=== PATIENT | male | born 1945 | race Caucasian/White ===

== ENCOUNTER 2018-06-19 12:05 | Emergency (ER) | payer MEDICARE ==
[2018-06-19 12:29] LABS: Absolute Lymphocytes (CBC) 0.6 K/uL (0.7-4.9); Absolute Monocytes 0.3 K/uL (0.1-1.3); Absolute Neutrophil 6.6 K/uL (1.8-8.0); Basophils % 0.3 % (0-1.3); Eosinophils % 2.3 % (0-4.4); Hematocrit 44.6 % (39.6-49.0); Lymphocytes % 8.1 % (15.3-44.8); MCH 31.5 pg (27.0-35.0); MPV 8.6 fL (7.6-11.3); Monocytes % 4.5 % (3.3-12.3); RBC Red Blood Cell Count 4.89 M/uL (4.33-5.43)
--- NOTE | 2018-06-19 12:32 | RAD REPORT ---
EXAM DESCRIPTION: CT - Ct Stroke Brain Wo Cont - 06/19/2018 12:24 pm CLINICAL HISTORY: HEMIPLEGIA CVA COMPARISON: C Spine Wo Con dated 06/19/2018 TECHNIQUE: All CT scans are performed using dose optimization technique as appropriate and may inclu de automated exposure control or mA/KV adjustment according to patient size. FINDINGS: No intracranial hemorrhage, hydrocephalus or extra-axial fluid collection.Generalized brai n atrophy is present.No areas of brain edema or evidence of midline shift. The paranasal sinuses and mastoids are clear. The calvarium is intact. IMPRESSION: No acute intracranial abnormality. The findings were discussed with CHERIE Hernandez on 06/19/2018 at 12:27 p.m. by telephone.
[2018-06-19 12:33] LABS: Protime INR 1.03
--- NOTE | 2018-06-19 12:39 | RAD REPORT ---
EXAM DESCRIPTION: CT - C Spine Wo Con - 06/19/2018 12:25 pm CLINICAL HISTORY: FALL Trauma, neck injury. COMPARISON: No comparisons FINDINGS: The cervical vertebral body heights are maintained. Moderate spondylosis is the lower cerv ical spine is present. No evidence of acute cervical spine fracture or subluxation. Prevertebral soft tissues are normal in thickness. IMPRESSION: Negative for acute cervical spine abnormality. All CT scans are performed using dose optimization technique as appropriate and may include automated exposure control or mA/KV adjustment according to patient size.
[2018-06-19 12:42] LABS: Potassium 4.1 mmol/L (3.5-5.1)
--- NOTE | 2018-06-19 12:43 | RAD REPORT ---
EXAM DESCRIPTION: RAD - Chest Single View - 06/19/2018 12:37 pm CLINICAL HISTORY: TRAUMA Chest pain. COMPARISON: CHEST PA AND LAT 2 VIEW dated 05/11/2013 FINDINGS: Portable technique limits examination quality. The lungs are grossly clear. The heart is normal in size. No displaced fractures. IMPRESSION: No acute intrathoracic process suspected.
--- NOTE | 2018-06-19 12:50 | EKG ---
Test Date: 2018-06-19 Test Time: 12:28:21 Retail Equipment Associate: UDAY MEASUREMENT RESULTS: Intervals: Rate: 64 VT: 162 QRSD: 96 QT: 398 QTc: 410 [place]: P: 60 VT: 162 QRS: -35 T: 69 INTERPRETIVE STATEMENTS: Normal sinus rhythm Left axis deviation Abnormal ECG No previous ECG available for comparison Electronically Signed On 06-19-18 12:50:35 CDT by Freeman Shaffer
[2018-06-19] MEDS ORDERED: ALTEPLASE 100 ML IV ONE (12:53)
[2018-06-19] MEDS ORDERED: NA CHLORIDE 0.9% 1,000 ML ONE (13:00)
[2018-06-19] MEDS ORDERED: FOLIC ACID 5 MG/ML VIAL ONE (13:00)
--- NOTE | 2018-06-19 13:16 | RAD REPORT ---
EXAM DESCRIPTION: CT - Chest Abdomen Pelvis W Cont - 06/19/2018 1:01 pm CLINICAL HISTORY: Fall, chest, abdomen and pelvic injury and pain, patient pending tPA for acute CVA COMPARISON: None. TECHNIQUE: Following dynamic enhancement using 100 milliliters nonionic IV contrast, axial imaging o f the chest, abdomen and pelvis was performed. Biphasic technique was utilized through the abdomen. No oral contrast. Venous phase was delayed due to equipment malfunction. All CT scans are performed using dose optimization technique as appropriate and may include automated exposure control or mA/KV adjustment according to patient size. FINDINGS: In the anterior upper right lung field (image 23/105) a 14 millimeter noncalcified pulmona ry nodule is present. This demonstrates a -28 HU attenuation value. No pulmonary contusion, infiltrat e or acute lung parenchymal process. No pneumothorax or pleural fluid collection. No significant aort ic or pulmonary arterial tree finding. Mediastinal and hilar regions show no mass or abnormal lymphad enopathy. No chest wall mass or axillary lymphadenopathy. No posttraumatic injury to the liver, spleen or kidneys. Renal function is prompt and symmetric. No p ancreatic or peripancreatic abnormality. Gallbladder and biliary tree show no acute findings. Gallsto jax can be occult on CT imaging. No adrenal abnormalities. No traumatic injury to the bowel. No urinary bladder abnormality. No free fluid, stranding or acute p eritoneal or retroperitoneal process. Prominent disc and bony degenerative change present. No acute compression fracture suspected. No path ologic bone process. Vascular calcifications are present. IMPRESSION: No CT chest, abdomen or pelvis finding seen that would preclude tPA administration. Small incidental hamartoma right upper lobe on CT chest exam.Additional nonacute findings detailed in the body of the report.
--- NOTE | 2018-06-19 13:27 | ER ---
Nurse's Notes [facility] Name: Darwin Hand Age: 72 yrs Sex: Male : 1945 Arrival Date: 06/19/2018 Time: 12:08 Bed 3 Private MD: Diagnosis: Cerebral infarction Presentation: 06/19 12:05 Presenting complaint: EMS states: at 11 am pt tripped on concrete ledge while walking iw into house, hit left side of head against concrete wall, no LOC, pt then fell to his knees, laid there for a bit until EMS and son got there, pt then started to c/o right neck pain and weakness to right arm, no hx of weakness to right arm, abrasions noted to left side of head, left elbow, left knee, also has laceration to right thumb. Care prior to arrival: Cervical collar in place. IV initiated. 18 GA, in the right antecubital area, Glucose check: 144. Mechanism of Injury: Fall from standing position. Trauma event details: Injury occurred in the [facility], Injury occurred: at home. Injury occurred: June 19, 2018 Injury occurred at: 11:00. 12:05 Acuity: MARIA GUADALUPE 2 iw 12:05 Method Of Arrival: EMS: [facility] iw 12:09 Transition of care: patient was not received from another setting of care. The patients iw blood glucose was checked before arriving to the hospital and was found to be normal. Onset of symptoms was June 19, 2018 at 11:00. Risk Assessment: Do you want to hurt yourself or someone else? Patient reports no desire to harm self or others. Initial Sepsis Screen: Does the patient meet any 2 criteria? No. Patient's initial sepsis screen is negative. Does the patient have a suspected source of infection? No. Patient's initial sepsis screen is negative. Triage Assessment: 19:54 The onset of the patients symptoms was June 19, 2018 at 11:45. ph Trauma Activation: Alert Physician: ED Physician; Name: ; Notified At: ; Arrived At: Physician: General Surgeon; Name: ; Notified At: ; Arrived At: Physician: Radiology; Name: ; Notified At: ; Arrived At: Physician: Respiratory; Name: ; Notified At: ; Arrived At: Physician: Lab; Name: ; Notified At: ; Arrived At: Stroke Activation: Symptom onset < 3 hours Physician: Stroke Attending; Name: ; Notified At: ; Arrived At: Physician: Chief Stroke Resident; Name: ; Notified At: ; Arrived At: Physician: Stroke Resident; Name: ; Notified At: ; Arrived At: Physician: ED Attending; Name: ; Notified At: ; Arrived At: Physician: ED Resident; Name: ; Notified At: ; Arrived At: Historical: - Allergies: 12:25 Sulfa (Sulfonamide Antibiotics); iw - Home Meds: 12:25 Lantus 100 unit/mL Sub-Q soln [Active]; benazepril oral oral [Active]; Metformin Oral iw [Active]; rivastigmine tartrate oral oral [Active]; - PMHx: 12:25 Hypertension; Dementia; Diabetes - IDDM; iw - Immunization history:: Adult Immunizations unknown. - Social history:: Smoking status: Patient/guardian denies using tobacco. - Immunization history: Last tetanus immunization: unknown. - Ebola Screening: : Patient negative for fever greater than or equal to 101.5 degrees Fahrenheit, and additional compatible Ebola Virus Disease symptoms Patient denies exposure to infectious person Patient denies travel to an Ebola-affected area in the 21 days before illness onset No symptoms or risks identified at this time. Screenin:22 Abuse screen: Denies threats or abuse. Denies injuries from another. Nutritional ph screening: No deficits noted. Tuberculosis screening: No symptoms or risk factors identified. Fall Risk Fall in past 12 months (25 points). Secondary diagnosis (15 points) dementia, IV access (20 points). Ambulatory Aid- None/Bed Rest/Nurse Assist (0 pts). Gait- Normal/Bed Rest/Wheelchair (0 pts) Mental Status- Oriented to own ability (0 pts). Total Lanier Fall Scale indicates High Risk Score (45 or more points). Fall prevention measures have been instituted. Side Rails Up X 2 Placed Close to Nursing Station Frequent Obs/Assessments Occuring As available patient and family educated on Fall Prevention Program and Strategies. Primary Survey: 12:05 A: Airway: patent. Breathing/Chest: Respiratory pattern: regular, Respiratory effort: iw spontaneous, unlabored, Breath sounds: clear, bilaterally. Chest inspection: symmetrical rise and fall of the chest. Circulation: Cardiac rhythm: sinus rhythm Heart tones present. Pulses: palpable right radial artery, right femoral artery, left radial artery and left femoral artery. Skin color: pink, Skin temperature: warm, dry. Disability Alert. 12:11 Reassessment Airway Airway Patent Breathing/Chest Respiratory pattern Regular iw Respiratory effort Spontaneous Unlabored Breath sounds Clear Circulation Heart tones Present Pulses Palpable Color [place] Disability Alert. Assessment: 12:05 General: Appears in no apparent distress. Behavior is calm, cooperative. Pain: Denies iw pain. Neuro: Level of Consciousness is awake, alert, obeys commands, Oriented to person, place, time, Weakness in right arm(s) Speech is normal. Respiratory: Respiratory effort is even, unlabored, Respiratory pattern is regular, symmetrical. Injury Description: Abrasion sustained to left elbow. Injury Description: Abrasion sustained to left knee. Injury Description: Abrasion sustained to left catholic. 12:11 Reassessment: Paul at bedside to assess pt. iw 12:15 Reassessment: pt transported to Ct via stretcher, with DIXON DUONG, with network technical analyst. iw 12:26 Reassessment: Patient appears in no apparent distress at this time. Pt returned from CT, radiology at bedside for CXR. 12:38 Reassessment: family at bedside, CHERIE Miller, at bedside to re-evaluate pt. iw 12:50 T-PA (Activase) Screening: Indications: Definite evidence of stroke, ischemic, embolic, iw or hypertensive: Yes. Treatment will start within 4.5 hours onset of symptoms: Yes. No evidence of intracranial hemorrhage or CT of head and no evidence of peripheral hemorrhage or recent CVA: Yes. 12:52 Reassessment: Patient is alert, oriented x 3, equal unlabored respirations, skin ph warm/dry/pink. Dr Carlson at bedside to assess pt, pt to receive TPA after negative trauma-gram. 13:20 Patient has been NPO before screening. The patient is alert, and able to follow commands. The patient does not exhibit slurred or garbled speech. The patient is not exhibiting difficulty speaking. The patient does not exhibit difficulty understanding words. The patient is able to swallow own secretions with no drooling or need for suction. Patient tolerated one teaspoon of water. No drooling, immediate coughing, gurgling, or clearing of the throat was noted. The patient tolerated 90mL of water. No drooling, immediate coughing, gurgling, or clearing of the throat was noted. The patient passed the bedside swallow screening. Oral medications may be given as ordered. Contact Physician for further diet orders. 13:20 Provider notified of bedside swallow screening results: Paul CRESPO. ph 14:00 Reassessment: Patient appears in no apparent distress at this time. No changes from ph previously documented assessment. Patient is alert, oriented x 3, equal unlabored respirations, skin warm/dry/pink. [employer] at bedside, preparing pt for transport. Vital Signs: 12:11 BP 183 / 59; Pulse 64; Resp 16; Temp 97.6; Pulse Ox 96% on R/A; Pain 0/10; iw 12:48 Weight 88.45 kg; iw 13:15 BP 163 / 94; Pulse 72; Resp 18; Pulse Ox 98% on R/A; ph 13:55 BP 167 / 78; Pulse 74; Resp 16; Temp 97.9; Pulse Ox 99% on R/A; ph Patterson Coma Score: 12:11 Eye Response: spontaneous(4). Verbal Response: oriented(5). Motor Response: obeys iw commands(6). Total: 15. 13:15 Eye Response: spontaneous(4). Verbal Response: oriented(5). Motor Response: obeys ph commands(6). Total: 15. 13:55 Eye Response: spontaneous(4). Verbal Response: oriented(5). Motor Response: obeys ph commands(6). Total: 15. Trauma Score (Adult): 12:11 Eye Response: spontaneous(1); Verbal Response: oriented(1); Motor Response: obeys iw commands(2); Systolic BP: > 89 mm Hg(4); Respiratory Rate: 10 to 29 per min(4); Patterson Score: 15; Trauma Score: 12 13:15 Eye Response: spontaneous(1); Verbal Response: oriented(1); Motor Response: obeys ph commands(2); Systolic BP: > 89 mm Hg(4); Respiratory Rate: 10 to 29 per min(4); Patterson Score: 15; Trauma Score: 12 13:55 Eye Response: spontaneous(1); Verbal Response: oriented(1); Motor Response: obeys ph commands(2); Systolic BP: > 89 mm Hg(4); Respiratory Rate: 10 to 29 per min(4); Abhijit Score: 15; Trauma Score: 12 NIH Stroke Scale Scores: 13:02 NIHSS Score: 8 mary 19:54 NIHSS Score: 3 ph ED Course: 12:08 Patient arrived in ED. em 12:10 Paul Vargas PA is PHCP. jmm 12:10 Noah Carlson MD is Attending Physician. jmm 12:22 Delisa Montgomery RN is Primary Nurse. ph 12:22 Maintain EMS IV. Dressing intact. Good blood return noted. Site clean \T\ dry. Gauge \T\ ph site: 18 RAC. 12:23 Triage completed. iw 12:23 Patient has correct armband on for positive identification. Placed in gown. Bed in low ph position. Call light in reach. Side rails up X2. sandwich board carrier on. Pulse ox on. NIBP on. Warm blanket given. 12:25 CT Stroke Brain w/o Contrast In Process Unspecified. EDMS 12:25 C Spine Wo Con In Process Unspecified. EDMS 12:25 TPA consent signed by son. ph 12:26 Arm band placed on. iw 12:31 EKG done, by airframe technical officer. reviewed by Paul CRESPO. at1 12:35 X-ray completed. Portable x-ray completed in exam room. Patient tolerated procedure jb2 well. 12:37 Stroke CXR 1 View In Process Unspecified. EDMS 12:37 Patient maintains SpO2 saturation greater than 95% on room air. Thermoregulation: warm ph blanket given to patient. 12:[address] via stretcher. sw 13:01 CT Chest, Abdomen, Pelvis - W/Contrast In Process Unspecified. EDMS 13:03 CT completed. Patient tolerated procedure well. Patient moved back from CT. wi 13:09 CT completed. Patient tolerated procedure well. Patient moved back from CT. sw 13:28 X-ray completed. Portable x-ray completed in exam room. Patient tolerated procedure jb2 well. 13:30 Inserted saline lock: 20 gauge in left antecubital area, using aseptic technique. ph 13:32 Humerus Right XRAY In Process Unspecified. EDMS 13:32 Forearm Right XRAY In Process Unspecified. EDMS 13:45 Assist provider with laceration repair on palmar aspect of distal phalanx of right ph thumb that was 2.5 cm. or less using Dermabond. Set up tray. Performed by Paul CRESPO Patient tolerated well. Patient transferred, IV remains in place. 13:50 Fuentes cath inserted, using sterile technique, 16 Fr., by wa, balloon inflated, to ph gravity drainage, returned clear yellow urine. Patient tolerated well. Administered Medications: 13:20 Drug: foLIC Acid 1 mg Route: IVPB; Site: right antecubital; ph 14:00 Follow up: Response: No adverse reaction; IV Status: Completed infusion ph 13:20 Drug: NS 0.9% 1000 ml Route: IV; Rate: 1 bolus; Site: right antecubital; ph 14:00 Follow up: Response: No adverse reaction; IV Status: Completed infusion ph 13:20 Drug: Alteplase (Bolus for Stroke) - Alteplase 0.09 mg/kg {Co-Signature: aj1 (Rossana Rolon RN).} Route: IVP; Infused Over: 1 mins; Site: right antecubital; 14:00 Follow up: Response: No adverse reaction ph Point of Care Testing: Blood Glucose: 12:11 Blood Glucose: 138 mg/dL; iw Ranges: Intake: 12:37 PO: 0ml; Total: 0ml. ph Output: 12:37 Urine: 0ml; Total: 0ml. ph Outcome: 13:26 ER care complete, transfer ordered by MD. miner 14:05 Patient left the ED. ph 14:05 Transferred by helicopter to [facility], Transfer form completed. ph X-rays sent w/ patient. 14:05 Condition: stable 14:05 Instructed on the need for transfer. 14:05 Patient's length of stay was not longer than 2 hours. ph NIH Stroke Scale - NIH Stroke Score Date: 06/19/2018 Time: 13:02 Total Score = 8 1a. Level of Consciousness (LOC) - 0(Alert) 1b. Level of Consciousness (LOC) (Year \T\ Age) - 0(Both) 1c. LOC Commands (Open \T\ Closes Eyes/Agile Java Developer) - 0(Both) 2. Best Gaze (Lateral Gaze Paresis) - 0(Normal) 3. Visual Field Loss - 0(No visual loss) 4. Facial Palsy - 0(Normal) 5a. Left Arm: Motor (10-second hold) - 0(No drift) 5b. Right Arm: Motor (10-second hold) - 3(No effort against gravity) 6a. Left Leg: Motor (5-second hold - always test supine) - 0(No drift) 6b. Right Leg: Motor (5-second hold - always test supine) - 2(Drift, some effort against gravity) 7. Limb Ataxia (finger/nose \T\ heel/christian - test with eyes open) - 2(Present in two limbs) 8. Sensory Loss (pinprick arms/legs/face) - 1(Mild to moderate loss) 9. Best Language: Aphasia (description/naming/reading) - 0(No aphasia) 10. Dysarthria (speech clarity - read or repeat words) - 0(Normal) 11. Extinction and Inattention (visual/tactile/auditory/spatial/personal) - 0(No abnormality) Initials: [facility] NIH Stroke Scale - NIH Stroke Score Date: 06/19/2018 Time: 19:54 Total Score = 3 1a. Level of Consciousness (LOC) - 0(Alert) 1b. Level of Consciousness (LOC) (Year \T\ Age) - 0(Both) 1c. LOC Commands (Open \T\ Closes Eyes/Agile Java Developer) - 0(Both) 2. Best Gaze (Lateral Gaze Paresis) - 0(Normal) 3. Visual Field Loss - 0(No visual loss) 4. Facial Palsy - 0(Normal) 5a. Left Arm: Motor (10-second hold) - 0(No drift) 5b. Right Arm: Motor (10-second hold) - 2(Drift, some effort against gravity) 6a. Left Leg: Motor (5-second hold - always test supine) - 0(No drift) 6b. Right Leg: Motor (5-second hold - always test supine) - 1(Drift) 7. Limb Ataxia (finger/nose \T\ heel/christian - test with eyes open) - 0(Absent) 8. Sensory Loss (pinprick arms/legs/face) - 0(Normal) 9. Best Language: Aphasia (description/naming/reading) - 0(No aphasia) 10. Dysarthria (speech clarity - read or repeat words) - 0(Normal) 11. Extinction and Inattention (visual/tactile/auditory/spatial/personal) - 0(No abnormality) Initials: ph Signatures: Dispatcher [employer] EDMS MicPaul macario PA PA jmm Buechter, Jesse jb2 Michael Montoya, LEAD NITRATE PROCESSOR LEAD NITRATE PROCESSOR em Alma Shearer, DIXON RN iw Renetta shelton, driver examiner EKG Tat1 Delisa Montgomery RN RN Patrick, Anna Parra, Timur Rolon RN aj1 Corrections: (The following items were deleted from the chart) 19:49 12:52 Reassessment: Patient is alert/active/playful, equal unlabored ph respirations, skin warm/dry/pink. Dr Carlson at bedside to assess pt, pt to receive TPA after negative trauma-gram ph 19:55 12:37 NIHSS Score: 2 ph ph
--- NOTE | 2018-06-19 13:27 | EDPHYS ---
Physician Documentation [facility] Name: Darwin Hand Age: 72 yrs Sex: Male : 1945 Arrival Date: 06/19/2018 Time: 12:08 Bed 3 Private MD: ED Physician Noah Carlson HPI: 06/19 12:10 This 72 yrs old Male presents to ER via EMS with complaints of Fall Injury. jmm 12:10 Details of fall: The patient fell from an upright position, while walking. Onset: The jmm symptoms/episode began/occurred acutely, at 11:00. Associated injuries: The patient sustained injury to the head, neck injury, right hand, left and right knee. The patient has not experienced similar symptoms in the past. This is a 72 year old male with a history of DM, Dementia, HTN, that presents to the ED after a fall. Which occurred at approx 11 am today. The patient states he tripped on a cement ledge falling into a cement wall. Patient denies LOC but states that he is unable to move his right arm. The patient denies pain. . Historical: - Allergies: 12:25 Sulfa (Sulfonamide Antibiotics); iw - Home Meds: 12:25 Lantus 100 unit/mL Sub-Q soln [Active]; benazepril oral oral [Active]; Metformin Oral iw [Active]; rivastigmine tartrate oral oral [Active]; - PMHx: 12:25 Hypertension; Dementia; Diabetes - IDDM; iw - Immunization history:: Adult Immunizations unknown. - Social history:: Smoking status: Patient/guardian denies using tobacco. - Immunization history: Last tetanus immunization: unknown. - Ebola Screening: : Patient negative for fever greater than or equal to 101.5 degrees Fahrenheit, and additional compatible Ebola Virus Disease symptoms Patient denies exposure to infectious person Patient denies travel to an Ebola-affected area in the 21 days before illness onset No symptoms or risks identified at this time. ROS: 12:30 Constitutional: Negative for fever, chills, and weight loss, Cardiovascular: Negative jmm for chest pain, palpitations, and edema, Respiratory: Negative for shortness of breath, cough, wheezing, and pleuritic chest pain. 12:30 MS/extremity: Positive for decreased range of motion. 12:30 Neuro: Positive for weakness. 12:30 All other systems are negative. Exam: 12:30 Respiratory: Normal respirations, no respiratory distress appreciated [facility] 12:30 Constitutional: The patient appears in no acute distress, alert, awake. 12:30 Head/face: abrasion noted to the left frontal scalp. 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 12:30 Cardiovascular: Rate: normal, Rhythm: regular, Pulses: no pulse deficits are appreciated. 12:30 Abdomen/GI: Inspection: abdomen appears normal, Bowel sounds: normal, Palpation: abdomen is soft and non-tender, in all quadrants. 12:30 Musculoskeletal/extremity: unable to extend elbow, no bony tenderness appreciated, 1 cm laceration noted to the right thumb. 12:30 Skin: abrasion noted to the scalp, right and left knee. 12:30 Neuro: Orientation: is normal, Mentation: is normal, Memory: is normal, Cerebellar function: heel to christian testing is normal, Motor: Strength is 2/5 in the right leg, Strength is 1/5 in the right arm. 12:30 Psych: Behavior/mood is pleasant, cooperative. Vital Signs: 12:11 BP 183 / 59; Pulse 64; Resp 16; Temp 97.6; Pulse Ox 96% on R/A; Pain 0/10; iw 12:48 Weight 88.45 kg; iw 13:15 BP 163 / 94; Pulse 72; Resp 18; Pulse Ox 98% on R/A; ph 13:55 BP 167 / 78; Pulse 74; Resp 16; Temp 97.9; Pulse Ox 99% on R/A; ph NIH Stroke Scale Scores: 13:02 NIHSS Score: 8 mary 19:54 NIHSS Score: 3 ph [place] Coma Score: 12:11 Eye Response: spontaneous(4). Verbal Response: oriented(5). Motor Response: obeys iw commands(6). Total: 15. 13:15 Eye Response: spontaneous(4). Verbal Response: oriented(5). Motor Response: obeys ph commands(6). Total: 15. 13:55 Eye Response: spontaneous(4). Verbal Response: oriented(5). Motor Response: obeys ph commands(6). Total: 15. Trauma Score (Adult): 12:11 Eye Response: spontaneous(1); Verbal Response: oriented(1); Motor Response: obeys iw commands(2); Systolic BP: > 89 mm Hg(4); Respiratory Rate: 10 to 29 per min(4); [place] Score: 15; Trauma Score: 12 13:15 Eye Response: spontaneous(1); Verbal Response: oriented(1); Motor Response: obeys ph commands(2); Systolic BP: > 89 mm Hg(4); Respiratory Rate: 10 to 29 per min(4); [place] Score: 15; Trauma Score: 12 13:55 Eye Response: spontaneous(1); Verbal Response: oriented(1); Motor Response: obeys ph commands(2); Systolic BP: > 89 mm Hg(4); Respiratory Rate: 10 to 29 per min(4); Abhijit Score: 15; Trauma Score: 12 MDM: 12:10 Patient medically screened. [facility] 13:11 Data reviewed: vital signs, nurses notes. ED course: Dr. Carlson discussed the patient [facility] with Dr. Quezada whom advised to administer TPA. 14:18 ED course: CT brain negative, patient is administered TPA in the ED due to continued [facility] motor deficit mainly to the right arm but also to the right leg. Patient had no contraindications for administration. Patient is alert and non toxic in appearance on Transfer. . 06/19 12:11 Order name: Basic Metabolic Panel; Complete Time: 12:43 [facility] 06/19 12:11 Order name: CBC with Diff; Complete Time: 12:43 [facility] 06/19 12:11 Order name: Protime (+inr); Complete Time: 12:43 [facility] 06/19 12:11 Order name: Ptt, Activated; Complete Time: 12:43 [facility] 06/19 13:36 Order name: Urine Dipstick--Ancillary (enter results) 06/19 12:11 Order name: CT Stroke Brain w/o Contrast; Complete Time: 12:43 [facility] 06/19 12:11 Order name: Stroke CXR 1 View; Complete Time: 13:03 [facility] 06/19 12:19 Order name: C Spine Wo Con; Complete Time: 12:43 [facility] 06/19 12:40 Order name: CT Chest, Abdomen, Pelvis - W/Contrast; Complete Time: 13:47 [facility] 06/19 12:43 Order name: Humerus Right XRAY; Complete Time: 13:47 [facility] 06/19 12:43 Order name: Forearm Right XRAY; Complete Time: 13:47 06/19 12:11 Order name: EKG; Complete Time: 12:12 06/19 12:11 Order name: Accucheck; Complete Time: 12:27 06/19 12:11 Order name: Cardiac monitoring; Complete Time: 12:27 06/19 12:11 Order name: EKG - Nurse/Tech; Complete Time: 12:06/19 12:12 Order name: IV Saline Lock; Complete Time: 12:06/19 12:12 Order name: Labs collected and sent; Complete Time: 12:28 06/19 12:12 Order name: NPO; Complete Time: 12:06/19 12:12 Order name: O2 Per Protocol; Complete Time: 12:06/19 12:12 Order name: O2 Sat Monitoring; Complete Time: 12:27 06/19 12:12 Order name: Stroke Swallow Screen; Complete Time: 14:05 06/19 12:12 Order name: Urine Dipstick-Ancillary (obtain specimen); Complete Time: 14:05 06/19 12:54 Order name: Wound Care; Complete Time: 13:54 mary Administered Medications: 13:20 Drug: foLIC Acid 1 mg Route: IVPB; Site: right antecubital; ph 14:00 Follow up: Response: No adverse reaction; IV Status: Completed infusion ph 13:20 Drug: NS 0.9% 1000 ml Route: IV; Rate: 1 bolus; Site: right antecubital; ph 14:00 Follow up: Response: No adverse reaction; IV Status: Completed infusion ph 13:20 Drug: Alteplase (Bolus for Stroke) - Alteplase 0.09 mg/kg {Co-Signature: aj1 (Rossana Rolon RN).} Route: IVP; Infused Over: 1 mins; Site: right antecubital; 14:00 Follow up: Response: No adverse reaction ph Point of Care Testing: Blood Glucose: 12:11 Blood Glucose: 138 mg/dL; iw Ranges: Critical Glucose Levels:Adult <50 mg/dl or >400 mg/dl <40 mg/dl or >180 mg/dl Disposition: 06/19/18 13:26 Transfer ordered to [facility]. Diagnosis is Cerebral infarction. - Reason for transfer: Higher level of care. - Accepting physician is Damien. - Condition is Stable. - Problem is new. - Symptoms are unchanged. NIH Stroke Scale - NIH Stroke Score Date: 06/19/2018 Time: 13:02 Total Score = 8 1a. Level of Consciousness (LOC) - 0(Alert) 1b. Level of Consciousness (LOC) (Year \T\ Age) - 0(Both) 1c. LOC Commands (Open \T\ Closes Eyes/Back Tender Insulation Board) - 0(Both) 2. Best Gaze (Lateral Gaze Paresis) - 0(Normal) 3. Visual Field Loss - 0(No visual loss) 4. Facial Palsy - 0(Normal) 5a. Left Arm: Motor (10-second hold) - 0(No drift) 5b. Right Arm: Motor (10-second hold) - 3(No effort against gravity) 6a. Left Leg: Motor (5-second hold - always test supine) - 0(No drift) 6b. Right Leg: Motor (5-second hold - always test supine) - 2(Drift, some effort against gravity) 7. Limb Ataxia (finger/nose \T\ heel/christian - test with eyes open) - 2(Present in two limbs) 8. Sensory Loss (pinprick arms/legs/face) - 1(Mild to moderate loss) 9. Best Language: Aphasia (description/naming/reading) - 0(No aphasia) 10. Dysarthria (speech clarity - read or repeat words) - 0(Normal) 11. Extinction and Inattention (visual/tactile/auditory/spatial/personal) - 0(No abnormality) Initials: [facility] NIH Stroke Scale - NIH Stroke Score Date: 06/19/2018 Time: 19:54 Total Score = 3 1a. Level of Consciousness (LOC) - 0(Alert) 1b. Level of Consciousness (LOC) (Year \T\ Age) - 0(Both) 1c. LOC Commands (Open \T\ Closes Eyes/Back Tender Insulation Board) - 0(Both) 2. Best Gaze (Lateral Gaze Paresis) - 0(Normal) 3. Visual Field Loss - 0(No visual loss) 4. Facial Palsy - 0(Normal) 5a. Left Arm: Motor (10-second hold) - 0(No drift) 5b. Right Arm: Motor (10-second hold) - 2(Drift, some effort against gravity) 6a. Left Leg: Motor (5-second hold - always test supine) - 0(No drift) 6b. Right Leg: Motor (5-second hold - always test supine) - 1(Drift) 7. Limb Ataxia (finger/nose \T\ heel/christian - test with eyes open) - 0(Absent) 8. Sensory Loss (pinprick arms/legs/face) - 0(Normal) 9. Best Language: Aphasia (description/naming/reading) - 0(No aphasia) 10. Dysarthria (speech clarity - read or repeat words) - 0(Normal) 11. Extinction and Inattention (visual/tactile/auditory/spatial/personal) - 0(No abnormality) Initials: ph Addendum: 06/22/2018 10:07 Co-signature as Attending Physician, Noah Carlson MD I agree with the [facility] assessment and plan of care. Signatures: Dispatcher [employer] Noah Rowland MD MD cha Mickail, Joel, PA PA jmm Williams, Irene, DIXON METCALF Delisa Montgomery RN RN Rossana Rolon RN aj1 Corrections: (The following items were deleted from the chart) 06/19 14:05 13:26 06/19/2018 13:26 Transfer ordered to [facility]. Diagnosis is Cerebral infarction. Reason for transfer: Higher level of care. Accepting physician is Damien. Condition is Stable. Problem is new. Symptoms are unchanged. [facility]
[2018-06-19] MEDS ORDERED: LIDOCAINE 1% MPF 5 ML VIAL ONE (13:41)
[2018-06-19] MEDS ORDERED: DERMABOND SKIN ADHESIVE TOP ONE (13:42)
--- NOTE | 2018-06-19 13:43 | RAD REPORT ---
EXAM DESCRIPTION: RAD - Forearm Right - 06/19/2018 1:32 pm CLINICAL HISTORY: PAIN Trauma COMPARISON: Humerus Right dated 06/19/2018 FINDINGS: Arthritic changes are present at the wrist and elbow. No acute fracture or dislocation see n.
--- NOTE | 2018-06-19 13:44 | RAD REPORT ---
EXAM DESCRIPTION: RAD - Humerus Right - 06/19/2018 1:32 pm CLINICAL HISTORY: PAIN Trauma COMPARISON: No comparisons FINDINGS: Degenerative changes are present in the right shoulder. No acute fracture or dislocation s een.
[2018-06-19 14:12] VITALS: BP 183/59; TEMP 97.6; O2SAT 96
[2018-06-19 15:49] LABS: Urine Blood TRACE (NEG); Urine Glucose NEGATIVE (NEG); Urine Protein TRACE (NEG); Urine Specific Gravity 1.015 (1.005-1.030)
== END 2018-06-19 14:05 | disposition short-term general hospital (02) ==
LOC: ER 12:05
DX: I63.9 Cerebral infarction, unspecified (principal); Z88.2 Allergy status to sulfonamides; I10 Essential (primary) hypertension; E11.9 Type 2 diabetes mellitus without complications; Z79.4 Long term (current) use of insulin; F03.90 Unspecified dementia, unspecified severity, without behavioral disturbance, psychotic disturbance, mood disturbance, and anxiety; S61.011A Laceration without foreign body of right thumb without damage to nail, initial encounter; W01.198A Fall on same level from slipping, tripping and stumbling with subsequent striking against other object, initial encounter; Y93.01 Activity, walking, marching and hiking; Y92.018 Other place in single-family (private) house as the place of occurrence of the external cause; S00.01XA Abrasion of scalp, initial encounter; S80.212A Abrasion, left knee, initial encounter; S80.211A Abrasion, right knee, initial encounter; S50.312A Abrasion of left elbow, initial encounter
CPT/HCPCS: 36415; 51702; 70450; 71045; 71260; 72125; 73060; 73090; 74177; 80048; 81003; 82962; 85025; 85610; 85730; 92977; 93005; 96365; 96374; 96375; 99285; J2997; J7030; Q9967; 96361

== ENCOUNTER 2018-06-25 10:22 | Inpatient (IN) | payer MEDICARE ==
--- NOTE | 2018-06-26 12:11 | R.PREADM ---
SCREENING DATE AND TIME 06/26/2018 09:11 (CDT) ANTICIPATED REHAB ADMISSION DATE 06/28/2018 REFERRING FACILITY [facility] REFERRAL DATE AND TIME 06/26/2018 09:11 (CDT) ACUTE ADMIT DATE 06/19/2018 Previous Rehabilitation(s): No. REFERRING PHYSICIAN Trevor Quezada REHAB FACILITY [facility] CLINICAL LIAISON Aaliyah Domingo PHYSICIAN REVIEWER Dr. Rodrigo Alaniz M.D. [id number] [id number] NAME FRANCINE HAND ADDRESS POST OFFICE [address] [place] [address] [address] [place] [address] DATE OF 1945 AGE 72 SSN# [id number] GENDER male MARITAL STATUS RACE white ADMIT FROM 02 - [facility] PRE-HOSPITAL LIVING SETTING 01 - Home (private home/apt. board/care, assisted living, fpc, transitional living) HOME TYPE AND DETAILS Type of home: single family house # of steps to enter the residence: 0 # of steps within the residence: 0 # of levels in the residence: 1 PRE-HOSPITAL LIVING WITH Family/Relatives FAMILY SUPPORT Yes PRIMARY FAMILY CONTACT NAME Nirmal Hand PRIMARY FAMILY CONTACT PHONE PHONE PRIMARY FAMILY CONTACT ON ADM.? no IS PRIMARY FAMILY CONTACT AUTH. REP.? no 1ST EMERGENCY CONTACT Nirmal Hand 1ST CONTACT PHONE PHONE 1ST CONTACT ON ADM. no IS 1ST CONTACT AUTH. REP.? no PHONE 2ND CONTACT ON ADM.? no PATIENT EMPLOYMENT STATUS Retired (for age) PATIENT EMPLOYER No Employer PAYOR INFORMATION: 1ST PAYOR NAME [employer] 1ST PAYOR PHONE 1ST PAYOR INJURY/ILLNESS DUE TO ACCIDENT? No ANOTHER CONSTITUTION PARTY RESPONSIBLE? No PRIMARY REHAB/ACUTE DIAGNOSIS: acute CVA ONSET DATE 06/19/2018 REHAB IMPAIRMENT CATEGORY (ANJELICA): 01 Stroke (STR) MEETS 60% rule AFFECTED EXTREMITIES: RLE, and RUE PRIMARY DIAGNOSIS-RELATED SURGERIES: No surgeries related to the primary diagnosis were performed. 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 is a 72 yo Right-handed white male. On 06/19/2018 Pt. presented to [facility] with sudden onset of right-side weakness. On 06/19/2018 he was admitted to [facility] with diagnosis acute CVA . His impairment category is Stroke 01 - Right Body (Left Brain) (01.2). Pre-morbidly, Pt. was independent/mod-I in Transfers Control, Communication, Social Cognition, Self-C are, Sphincter Control, and Locomotion; and he had good Sphincter Control. Currently, he has deficits of Transfers Control, Balance, Self-Care, Endurance, Safety Awareness, and Locomotion. Pt. is now referred to [facility] for acute in-patient rehabilitation in order to maximize patient's functional independence in activities of daily living, strength, ROM, and mobi lity. Patient has realistic goal of being discharged at assistance level 6-Melody to reside at Home with Fam chante/Relatives. PAST MEDICAL HISTORY Type 2 diabetes mellitus with diabetic neuropathy, unspecified (E11.40) htn MEDICATION ALLERGIES: No Known Drug Allergies (NKDA) ENVIRONMENTAL ALLERGIES: - Substance Allergies None Known - Other Allergies None Known CODE STATUS: Full code WEIGHT/HEIGHT/BMI: WEIGHT 195 lbs HEIGHT 5' 8" BMI 29.6 DIET: - Diet Type Regular - Diet - Solid Texture Regular - Diet - Liquid Texture Regular - Tube Feed N/A REVIEW OF SYSTEMS: - Gen Alert and awake Lying in bed No apparent distress Oriented to: person, time, and place - CVS RRR VITAL SIGNS Temperature: 98.5 F SBP/DBP: 165/68 Pulse: 69 Resp: 27 CURRENT SPHINCTER CONTROL: Pre-hospital bladder status: continent # of bladder accidents in the last 7 days prior to screenin Pre-hospital bowel status: continent # of bowel accidents in the last 7 days prior to screenin Last Bowel Movement Date: 06/26/2018 DETAILED CURRENT FUNCTIONAL STATUS: - Bladder accident frequency: Ind - No accidents in the past 7 days - Bowel accident frequency: Ind - No accidents in the past 7 days - Walking score based on distance walked: 0(N/A) - Wheelchair score based on distance traveled: 0(N/A) FUNCTIONAL STATUS: - Self-Care A. Eating Ind sup B. Grooming Ind Marie C. Bathing Ind Ind D. Dressing - Upper Ind Marie E. Dressing - Lower Ind Dep F. Toileting Ind sup - Sphincter Control G: Bladder control Ind Ind H: Bowel control Ind Ind - Transfers Control I. Bed/Chair/Wheelchair Ind Marie J. Toilet Ind Marie K. Tub/Shower Ind Marie - Locomotion L. Walk/Wheelchair (B) Ind Marie M. Stairs Ind ADNO - Communication N. Comprehension (B) Ind Melody O. Expression (B) Ind Melody - Social Cognition P. Social Interaction Ind Melody Q. Problem Solving Ind Melody R. Memory Ind Melody - Endurance Poor - Balance Poor - Safety Awareness Fair CURRENT FUNC. DEFICITS: Transfers Control, Balance, Self-Care, Endurance, Safety Awareness, and Locomotion THERAPY NOTES FROM ACUTE CARE: Attached. SPECIAL NEEDS: - Safety Concerns Skin breakdown precautions needed due to skin breakdown risk PRECAUTIONS: - Weight Bearing Precaution WBAT right LE PATIENT NEEDS ACTIVE AND ONGOING THERAPEUTIC INTERVENTION OF MULTIPLE THERAPY DISCIPLINES, INCLUDING: - Occupational Therapy Evaluate and Treat. Cognitive Retraining. Visual Perceptual Training. - Speech Therapy Memory Strategies. Expressive Language Skills. Speech Intelligibility Training. Cognitive Training. R eceptive Language Skills. - Physical Therapy Evaluate and Treat. PATIENT NEEDS CLOSE MEDICAL SUPERVISION BY A REHABILITATION PHYSICIAN FOR: Bowel and Bladder Management Coordination of Treatment Team Diabetes Management Medical and Co-Morbidity Management PATIENT REQUIRES 24X7 REHAB NURSING FOR MEDICAL AND FUNCTIONAL MGT. OF THE FOLLOWING DEFICITS: ADL's Ambulation Bowel and Bladder Management Cognition Communication Disease Management Medication Management Patient/Family Education Providing Safe Environment Transfers PATIENT REQUIRES INTENSIVE, COORDINATED INTERDISCIPLINARY APPROACH TO REHAB: Arranging Home Equipment/Services Discharge Planning Family Intervention/Training Body Recall Instructor/Case Management PATIENT REHAB POTENTIAL: Expected level of measurable improvement will be of a practical value to patient's functional capacit y or adaptations to impairments Has a viable Discharge Plan Medically appropriate; condition is sufficiently stable to participate in intensive rehab program Patient is able and expected to receive 3 hours of individualized therapy daily on at least 5 of ever y 7 days Patient's prognosis for significant practical improvement within a reasonable period of time appears Good DISCHARGE PLAN: - Estimated Length of Stay (days) 17. - Consensus on plan Discharge plan has been discussed with primary caregiver. Patient/Family is in agreement with the rebecca n. Primary caregiver is in agreement with the plan. - Patient/Family Goals Return home with assistance. - Planned Living Setting Upon Discharge Home, to live with Family/Relatives. RECOMMENDED CARE LEVEL: IRF RECOMMENDATION DETAILS: Recommended Admission to Comprehensive Rehabilitation Program to Increase Functional [place] SCREENER'S COMPLETENESS CONFIRMATION: - Screening Confirmation The patient data collection on this preadmission screening form is finished PHYSICIANS REVIEW AND ADMISSION DETERMINATION Admit - Based on my review of the Pre-Admission Screening results, in my medical judgment and experie nce, I concur with the findings and recommend admission to [facility], as this patient requires an IRF level of care. SIGNATURE PANEL: Clinical Liaison - [electronically] signed by Julieth Lobo on 06/26/2018 at 09:49 (CDT) Clinical Liaison - [electronically] signed by Aaliyah Domingo on 06/26/2018 at 12:07 (CDT) Physician Reviewer - [electronically] signed by Dr. Rodrigo Alaniz M.D. on 06/26/2018 at 12:10 (CDT )
--- OUTSIDE RECORDS SUMMARY | 2018-06-26 14:06 | XMS REPORT ---
:1945 [facility] Address [address] [place] [address] Care Team Providers Name Role Phone KRISTOFER STORM Unavailable Unavailable Problems This patient has no known problems. Allergies, Adverse Reactions, Alerts This patient has no known allergies or adverse reactions. Medications This patient has no known medications. Results Test Description Test Time Test Comments Text Results Atomic Results Result Comments POCT-GLUCOSE METER 2018-06-26 12:16:00 Test Item Value Reference Range Comments POC-GLUCOSE METER (BEAKER) (test 202 mg/dL 70-110 TESTED AT [address] dqrj=5550) [place] [address] POCT-GLUCOSE [id number] 07:54:00 Test Item Value Reference Range Comments POC-GLUCOSE METER (BEAKER) 124 mg/dL 70-110 TESTED AT [address] (test icdl=4676) [place] [address] CBC W/PLT COUNT & AUTO [id number] 05:52:00 Test Item Value Reference Range Comments WHITE BLOOD CELL COUNT (BEAKER) (test zlyf=840) 7.0 K/ L 3.5-10.5 RED BLOOD CELL COUNT (BEAKER) (test yepw=508) 4.22 M/ L 4.63-6.08 HEMOGLOBIN (BEAKER) (test ccig=346) 13.2 GM/DL 13.7-17.5 HEMATOCRIT (BEAKER) (test otwn=141) 40.4 % 40.1-51.0 MEAN CORPUSCULAR VOLUME (BEAKER) (test cgqe=641) 95.7 fL 79.0-92.2 MEAN CORPUSCULAR HEMOGLOBIN (BEAKER) (test 31.3 pg 25.7-32.2 qiqn=405) MEAN CORPUSCULAR HEMOGLOBIN CONC (BEAKER) (test 32.7 GM/DL 32.3-36.5 akdv=622) RED CELL DISTRIBUTION WIDTH (BEAKER) (test 13.3 % 11.6-14.4 fhlw=671) PLATELET COUNT (BEAKER) (test xkyj=398) 201 K/CU MM 150-450 MEAN PLATELET VOLUME (BEAKER) (test nuhz=009) 9.9 fL 9.4-12.4 NUCLEATED RED BLOOD CELLS (BEAKER) (test 0 /100 WBC 0-0 lhqe=301) NEUTROPHILS RELATIVE PERCENT (BEAKER) (test 71 % mnab=618) LYMPHOCYTES RELATIVE PERCENT (BEAKER) (test 14 % qniq=617) MONOCYTES RELATIVE PERCENT (BEAKER) (test 9 % fgjz=066) EOSINOPHILS RELATIVE PERCENT (BEAKER) (test 5 % zbct=579) BASOPHILS RELATIVE PERCENT (BEAKER) (test 0 % cpxe=075) NEUTROPHILS ABSOLUTE COUNT (BEAKER) (test 5.00 K/ L 1.78-5.38 veqg=229) LYMPHOCYTES ABSOLUTE COUNT (BEAKER) (test 0.98 K/ L 1.32-3.57 zahh=437) MONOCYTES ABSOLUTE COUNT (BEAKER) (test 0.66 K/ L 0.30-0.82 pnft=281) EOSINOPHILS ABSOLUTE COUNT (BEAKER) (test 0.34 K/ L 0.04-0.54 pyvw=489) BASOPHILS ABSOLUTE COUNT (BEAKER) (test 0.02 K/ L 0.01-0.08 drpz=062) IMMATURE GRANULOCYTES-RELATIVE PERCENT (BEAKER) 0 % 0-1 (test bccs=1917) POCT-GLUCOSE [id number] 20:56:00 Test Item Value Reference Range Comments POC-GLUCOSE METER (BEAKER) 228 mg/dL 70-110 TESTED AT [address] (test lxdk=9342) [place] [id number] POCT-GLUCOSE [id number] 17:55:00 Test Item Value Reference Range Comments POC-GLUCOSE METER (BEAKER) 150 mg/dL 70-110 TESTED AT [address] (test nrea=1926) [place] [address] POCT-GLUCOSE [id number] 12:37:00 Test Item Value Reference Range Comments POC-GLUCOSE METER (BEAKER) 271 mg/dL 70-110 TESTED AT [address] (test yiux=9403) [place] [address] POCT-GLUCOSE [id number] 08:18:00 Test Item Value Reference Range Comments POC-GLUCOSE METER (BEAKER) 153 mg/dL 70-110 TESTED AT [address] (test jvju=1742) [place] [id number] POCT-GLUCOSE [id number] 21:21:00 Test Item Value Reference Range Comments POC-GLUCOSE METER (BEAKER) 215 mg/dL 70-110 TESTED AT [address] (test lzjp=3804) [place] [id number] URINALYSIS W/ REFLEX URINE [id number] 18:20:00 Test Item Value Reference Range Comments COLOR (BEAKER) (test khkv=255) Yellow CLARITY (BEAKER) (test lzsn=542) Clear SPECIFIC GRAVITY UA (BEAKER) (test fscy=331) 1.025 1.001-1.035 PH UA (BEAKER) (test pqvg=768) 5.5 5.0-8.0 PROTEIN UA (BEAKER) (test gthr=056) 30 mg/dL Negative GLUCOSE UA (BEAKER) (test nvvo=634) 200 mg/dL Negative KETONES UA (BEAKER) (test cfgp=153) Trace Negative BILIRUBIN UA (BEAKER) (test tnss=094) Negative Negative BLOOD UA (BEAKER) (test imkh=088) Negative Negative NITRITE UA (BEAKER) (test nskq=442) Negative Negative LEUKOCYTE ESTERASE UA (BEAKER) (test qvms=766) Negative Negative UROBILINOGEN UA (BEAKER) (test hyox=826) 2.0 mg/dL 0.2-1.0 RBC UA (BEAKER) (test yhmi=625) 0 /HPF WBC UA (BEAKER) (test ggaz=374) 1 /HPF MUCUS (BEAKER) (test gnvo=7543) Rare SOURCE(BEAKER) (test qqdf=5169) POCT-GLUCOSE [id number] 16:41:00 Test Item Value Reference Range Comments POC-GLUCOSE METER (BEAKER) 179 mg/dL 70-110 TESTED AT [address] (test ekpk=7139) [place] [id number] POCT-GLUCOSE [id number] 12:51:00 Test Item Value Reference Range Comments POC-GLUCOSE METER (BEAKER) 189 mg/dL 70-110 TESTED AT [facility] [address] [facility] (test mrcd=1225) [place] [address] POCT-GLUCOSE [id number] 07:27:00 Test Item Value Reference Range Comments POC-GLUCOSE METER (BEAKER) 183 mg/dL 70-110 TESTED AT [place] [id number] [facility] (test xrob=0679) [place] [address] CBC W/PLT COUNT & AUTO [id number] 05:18:00 Test Item Value Reference Range Comments WHITE BLOOD CELL COUNT (BEAKER) (test dtat=873) 12.7 K/ L 3.5-10.5 RED BLOOD CELL COUNT (BEAKER) (test gqkx=905) 4.53 M/ L 4.63-6.08 HEMOGLOBIN (BEAKER) (test bbgl=313) 14.2 GM/DL 13.7-17.5 HEMATOCRIT (BEAKER) (test khnb=205) 42.2 % 40.1-51.0 MEAN CORPUSCULAR VOLUME (BEAKER) (test vonb=078) 93.2 fL 79.0-92.2 MEAN CORPUSCULAR HEMOGLOBIN (BEAKER) (test 31.3 pg 25.7-32.2 egfk=533) MEAN CORPUSCULAR HEMOGLOBIN CONC (BEAKER) (test 33.6 GM/DL 32.3-36.5 ebgo=974) RED CELL DISTRIBUTION WIDTH (BEAKER) (test 13.1 % 11.6-14.4 egfv=219) PLATELET COUNT (BEAKER) (test ping=837) 200 K/CU MM 150-450 MEAN PLATELET VOLUME (BEAKER) (test gxfj=694) 10.2 fL 9.4-12.4 NUCLEATED RED BLOOD CELLS (BEAKER) (test 0 /100 WBC 0-0 ylap=141) NEUTROPHILS RELATIVE PERCENT (BEAKER) (test 86 % yymm=463) LYMPHOCYTES RELATIVE PERCENT (BEAKER) (test 5 % jgue=745) MONOCYTES RELATIVE PERCENT (BEAKER) (test 8 % onxq=971) EOSINOPHILS RELATIVE PERCENT (BEAKER) (test 0 % tcsi=670) BASOPHILS RELATIVE PERCENT (BEAKER) (test 0 % hrqg=178) NEUTROPHILS ABSOLUTE COUNT (BEAKER) (test 10.94 K/ L 1.78-5.38 ybvk=757) LYMPHOCYTES ABSOLUTE COUNT (BEAKER) (test 0.65 K/ L 1.32-3.57 hvzv=957) MONOCYTES ABSOLUTE COUNT (BEAKER) (test 1.07 K/ L 0.30-0.82 rdud=024) EOSINOPHILS ABSOLUTE COUNT (BEAKER) (test 0.01 K/ L 0.04-0.54 rfjb=035) BASOPHILS ABSOLUTE COUNT (BEAKER) (test 0.03 K/ L 0.01-0.08 ohgo=735) IMMATURE GRANULOCYTES-RELATIVE PERCENT (BEAKER) 0 % 0-1 (test fvlk=0923) BASIC METABOLIC [id number] 04:26:00 Test Item Value Reference Range Comments SODIUM (BEAKER) (test 135 meq/L 136-145 amia=466) POTASSIUM (BEAKER) (test 4.3 meq/L 3.5-5.1 tmax=313) CHLORIDE (BEAKER) (test 102 meq/L 98-107 deor=368) CO2 (BEAKER) (test 25 meq/L 22-29 sdzp=463) BLOOD UREA NITROGEN 25 mg/dL 7-21 (BEAKER) (test fkqn=122) CREATININE (BEAKER) (test 0.82 mg/dL 0.57-1.25 acol=319) GLUCOSE RANDOM (BEAKER) 186 mg/dL 70-105 (test htjx=324) CALCIUM (BEAKER) (test 9.2 mg/dL 8.4-10.2 ipaa=343) EGFR (BEAKER) (test 92 mL/min/1.73 sq m ESTIMATED GFR IS NOT czpf=6862) ACCURATE CREATININE CLEARANCE IN PREDICTING GLOMERULAR FILTRATION RATE. ESTIMATED GFR IS NOT APPLICABLE FOR DIALYSIS PATIENTS. Specimen slightly ictericPOCT-GLUCOSE [id number] 21:15:00 Test Item Value Reference Range Comments POC-GLUCOSE METER (BEAKER) 240 mg/dL 70-110 TESTED AT [facility] [address] [facility] (test bkhy=4909) [place] [address] POCT-GLUCOSE [id number] 17:45:00 Test Item Value Reference Range Comments POC-GLUCOSE METER (BEAKER) 222 mg/dL 70-110 TESTED AT [place] [id number] [facility] (test clbm=9525) [place] [address] POCT-GLUCOSE [id number] 12:48:00 Test Item Value Reference Range Comments POC-GLUCOSE METER (BEAKER) 209 mg/dL 70-110 TESTED AT [facility] [address] (test pomr=4754) [place] [address] BASIC METABOLIC [id number] 10:24:00 Test Item Value Reference Range Comments SODIUM (BEAKER) (test 136 meq/L 136-145 skbh=545) POTASSIUM (BEAKER) (test 3.9 meq/L 3.5-5.1 sccl=605) CHLORIDE (BEAKER) (test 102 meq/L 98-107 vwkn=840) CO2 (BEAKER) (test 24 meq/L 22-29 mobx=959) BLOOD UREA NITROGEN 17 mg/dL 7-21 (BEAKER) (test ydnc=954) CREATININE (BEAKER) (test 0.84 mg/dL 0.57-1.25 coug=792) GLUCOSE RANDOM (BEAKER) 177 mg/dL 70-105 (test axic=839) CALCIUM (BEAKER) (test 9.3 mg/dL 8.4-10.2 jfdp=749) EGFR (BEAKER) (test 89 mL/min/1.73 sq m ESTIMATED GFR IS NOT jafc=8352) ACCURATE CREATININE CLEARANCE IN PREDICTING GLOMERULAR FILTRATION RATE. ESTIMATED GFR IS NOT APPLICABLE FOR DIALYSIS PATIENTS. CBC W/PLT COUNT & AUTO [id number] 09:52:00 Test Item Value Reference Range Comments WHITE BLOOD CELL COUNT (BEAKER) (test spzp=834) 8.6 K/ L 3.5-10.5 RED BLOOD CELL COUNT (BEAKER) (test wuqb=698) 4.69 M/ L 4.63-6.08 HEMOGLOBIN (BEAKER) (test zmrd=349) 14.4 GM/DL 13.7-17.5 HEMATOCRIT (BEAKER) (test btnu=248) 42.6 % 40.1-51.0 MEAN CORPUSCULAR VOLUME (BEAKER) (test vmiy=374) 90.8 fL 79.0-92.2 MEAN CORPUSCULAR HEMOGLOBIN (BEAKER) (test 30.7 pg 25.7-32.2 akpm=224) MEAN CORPUSCULAR HEMOGLOBIN CONC (BEAKER) (test 33.8 GM/DL 32.3-36.5 vgqn=521) RED CELL DISTRIBUTION WIDTH (BEAKER) (test 13.2 % 11.6-14.4 dqvs=773) PLATELET COUNT (BEAKER) (test phcs=366) 177 K/CU MM 150-450 MEAN PLATELET VOLUME (BEAKER) (test podv=636) 10.0 fL 9.4-12.4 NUCLEATED RED BLOOD CELLS (BEAKER) (test 0 /100 WBC 0-0 skoz=412) NEUTROPHILS RELATIVE PERCENT (BEAKER) (test 80 % ztsp=956) LYMPHOCYTES RELATIVE PERCENT (BEAKER) (test 8 % wczq=539) MONOCYTES RELATIVE PERCENT (BEAKER) (test 9 % ibux=154) EOSINOPHILS RELATIVE PERCENT (BEAKER) (test 3 % khfo=795) BASOPHILS RELATIVE PERCENT (BEAKER) (test 0 % vpyw=424) NEUTROPHILS ABSOLUTE COUNT (BEAKER) (test 6.82 K/ L 1.78-5.38 uwll=289) LYMPHOCYTES ABSOLUTE COUNT (BEAKER) (test 0.65 K/ L 1.32-3.57 wazv=192) MONOCYTES ABSOLUTE COUNT (BEAKER) (test 0.76 K/ L 0.30-0.82 webx=255) EOSINOPHILS ABSOLUTE COUNT (BEAKER) (test 0.28 K/ L 0.04-0.54 kvgj=571) BASOPHILS ABSOLUTE COUNT (BEAKER) (test 0.03 K/ L 0.01-0.08 qayt=674) IMMATURE GRANULOCYTES-RELATIVE PERCENT (BEAKER) 0 % 0-1 (test gnuy=4595) POCT-GLUCOSE [id number] 07:47:00 Test Item Value Reference Range Comments POC-GLUCOSE METER (BEAKER) 167 mg/dL 70-110 TESTED AT [address] (test sapn=8289) [place] [address] POCT-GLUCOSE [id number] 22:23:00 Test Item Value Reference Range Comments POC-GLUCOSE METER (BEAKER) 230 mg/dL 70-110 TESTED AT [address] (test ylhx=0612) [place] [address] POCT-GLUCOSE [id number] 17:22:00 Test Item Value Reference Range Comments POC-GLUCOSE METER (BEAKER) 157 mg/dL 70-110 TESTED AT [address] (test mdeg=2509) [place] [address] POCT-GLUCOSE [id number] 11:44:00 Test Item Value Reference Range Comments POC-GLUCOSE METER (BEAKER) 294 mg/dL 70-110 TESTED AT [address] (test mgaw=5381) [place] [address] POCT-GLUCOSE [id number] 07:50:00 Test Item Value Reference Range Comments POC-GLUCOSE METER (BEAKER) 186 mg/dL 70-110 TESTED AT [address] (test vpva=0392) [place] [address] POCT-GLUCOSE [id number] 22:16:00 Test Item Value Reference Range Comments POC-GLUCOSE METER (BEAKER) 189 mg/dL 70-110 TESTED AT [address] (test uend=7350) [place] [id number] POCT-GLUCOSE [id number] 18:10:00 Test Item Value Reference Range Comments POC-GLUCOSE METER (BEAKER) 177 mg/dL 70-110 TESTED AT [address] (test kuwx=9538) [place] [id number] POCT-GLUCOSE [id number] 18:02:00 Test Item Value Reference Range Comments POC-GLUCOSE METER (BEAKER) 235 mg/dL 70-110 TESTED AT [address] (test zfhm=2772) [place] [address] POCT-GLUCOSE [id number] 09:04:00 Test Item Value Reference Range Comments POC-GLUCOSE METER (BEAKER) 188 mg/dL 70-110 TESTED AT [address] (test cgef=2310) [place] [address] [id number] 07:43:00 Test Item Value Reference Range Comments RPR SCREEN (BEAKER) (test uavi=224) Nonreactive Nonreactive OSMOLALITY, [id number] 05:32:00 Test Item Value Reference Range Comments OSMOLALITY URINE (BEAKER) (test whut=565) 587 mOsm/kg 40-1400 BASIC METABOLIC [id number] 02:16:00 Test Item Value Reference Range Comments SODIUM (BEAKER) (test 138 meq/L 136-145 zcdx=297) POTASSIUM (BEAKER) (test 3.9 meq/L 3.5-5.1 Specimen slightly kcjo=140) hemolyzed CHLORIDE (BEAKER) (test 105 meq/L 98-107 pjle=744) CO2 (BEAKER) (test 21 meq/L 22-29 lpzl=107) BLOOD UREA NITROGEN 14 mg/dL 7-21 (BEAKER) (test mizt=393) CREATININE (BEAKER) (test 0.91 mg/dL 0.57-1.25 Specimen slightly xvgi=035) hemolyzed GLUCOSE RANDOM (BEAKER) 177 mg/dL 70-105 (test tpsx=674) CALCIUM (BEAKER) (test 9.2 mg/dL 8.4-10.2 qqzn=307) EGFR (BEAKER) (test 81 mL/min/1.73 sq m ESTIMATED GFR IS NOT cnjl=5507) ACCURATE CREATININE CLEARANCE IN PREDICTING GLOMERULAR FILTRATION RATE. ESTIMATED GFR IS NOT APPLICABLE FOR DIALYSIS PATIENTS. CBC W/PLT COUNT & AUTO [id number] 02:06:00 Test Item Value Reference Range Comments WHITE BLOOD CELL COUNT (BEAKER) (test mtru=939) 8.7 K/ L 3.5-10.5 RED BLOOD CELL COUNT (BEAKER) (test ovkx=033) 4.54 M/ L 4.63-6.08 HEMOGLOBIN (BEAKER) (test jllp=998) 13.8 GM/DL 13.7-17.5 HEMATOCRIT (BEAKER) (test uejc=571) 41.3 % 40.1-51.0 MEAN CORPUSCULAR VOLUME (BEAKER) (test vlyt=291) 91.0 fL 79.0-92.2 MEAN CORPUSCULAR HEMOGLOBIN (BEAKER) (test 30.4 pg 25.7-32.2 hcgc=124) MEAN CORPUSCULAR HEMOGLOBIN CONC (BEAKER) (test 33.4 GM/DL 32.3-36.5 qbbl=919) RED CELL DISTRIBUTION WIDTH (BEAKER) (test 13.2 % 11.6-14.4 egoz=229) PLATELET COUNT (BEAKER) (test akwx=943) 179 K/CU MM 150-450 MEAN PLATELET VOLUME (BEAKER) (test kelj=808) 10.4 fL 9.4-12.4 NUCLEATED RED BLOOD CELLS (BEAKER) (test 0 /100 WBC 0-0 sfvj=359) NEUTROPHILS RELATIVE PERCENT (BEAKER) (test 76 % mbyk=650) LYMPHOCYTES RELATIVE PERCENT (BEAKER) (test 11 % vvzv=978) MONOCYTES RELATIVE PERCENT (BEAKER) (test 9 % wpmr=548) EOSINOPHILS RELATIVE PERCENT (BEAKER) (test 3 % vppp=612) BASOPHILS RELATIVE PERCENT (BEAKER) (test 0 % mvbt=817) NEUTROPHILS ABSOLUTE COUNT (BEAKER) (test 6.56 K/ L 1.78-5.38 jyun=354) LYMPHOCYTES ABSOLUTE COUNT (BEAKER) (test 0.99 K/ L 1.32-3.57 gqqk=075) MONOCYTES ABSOLUTE COUNT (BEAKER) (test 0.80 K/ L 0.30-0.82 hbhw=835) EOSINOPHILS ABSOLUTE COUNT (BEAKER) (test 0.24 K/ L 0.04-0.54 xqvs=953) BASOPHILS ABSOLUTE COUNT (BEAKER) (test 0.03 K/ L 0.01-0.08 aons=957) IMMATURE GRANULOCYTES-RELATIVE PERCENT (BEAKER) 1 % 0-1 (test lfsz=8567) POCT-GLUCOSE [id number] 23:20:00 Test Item Value Reference Range Comments POC-GLUCOSE METER (BEAKER) 161 mg/dL 70-110 TESTED AT [facility] [address] [facility] (test tmin=8842) [place] [address] CT, BRAIN, WITHOUT [id number] 19:01:00FINAL REPORT CT Head without contrast CLINICAL HISTORY: Stroke TECHNIQUE: Contiguous axial images through the head without contrast. This exam was performed according to the departmental dose optimization program which includes automated exposure control, adjustment of the mA and/or kV according to the patient size, and/or use of an iterative reconstruction technique. COMPARISON: None FINDINGS: There is no CT evidence of acute infarct or intracranial hemorrhage. Ventricles arenormal in size and configuration. Mild age-related global volume loss. There is no hydrocephalus, midline shift, or apparent mass effect. Basilar cisterns are patent. There are no extra-axial fluid collections. The skull is intact. The visualized paranasal sinuses are well-aerated. Intraorbital contents are unremarkable. IMPRESSION: No CT evidence of acute infarct, hemorrhage, or hydrocephalus. If persistent clinical concern for acute intracranial pathology recommend MRI brain for further evaluation. Signed: Kalpana Brock Verified Date/Time: 2017 19:01:56 Reading Location: [facility] B1 C013T [facility] Reading Room POCT -GLUCOSE [id number] 18:19:00 Test Item Value Reference Range Comments POC-GLUCOSE METER (BEAKER) 161 mg/dL 70-110 TESTED AT [address] (test uwey=6081) [facility] [address] POCT-GLUCOSE [id number] 12:05:00 Test Item Value Reference Range Comments POC-GLUCOSE METER (BEAKER) 242 mg/dL 70-110 TESTED AT [address] (test qlop=9465) [facility] [address] HEMOGLOBIN [id number] 09:42:00 Test Item Value Reference Range Comments HEMOGLOBIN A1C (BEAKER) (test dhut=658) 6.9 % 4.3-6.1 POCT-GLUCOSE [id number] 08:25:00 Test Item Value Reference Range Comments POC-GLUCOSE METER (BEAKER) 141 mg/dL 70-110 TESTED AT [address] (test pifi=4766) [place] [id number] TSH/FREE T4 IF [id number] 05:34:00 Test Item Value Reference Range Comments THYROID STIMULATING HORMONE (BEAKER) (test 1.81 uIU/mL 0.35-4.94 wfow=182) VITAMIN B12 AND [id number] 05:34:00 Test Item Value Reference Range Comments VITAMIN B12 (BEAKER) (test ltvo=579) 311 pg/mL 213-816 FOLATE (BEAKER) (test kcgy=313) 6.9 ng/mL >=7.0 TROPONIN [id number] 01:40:00 Test Item Value Reference Range Comments TROPONIN I (BEAKER) (test mwmn=272) 0.01 ng/mL 0.00-0.03 Troponin I (TnI) levels must be interpreted in the context of the presenting symptoms and the clinical findings. Elevated TnI levels indicate myocardial damage, but are not specific for ischemic heart disease. Elevated TnI levels are seen in patients with other cardiac conditions (including myocarditis and congestive heart failure), and slight TnI elevations occur in patients with other conditions, including sepsis, renal failure, acidosis, acute neurological disease, and persistent tachyarrhythmia.FastingLIPID [id number] 01:32:00 Test Item Value Reference Range Comments TRIGLYCERIDES (BEAKER) (test fpgc=412) 108 mg/dL CHOLESTEROL (BEAKER) (test xxqd=222) 192 mg/dL HDL CHOLESTEROL (BEAKER) (test mzep=537) 31 mg/dL LDL CHOLESTEROL CALCULATED (BEAKER) (test 139 mg/dL yagq=382) Triglyceride Reference Range: Low Risk <150 Borderline 150- 199 High Risk 200-499 Very High Risk >=500Cholesterol Reference Range: Low Risk <200 Borderline 200-239 High Risk > 240HDL Cholesterol Reference Range: Low Risk >=60 High Risk <40LDL Cholesterol Reference Range: Optimal <100 Near Optimal 100-129 Borderline 130-159 High 160-189 Very High >=190 FastingBASIC METABOLIC [id number] 01:32:00 Test Item Value Reference Range Comments SODIUM (BEAKER) (test 135 meq/L 136-145 ynyc=728) POTASSIUM (BEAKER) (test 3.6 meq/L 3.5-5.1 jrnp=557) CHLORIDE (BEAKER) (test 104 meq/L 98-107 kqcg=923) CO2 (BEAKER) (test 23 meq/L 22-29 wkve=981) BLOOD UREA NITROGEN 16 mg/dL 7-21 (BEAKER) (test rtss=251) CREATININE (BEAKER) (test 0.87 mg/dL 0.57-1.25 zdnj=885) GLUCOSE RANDOM (BEAKER) 159 mg/dL 70-105 (test ymxk=905) CALCIUM (BEAKER) (test 8.6 mg/dL 8.4-10.2 vlpy=358) EGFR (BEAKER) (test 86 mL/min/1.73 sq m ESTIMATED GFR IS NOT lwgz=7212) ACCURATE CREATININE CLEARANCE IN PREDICTING GLOMERULAR FILTRATION RATE. ESTIMATED GFR IS NOT APPLICABLE FOR DIALYSIS PATIENTS. FastingCBC (HEMOGRAM ONLY)2018-06-20 01:20:00 Test Item Value Reference Range Comments WHITE BLOOD CELL COUNT (BEAKER) (test jdyf=723) 10.5 K/ L 3.5-10.5 RED BLOOD CELL COUNT (BEAKER) (test ryqi=568) 4.31 M/ L 4.63-6.08 HEMOGLOBIN (BEAKER) (test kkbu=276) 13.4 GM/DL 13.7-17.5 HEMATOCRIT (BEAKER) (test txmf=544) 39.3 % 40.1-51.0 MEAN CORPUSCULAR VOLUME (BEAKER) (test svgy=929) 91.2 fL 79.0-92.2 MEAN CORPUSCULAR HEMOGLOBIN (BEAKER) (test 31.1 pg 25.7-32.2 nxtn=407) MEAN CORPUSCULAR HEMOGLOBIN CONC (BEAKER) (test 34.1 GM/DL 32.3-36.5 lfze=474) RED CELL DISTRIBUTION WIDTH (BEAKER) (test 13.2 % 11.6-14.4 akxu=304) PLATELET COUNT (BEAKER) (test qefl=180) 170 K/CU MM 150-450 MEAN PLATELET VOLUME (BEAKER) (test vxxf=711) 10.0 fL 9.4-12.4 NUCLEATED RED BLOOD CELLS (BEAKER) (test 0 /100 WBC 0-0 owuu=515) POCT-GLUCOSE [id number] 22:33:00 Test Item Value Reference Range Comments POC-GLUCOSE METER (BEAKER) 175 mg/dL 70-110 TESTED AT [address] (test gpkt=1063) [place] [id number] POCT-GLUCOSE [id number] 18:29:00 Test Item Value Reference Range Comments POC-GLUCOSE METER (BEAKER) 111 mg/dL 70-110 TESTED AT [address] (test ikrf=7748) [place] [id number] URINALYSIS W/ REFLEX URINE [id number] 17:22:00 Test Item Value Reference Range Comments COLOR (BEAKER) (test yohz=201) Light Yellow CLARITY (BEAKER) (test gggg=108) Clear SPECIFIC GRAVITY UA (BEAKER) (test npch=140) 1.029 1.001-1.035 PH UA (BEAKER) (test bkxi=999) 7.0 5.0-8.0 PROTEIN UA (BEAKER) (test uehc=858) Negative Negative GLUCOSE UA (BEAKER) (test moxq=527) Negative Negative KETONES UA (BEAKER) (test qnmo=964) 40 mg/dL Negative BILIRUBIN UA (BEAKER) (test mwcx=745) Negative Negative BLOOD UA (BEAKER) (test doxm=945) Negative Negative NITRITE UA (BEAKER) (test eoez=729) Negative Negative LEUKOCYTE ESTERASE UA (BEAKER) (test acgg=508) Negative Negative UROBILINOGEN UA (BEAKER) (test xfpr=797) 0.2 mg/dL 0.2-1.0 RBC UA (BEAKER) (test vuxt=734) 1 /HPF WBC UA (BEAKER) (test eoto=327) < /HPF SOURCE(BEAKER) (test bdsh=4263) TROPONIN [id number] 16:57:00 Test Item Value Reference Range Comments TROPONIN I (BEAKER) (test xlvd=571) < ng/mL 0.00-0.03 Troponin I (TnI) levels must be interpreted in the context of the presenting symptoms and the clinical findings. Elevated TnI levels indicate myocardial damage, but are not specific for ischemic heart disease. Elevated TnI levels are seen in patients with other cardiac conditions (including myocarditis and congestive heart failure), and slight TnI elevations occur in patients with other conditions, including sepsis, renal failure, acidosis, acute neurological disease, and persistent tachyarrhythmia.BASIC METABOLIC [id number] 16:06:00 Test Item Value Reference Range Comments SODIUM (BEAKER) (test 139 meq/L 136-145 yakx=830) POTASSIUM (BEAKER) (test 3.7 meq/L 3.5-5.1 vwjd=086) CHLORIDE (BEAKER) (test 105 meq/L 98-107 hmhg=320) CO2 (BEAKER) (test 24 meq/L 22-29 eiqc=135) BLOOD UREA NITROGEN 17 mg/dL 7-21 (BEAKER) (test kpcl=527) CREATININE (BEAKER) (test 0.85 mg/dL 0.57-1.25 vupv=941) GLUCOSE RANDOM (BEAKER) 123 mg/dL 70-105 (test kxjp=517) CALCIUM (BEAKER) (test 9.0 mg/dL 8.4-10.2 btzp=219) EGFR (BEAKER) (test 88 mL/min/1.73 sq m ESTIMATED GFR IS NOT cbdh=7216) ACCURATE CREATININE CLEARANCE IN PREDICTING GLOMERULAR FILTRATION RATE. ESTIMATED GFR IS NOT APPLICABLE FOR DIALYSIS PATIENTS. CBC W/PLT COUNT & AUTO [id number] 15:47:00 Test Item Value Reference Range Comments WHITE BLOOD CELL COUNT (BEAKER) (test wsas=144) 13.0 K/ L 3.5-10.5 RED BLOOD CELL COUNT (BEAKER) (test ondw=745) 4.71 M/ L 4.63-6.08 HEMOGLOBIN (BEAKER) (test obih=204) 14.6 GM/DL 13.7-17.5 HEMATOCRIT (BEAKER) (test rjvf=210) 42.9 % 40.1-51.0 MEAN CORPUSCULAR VOLUME (BEAKER) (test pdgs=452) 91.1 fL 79.0-92.2 MEAN CORPUSCULAR HEMOGLOBIN (BEAKER) (test 31.0 pg 25.7-32.2 qizg=092) MEAN CORPUSCULAR HEMOGLOBIN CONC (BEAKER) (test 34.0 GM/DL 32.3-36.5 xwtn=487) RED CELL DISTRIBUTION WIDTH (BEAKER) (test 13.2 % 11.6-14.4 xuyh=499) PLATELET COUNT (BEAKER) (test myhe=438) 190 K/CU MM 150-450 MEAN PLATELET VOLUME (BEAKER) (test tayl=159) 9.8 fL 9.4-12.4 NUCLEATED RED BLOOD CELLS (BEAKER) (test 0 /100 WBC 0-0 qvlo=003) NEUTROPHILS RELATIVE PERCENT (BEAKER) (test 90 % trkw=056) LYMPHOCYTES RELATIVE PERCENT (BEAKER) (test 5 % eqot=263) MONOCYTES RELATIVE PERCENT (BEAKER) (test 5 % mrsa=080) EOSINOPHILS RELATIVE PERCENT (BEAKER) (test 0 % yzdx=066) BASOPHILS RELATIVE PERCENT (BEAKER) (test 0 % uamv=924) NEUTROPHILS ABSOLUTE COUNT (BEAKER) (test 11.67 K/ L 1.78-5.38 tsqp=820) LYMPHOCYTES ABSOLUTE COUNT (BEAKER) (test 0.59 K/ L 1.32-3.57 eibz=172) MONOCYTES ABSOLUTE COUNT (BEAKER) (test 0.63 K/ L 0.30-0.82 wwcs=098) EOSINOPHILS ABSOLUTE COUNT (BEAKER) (test 0.02 K/ L 0.04-0.54 pghu=245) BASOPHILS ABSOLUTE COUNT (BEAKER) (test 0.03 K/ L 0.01-0.08 isbw=175) IMMATURE GRANULOCYTES-RELATIVE PERCENT (BEAKER) 1 % 0-1 (test qbsa=2970)
--- OUTSIDE RECORDS SUMMARY | 2018-06-26 14:06 | XMS REPORT | Clinical Summary ---
:1945 Author Organization [facility] Address [address] [place] [address] Phone Care Team Providers Name Role Phone Unavailable Primary Care Provider Unavailable Allergies Active Allergy Reactions Severity Noted Date Comments Sulfa (Sulfonamide Antibiotics) Nausea And Vomiting 06/19/2018 Current Medications Prescription Sig. Disp. Refills Start Date End Date Status metFORMIN Take 850 mg by Active (GLUCOPHAGE) 850 mouth 2 (two) times MG tablet daily with breakfast and dinner. insulin glargine Inject 25 Units Active (LANTUS) 100 subcutaneously unit/mL injection every morning Use as directed . aspirin 81 MG Take 1 tablet (81 0 06/27/2018 Active chewable tablet mg total) by mouth 9 daily. atorvastatin Take 1 tablet (80 0 06/26/2018 Active (LIPITOR) 80 MG mg total) by mouth 9 tablet nightly. bisacodyl Take 2 tablets (10 30 tablet 0 06/26/2018 Active (DULCOLAX) 5 mg EC mg total) by mouth 8 tablet daily as needed for Constipation for up to 30 days. clopidogrel Take 1 tablet (75 0 06/27/2018 Active (PLAVIX) 75 mg mg total) by mouth 9 tablet daily. doxycycline Take 1 capsule (100 12 capsule 0 06/26/2018 Active (MONODOX) 100 MG mg total) by mouth 8 capsule every 12 (twelve) hours for 6 days. enoxaparin Inject 0.4 mLs (40 0 06/27/2018 Active (LOVENOX) 40 mg total) 8 mg/0.4 mL Syrg subcutaneously daily for 30 days. fLUoxetine Take 1 capsule (20 30 capsule 0 06/27/2018 Active (PROZAC) 20 MG mg total) by mouth 9 capsule daily. folic acid Take 1 tablet (1 mg 0 06/27/2018 Active (FOLVITE) 1 MG total) by mouth 9 tablet daily. insulin lispro Inject 0-8 Units 10 mL 0 06/26/2018 Active (HUMALOG) 100 subcutaneously as 9 unit/mL injection needed (High blood sugar). lisinopril Take 1 tablet (20 0 06/27/2018 Active (PRINIVIL,ZESTRIL) mg total) by mouth 9 20 MG tablet daily. senna-docusate Take 1 tablet by 0 06/26/2018 Active (SENOKOT S) 8.6-50 mouth 2 (two) times 9 mg per tablet daily. rivastigmine Take 3 mg by mouth Suspended tartrate (EXELON) 2 (two) times 8 3 MG capsule daily. benazepril Take 20 mg by mouth Suspended (LOTENSIN) 10 MG daily Unknown 8 tablet dosage, family will call back . Active Problems Problem Noted Date Received tissue plasminogen activator (t-PA) less than 24 hours prior to 06/20 arrival Essential hypertension 06/20/2018 Controlled type 2 diabetes mellitus with diabetic polyneuropathy, without long-term current use of insulin ([facility]) Acute ischemic stroke ([facility]) 06/19/2018 Encounters Date Type Specialty Care Team Description 06/22/2018 Orders Only General Internal Medicine 06/19/2018 - Hospital General Internal [facility], Acute ischemic 06/26/2018 Encounter Medicine [facility] stroke MD Thony ([facility]);Controlled Columba Nicholas type 2 diabetes MD Carol mellitus with diabetic polyneuropathy, without long-term current use of insulin ([facility]);Essential hypertension;Receiv ed tissue plasminogen activator (t-PA) less than 24 hours prior to arrival;Laceration of right thumb, foreign body presence unspecified, nail damage status unspecified, initial encounter;Gait abnormality;Impaire d mobility and ADLs after 06/25/2017 Social History Tobacco Use Types Packs/Day Years Used Date Never Smoker Smokeless Tobacco: Never Used Sex Assigned at Date Recorded Not on file Last Filed Vital Signs Vital Sign Reading Time Taken Blood Pressure 152/70 06/26/2018 12:00 PM CDT Pulse 64 06/26/2018 12:00 PM CDT Temperature 36.8 C (98.2 F) 06/26/2018 12:00 PM CDT Respiratory Rate 18 06/26/2018 12:00 PM CDT Oxygen Saturation 96% 06/26/2018 12:00 PM CDT Inhaled Oxygen Concentration - - Weight 91 kg (200 lb 9.9 oz) 06/19/2018 2:00 PM CDT Height 180.3 cm (5' 11") 06/19/2018 2:00 PM CDT Body Mass Index 27.98 06/19/2018 2:00 PM CDT Plan of Treatment Not on file Results POC-Glucose meter (06/26/2018 12:00 PM)Only the most recent of28 resultswithin the time period is included. Component Value Ref Range POC-Glucose Meter 202 (H)Comment: TESTED AT [address] 70 - 110 mg/[place] [address] Specimen Performing Laboratory Blood [facility] [address] [address] CBC with platelet count + automated diff (06/26/2018 5:29 AM)Only the most recent of5 resultswithin the time period is included. Component Value Ref Range WBC 7.0 3.5 - 10.5 K/L RBC 4.22 (L) 4.63 - 6.08 M/L Hemoglobin 13.2 (L) 13.7 - 17.5 GM/DL Hematocrit 40.4 40.1 - 51.0 % MCV 95.7 (H) 79.0 - 92.2 fL MCH 31.3 25.7 - 32.2 pg MCHC 32.7 32.3 - 36.5 GM/DL RDW 13.3 11.6 - 14.4 % Platelets 201 150 - 450 K/CU MM MPV 9.9 9.4 - 12.4 fL nRBC 0 0 - 0 /100 WBC % Neutros 71 % % Lymphs 14 % % Monos 9 % % Eos 5 % % Baso 0 % # Neutros 5.00 1.78 - 5.38 K/L # Lymphs 0.98 (L) 1.32 - 3.57 K/L # Monos 0.66 0.30 - 0.82 K/L # Eos 0.34 0.04 - 0.54 K/L # Baso 0.02 0.01 - 0.08 K/L Immature Granulocytes-Relative 0 0 - 1 % Specimen Performing Laboratory Blood [address] [address] CBC with platelet count + automated diff (06/26/2018 5:29 AM)Only the most recent of5 resultswithin the time period is included. Specimen Performing Laboratory Blood Narrative The following orders were created for panel order CBC with platelet count + automated diff. Procedure Abnormality Status --------- ------ CBC with platelet count ...[[id number]]AbnormalFinal result Please view results for these tests on the individual orders. Urinalysis w/Microscopic + Reflex to Culture (06/24/2018 1:25 PM)Only the most recent of2 resultswithin the time period is included. Component Value Ref Range Color, UA Yellow Clarity, UA Clear Specific [place], UA 1.025 1.001 - 1.035 pH, UA 5.5 5.0 - 8.0 Protein, UA 30 mg/dL (A) Negative Glucose, UA 200 mg/dL (A) Negative Ketones, UA Trace (A) Negative Bilirubin, UA Negative Negative Blood, UA Negative Negative Nitrite, UA Negative Negative Leukocytes, UA Negative Negative Urobilinogen, UA 2.0 (H) 0.2 - 1.0 mg/dL RBC, UA 0 /HPF WBC, UA 1 /HPF Mucus Rare Specimen Source Specimen Performing Laboratory Urine [address] [address] Basic Metabolic Panel (06/24/2018 3:56 AM)Only the most recent of5 resultswithin the time period is included. Component Value Ref Range Sodium 135 (L) 136 - 145 meq/L Potassium 4.3 3.5 - 5.1 meq/L Chloride 102 98 - 107 meq/L CO2 25 22 - 29 meq/L BUN 25 (H) 7 - 21 mg/dL Creatinine 0.82 0.57 - 1.25 mg/dL Glucose 186 (H) 70 - 105 mg/dL Calcium 9.2 8.4 - 10.2 mg/dL EGFR 92Comment: ESTIMATED GFR IS NOT ACCURATE mL/min/1.73 sq m CREATININE CLEARANCE IN PREDICTING GLOMERULAR FILTRATION RATE. ESTIMATED GFR IS NOT APPLICABLE FOR DIALYSIS PATIENTS. Specimen Performing Laboratory Blood - Arm, Right [facility] [address] [place] [address] Narrative Specimen slightly icteric ECG 12 lead (06/22/2018 11:19 PM) Specimen Performing Laboratory GE MUSE Narrative Ventricular Rate 64 BPM Atrial Rate 64 BPM P-R Interval 160 ms QRS Duration 102 ms Q-T Interval 400 ms QTC Calculation(Bazett) 412 ms P [place] 48 degrees R [place] -33 degrees T [place] 47 degrees Normal sinus rhythm Left axis deviation Abnormal ECG No previous ECGs available Confirmed by MD GR JOSEPH P ([id number]) on 06/23/2018 6:47:07 AM Procedure Note Interface, External Ris In - 06/23/2018 6:47 AM CDT Ventricular Rate 64 BPM Atrial Rate 64 BPM P-R Interval 160 ms QRS Duration 102 ms Q-T Interval 400 ms QTC Calculation(Bazett) 412 ms P [place] 48 degrees R [place] -33 degrees T [place] 47 degrees Normal sinus rhythm Left axis deviation Abnormal ECG No previous ECGs available Confirmed by MD GR JOSEPH P ([id number]) on 06/23/2018 6:47:07 AM Carotid doppler bilateral (06/21/2018 9:00 PM) Component Value Ref Range Ejection Fraction Specimen Performing Laboratory [facility] Impressions Right Impression 1. There is <50% diameter reduction (approximately 33% by 2-D measurement) in the internal carotid artery with a peak velocity of 99/19 cm/sec and heterogeneous plaque. 2. There is no stenosis in the external carotid artery. 3. There is non-occluding plaque in the common carotid artery. 4. The vertebral artery flow is antegrade. 5. The subclavian artery is patent where visualized. Left Impression 1. There is <50% diameter reduction (approximately 33% by 2-D measurement) in the internal carotid artery with a peak velocity of 56/8 cm/sec and heterogeneous plaque. 2. There is no stenosis in the external carotid artery. 3. There is non-occluding plaque in the common carotid artery. 4. The vertebral artery flow is antegrade. 5. The subclavian artery is patent where visualized. Conclusions Summary Carotid duplex scanning and color flow imaging were performed bilaterally. The arteries were adequately visualized. The bilateral internal carotid arteries had <50% hemodynamically insignificant stenosis (approximately 33% by 2-D measurement on the right, approximately 13% by 2-D measurement on the left) with heterogeneous plaque. The vertebral artery flow was antegrade bilaterally. Signature Velocities are measured in cm/s ; Diameters are measured in cm Carotid Right Measurements + +----+----+-----+ + + + !Location !PSV !EDV !Angle!%Stenosis 2D!%Stenosis Doppler! Tortuosity ! + +----+----+-----+ + + + !Prox CCA !109 !22.8!60 !! ! ! + +----+----+-----+ + + + !Dist CCA !117 !24.4!60 !! ! ! + +----+----+-----+ + + + !Prox ICA !99.7!19.3!60 !33% !<50% ! ! + +----+----+-----+ + + + !Dist ICA !79.7!21.7!60 !! ! ! + +----+----+-----+ + + + !Prox ECA !88.5!11.7!60 !! ! ! + +----+----+-----+ + + + !Vertebral!47.1!10.2!60 !! ! ! + +----+----+-----+ + + + !Prox Subclavian!122 !!60 !! ! ! + +----+----+-----+ + + + - There is antegrade vertebral flow noted on the right side. - Additional Measurements:ICAPSV/CCAPSV 0.85.ICAEDV/CCAEDV 0.95. Carotid Left Measurements + +----+----+-----+ + + + !Location !PSV !EDV !Angle!%Stenosis 2D!%Stenosis Doppler! Tortuosity ! + +----+----+-----+ + + + !Prox CCA !109 !24.6!60 !! ! ! + +----+----+-----+ + + + !Dist CCA !96.6!23.6!60 !! ! ! + +----+----+-----+ + + + !Prox ICA !56.6!8.64!60 !13% !<50% ! ! + +----+----+-----+ + + + !Dist ICA !71.5!18.2!60 !! ! ! + +----+----+-----+ + + + !Prox ECA !164 !24.9!60 !! ! ! + +----+----+-----+ + + + !Vertebral!47.5!12.3!60 !! ! ! + +----+----+-----+ + + + !Prox Subclavian!112 !!60 !! ! ! + +----+----+-----+ + + + - There is antegrade vertebral flow noted on the left side. - Additional Measurements:ICAPSV/CCAPSV 0.74.ICAEDV/CCAEDV 0.74. Narrative [facility] - Carotid Duplex Study Demographics Patient Name FRANCINE HAND Date of Study 06/21/2018 [id number] Visit Number [id number] [id number] of 1945 Number ReferringFormerly [id number] PhysicianDavid Bhandari SonographerAnyi Contreras RN,InterpretingNitin Bailey, T Physician , SAMANTHA Procedure Type of Study: Cerebral: Carotid, CAROTID DOPPLER, BILATERAL. Indications for Study:Stroke vessel imagin. Patient Status:Routine. Study Location:Portable. Technical Quality:Adequate visualization. Risk Factors History of Disease + +----+ + !Diagnosis !Date!Comments! + +----+ + !History/Risk Factors: !!HTN, DM, stroke, dementia ! + +----+ + Procedure Note Interface, External Ris In - 06/22/2018 4:42 AM CDT [facility] - Carotid Duplex Study Demographics Patient Name FRANCINE HAND Date of Study 06/21/2018 Age 72 Visit Number [id number] Gender Male Date of 1945 Number Referring [facility] Room Number 7401 Physician David Bhandari Hack Driver Anyi Contreras RN, Interpreting Nitin Bailey, T Physician , SAMANTHA Procedure Type of Study: Cerebral: Carotid, CAROTID DOPPLER, BILATERAL. Indications for Study:Stroke vessel imagin. Patient Status:Routine. Study Location:Portable. Technical Quality:Adequate visualization. Risk Factors History of Disease + +----+ + !Diagnosis !Date!Comments ! + +----+ + !History/Risk Factors: ! !HTN, DM, stroke, dementia ! + +----+ + Impressions Right Impression 1. There is <50% diameter reduction (approximately 33% by 2-D measurement) in the internal carotid artery with a peak velocity of 99/19 cm/sec and heterogeneous plaque. 2. There is no stenosis in the external carotid artery. 3. There is non-occluding plaque in the common carotid artery. 4. The vertebral artery flow is antegrade. 5. The subclavian artery is patent where visualized. Left Impression 1. There is <50% diameter reduction (approximately 33% by 2-D measurement) in the internal carotid artery with a peak velocity of 56/8 cm/sec and heterogeneous plaque. 2. There is no stenosis in the external carotid artery. 3. There is non-occluding plaque in the common carotid artery. 4. The vertebral artery flow is antegrade. 5. The subclavian artery is patent where visualized. Conclusions Summary Carotid duplex scanning and color flow imaging were performed bilaterally. The arteries were adequately visualized. The bilateral internal carotid arteries had <50% hemodynamically insignificant stenosis (approximately 33% by 2-D measurement on the right, approximately 13% by 2-D measurement on the left) with heterogeneous plaque. The vertebral artery flow was antegrade bilaterally. Signature Velocities are measured in cm/s ; Diameters are measured in cm Carotid Right Measurements + +----+----+-----+ + + + !Location !PSV !EDV !Angle!%Stenosis 2D!%Stenosis Doppler!Tortuosity ! + +----+----+-----+ + + + !Prox CCA !109 !22.8!60 ! ! ! ! + +----+----+-----+ + + + !Dist CCA !117 !24.4!60 ! ! ! ! + +----+----+-----+ + + + !Prox ICA !99.7!19.3!60 !33% !<50% ! ! + +----+----+-----+ + + + !Dist ICA !79.7!21.7!60 ! ! ! ! + +----+----+-----+ + + + !Prox ECA !88.5!11.7!60 ! ! ! ! + +----+----+-----+ + + + !Vertebral !47.1!10.2!60 ! ! ! ! + +----+----+-----+ + + + !Prox Subclavian!122 ! !60 ! ! ! ! + +----+----+-----+ + + + - There is antegrade vertebral flow noted on the right side. - Additional Measurements:ICAPSV/CCAPSV 0.85.ICAEDV/CCAEDV 0.95. Carotid Left Measurements + +----+----+-----+ + + + !Location !PSV !EDV !Angle!%Stenosis 2D!%Stenosis Doppler!Tortuosity ! + +----+----+-----+ + + + !Prox CCA !109 !24.6!60 ! ! ! ! + +----+----+-----+ + + + !Dist CCA !96.6!23.6!60 ! ! ! ! + +----+----+-----+ + + + !Prox ICA !56.6!8.64!60 !13% !<50% ! ! + +----+----+-----+ + + + !Dist ICA !71.5!18.2!60 ! ! ! ! + +----+----+-----+ + + + !Prox ECA !164 !24.9!60 ! ! ! ! + +----+----+-----+ + + + !Vertebral !47.5!12.3!60 ! ! ! ! + +----+----+-----+ + + + !Prox Subclavian!112 ! !60 ! ! ! ! + +----+----+-----+ + + + - There is antegrade vertebral flow noted on the left side. - Additional Measurements:ICAPSV/CCAPSV 0.74.ICAEDV/CCAEDV 0.74. ECHOCARDIOGRAM REPORT - SCAN (06/21/2018 5:20 PM)Osmolality, urine (06/21/2018 12:44 AM) Component Value Ref Range Osmolality, Ur 587 40 - 1400 mOsm/kg Specimen Performing Laboratory Urine - Urine, [address] [place] [address] CT brain without IV contrast (06/20/2018 6:53 PM) Specimen Performing Laboratory GE RIS Narrative FINAL REPORT CT Head without contrast CLINICAL HISTORY: [...] of acute infarct or intracranial hemorrhage. Ventricles are normal in size and configuration. Mild age-related global [...] brain for further evaluation. Signed: Kalpana Brock MD Report Verified Date/Time:06/20/2018 19:01:56 Reading Location: [address] Transitional Reading Room Procedure Note Interface, External Ris In - 06/20/2018 7:04 PM CDT FINAL REPORT CT Head without contrast CLINICAL HISTORY: [...] of acute infarct or intracranial hemorrhage. Ventricles are normal in size and configuration. Mild age-related global [...] brain for further evaluation. Signed: Kalpana Brock MD Report Verified Date/Time: 06/20/2018 19:01:56 Reading Location: [address] Transitional Reading Room 2D Echo W/Doppler(CW/PW/Color) (06/20/2018 2:25 PM) Component Value Ref Range Ejection Fraction Specimen Performing Laboratory [facility] Narrative Transthoracic Echocardiography Report (TTE) Demographics Patient NameFRANCINE HAND Date of Study06/20/2018 MARQUIS Gender Male Visit [id number] Race Unknown [id number] Number Date of 1945 [facility] Physician Age 72 year(s) Hack Driver Gauri Blount [facility] [place] Sandra Garza,Interpreting Humberto Gr MD [facility] Physician Procedure Type of Study TTE procedure:2DECHO W DOPPLER(CW/PW/COLOR) (Routine) Indications:Stroke work up. Clinical History DM;HTN; HGB 13.4 HCT 39.3 % Contrast Medium: Definity. Height: 71 inches Weight: 90.72 kg (200 lbs) BSA: 2.11 m^2 BMI: 27.89 kg/m^2 HR: 60 bpm BP: 159/68 mmHg Summary IV saline contrast injection was negative for a PFO (patent foramen ovale) at rest and post Valsalva . LV endocardium is adequately visualized with IV ultrasound enhancing agent. The left ventricle is chamber size (by vol index) is mildly enlarged (male - LVED 75-89ml/m2). LV septal thickness is mildly increased (1.2-1.4cm). LV posterior wall thickness is normal (0.6-1.1cm) . All of the LV segments contract normally . Global LV systolic function normal . LVEF by Garcia's method of disk assessment is normal (>60%) . Grade 1 diastolic dysfunction (impaired relaxation and low-normal LA pressure). Estimated peak systolic PA pressure is 20-25 mmHg . Previous Study No prior exam available for comparison. Signature Findings Technical Quality: Technically adequate exam. Left Ventricle LV endocardium is adequately visualized with IV ultrasound enhancing agent. The left ventricle is chamber size (by vol index) is mildly enlarged (male - LVED 75-89ml/m2). LV septal thickness is mildly increased (1.2-1.4cm). LV posterior wall thickness is normal (0.6-1.1cm ) . All of the LV segments contract normally . Global LV systolic function normal . LVEF by Garcia's method of disk assessment is normal (>60%) . The LVEF was measured using Garcia's bi-plane method of disk . Grade 1 diastolic dysfunction (impaired relaxation and low-normal LA pressure). Left AtriumLA size is mildly enlarged (35-41 ml/m2) . Right VentricleThe right ventricular chamber size and systolic function are within normal limits. Right Atrium RA cavity size is normal . Atrial SeptumIV saline contrast injection was negative for a PFO (patent foramen ovale) at rest and post Valsalva . Aortic Valve Mild AoV cusp thickening. AoV cusp mobility is normal . Mild aortic regurgitation. Mitral Valve Mild MV leaflet thickening. Mild mitral annular calcification. Trace mitral regurgitation. Tricuspid ValveTV structure is normal. Mild tricuspid regurgitation. Estimated peak systolic PA pressure is 20-25 mmHg . Pulmonic Valve Normal PV structure and function by limited views and Doppler. AortaAortic root size (SInus of Valsalva diameter) is normal . PericardiumNo pericardial effusion is visualized. IVC/SVC/PA/PV/PleuralThe estimated RA pressure by IVC dynamics 0-5mmHg . The inferior vena cava size is normal . The inferior vena cava is partially visualized. Chambers/Structures Left Atrium LA Volume: 84.12 ml LA Area: 26.02 cm^ 2 LA Vol. Index: 40 ml/m^2 Left Ventricle LVIDd: 5.65 cm LVIDs: 4.26 cm LV Septum Diastolic: 1.33 cm LV PW Diastolic: 1.18 cmLV FS: 24.6 % LVEDV Garcia's:161.98 ml LVESV Garcia's:61.84 mlLVEDVI: 77 ml/ m^2 LVEF Garcia's: 61.8 %LVESVI: 29 ml/m^2 LVOT Diameter: 2.07 cm Aorta Ao Root S of Clara.: 3.5 cm Doppler/Quantitative Measurements Mitral Valve MV Peak E-Wave: 0.69 m/sMV Peak A-Wave: 0.98 m/s E/ A Ratio: 0.71 Peak Gradient: 1.91 mmHg Deceleration Time: 182.9 msec MV Juan C. Peak: Tissue Doppler E' Septal Velocity: 0.06 m/s Aortic Valve Peak Velocity: 1.98 m/sMean Velocity: 1.27 m/s Peak Gradient: 15.61 mmHgMean Gradient: 7.66 mmHg AV Area (continuity): 1.85 cm^2 AV VTI: 43.97 cm AV DVI: 0.55 LVOT Peak Velocity: 0.97 m/s Peak Gradient: 3.77 mmHg Mean Velocity: 0.69 m/s Mean Gradient: 2.1 mmHg LVOT Diameter: 2.07 cmLVOT VTI: 24.19 cm LVOT Area: 3.37 cm^2LVOT SV:81.37 ml LVOT CO: 4.88 l/min LVOT CI: 2.31 l/min/m^2 Tricuspid Valve TR Velocity: 2.34 m/s TR Gradient: 21.98 mmHg Procedure Note Interface, External Ris In - 06/21/2018 5:58 PM CDT Transthoracic Echocardiography Report (TTE) Demographics Patient Name FRANCINE HAND Date of Study 06/20/2018 MARQUIS Gender Male Visit Number [id number] Race Unknown Room Number 7401 Number Date of 1945 Referring [facility] Physician Age 72 year(s) Hack Driver Gauri Blount [facility] [place] Sandra Garza, Meagan Gr MD [facility] Physician Procedure Type of Study TTE procedure:2DECHO W DOPPLER(CW/PW/COLOR) (Routine) Indications:Stroke work up. Clinical History DM;HTN; HGB 13.4 HCT 39.3 % Contrast Medium: Definity. Height: 71 inches Weight: 90.72 kg (200 lbs) BSA: 2.11 m^2 BMI: 27.89 kg/m^2 HR: 60 bpm BP: 159/68 mmHg Summary IV saline contrast injection was negative for a PFO (patent foramen ovale) at rest and post Valsalva . LV endocardium is adequately visualized with IV ultrasound enhancing agent. The left ventricle is chamber size (by vol index) is mildly enlarged (male - LVED 75-89ml/m2). LV septal thickness is mildly increased (1.2-1.4cm). LV posterior wall thickness is normal (0.6-1.1cm) . All of the LV segments contract normally . Global LV systolic function normal . LVEF by Garcia's method of disk assessment is normal (>60%) . Grade 1 diastolic dysfunction (impaired relaxation and low-normal LA pressure). Estimated peak systolic PA pressure is 20-25 mmHg . Previous Study No prior exam available for comparison. Signature Findings Technical Quality: Technically adequate exam. Left Ventricle LV endocardium is adequately visualized with IV ultrasound enhancing agent. The left ventricle is chamber size (by vol index) is mildly enlarged (male - LVED 75-89ml/m2). LV septal thickness is mildly increased (1.2-1.4cm). LV posterior wall thickness is normal (0.6-1.1cm) . All of the LV segments contract normally . Global LV systolic function normal . LVEF by Garcia's method of disk assessment is normal (>60%) . The LVEF was measured using Garcia's bi-plane method of disk . Grade 1 diastolic dysfunction (impaired relaxation and low-normal LA pressure). Left Atrium LA size is mildly enlarged (35-41 ml/m2) . Right Ventricle The right ventricular chamber size and systolic function are within normal limits. Right Atrium RA cavity size is normal . Atrial Septum IV saline contrast injection was negative for a PFO (patent foramen ovale) at rest and post Valsalva . Aortic Valve Mild AoV cusp thickening. AoV cusp mobility is normal . Mild aortic regurgitation. Mitral Valve Mild MV leaflet thickening. Mild mitral annular calcification. Trace mitral regurgitation. Tricuspid Valve TV structure is normal. Mild tricuspid regurgitation. Estimated peak systolic PA pressure is 20-25 mmHg . Pulmonic Valve Normal PV structure and function by limited views and Doppler. Aorta Aortic root size (SInus of Valsalva diameter) is normal . Pericardium No pericardial effusion is visualized. IVC/SVC/PA/PV/Pleural The estimated RA pressure by IVC dynamics 0-5mmHg . The inferior vena cava size is normal . The inferior vena cava is partially visualized. Chambers/Structures Left Atrium LA Volume: 84.12 ml LA Area: 26.02 cm^2 LA Vol. Index: 40 ml/m^2 Left Ventricle LVIDd: 5.65 cm LVIDs: 4.26 cm LV Septum Diastolic: 1.33 cm LV PW Diastolic: 1.18 cm LV FS: 24.6 % LVEDV Garcia's:161.98 ml LVESV Garcia's:61.84 ml LVEDVI: 77 ml/m^2 LVEF Garcia's: 61.8 % LVESVI: 29 ml/m^2 LVOT Diameter: 2.07 cm Aorta Ao Root S of Clara.: 3.5 cm Doppler/Quantitative Measurements Mitral Valve MV Peak E-Wave: 0.69 m/s MV Peak A-Wave: 0.98 m/s E/A Ratio: 0.71 Peak Gradient: 1.91 mmHg Deceleration Time: 182.9 msec MV Juan C. Peak: Tissue Doppler E' Septal Velocity: 0.06 m/s Aortic Valve Peak Velocity: 1.98 m/s Mean Velocity: 1.27 m/s Peak Gradient: 15.61 mmHg Mean Gradient: 7.66 mmHg AV Area (continuity): 1.85 cm^2 AV VTI: 43.97 cm AV DVI: 0.55 LVOT Peak Velocity: 0.97 m/s Peak Gradient: 3.77 mmHg Mean Velocity: 0.69 m/s Mean Gradient: 2.1 mmHg LVOT Diameter: 2.07 cm LVOT VTI: 24.19 cm LVOT Area: 3.37 cm^2 LVOT SV:81.37 ml LVOT CO: 4.88 l/min LVOT CI: 2.31 l/min/m^2 Tricuspid Valve TR Velocity: 2.34 m/s TR Gradient: 21.98 mmHg Vitamin B12 and Folate (06/20/2018 12:59 AM) Component Value Ref Range Vitamin B12 311 213 - 816 pg/mL Folate 6.9 (L) >=7.0 ng/mL Specimen Performing Laboratory Blood - Arm, [address] [address] TSH/Free T4 If Indicated (06/20/2018 12:59 AM) Component Value Ref Range TSH 1.81 0.35 - 4.94 uIU/mL Specimen Performing Laboratory Blood - Arm, [address] [address] Troponin I (06/20/2018 12:59 AM)Only the most recent of2 resultswithin the time period is included. Component Value Ref Range Troponin I 0.01 0.00 - 0.03 ng/mL Specimen Performing Laboratory Blood - Arm, [address] [address] Narrative Troponin I (TnI) levels must be interpreted [...] failure, acidosis, acute neurological disease, and persistent tachyarrhythmia. Fasting RPR (06/20/2018 12:59 AM) Component Value Ref Range RPR Nonreactive Nonreactive Specimen Performing Laboratory Blood - Arm, [address] [address] CBC (Hemogram only) (06/20/2018 12:59 AM) Component Value Ref Range WBC 10.5 3.5 - 10.5 K/L RBC 4.31 (L) 4.63 - 6.08 M/L Hemoglobin 13.4 (L) 13.7 - 17.5 GM/DL Hematocrit 39.3 (L) 40.1 - 51.0 % MCV 91.2 79.0 - 92.2 fL MCH 31.1 25.7 - 32.2 pg MCHC 34.1 32.3 - 36.5 GM/DL RDW 13.2 11.6 - 14.4 % Platelets 170 150 - 450 K/CU MM MPV 10.0 9.4 - 12.4 fL nRBC 0 0 - 0 /100 WBC Specimen Performing Laboratory Blood - Arm, [address] [address] Hemoglobin A1c (06/20/2018 12:59 AM) Component Value Ref Range Hemoglobin A1C 6.9 (H) 4.3 - 6.1 % Specimen Performing Laboratory Blood - Arm, [address] [address] Fasting lipid panel (06/20/2018 12:59 AM) Component Value Ref Range Triglycerides 108 mg/dL Cholesterol 192 mg/dL HDL 31 mg/dL LDL Calculated 139 mg/dL Specimen Performing Laboratory Blood - Arm, [address] [address] Narrative Triglyceride Reference Range: Low Risk <150 [id number] High Risk 200-499 Very High Risk>=500 Cholesterol Reference Range: Low Risk <200 [id number] High Risk>240 HDL Cholesterol Reference Range: Low Risk >=60 High Risk <40 LDL Cholesterol Reference Range: Optimal<100 Near [id number] Very High >=190 Fasting after 06/25/2017
[2018-06-26] MEDS ORDERED: BISACODYL E.C. 5 MG TAB PO PRN (14:52)
[2018-06-26] MEDS ORDERED: D50W 25 GM/50 ML SYRINGE IV PRN ×2 (14:52→15:58)
[2018-06-26] MEDS ORDERED: GLUCAGON 1 MG/VIAL IM PRN ×2 (14:52→15:58)
[2018-06-26] MEDS: ENOXAPARIN 40 MG/0.4 ML SQ SCH (15:35)
[2018-06-26] MEDS: INSULIN -REGULAR HUMAN 50 UNIT/0.5 ML ML SQ SCH ×2 (16:30→20:59)
[2018-06-26] MEDS: METFORMIN HCL 850 MG TAB PO SCH (17:27)
[2018-06-26 19:56] LABS: Urine Appearance CLEAR; Urine Bilirubin NEGATIVE (NEG); Urine Blood NEGATIVE (NEG); Urine Color DK YELLOW; Urine Glucose TRACE (NEG); Urine Protein TRACE (NEG); Urine Specific Gravity 1.025 (1.005-1.030)
[2018-06-26 20:07] LABS: Urine Bacteria <20 /HPF (NONE SEEN); Urine Culture Reflex Order NOT NEEDED; Urine RBC <5 /HPF (NONE SEEN)
[2018-06-26] MEDS: DOXYCYCLINE 100 MG CAP PO SCH (20:18)
[2018-06-26] MEDS: DOCUSATE NA/SENNA CONC 1 TAB PO SCH (20:19)
[2018-06-26] MEDS: MELATONIN 3 MG TABLET PO PRN (20:19)
[2018-06-26] MEDS: ATORVASTATIN 80 MG TAB PO SCH (20:19)
--- NOTE | 2018-06-27 01:31 | FAST ---
SHIFT START DATE/TIME: 06/26/2018 19:00 (CDT) SHIFT END DATE/TIME: 06/27/2018 07:00 (CDT) NAME FRANCINE RODRIGUEZ DATE OF : 1945 DATE OF ADMISSION: 06/26/2018 14:02 (CDT) PHONE: AGE: 72 [facility] [place]# [id number] GENDER: Male ENCOUNTER PHYSICIAN: Dr. Rodrigo Alaniz M.D. 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 EATING: Activity did not occur on this shift EATING - SCORE: 0-UNK GROOMING: Wash, rinse, and dry face Wash, rinse, and dry hands GROOMING - STEP 1: Does the patient require assistance when grooming? Yes. GROOMING - STEP 2: Does the patient require the assistance of a helper? Yes. GROOMING - STEP 3: How much assistance does the patient require from the helper? Cuing, coaxing, instructions, or encour agement for completion of grooming GROOMING - SCORE: 5-SUP BATHING: Activity did not occur on this shift BATHING - SCORE: 0-UNK DRESSING - UPPER BODY: Patient is not dressing in public clothing ARTICLES SCORE Total number of steps: 0 DRESSING - UPPER BODY - SCORE: 0-UNK DRESSING - LOWER BODY: Patient is not dressing in public clothing ARTICLES SCORE Total number of steps: 0 DRESSING - LOWER BODY - SCORE: 0-UNK TOILETING: TOILETING - STEP 1: Does the patient require assistance with toileting? Yes. TOILETING - STEP 2: Does the patient require the assistance of a helper? Yes. TOILETING - STEP 3: How much assistance does the patient require from the helper? Only supervision TOILETING - SCORE: 5-SUP BLADDER MANAGEMENT: BLADDER MANAGEMENT - STEP 1: Does the patient control the bladder completely and intentionally without equipment or devices or med ications, and is always continent? No. BLADDER MANAGEMENT - STEP 2: Does the patient require the assistance of a helper? No, patient only requires extra time BLADDER MANAGEMENT - SCORE: 6-LINDA BOWEL MANAGEMENT: Activity did not occur on this shift BOWEL MANAGEMENT - SCORE: 7-IND TRANSFERS: BED, CHAIR, WHEELCHAIR: TRANSFERS: BED, CHAIR, WHEELCHAIR - STEP 1: Does the patient require assistance with bed, chair, or wheelchair transfers? Yes. TRANSFERS: BED, CHAIR, WHEELCHAIR - STEP 2: Does the patient require the assistance of a helper? Yes. TRANSFERS: BED, CHAIR, WHEELCHAIR - STEP 3: How much assistance does the patient require from the helper? Only supervision TRANSFERS: BED, CHAIR, WHEELCHAIR - SCORE: 5-SUP TRANSFERS: TOILET: TRANSFERS: TOILET - STEP 1: Does the patient require assistance with toilet transfers? Yes. TRANSFERS: TOILET - STEP 2: Does the patient require the assistance of a helper? Yes. TRANSFERS: TOILET - STEP 3: How much assistance does the patient require from the helper? Only supervision, cuing, coaxing, OR he lp to set out transfer equipment or to lock brakes and/or lift foot rests TRANSFERS: TOILET - SCORE: 5-SUP TRANSFERS: SHOWER: Activity did not occur on this shift TRANSFERS: SHOWER - SCORE: 0-UNK TRANSFERS: TUB: Activity did not occur on this shift TRANSFERS: TUB - SCORE: 0-UNK LOCOMOTION: WALK: Activity did not occur on this shift LOCOMOTION: WALK - SCORE: 0-UNK LOCOMOTION: WHEELCHAIR: Activity did not occur on this shift LOCOMOTION: WHEELCHAIR - SCORE: 0-UNK COMPREHENSION: COMPREHENSION - STEP 1: Does the patient require help to understand complex and abstract ideas (such as current events, finan michaela, discharge planning, medical issues, relationships, etc)? Yes. COMPREHENSION - STEP 2: Does the patient require help to understand questions or statements about basic needs or ideas (such as hunger, thirst, sleep, safety, daily schedule, room location, or discomfort) half or more of the t saige? No. COMPREHENSION - STEP 3: How often does the patient need help to understand directions and conversation about basic needs? 10% - 24% of the time COMPREHENSION - SCORE: 4-MIN EXPRESSION EXPRESSION - STEP 1: Does the patient require help expressing complex and abstract ideas (such as current events, finances , discharge planning, medical issues, relationships, etc)? Yes. EXPRESSION - STEP 2: Does the patient require help to express basic necessities or ideas (such as hunger, thirst, sleep, s afety, daily schedule, room location, or discomfort) half or more of the time? No. EXPRESSION - STEP 3: How often does the patient need help to express directions and conversation about basic needs? 10-24% of the time EXPRESSION - SCORE: 4-MIN SOCIAL INTERACTION: SOCIAL INTERACTION - STEP 1: Does the patient require a helper to interact with others in social and therapeutic situations? No. SOCIAL INTERACTION - STEP 2: Does the patient need extra time in social situations, OR does s/he interact with staff, other patien ts, and family members ONLY in structured environments, OR does s/he require medication for social in teraction? Yes, patient requires medication for social interaction SOCIAL INTERACTION - SCORE: 6-LINDA PROBLEM SOLVING: PROBLEM SOLVING - STEP 1: Does the patient need help to solve complex problems such as managing a checking account or confronti ng interpersonal problems? Yes. PROBLEM SOLVING - STEP 2: Does the patient solve basic routine problems half or more of the time? Yes. PROBLEM SOLVING - STEP 3: How often does the patient need help to solve basic routine problems? 25%-49% of the time PROBLEM SOLVING - SCORE: 3-MOD MEMORY: MEMORY - STEP 1: Does the patient need help to remember frequently encountered people, daily routines, and executing r equests? Yes. MEMORY - STEP 2: How often does the patient need help to remember frequently encountered people, daily routines, and e xecuting requests? 25% - 49% of the time MEMORY - SCORE: 3-MOD SIGNATURE PANEL: The following modified sections: Eating - Score, Grooming - Score, Dressing - Upper Body - Score, Francisco ssing - Lower Body - Score, Toileting - Score, Bladder Management - Score, Bowel Management - Score, Transfers: Bed, Chair, Wheelchair - Score, Transfers: Toilet - Score, Transfers: Shower - Score, Suazo sfers: Tub - Score, Locomotion: Walk - Score, Locomotion: Wheelchair - Score, Comprehension - Score, Expression - Score, Social Interaction - Score, Problem Solving - Score, Memory - Score were [electro nically] signed by Ginny Goetz CNA on FriJun 27 2018 01:30:01 GMT-0500 (Central Daylight Time)
[2018-06-27 06:37] LABS: Absolute Lymphocytes (CBC) 0.8 K/uL (0.7-4.9); Absolute Monocytes 0.7 K/uL (0.1-1.3); Absolute Neutrophil 5.6 K/uL (1.8-8.0); Basophils % 0.5 % (0-1.3); Eosinophils % 4.5 % (0-4.4); Hematocrit 40.7 % (39.6-49.0); Lymphocytes % 11.3 % (15.3-44.8); MCH 31.6 pg (27.0-35.0); MCV 90.9 fL (80-100); MPV 8.2 fL (7.6-11.3); Monocytes % 8.9 % (3.3-12.3); RBC Red Blood Cell Count 4.47 M/uL (4.33-5.43)
[2018-06-27 07:23] LABS: Magnesium 2.2 mg/dL (1.8-2.4); Potassium 4.2 mmol/L (3.5-5.1); Prealbumin 16.1 mg/dL (20-40)
[2018-06-27] MEDS: INSULIN -REGULAR HUMAN 50 UNIT/0.5 ML ML SQ SCH ×4 (07:30→20:09)
[2018-06-27] MEDS: FOLIC ACID 1 MG TABLET PO SCH (08:46)
[2018-06-27] MEDS: METFORMIN HCL 850 MG TAB PO SCH ×2 (08:46→17:00)
[2018-06-27] MEDS: DOXYCYCLINE 100 MG CAP PO SCH ×2 (08:46→20:07)
[2018-06-27] MEDS: CLOPIDOGREL 75 MG TABLET PO SCH (08:47)
[2018-06-27] MEDS: FLUOXETINE 20 MG CAP PO SCH (08:47)
[2018-06-27] MEDS: LISINOPRIL 20 MG TAB PO SCH (08:47)
[2018-06-27] MEDS: DOCUSATE NA/SENNA CONC 1 TAB PO SCH (08:47)
[2018-06-27] MEDS: INSULIN DETEMIR 100 UNIT/1 ML INSULIN SQ SCH (08:48)
[2018-06-27] MEDS: ASPIRIN 81 MG CHEWABLE TABLET PO SCH (08:49)
--- NOTE | 2018-06-27 10:31 | FAST ---
SHIFT START DATE/TIME: 06/27/2018 07:00 (CDT) SHIFT END DATE/TIME: 06/27/2018 19:00 (CDT) NAME FRANCINE RODRIGUEZ DATE OF : 1945 DATE OF ADMISSION: 06/26/2018 14:02 (CDT) PHONE: AGE: 72 N# [id number] GENDER: Male ENCOUNTER PHYSICIAN: Dr. Rodrigo Alaniz M.D. 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 EATING: EATING - STEP 1: Does the patient require assistance when eating? Yes. EATING - STEP 2: Does the patient require the assistance of a helper? Yes. EATING - STEP 3: Does the patient perform half or more of the eating tasks? Yes. EATING - STEP 4: Does the patient need only supervision, cuing, coaxing OR help to apply an orthosis OR help to cut fo od, open containers, pour liquids, or butter bread? Yes. EATING - SCORE: 5-SUP GROOMING: Wash, rinse, and dry face Wash, rinse, and dry hands GROOMING - STEP 1: Does the patient require assistance when grooming? Yes. GROOMING - STEP 2: Does the patient require the assistance of a helper? Yes. GROOMING - STEP 3: How much assistance does the patient require from the helper? Cuing, coaxing, instructions, or encour agement for completion of grooming GROOMING - SCORE: 5-SUP BATHING: Activity did not occur on this shift BATHING - SCORE: 0-UNK DRESSING - UPPER BODY: Activity did not occur on this shift ARTICLES SCORE Total number of steps: 0 DRESSING - UPPER BODY - SCORE: 0-UNK DRESSING - LOWER BODY: Activity did not occur on this shift ARTICLES SCORE Total number of steps: 0 DRESSING - LOWER BODY - SCORE: 0-UNK TOILETING: TOILETING - STEP 1: Does the patient require assistance with toileting? Yes. TOILETING - STEP 2: Does the patient require the assistance of a helper? Yes. TOILETING - STEP 3: How much assistance does the patient require from the helper? Only supervision TOILETING - SCORE: 5-SUP BLADDER MANAGEMENT: BLADDER MANAGEMENT - STEP 1: Does the patient control the bladder completely and intentionally without equipment or devices or med ications, and is always continent? No. BLADDER MANAGEMENT - STEP 2: Does the patient require the assistance of a helper? No, patient requires and independently uses an a ssistive device, such as a urinal, bedpan, bedside commode, catheter, absorbent pad, or collecting de vice BLADDER MANAGEMENT - SCORE: 6-LINDA BLADDER MANAGEMENT - FREQUENCY OF ACCIDENTS: BLADDER MANAGEMENT(FA) - STEP 1: How many accidents has the patient had during the current shift? 0 BOWEL MANAGEMENT: BOWEL MANAGEMENT - STEP 1: Does the patient control bowels completely and intentionally without equipment devices or medications AND is always continent? No. BOWEL MANAGEMENT - STEP 2: Does the patient require the assistance of a helper? No, patient requires extra time BOWEL MANAGEMENT - SCORE: 6-LINDA BOWEL MANAGEMENT - FREQUENCY OF ACCIDENTS: BOWEL MANAGEMENT(FA) - STEP 1: How many accidents has the patient had during the current shift? 0 TRANSFERS: BED, CHAIR, WHEELCHAIR: TRANSFERS: BED, CHAIR, WHEELCHAIR - STEP 1: Does the patient require assistance with bed, chair, or wheelchair transfers? Yes. TRANSFERS: BED, CHAIR, WHEELCHAIR - STEP 2: Does the patient require the assistance of a helper? Yes. TRANSFERS: BED, CHAIR, WHEELCHAIR - STEP 3: How much assistance does the patient require from the helper? Only supervision TRANSFERS: BED, CHAIR, WHEELCHAIR - SCORE: 5-SUP TRANSFERS: TOILET: TRANSFERS: TOILET - STEP 1: Does the patient require assistance with toilet transfers? Yes. TRANSFERS: TOILET - STEP 2: Does the patient require the assistance of a helper? Yes. TRANSFERS: TOILET - STEP 3: How much assistance does the patient require from the helper? Only supervision, cuing, coaxing, OR he lp to set out transfer equipment or to lock brakes and/or lift foot rests TRANSFERS: TOILET - SCORE: 5-SUP TRANSFERS: SHOWER: Activity did not occur on this shift TRANSFERS: SHOWER - SCORE: 0-UNK TRANSFERS: TUB: Activity did not occur on this shift TRANSFERS: TUB - SCORE: 0-UNK LOCOMOTION: WALK: Activity did not occur on this shift LOCOMOTION: WALK - SCORE: 0-UNK LOCOMOTION: WHEELCHAIR: Activity did not occur on this shift LOCOMOTION: WHEELCHAIR - SCORE: 0-UNK COMPREHENSION: COMPREHENSION - STEP 1: Does the patient require help to understand complex and abstract ideas (such as current events, finan michaela, discharge planning, medical issues, relationships, etc)? Yes. COMPREHENSION - STEP 2: Does the patient require help to understand questions or statements about basic needs or ideas (such as hunger, thirst, sleep, safety, daily schedule, room location, or discomfort) half or more of the t saige? No. COMPREHENSION - STEP 3: How often does the patient need help to understand directions and conversation about basic needs? 10% - 24% of the time COMPREHENSION - SCORE: 4-MIN EXPRESSION EXPRESSION: TYPE: Both EXPRESSION - STEP 1: Does the patient require help expressing complex and abstract ideas (such as current events, finances , discharge planning, medical issues, relationships, etc)? Yes. EXPRESSION - STEP 2: Does the patient require help to express basic necessities or ideas (such as hunger, thirst, sleep, s afety, daily schedule, room location, or discomfort) half or more of the time? No. EXPRESSION - STEP 3: How often does the patient need help to express directions and conversation about basic needs? 10-24% of the time EXPRESSION - SCORE: 4-MIN SOCIAL INTERACTION: SOCIAL INTERACTION - STEP 1: Does the patient require a helper to interact with others in social and therapeutic situations? No. SOCIAL INTERACTION - STEP 2: Does the patient need extra time in social situations, OR does s/he interact with staff, other patien ts, and family members ONLY in structured environments, OR does s/he require medication for social in teraction? Yes, patient needs extra time SOCIAL INTERACTION - SCORE: 6-LINDA PROBLEM SOLVING: PROBLEM SOLVING - STEP 1: Does the patient need help to solve complex problems such as managing a checking account or confronti ng interpersonal problems? Yes. PROBLEM SOLVING - STEP 2: Does the patient solve basic routine problems half or more of the time? Yes. PROBLEM SOLVING - STEP 3: How often does the patient need help to solve basic routine problems? 25%-49% of the time PROBLEM SOLVING - SCORE: 3-MOD MEMORY: MEMORY - STEP 1: Does the patient need help to remember frequently encountered people, daily routines, and executing r equests? Yes. MEMORY - STEP 2: How often does the patient need help to remember frequently encountered people, daily routines, and e xecuting requests? 25% - 49% of the time MEMORY - SCORE: 3-MOD SIGNATURE PANEL: The following modified sections: Eating - Score, Grooming - Score, Bathing - Score, Dressing - Upper Body - Score, Dressing - Lower Body - Score, Toileting - Score, Bladder Management - Score, Bowel Man agement - Score, Transfers: Bed, Chair, Wheelchair - Score, Transfers: Toilet - Score, Transfers: Mague wer - Score, Transfers: Tub - Score, Locomotion: Walk - Score, Locomotion: Wheelchair - Score, Compre hension - Score, Expression - Score, Social Interaction - Score, Problem Solving - Score, Memory - Sc ore were [electronically] signed by Nixon [email or web address] on Sat Jun 27 2018 10:30:52 GMT-0500 (Centra l Daylight Time)
[2018-06-27] MEDS ORDERED: DOCUSATE NA/SENNA CONC 1 TAB PO PRN (12:47)
--- NOTE | 2018-06-27 15:24 | FAST ---
ENCOUNTER DATE AND TIME: 06/27/2018 08:00 (CDT) NAME FRANCINE RODRIGUEZ DATE OF : 1945 DATE OF ADMISSION: 06/26/2018 14:02 (CDT) PHONE: AGE: 72 N# [id number] GENDER: Male ENCOUNTER PHYSICIAN: Dr. Rodrigo Alaniz M.D. 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 EATING: Activity did not occur on this shift EATING - SCORE: 0-UNK GROOMING: Comb/brush hair Oral care Wash, rinse, and dry face Wash, rinse, and dry hands GROOMING - STEP 1: Does the patient require assistance when grooming? Yes. GROOMING - STEP 2: Does the patient require the assistance of a helper? Yes. GROOMING - STEP 3: How much assistance does the patient require from the helper? Cuing, coaxing, instructions, or encour agement for completion of grooming GROOMING - SCORE: 5-SUP GROOMING - COMMENTS: Set-up and supervision with vcs BATHING: Abdomen Buttocks Chest Left arm Left lower leg and foot Left upper leg Perineal area Right arm Right lower leg and foot Right upper leg BATHING - STEP 1: Does the patient require assistance when bathing? Yes. BATHING - STEP 2: Does the patient require the assistance of a helper? Yes. BATHING - STEP 3: How much assistance does the patient require from the helper? Only incidental help such as placement of a wash cloth in his/her hand a few times as s/he bathes OR help to bathe just one or two areas of the body BATHING - SCORE: 4-MIN DRESSING - UPPER BODY: Button down shirt or blouse - NOT tucked in (four steps) ARTICLES SCORE Total number of steps: 4 DRESSING - UPPER BODY - STEP 1: Does the patient require help when dressing above the waist? Yes. DRESSING - UPPER BODY - STEP 2: Does the patient require the assistance of a helper? Yes. DRESSING - UPPER BODY - STEP 3: Does the helper touch the patient while dressing? Yes. DRESSING - UPPER BODY - STEP 4: How many of the total steps does the patient complete on his/her own? 1 DRESSING - UPPER BODY - STEP 5: Does Patient require total assistance for dressing above the waist such as the helper holding clothin g and performing basically all the activities? No. DRESSING - UPPER BODY - SCORE: 2-MAX DRESSING - LOWER BODY: Sock - Left foot (one step) Sock - Right foot (one step) Tied or buckled shoe - Left foot (two steps) Tied or buckled shoe - Right foot (two steps) Underwear (three steps) Zippered pants (four steps) ARTICLES SCORE Total number of steps: 13 DRESSING - LOWER BODY - STEP 1: Does the patient require help when dressing below the waist? Yes. DRESSING - LOWER BODY - STEP 2: Does the patient require the assistance of a helper? Yes. DRESSING - LOWER BODY - STEP 3: Does the helper touch the patient while dressing? Yes. DRESSING - LOWER BODY - STEP 4: How many of the total steps does the patient complete on his/her own? 4 DRESSING - LOWER BODY - STEP 5: Does patient require total assistance for dressing below the waist such as the helper holding clothin g and performing basically all the activities? No. DRESSING - LOWER BODY - SCORE: 2-MAX TOILETING: TOILETING - STEP 1: Does the patient require assistance with toileting? Yes. TOILETING - STEP 2: Does the patient require the assistance of a helper? Yes. TOILETING - STEP 3: How much assistance does the patient require from the helper? Hands-on assistance from the helper TOILETING - STEP 4: Of the 3 tasks: 1) Adjusting clothing prior to use, 2) Cleansing of perineal area, 3) Adjusting clot villa after use; How many tasks does the patient perform WITHOUT assistance of the helper? One task TOILETING - SCORE: 2-MAX BLADDER MANAGEMENT: Activity did not occur on this shift BLADDER MANAGEMENT - SCORE: 7-IND BOWEL MANAGEMENT: Activity did not occur on this shift BOWEL MANAGEMENT - SCORE: 7-IND TRANSFERS: BED, CHAIR, WHEELCHAIR: Activity did not occur on this shift TRANSFERS: BED, CHAIR, WHEELCHAIR - SCORE: 0-UNK TRANSFERS: TOILET: TRANSFERS: TOILET - STEP 1: Does the patient require assistance with toilet transfers? Yes. TRANSFERS: TOILET - STEP 2: Does the patient require the assistance of a helper? Yes. TRANSFERS: TOILET - STEP 3: How much assistance does the patient require from the helper? Patient performs half or more of the tr ansferring tasks TRANSFERS: TOILET - STEP 4: Does the patient need only incidental help such as contact guard or steadying during toilet transfer? Yes. TRANSFERS: TOILET - SCORE: 4-MIN TRANSFERS: SHOWER: TRANSFERS: SHOWER - STEP 1: Does the patient require assistance with shower transfers? Yes. TRANSFERS: SHOWER - STEP 2: Does the patient require the assistance of a helper? Yes. TRANSFERS: SHOWER - STEP 3: How much assistance does the patient require from the helper? Only incidental help such as contact gu arding or steadying during shower transfers, or help to lift one leg into the shower TRANSFERS: SHOWER - SCORE: 4-MIN TRANSFERS: TUB: Activity did not occur on this shift TRANSFERS: TUB - SCORE: 0-UNK LOCOMOTION: WALK: Activity did not occur on this shift LOCOMOTION: WALK - SCORE: 0-UNK LOCOMOTION: WHEELCHAIR: Activity did not occur on this shift LOCOMOTION: WHEELCHAIR - SCORE: 0-UNK LOCOMOTION: STAIRS: Activity did not occur on this shift LOCOMOTION: STAIRS - SCORE: 0-UNK COMPREHENSION: COMPREHENSION: TYPE: Both COMPREHENSION - STEP 1: Does the patient require help to understand complex and abstract ideas (such as current events, finan michaela, discharge planning, medical issues, relationships, etc)? Yes. COMPREHENSION - STEP 2: Does the patient require help to understand questions or statements about basic needs or ideas (such as hunger, thirst, sleep, safety, daily schedule, room location, or discomfort) half or more of the t saige? No. COMPREHENSION - STEP 3: How often does the patient need help to understand directions and conversation about basic needs? Les s than 10% of the time COMPREHENSION - SCORE: 5-SUP EXPRESSION EXPRESSION: TYPE: Vocal EXPRESSION - STEP 1: Does the patient require help expressing complex and abstract ideas (such as current events, finances , discharge planning, medical issues, relationships, etc)? Yes. EXPRESSION - STEP 2: Does the patient require help to express basic necessities or ideas (such as hunger, thirst, sleep, s afety, daily schedule, room location, or discomfort) half or more of the time? No. EXPRESSION - STEP 3: How often does the patient need help to express directions and conversation about basic needs? Less t hines 10% of the time EXPRESSION - SCORE: 5-SUP SOCIAL INTERACTION: SOCIAL INTERACTION - STEP 1: Does the patient require a helper to interact with others in social and therapeutic situations? No. SOCIAL INTERACTION - STEP 2: Does the patient need extra time in social situations, OR does s/he interact with staff, other patien ts, and family members ONLY in structured environments, OR does s/he require medication for social in teraction? No. SOCIAL INTERACTION - SCORE: 7-IND PROBLEM SOLVING: PROBLEM SOLVING - STEP 1: Does the patient need help to solve complex problems such as managing a checking account or confronti ng interpersonal problems? Yes. PROBLEM SOLVING - STEP 2: Does the patient solve basic routine problems half or more of the time? Yes. PROBLEM SOLVING - STEP 3: How often does the patient need help to solve basic routine problems? 10%-24% of the time PROBLEM SOLVING - SCORE: 4-MIN MEMORY: MEMORY - STEP 1: Does the patient need help to remember frequently encountered people, daily routines, and executing r equests? Yes. MEMORY - STEP 2: How often does the patient need help to remember frequently encountered people, daily routines, and e xecuting requests? 10% - 24% of the time MEMORY - SCORE: 4-MIN SIGNATURE PANEL: The following modified sections: Eating - Score, Grooming - Score, Grooming - Comments:, Bathing - Sc ore, Dressing - Upper Body - Score, Dressing - Lower Body - Score, Toileting - Score, Transfers: Bed, Chair, Wheelchair - Score, Transfers: Toilet - Score, Transfers: Tub - Score, Transfers: Shower - Sc ore, Comprehension - Score, Expression - Score, Social Interaction - Score, Problem Solving - Score, Memory - Score were [electronically] signed by Pamela Kenny OT on Sat Jun 27 2018 15:23:29 GMT-050 0 (Central Daylight Time)
[2018-06-27] MEDS: ENOXAPARIN 40 MG/0.4 ML SQ SCH (16:17)
[2018-06-27] MEDS: ATORVASTATIN 80 MG TAB PO SCH (20:07)
[2018-06-27] MEDS: ACETAMINOPHEN 500 MG TAB PO PRN (20:13)
--- NOTE | 2018-06-28 01:20 | FAST ---
SHIFT START DATE/TIME: 06/27/2018 19:00 (CDT) SHIFT END DATE/TIME: 06/28/2018 07:00 (CDT) NAME FRANCINE RODRIGUEZ DATE OF : 1945 DATE OF ADMISSION: 06/26/2018 14:02 (CDT) PHONE: AGE: 72 N# [id number] GENDER: Male ENCOUNTER PHYSICIAN: Dr. Rodrigo Alaniz M.D. 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 EATING: Activity did not occur on this shift EATING - SCORE: 0-UNK GROOMING: Oral care Wash, rinse, and dry face Wash, rinse, and dry hands GROOMING - STEP 1: Does the patient require assistance when grooming? Yes. GROOMING - STEP 2: Does the patient require the assistance of a helper? Yes. GROOMING - STEP 3: How much assistance does the patient require from the helper? Cuing, coaxing, instructions, or encour agement for completion of grooming GROOMING - SCORE: 5-SUP BATHING: Activity did not occur on this shift BATHING - SCORE: 0-UNK DRESSING - UPPER BODY: Patient is not dressing in public clothing ARTICLES SCORE Total number of steps: 0 DRESSING - UPPER BODY - SCORE: 0-UNK DRESSING - LOWER BODY: Patient is not dressing in public clothing ARTICLES SCORE Total number of steps: 0 DRESSING - LOWER BODY - SCORE: 0-UNK TOILETING: TOILETING - STEP 1: Does the patient require assistance with toileting? Yes. TOILETING - STEP 2: Does the patient require the assistance of a helper? Yes. TOILETING - STEP 3: How much assistance does the patient require from the helper? Only supervision TOILETING - SCORE: 5-SUP BLADDER MANAGEMENT: BLADDER MANAGEMENT - STEP 1: Does the patient control the bladder completely and intentionally without equipment or devices or med ications, and is always continent? No. BLADDER MANAGEMENT - STEP 2: Does the patient require the assistance of a helper? Yes. BLADDER MANAGEMENT - STEP 3: How much assistance does the patient require from the helper? Only supervision, stand-by, cuing, or c oaxing BLADDER MANAGEMENT - SCORE: 5-SUP BOWEL MANAGEMENT: Activity did not occur on this shift BOWEL MANAGEMENT - SCORE: 7-IND TRANSFERS: BED, CHAIR, WHEELCHAIR: TRANSFERS: BED, CHAIR, WHEELCHAIR - STEP 1: Does the patient require assistance with bed, chair, or wheelchair transfers? Yes. TRANSFERS: BED, CHAIR, WHEELCHAIR - STEP 2: Does the patient require the assistance of a helper? Yes. TRANSFERS: BED, CHAIR, WHEELCHAIR - STEP 3: How much assistance does the patient require from the helper? Only supervision TRANSFERS: BED, CHAIR, WHEELCHAIR - SCORE: 5-SUP TRANSFERS: TOILET: TRANSFERS: TOILET - STEP 1: Does the patient require assistance with toilet transfers? Yes. TRANSFERS: TOILET - STEP 2: Does the patient require the assistance of a helper? Yes. TRANSFERS: TOILET - STEP 3: How much assistance does the patient require from the helper? Only supervision, cuing, coaxing, OR he lp to set out transfer equipment or to lock brakes and/or lift foot rests TRANSFERS: TOILET - SCORE: 5-SUP TRANSFERS: SHOWER: Activity did not occur on this shift TRANSFERS: SHOWER - SCORE: 0-UNK TRANSFERS: TUB: Activity did not occur on this shift TRANSFERS: TUB - SCORE: 0-UNK LOCOMOTION: WALK: Activity did not occur on this shift LOCOMOTION: WALK - SCORE: 0-UNK LOCOMOTION: WHEELCHAIR: Activity did not occur on this shift LOCOMOTION: WHEELCHAIR - SCORE: 0-UNK COMPREHENSION: COMPREHENSION - STEP 1: Does the patient require help to understand complex and abstract ideas (such as current events, finan michaela, discharge planning, medical issues, relationships, etc)? Yes. COMPREHENSION - STEP 2: Does the patient require help to understand questions or statements about basic needs or ideas (such as hunger, thirst, sleep, safety, daily schedule, room location, or discomfort) half or more of the t saige? No. COMPREHENSION - STEP 3: How often does the patient need help to understand directions and conversation about basic needs? 25% - 49% of the time COMPREHENSION - SCORE: 3-MOD EXPRESSION EXPRESSION - STEP 1: Does the patient require help expressing complex and abstract ideas (such as current events, finances , discharge planning, medical issues, relationships, etc)? Yes. EXPRESSION - STEP 2: Does the patient require help to express basic necessities or ideas (such as hunger, thirst, sleep, s afety, daily schedule, room location, or discomfort) half or more of the time? No. EXPRESSION - STEP 3: How often does the patient need help to express directions and conversation about basic needs? 10-24% of the time EXPRESSION - SCORE: 4-MIN SOCIAL INTERACTION: SOCIAL INTERACTION - STEP 1: Does the patient require a helper to interact with others in social and therapeutic situations? No. SOCIAL INTERACTION - STEP 2: Does the patient need extra time in social situations, OR does s/he interact with staff, other patien ts, and family members ONLY in structured environments, OR does s/he require medication for social in teraction? Yes, patient requires medication for social interaction SOCIAL INTERACTION - SCORE: 6-LINDA PROBLEM SOLVING: PROBLEM SOLVING - STEP 1: Does the patient need help to solve complex problems such as managing a checking account or confronti ng interpersonal problems? Yes. PROBLEM SOLVING - STEP 2: Does the patient solve basic routine problems half or more of the time? Yes. PROBLEM SOLVING - STEP 3: How often does the patient need help to solve basic routine problems? 25%-49% of the time PROBLEM SOLVING - SCORE: 3-MOD MEMORY: MEMORY - STEP 1: Does the patient need help to remember frequently encountered people, daily routines, and executing r equests? Yes. MEMORY - STEP 2: How often does the patient need help to remember frequently encountered people, daily routines, and e xecuting requests? 25% - 49% of the time MEMORY - SCORE: 3-MOD SIGNATURE PANEL: The following modified sections: Eating - Score, Grooming - Score, Dressing - Upper Body - Score, Francisco ssing - Lower Body - Score, Toileting - Score, Bladder Management - Score, Bowel Management - Score, Transfers: Bed, Chair, Wheelchair - Score, Transfers: Toilet - Score, Transfers: Shower - Score, Suazo sfers: Tub - Score, Locomotion: Walk - Score, Locomotion: Wheelchair - Score, Comprehension - Score, Expression - Score, Social Interaction - Score, Problem Solving - Score, Memory - Score were [electro nically] signed by Ginny Goetz CNA on FriJun 28 2018 01:19:14 GMT-0500 (Central Daylight Time)
[2018-06-28] MEDS: ACETAMINOPHEN 500 MG TAB PO PRN ×2 (01:40→18:11)
[2018-06-28] MEDS: INSULIN -REGULAR HUMAN 50 UNIT/0.5 ML ML SQ SCH ×4 (07:30→20:07)
[2018-06-28] MEDS: METFORMIN HCL 850 MG TAB PO SCH ×2 (08:00→16:55)
[2018-06-28] MEDS: DOXYCYCLINE 100 MG CAP PO SCH ×2 (08:38→20:07)
[2018-06-28] MEDS: FLUOXETINE 20 MG CAP PO SCH (08:39)
[2018-06-28] MEDS: LISINOPRIL 20 MG TAB PO SCH (08:39)
[2018-06-28] MEDS: ASPIRIN 81 MG CHEWABLE TABLET PO SCH (08:39)
[2018-06-28] MEDS: FOLIC ACID 1 MG TABLET PO SCH (08:39)
[2018-06-28] MEDS: CLOPIDOGREL 75 MG TABLET PO SCH (08:39)
[2018-06-28] MEDS: INSULIN DETEMIR 100 UNIT/1 ML INSULIN SQ SCH (08:40)
[2018-06-28] MEDS: LIDOCAINE 5% PATCH TOP SCH (09:24)
[2018-06-28] MEDS: TRAMADOL HCL 50 MG TAB PO PRN (12:26)
[2018-06-28] MEDS: AMLODIPINE 2.5 MG TAB PO SCH (13:10)
--- NOTE | 2018-06-28 14:50 | FAST ---
SHIFT START DATE/TIME: 06/28/2018 07:00 (CDT) SHIFT END DATE/TIME: 06/28/2018 19:00 (CDT) NAME FRANCINE RODRIGUEZ DATE OF : 1945 DATE OF ADMISSION: 06/26/2018 14:02 (CDT) PHONE: AGE: 72 N# [id number] GENDER: Male ENCOUNTER PHYSICIAN: Dr. Rodrigo Alaniz M.D. 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 EATING: EATING - STEP 1: Does the patient require assistance when eating? Yes. EATING - STEP 2: Does the patient require the assistance of a helper? Yes. EATING - STEP 3: Does the patient perform half or more of the eating tasks? Yes. EATING - STEP 4: Does the patient need only supervision, cuing, coaxing OR help to apply an orthosis OR help to cut fo od, open containers, pour liquids, or butter bread? Yes. EATING - SCORE: 5-SUP GROOMING: Comb/brush hair Wash, rinse, and dry face Wash, rinse, and dry hands GROOMING - STEP 1: Does the patient require assistance when grooming? Yes. GROOMING - STEP 2: Does the patient require the assistance of a helper? Yes. GROOMING - STEP 3: How much assistance does the patient require from the helper? Cuing, coaxing, instructions, or encour agement for completion of grooming GROOMING - SCORE: 5-SUP BATHING: Activity did not occur on this shift BATHING - SCORE: 0-UNK DRESSING - UPPER BODY: Activity did not occur on this shift ARTICLES SCORE Total number of steps: 0 DRESSING - UPPER BODY - SCORE: 0-UNK DRESSING - LOWER BODY: Activity did not occur on this shift ARTICLES SCORE Total number of steps: 0 DRESSING - LOWER BODY - SCORE: 0-UNK TOILETING: TOILETING - STEP 1: Does the patient require assistance with toileting? Yes. TOILETING - STEP 2: Does the patient require the assistance of a helper? Yes. TOILETING - STEP 3: How much assistance does the patient require from the helper? Only supervision TOILETING - SCORE: 5-SUP BLADDER MANAGEMENT: BLADDER MANAGEMENT - STEP 1: Does the patient control the bladder completely and intentionally without equipment or devices or med ications, and is always continent? Yes. BLADDER MANAGEMENT - SCORE: 7-IND BLADDER MANAGEMENT - FREQUENCY OF ACCIDENTS: BLADDER MANAGEMENT(FA) - STEP 1: How many accidents has the patient had during the current shift? 0 BOWEL MANAGEMENT: BOWEL MANAGEMENT - STEP 1: Does the patient control bowels completely and intentionally without equipment devices or medications AND is always continent? No. BOWEL MANAGEMENT - STEP 2: Does the patient require the assistance of a helper? No, patient requires medication for control such as stool softeners, suppositories, laxatives, enemas, or OTC medications BOWEL MANAGEMENT - SCORE: 6-LINDA BOWEL MANAGEMENT - FREQUENCY OF ACCIDENTS: BOWEL MANAGEMENT(FA) - STEP 1: How many accidents has the patient had during the current shift? 0 TRANSFERS: BED, CHAIR, WHEELCHAIR: TRANSFERS: BED, CHAIR, WHEELCHAIR - STEP 1: Does the patient require assistance with bed, chair, or wheelchair transfers? Yes. TRANSFERS: BED, CHAIR, WHEELCHAIR - STEP 2: Does the patient require the assistance of a helper? Yes. TRANSFERS: BED, CHAIR, WHEELCHAIR - STEP 3: How much assistance does the patient require from the helper? Only supervision TRANSFERS: BED, CHAIR, WHEELCHAIR - SCORE: 5-SUP TRANSFERS: TOILET: TRANSFERS: TOILET - STEP 1: Does the patient require assistance with toilet transfers? Yes. TRANSFERS: TOILET - STEP 2: Does the patient require the assistance of a helper? Yes. TRANSFERS: TOILET - STEP 3: How much assistance does the patient require from the helper? Only supervision, cuing, coaxing, OR he lp to set out transfer equipment or to lock brakes and/or lift foot rests TRANSFERS: TOILET - SCORE: 5-SUP TRANSFERS: SHOWER: Activity did not occur on this shift TRANSFERS: SHOWER - SCORE: 0-UNK TRANSFERS: TUB: Activity did not occur on this shift TRANSFERS: TUB - SCORE: 0-UNK LOCOMOTION: WALK: LOCOMOTION: WALK - STEP 1: Does the patient need help to walk 150 feet? Yes. LOCOMOTION: WALK - STEP 2: How much assistance does the patient require to walk a minimum of 150 feet? Only supervision, cuing, or coaxing LOCOMOTION: WALK - SCORE: 5-SUP LOCOMOTION: WHEELCHAIR: Activity did not occur on this shift LOCOMOTION: WHEELCHAIR - SCORE: 0-UNK COMPREHENSION: COMPREHENSION - STEP 1: Does the patient require help to understand complex and abstract ideas (such as current events, finan michaela, discharge planning, medical issues, relationships, etc)? Yes. COMPREHENSION - STEP 2: Does the patient require help to understand questions or statements about basic needs or ideas (such as hunger, thirst, sleep, safety, daily schedule, room location, or discomfort) half or more of the t saige? No. COMPREHENSION - STEP 3: How often does the patient need help to understand directions and conversation about basic needs? Les s than 10% of the time COMPREHENSION - SCORE: 5-SUP EXPRESSION EXPRESSION: TYPE: Both EXPRESSION - STEP 1: Does the patient require help expressing complex and abstract ideas (such as current events, finances , discharge planning, medical issues, relationships, etc)? Yes. EXPRESSION - STEP 2: Does the patient require help to express basic necessities or ideas (such as hunger, thirst, sleep, s afety, daily schedule, room location, or discomfort) half or more of the time? No. EXPRESSION - STEP 3: How often does the patient need help to express directions and conversation about basic needs? Less t hines 10% of the time EXPRESSION - SCORE: 5-SUP SOCIAL INTERACTION: SOCIAL INTERACTION - STEP 1: Does the patient require a helper to interact with others in social and therapeutic situations? No. SOCIAL INTERACTION - STEP 2: Does the patient need extra time in social situations, OR does s/he interact with staff, other patien ts, and family members ONLY in structured environments, OR does s/he require medication for social in teraction? Yes, patient needs extra time SOCIAL INTERACTION - SCORE: 6-LINDA PROBLEM SOLVING: PROBLEM SOLVING - STEP 1: Does the patient need help to solve complex problems such as managing a checking account or confronti ng interpersonal problems? Yes. PROBLEM SOLVING - STEP 2: Does the patient solve basic routine problems half or more of the time? Yes. PROBLEM SOLVING - STEP 3: How often does the patient need help to solve basic routine problems? 10%-24% of the time PROBLEM SOLVING - SCORE: 4-MIN MEMORY: MEMORY - STEP 1: Does the patient need help to remember frequently encountered people, daily routines, and executing r equests? Yes. MEMORY - STEP 2: How often does the patient need help to remember frequently encountered people, daily routines, and e xecuting requests? 10% - 24% of the time MEMORY - SCORE: 4-MIN SIGNATURE PANEL: The following modified sections: Eating - Score, Grooming - Score, Bathing - Score, Dressing - Upper Body - Score, Dressing - Lower Body - Score, Toileting - Score, Bladder Management - Score, Bowel Man agement - Score, Transfers: Bed, Chair, Wheelchair - Score, Transfers: Toilet - Score, Transfers: [place] - Score, Transfers: Tub - Score, Locomotion: Walk - Score, Locomotion: Wheelchair - Score, Compre hension - Score, Expression - Score, Social Interaction - Score, Problem Solving - Score, Memory - Sc ore were [electronically] signed by Nixon MyersNCaterina on FriJun 28 2018 14:49:11 T-0500 (Centra l Daylight Time)
[2018-06-28] MEDS: ENOXAPARIN 40 MG/0.4 ML SQ SCH (16:56)
[2018-06-28] MEDS: ATORVASTATIN 80 MG TAB PO SCH (20:07)
--- NOTE | 2018-06-29 01:43 | FAST ---
SHIFT START DATE/TIME: 06/28/2018 19:00 (CDT) SHIFT END DATE/TIME: 06/29/2018 07:00 (CDT) NAME FRANCINE RODRIGUEZ DATE OF : 1945 DATE OF ADMISSION: 06/26/2018 14:02 (CDT) PHONE: AGE: 72 [facility]# [id number] GENDER: Male ENCOUNTER PHYSICIAN: Dr. Rodrigo Alaniz M.D. 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 EATING: Activity did not occur on this shift EATING - SCORE: 0-UNK GROOMING: Oral care Wash, rinse, and dry face Wash, rinse, and dry hands GROOMING - STEP 1: Does the patient require assistance when grooming? Yes. GROOMING - STEP 2: Does the patient require the assistance of a helper? Yes. GROOMING - STEP 3: How much assistance does the patient require from the helper? Cuing, coaxing, instructions, or encour agement for completion of grooming GROOMING - SCORE: 5-SUP BATHING: Activity did not occur on this shift BATHING - SCORE: 0-UNK DRESSING - UPPER BODY: Patient is not dressing in public clothing ARTICLES SCORE Total number of steps: 0 DRESSING - UPPER BODY - SCORE: 0-UNK DRESSING - LOWER BODY: Patient is not dressing in public clothing ARTICLES SCORE Total number of steps: 0 DRESSING - LOWER BODY - SCORE: 0-UNK TOILETING: TOILETING - STEP 1: Does the patient require assistance with toileting? Yes. TOILETING - STEP 2: Does the patient require the assistance of a helper? Yes. TOILETING - STEP 3: How much assistance does the patient require from the helper? Only supervision TOILETING - SCORE: 5-SUP BLADDER MANAGEMENT: BLADDER MANAGEMENT - STEP 1: Does the patient control the bladder completely and intentionally without equipment or devices or med ications, and is always continent? Yes. BLADDER MANAGEMENT - SCORE: 7-IND BOWEL MANAGEMENT: Activity did not occur on this shift BOWEL MANAGEMENT - SCORE: 7-IND TRANSFERS: BED, CHAIR, WHEELCHAIR: TRANSFERS: BED, CHAIR, WHEELCHAIR - STEP 1: Does the patient require assistance with bed, chair, or wheelchair transfers? Yes. TRANSFERS: BED, CHAIR, WHEELCHAIR - STEP 2: Does the patient require the assistance of a helper? Yes. TRANSFERS: BED, CHAIR, WHEELCHAIR - STEP 3: How much assistance does the patient require from the helper? Only supervision TRANSFERS: BED, CHAIR, WHEELCHAIR - SCORE: 5-SUP TRANSFERS: TOILET: TRANSFERS: TOILET - STEP 1: Does the patient require assistance with toilet transfers? Yes. TRANSFERS: TOILET - STEP 2: Does the patient require the assistance of a helper? Yes. TRANSFERS: TOILET - STEP 3: How much assistance does the patient require from the helper? Only supervision, cuing, coaxing, OR he lp to set out transfer equipment or to lock brakes and/or lift foot rests TRANSFERS: TOILET - SCORE: 5-SUP TRANSFERS: SHOWER: Activity did not occur on this shift TRANSFERS: SHOWER - SCORE: 0-UNK TRANSFERS: TUB: Activity did not occur on this shift TRANSFERS: TUB - SCORE: 0-UNK LOCOMOTION: WALK: Activity did not occur on this shift LOCOMOTION: WALK - SCORE: 0-UNK LOCOMOTION: WHEELCHAIR: Activity did not occur on this shift LOCOMOTION: WHEELCHAIR - SCORE: 0-UNK COMPREHENSION: COMPREHENSION - STEP 1: Does the patient require help to understand complex and abstract ideas (such as current events, finan michaela, discharge planning, medical issues, relationships, etc)? Yes. COMPREHENSION - STEP 2: Does the patient require help to understand questions or statements about basic needs or ideas (such as hunger, thirst, sleep, safety, daily schedule, room location, or discomfort) half or more of the t saige? No. COMPREHENSION - STEP 3: How often does the patient need help to understand directions and conversation about basic needs? 25% - 49% of the time COMPREHENSION - SCORE: 3-MOD EXPRESSION EXPRESSION - STEP 1: Does the patient require help expressing complex and abstract ideas (such as current events, finances , discharge planning, medical issues, relationships, etc)? Yes. EXPRESSION - STEP 2: Does the patient require help to express basic necessities or ideas (such as hunger, thirst, sleep, s afety, daily schedule, room location, or discomfort) half or more of the time? No. EXPRESSION - STEP 3: How often does the patient need help to express directions and conversation about basic needs? 25-49% of the time EXPRESSION - SCORE: 3-MOD SOCIAL INTERACTION: SOCIAL INTERACTION - STEP 1: Does the patient require a helper to interact with others in social and therapeutic situations? No. SOCIAL INTERACTION - STEP 2: Does the patient need extra time in social situations, OR does s/he interact with staff, other patien ts, and family members ONLY in structured environments, OR does s/he require medication for social in teraction? Yes, patient requires medication for social interaction SOCIAL INTERACTION - SCORE: 6-LINDA PROBLEM SOLVING: PROBLEM SOLVING - STEP 1: Does the patient need help to solve complex problems such as managing a checking account or confronti ng interpersonal problems? Yes. PROBLEM SOLVING - STEP 2: Does the patient solve basic routine problems half or more of the time? Yes. PROBLEM SOLVING - STEP 3: How often does the patient need help to solve basic routine problems? 25%-49% of the time PROBLEM SOLVING - SCORE: 3-MOD MEMORY: MEMORY - STEP 1: Does the patient need help to remember frequently encountered people, daily routines, and executing r equests? Yes. MEMORY - STEP 2: How often does the patient need help to remember frequently encountered people, daily routines, and e xecuting requests? 25% - 49% of the time MEMORY - SCORE: 3-MOD SIGNATURE PANEL: The following modified sections: Eating - Score, Grooming - Score, Dressing - Upper Body - Score, Francisco ssing - Lower Body - Score, Toileting - Score, Bladder Management - Score, Bowel Management - Score, Transfers: Bed, Chair, Wheelchair - Score, Transfers: Toilet - Score, Transfers: Shower - Score, Suazo sfers: Tub - Score, Locomotion: Walk - Score, Locomotion: Wheelchair - Score, Comprehension - Score, Expression - Score, Social Interaction - Score, Problem Solving - Score, Memory - Score were [electro nically] signed by Ginny Goetz CNA on FriJun 29 2018 01:42:43 GMT-0500 (Central Daylight Time)
[2018-06-29] MEDS: TRAMADOL HCL 50 MG TAB PO PRN ×2 (02:05→07:36)
[2018-06-29] MEDS: INSULIN -REGULAR HUMAN 50 UNIT/0.5 ML ML SQ SCH ×4 (07:30→20:05)
[2018-06-29] MEDS: INSULIN DETEMIR 100 UNIT/1 ML INSULIN SQ SCH (07:36)
[2018-06-29] MEDS: CLOPIDOGREL 75 MG TABLET PO SCH (07:36)
[2018-06-29] MEDS: DOXYCYCLINE 100 MG CAP PO SCH ×2 (07:36→20:13)
[2018-06-29] MEDS: LIDOCAINE 5% PATCH TOP SCH (07:36)
[2018-06-29] MEDS: AMLODIPINE 2.5 MG TAB PO SCH (07:37)
[2018-06-29] MEDS: LISINOPRIL 20 MG TAB PO SCH (07:37)
[2018-06-29] MEDS: ASPIRIN 81 MG CHEWABLE TABLET PO SCH (07:37)
[2018-06-29] MEDS: FLUOXETINE 20 MG CAP PO SCH (07:37)
[2018-06-29] MEDS: METFORMIN HCL 850 MG TAB PO SCH ×2 (07:37→17:22)
[2018-06-29] MEDS: FOLIC ACID 1 MG TABLET PO SCH (07:37)
--- NOTE | 2018-06-29 13:40 | FAST ---
SHIFT START DATE/TIME: 06/29/2018 07:00 (CDT) SHIFT END DATE/TIME: 06/29/2018 19:00 (CDT) NAME FRANCINE RODRIGUEZ DATE OF : 1945 DATE OF ADMISSION: 06/26/2018 14:02 (CDT) PHONE: AGE: 72 N# [id number] GENDER: Male ENCOUNTER PHYSICIAN: Dr. Rodrigo Alaniz M.D. 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 EATING: EATING - STEP 1: Does the patient require assistance when eating? Yes. EATING - STEP 2: Does the patient require the assistance of a helper? No, patient only requires an assistive device, O R s/he takes more than reasonable time to eat, OR there is a safety concern, OR s/he requires modifie d food consistency EATING - SCORE: 6-LINDA GROOMING: Comb/brush hair Oral care Wash, rinse, and dry face Wash, rinse, and dry hands GROOMING - STEP 1: Does the patient require assistance when grooming? Yes. GROOMING - STEP 2: Does the patient require the assistance of a helper? No. The patient only requires an assistive devic e, OR takes more than reasonable time to groom, OR there is a concern for safety as the patient groom s GROOMING - SCORE: 6-LINDA BATHING: Activity did not occur on this shift BATHING - SCORE: 0-UNK DRESSING - UPPER BODY: Activity did not occur on this shift ARTICLES SCORE Total number of steps: 0 DRESSING - UPPER BODY - SCORE: 0-UNK DRESSING - LOWER BODY: Activity did not occur on this shift ARTICLES SCORE Total number of steps: 0 DRESSING - LOWER BODY - SCORE: 0-UNK TOILETING: TOILETING - STEP 1: Does the patient require assistance with toileting? Yes. TOILETING - STEP 2: Does the patient require the assistance of a helper? Yes. TOILETING - STEP 3: How much assistance does the patient require from the helper? Hands-on assistance from the helper TOILETING - STEP 4: Of the 3 tasks: 1) Adjusting clothing prior to use, 2) Cleansing of perineal area, 3) Adjusting clot villa after use; How many tasks does the patient perform WITHOUT assistance of the helper? Three tasks with steadying assistance from the helper TOILETING - SCORE: 4-MIN BLADDER MANAGEMENT: BLADDER MANAGEMENT - STEP 1: Does the patient control the bladder completely and intentionally without equipment or devices or med ications, and is always continent? No. BLADDER MANAGEMENT - STEP 2: Does the patient require the assistance of a helper? No, patient requires and independently uses an a ssistive device, such as a urinal, bedpan, bedside commode, catheter, absorbent pad, or collecting de vice BLADDER MANAGEMENT - SCORE: 6-LINDA BOWEL MANAGEMENT: Activity did not occur on this shift BOWEL MANAGEMENT - SCORE: 7-IND TRANSFERS: BED, CHAIR, WHEELCHAIR: TRANSFERS: BED, CHAIR, WHEELCHAIR - STEP 1: Does the patient require assistance with bed, chair, or wheelchair transfers? Yes. TRANSFERS: BED, CHAIR, WHEELCHAIR - STEP 2: Does the patient require the assistance of a helper? Yes. TRANSFERS: BED, CHAIR, WHEELCHAIR - STEP 3: How much assistance does the patient require from the helper? Steadying/guiding assistance TRANSFERS: BED, CHAIR, WHEELCHAIR - SCORE: 4-MIN TRANSFERS: TOILET: TRANSFERS: TOILET - STEP 1: Does the patient require assistance with toilet transfers? Yes. TRANSFERS: TOILET - STEP 2: Does the patient require the assistance of a helper? Yes. TRANSFERS: TOILET - STEP 3: How much assistance does the patient require from the helper? Patient performs half or more of the tr ansferring tasks TRANSFERS: TOILET - STEP 4: Does the patient need only incidental help such as contact guard or steadying during toilet transfer? Yes. TRANSFERS: TOILET - SCORE: 4-MIN TRANSFERS: SHOWER: Activity did not occur on this shift TRANSFERS: SHOWER - SCORE: 0-UNK TRANSFERS: TUB: Activity did not occur on this shift TRANSFERS: TUB - SCORE: 0-UNK LOCOMOTION: WALK: Activity did not occur on this shift LOCOMOTION: WALK - SCORE: 0-UNK LOCOMOTION: WHEELCHAIR: Activity did not occur on this shift LOCOMOTION: WHEELCHAIR - SCORE: 0-UNK COMPREHENSION: COMPREHENSION - SCORE: 0-UNK EXPRESSION EXPRESSION - SCORE: 0-UNK SOCIAL INTERACTION: SOCIAL INTERACTION - SCORE: 0-UNK PROBLEM SOLVING: PROBLEM SOLVING - SCORE: 0-UNK MEMORY: MEMORY - SCORE: 0-UNK SIGNATURE PANEL: The following modified sections: Eating - Score, Grooming - Score, Bathing - Score, Dressing - Upper Body - Score, Dressing - Lower Body - Score, Toileting - Score, Bladder Management - Score, Bowel Man agement - Score, Transfers: Bed, Chair, Wheelchair - Score, Transfers: Toilet - Score, Transfers: Mague wer - Score, Transfers: Tub - Score, Locomotion: Walk - Score, Locomotion: Wheelchair - Score, Compre hension - Score, Expression - Score, Social Interaction - Score, Problem Solving - Score, Memory - Sc ore were [electronically] signed by Albert Humphreys on FriJun 29 2018 13:39:23 GMT-0500 (Central Daylight Time)
--- NOTE | 2018-06-29 14:49 | FAST ---
ENCOUNTER DATE AND TIME: 06/29/2018 08:00 (CDT) NAME FRANCINE RODRIGUEZ DATE OF : 1945 DATE OF ADMISSION: 06/26/2018 14:02 (CDT) PHONE: AGE: 72 N# [id number] GENDER: Male ENCOUNTER PHYSICIAN: Dr. Rodrigo Alaniz M.D. 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 EATING: Activity did not occur on this shift EATING - SCORE: 0-UNK GROOMING: Comb/brush hair Oral care Wash, rinse, and dry face Wash, rinse, and dry hands GROOMING - STEP 1: Does the patient require assistance when grooming? Yes. GROOMING - STEP 2: Does the patient require the assistance of a helper? Yes. GROOMING - STEP 3: How much assistance does the patient require from the helper? Cuing, coaxing, instructions, or encour agement for completion of grooming GROOMING - SCORE: 5-SUP BATHING: Abdomen Buttocks Chest Left arm Left lower leg and foot Left upper leg Perineal area Right arm Right lower leg and foot Right upper leg BATHING - STEP 1: Does the patient require assistance when bathing? Yes. BATHING - STEP 2: Does the patient require the assistance of a helper? Yes. BATHING - STEP 3: How much assistance does the patient require from the helper? Only supervision, cuing, coaxing, instr uctions, encouragement BATHING - SCORE: 5-SUP DRESSING - UPPER BODY: T-shirt/pullover shirt (four steps) ARTICLES SCORE Total number of steps: 4 DRESSING - UPPER BODY - STEP 1: Does the patient require help when dressing above the waist? Yes. DRESSING - UPPER BODY - STEP 2: Does the patient require the assistance of a helper? Yes. DRESSING - UPPER BODY - STEP 3: Does the helper touch the patient while dressing? No. DRESSING - UPPER BODY - SCORE: 5-SUP DRESSING - LOWER BODY: Elastic waist pants (three steps) Sock - Left foot (one step) Sock - Right foot (one step) Tied or buckled shoe - Left foot (two steps) Tied or buckled shoe - Right foot (two steps) Underwear (three steps) ARTICLES SCORE Total number of steps: 12 DRESSING - LOWER BODY - STEP 1: Does the patient require help when dressing below the waist? Yes. DRESSING - LOWER BODY - STEP 2: Does the patient require the assistance of a helper? Yes. DRESSING - LOWER BODY - STEP 3: Does the helper touch the patient while dressing? Yes. DRESSING - LOWER BODY - STEP 4: How many of the total steps does the patient complete on his/her own? 10 DRESSING - LOWER BODY - SCORE: 4-MIN TOILETING: Activity did not occur on this shift TOILETING - SCORE: 0-UNK BLADDER MANAGEMENT: Activity did not occur on this shift BLADDER MANAGEMENT - SCORE: 7-IND BOWEL MANAGEMENT: Activity did not occur on this shift BOWEL MANAGEMENT - SCORE: 7-IND TRANSFERS: BED, CHAIR, WHEELCHAIR: Activity did not occur on this shift TRANSFERS: BED, CHAIR, WHEELCHAIR - SCORE: 0-UNK TRANSFERS: TOILET: Activity did not occur on this shift TRANSFERS: TOILET - SCORE: 0-UNK TRANSFERS: SHOWER: TRANSFERS: SHOWER - STEP 1: Does the patient require assistance with shower transfers? Yes. TRANSFERS: SHOWER - STEP 2: Does the patient require the assistance of a helper? Yes. TRANSFERS: SHOWER - STEP 3: How much assistance does the patient require from the helper? Only incidental help such as contact gu arding or steadying during shower transfers, or help to lift one leg into the shower TRANSFERS: SHOWER - SCORE: 4-MIN TRANSFERS: TUB: Activity did not occur on this shift TRANSFERS: TUB - SCORE: 0-UNK LOCOMOTION: WALK: Activity did not occur on this shift LOCOMOTION: WALK - SCORE: 0-UNK LOCOMOTION: WHEELCHAIR: Activity did not occur on this shift LOCOMOTION: WHEELCHAIR - SCORE: 0-UNK LOCOMOTION: STAIRS: Activity did not occur on this shift LOCOMOTION: STAIRS - SCORE: 0-UNK COMPREHENSION: COMPREHENSION - SCORE: 0-UNK EXPRESSION EXPRESSION - SCORE: 0-UNK SOCIAL INTERACTION: SOCIAL INTERACTION - SCORE: 0-UNK PROBLEM SOLVING: PROBLEM SOLVING - SCORE: 0-UNK MEMORY: MEMORY - SCORE: 0-UNK SIGNATURE PANEL: The following modified sections: Eating - Score, Grooming - Score, Bathing - Score, Dressing - Upper Body - Score, Dressing - Lower Body - Score, Toileting - Score, Transfers: Bed, Chair, Wheelchair - S core, Transfers: Toilet - Score, Transfers: Shower - Score, Transfers: Tub - Score, Comprehension - S core, Expression - Score, Social Interaction - Score, Problem Solving - Score, Memory - Score were [e lectronically] signed by TRUONG Maya on FriJun 29 2018 14:49:15 [email or web address]-0500 ([facility] Time)
--- NOTE | 2018-06-29 15:20 | FAST ---
ENCOUNTER DATE AND TIME: 06/29/2018 08:00 (CDT) NAME FRANCINE RODRIGUEZ DATE OF : 1945 DATE OF ADMISSION: 06/26/2018 14:02 (CDT) PHONE: AGE: 72 N# [id number] GENDER: Male ENCOUNTER PHYSICIAN: Dr. Rodrigo Alaniz M.D. 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 EATING: Activity did not occur on this shift EATING - SCORE: 0-UNK GROOMING: Activity did not occur on this shift GROOMING - SCORE: 0-UNK BATHING: Activity did not occur on this shift BATHING - SCORE: 0-UNK DRESSING - UPPER BODY: Activity did not occur on this shift Patient is not dressing in public clothing ARTICLES SCORE Total number of steps: 0 DRESSING - UPPER BODY - SCORE: 0-UNK DRESSING - LOWER BODY: Activity did not occur on this shift Patient is not dressing in public clothing ARTICLES SCORE Total number of steps: 0 DRESSING - LOWER BODY - SCORE: 0-UNK TOILETING: Activity did not occur on this shift TOILETING - SCORE: 0-UNK BLADDER MANAGEMENT: Activity did not occur on this shift BLADDER MANAGEMENT - SCORE: 7-IND BOWEL MANAGEMENT: Activity did not occur on this shift BOWEL MANAGEMENT - SCORE: 7-IND TRANSFERS: BED, CHAIR, WHEELCHAIR: Activity did not occur on this shift TRANSFERS: BED, CHAIR, WHEELCHAIR - SCORE: 0-UNK TRANSFERS: TOILET: Activity did not occur on this shift TRANSFERS: TOILET - SCORE: 0-UNK TRANSFERS: SHOWER: Activity did not occur on this shift TRANSFERS: SHOWER - SCORE: 0-UNK TRANSFERS: TUB: Activity did not occur on this shift TRANSFERS: TUB - SCORE: 0-UNK LOCOMOTION: WALK: Activity did not occur on this shift LOCOMOTION: WALK - SCORE: 0-UNK LOCOMOTION: WHEELCHAIR: Activity did not occur on this shift LOCOMOTION: WHEELCHAIR - SCORE: 0-UNK LOCOMOTION: STAIRS: Activity did not occur on this shift LOCOMOTION: STAIRS - SCORE: 0-UNK COMPREHENSION: COMPREHENSION - STEP 1: Does the patient require help to understand complex and abstract ideas (such as current events, finan michaela, discharge planning, medical issues, relationships, etc)? Yes. COMPREHENSION - STEP 2: Does the patient require help to understand questions or statements about basic needs or ideas (such as hunger, thirst, sleep, safety, daily schedule, room location, or discomfort) half or more of the t saige? No. COMPREHENSION - STEP 3: How often does the patient need help to understand directions and conversation about basic needs? 10% - 24% of the time COMPREHENSION - SCORE: 4-MIN EXPRESSION EXPRESSION - STEP 1: Does the patient require help expressing complex and abstract ideas (such as current events, finances , discharge planning, medical issues, relationships, etc)? Yes. EXPRESSION - STEP 2: Does the patient require help to express basic necessities or ideas (such as hunger, thirst, sleep, s afety, daily schedule, room location, or discomfort) half or more of the time? No. EXPRESSION - STEP 3: How often does the patient need help to express directions and conversation about basic needs? 10-24% of the time EXPRESSION - SCORE: 4-MIN SOCIAL INTERACTION: SOCIAL INTERACTION - STEP 1: Does the patient require a helper to interact with others in social and therapeutic situations? Yes. SOCIAL INTERACTION - STEP 2: Does the patient interact appropriately half or more of the time? Yes. SOCIAL INTERACTION - STEP 3: How often does the patient need help to interact appropriately? 25-49% of the time SOCIAL INTERACTION - SCORE: 3-MOD PROBLEM SOLVING: PROBLEM SOLVING - STEP 1: Does the patient need help to solve complex problems such as managing a checking account or confronti ng interpersonal problems? Yes. PROBLEM SOLVING - STEP 2: Does the patient solve basic routine problems half or more of the time? Yes. PROBLEM SOLVING - STEP 3: How often does the patient need help to solve basic routine problems? 25%-49% of the time PROBLEM SOLVING - SCORE: 3-MOD MEMORY: MEMORY - STEP 1: Does the patient need help to remember frequently encountered people, daily routines, and executing r equests? Yes. MEMORY - STEP 2: How often does the patient need help to remember frequently encountered people, daily routines, and e xecuting requests? 25% - 49% of the time MEMORY - SCORE: 3-MOD SIGNATURE PANEL: The following modified sections: Comprehension - Score, Expression - Score, Social Interaction - Scor e, Problem Solving - Score, Memory - Score were [electronically] signed by ST Jose fri 15:19:33 GMT-0500 (Central Daylight Time)
[2018-06-29] MEDS: ENOXAPARIN 40 MG/0.4 ML SQ SCH (17:22)
[2018-06-29] MEDS: ATORVASTATIN 80 MG TAB PO SCH (20:13)
[2018-06-29] MEDS: ACETAMINOPHEN 500 MG TAB PO PRN (20:21)
[2018-06-30] MEDS: TRAMADOL HCL 50 MG TAB PO PRN ×2 (00:32→08:14)
--- NOTE | 2018-06-30 03:22 | FAST ---
SHIFT START DATE/TIME: 06/29/2018 19:00 (CDT) SHIFT END DATE/TIME: 06/30/2018 07:00 (CDT) NAME FRANCINE RODRIGUEZ DATE OF : 1945 DATE OF ADMISSION: 06/26/2018 14:02 (CDT) PHONE: AGE: 72 N# [id number] GENDER: Male ENCOUNTER PHYSICIAN: Dr. Rodrigo Alaniz M.D. 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 EATING: EATING - STEP 1: Does the patient require assistance when eating? Yes. EATING - STEP 2: Does the patient require the assistance of a helper? Yes. EATING - STEP 3: Does the patient perform half or more of the eating tasks? Yes. EATING - STEP 4: Does the patient need only supervision, cuing, coaxing OR help to apply an orthosis OR help to cut fo od, open containers, pour liquids, or butter bread? Yes. EATING - SCORE: 5-SUP GROOMING: Comb/brush hair Oral care Wash, rinse, and dry face Wash, rinse, and dry hands GROOMING - STEP 1: Does the patient require assistance when grooming? Yes. GROOMING - STEP 2: Does the patient require the assistance of a helper? Yes. GROOMING - STEP 3: How much assistance does the patient require from the helper? Only prior equipment preparation/set up from the helper GROOMING - SCORE: 5-SUP BATHING: Activity did not occur on this shift BATHING - SCORE: 0-UNK DRESSING - UPPER BODY: Patient is not dressing in public clothing ARTICLES SCORE Total number of steps: 0 DRESSING - UPPER BODY - SCORE: 0-UNK DRESSING - LOWER BODY: Patient is not dressing in public clothing ARTICLES SCORE Total number of steps: 0 DRESSING - LOWER BODY - SCORE: 0-UNK TOILETING: TOILETING - STEP 1: Does the patient require assistance with toileting? Yes. TOILETING - STEP 2: Does the patient require the assistance of a helper? Yes. TOILETING - STEP 3: How much assistance does the patient require from the helper? Only supervision TOILETING - SCORE: 5-SUP BLADDER MANAGEMENT: BLADDER MANAGEMENT - STEP 1: Does the patient control the bladder completely and intentionally without equipment or devices or med ications, and is always continent? No. BLADDER MANAGEMENT - STEP 2: Does the patient require the assistance of a helper? Yes. BLADDER MANAGEMENT - STEP 3: How much assistance does the patient require from the helper? Only supervision, stand-by, cuing, or c oaxing BLADDER MANAGEMENT - SCORE: 5-SUP BOWEL MANAGEMENT: Activity did not occur on this shift BOWEL MANAGEMENT - SCORE: 7-IND TRANSFERS: BED, CHAIR, WHEELCHAIR: TRANSFERS: BED, CHAIR, WHEELCHAIR - STEP 1: Does the patient require assistance with bed, chair, or wheelchair transfers? Yes. TRANSFERS: BED, CHAIR, WHEELCHAIR - STEP 2: Does the patient require the assistance of a helper? Yes. TRANSFERS: BED, CHAIR, WHEELCHAIR - STEP 3: How much assistance does the patient require from the helper? Only supervision TRANSFERS: BED, CHAIR, WHEELCHAIR - SCORE: 5-SUP TRANSFERS: TOILET: TRANSFERS: TOILET - STEP 1: Does the patient require assistance with toilet transfers? Yes. TRANSFERS: TOILET - STEP 2: Does the patient require the assistance of a helper? Yes. TRANSFERS: TOILET - STEP 3: How much assistance does the patient require from the helper? Only supervision, cuing, coaxing, OR he lp to set out transfer equipment or to lock brakes and/or lift foot rests TRANSFERS: TOILET - SCORE: 5-SUP TRANSFERS: SHOWER: Activity did not occur on this shift TRANSFERS: SHOWER - SCORE: 0-UNK TRANSFERS: TUB: Activity did not occur on this shift TRANSFERS: TUB - SCORE: 0-UNK LOCOMOTION: WALK: Activity did not occur on this shift LOCOMOTION: WALK - SCORE: 0-UNK LOCOMOTION: WHEELCHAIR: Activity did not occur on this shift LOCOMOTION: WHEELCHAIR - SCORE: 0-UNK COMPREHENSION: COMPREHENSION: TYPE: Both COMPREHENSION - STEP 1: Does the patient require help to understand complex and abstract ideas (such as current events, finan michaela, discharge planning, medical issues, relationships, etc)? Yes. COMPREHENSION - STEP 2: Does the patient require help to understand questions or statements about basic needs or ideas (such as hunger, thirst, sleep, safety, daily schedule, room location, or discomfort) half or more of the t saige? No. COMPREHENSION - STEP 3: How often does the patient need help to understand directions and conversation about basic needs? Les s than 10% of the time COMPREHENSION - SCORE: 5-SUP EXPRESSION EXPRESSION: TYPE: Both EXPRESSION - STEP 1: Does the patient require help expressing complex and abstract ideas (such as current events, finances , discharge planning, medical issues, relationships, etc)? Yes. EXPRESSION - STEP 2: Does the patient require help to express basic necessities or ideas (such as hunger, thirst, sleep, s afety, daily schedule, room location, or discomfort) half or more of the time? No. EXPRESSION - STEP 3: How often does the patient need help to express directions and conversation about basic needs? Less t hines 10% of the time EXPRESSION - SCORE: 5-SUP SOCIAL INTERACTION: SOCIAL INTERACTION - STEP 1: Does the patient require a helper to interact with others in social and therapeutic situations? No. SOCIAL INTERACTION - STEP 2: Does the patient need extra time in social situations, OR does s/he interact with staff, other patien ts, and family members ONLY in structured environments, OR does s/he require medication for social in teraction? Yes, patient needs extra time SOCIAL INTERACTION - SCORE: 6-LINDA PROBLEM SOLVING: PROBLEM SOLVING - STEP 1: Does the patient need help to solve complex problems such as managing a checking account or confronti ng interpersonal problems? Yes. PROBLEM SOLVING - STEP 2: Does the patient solve basic routine problems half or more of the time? No. PROBLEM SOLVING - STEP 3: Does the patient need help to solve problems all the time or is s/he unable to solve problems? No. [place] can sometimes solve problems PROBLEM SOLVING - SCORE: 2-MAX MEMORY: MEMORY - STEP 1: Does the patient need help to remember frequently encountered people, daily routines, and executing r equests? Yes. MEMORY - STEP 2: How often does the patient need help to remember frequently encountered people, daily routines, and e xecuting requests? More than 50% of the time MEMORY - STEP 3: Does the patient need help to remember all of the time OR does s/he not effectively recognize and rem ember? No. Patient does not need help all the time MEMORY - SCORE: 2-MAX SIGNATURE PANEL: The following modified sections: Eating - Score, Grooming - Score, Bathing - Score, Dressing - Upper Body - Score, Dressing - Lower Body - Score, Toileting - Score, Bladder Management - Score, Bowel Man agement - Score, Transfers: Bed, Chair, Wheelchair - Score, Transfers: Toilet - Score, Transfers: Mague wer - Score, Transfers: Tub - Score, Locomotion: Walk - Score, Locomotion: Wheelchair - Score, Compre hension - Score, Expression - Score, Social Interaction - Score, Problem Solving - Score, Memory - Sc ore were [electronically] signed by Renetta Nunez C.N.A. on FriJun 30 2018 03:21:34 T-0500 ( Central Daylight Time)
[2018-06-30] MEDS: ACETAMINOPHEN 500 MG TAB PO PRN ×2 (04:15→20:36)
[2018-06-30] MEDS: INSULIN -REGULAR HUMAN 50 UNIT/0.5 ML ML SQ SCH ×4 (07:30→20:12)
[2018-06-30] MEDS: DOXYCYCLINE 100 MG CAP PO SCH ×2 (08:14→20:35)
[2018-06-30] MEDS: LISINOPRIL 20 MG TAB PO SCH (08:15)
[2018-06-30] MEDS: AMLODIPINE 2.5 MG TAB PO SCH (08:16)
[2018-06-30] MEDS: LIDOCAINE 5% PATCH TOP SCH (08:16)
[2018-06-30] MEDS: METFORMIN HCL 850 MG TAB PO SCH ×2 (08:16→16:36)
[2018-06-30] MEDS: FOLIC ACID 1 MG TABLET PO SCH (08:16)
[2018-06-30] MEDS: ASPIRIN 81 MG CHEWABLE TABLET PO SCH (08:16)
[2018-06-30] MEDS: FLUOXETINE 20 MG CAP PO SCH (08:16)
[2018-06-30] MEDS: CLOPIDOGREL 75 MG TABLET PO SCH (08:16)
[2018-06-30] MEDS: INSULIN DETEMIR 100 UNIT/1 ML INSULIN SQ SCH (09:36)
--- NOTE | 2018-06-30 09:46 | FAST ---
SHIFT START DATE/TIME: 06/30/2018 07:00 (CDT) SHIFT END DATE/TIME: 06/30/2018 19:00 (CDT) NAME FRANCINE RODRIGUEZ DATE OF : 1945 DATE OF ADMISSION: 06/26/2018 14:02 (CDT) PHONE: AGE: 72 N# [id number] GENDER: Male ENCOUNTER PHYSICIAN: Dr. Rodrigo Alaniz M.D. 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 EATING: EATING - STEP 1: Does the patient require assistance when eating? Yes. EATING - STEP 2: Does the patient require the assistance of a helper? Yes. EATING - STEP 3: Does the patient perform half or more of the eating tasks? Yes. EATING - STEP 4: Does the patient need only supervision, cuing, coaxing OR help to apply an orthosis OR help to cut fo od, open containers, pour liquids, or butter bread? Yes. EATING - SCORE: 5-SUP GROOMING: Comb/brush hair Oral care GROOMING - STEP 1: Does the patient require assistance when grooming? Yes. GROOMING - STEP 2: Does the patient require the assistance of a helper? Yes. GROOMING - STEP 3: How much assistance does the patient require from the helper? Only prior equipment preparation/set up from the helper GROOMING - SCORE: 5-SUP BATHING: Activity did not occur on this shift BATHING - SCORE: 0-UNK DRESSING - UPPER BODY: Activity did not occur on this shift ARTICLES SCORE Total number of steps: 0 DRESSING - UPPER BODY - SCORE: 0-UNK DRESSING - LOWER BODY: Activity did not occur on this shift ARTICLES SCORE Total number of steps: 0 DRESSING - LOWER BODY - SCORE: 0-UNK TOILETING: TOILETING - STEP 1: Does the patient require assistance with toileting? Yes. TOILETING - STEP 2: Does the patient require the assistance of a helper? Yes. TOILETING - STEP 3: How much assistance does the patient require from the helper? Only supervision TOILETING - SCORE: 5-SUP BLADDER MANAGEMENT: BLADDER MANAGEMENT - STEP 1: Does the patient control the bladder completely and intentionally without equipment or devices or med ications, and is always continent? No. BLADDER MANAGEMENT - STEP 2: Does the patient require the assistance of a helper? No, patient requires and independently uses an a ssistive device, such as a urinal, bedpan, bedside commode, catheter, absorbent pad, or collecting de vice BLADDER MANAGEMENT - SCORE: 6-LINDA BOWEL MANAGEMENT: Activity did not occur on this shift BOWEL MANAGEMENT - SCORE: 7-IND TRANSFERS: BED, CHAIR, WHEELCHAIR: TRANSFERS: BED, CHAIR, WHEELCHAIR - STEP 1: Does the patient require assistance with bed, chair, or wheelchair transfers? Yes. TRANSFERS: BED, CHAIR, WHEELCHAIR - STEP 2: Does the patient require the assistance of a helper? Yes. TRANSFERS: BED, CHAIR, WHEELCHAIR - STEP 3: How much assistance does the patient require from the helper? Only supervision TRANSFERS: BED, CHAIR, WHEELCHAIR - SCORE: 5-SUP TRANSFERS: TOILET: TRANSFERS: TOILET - STEP 1: Does the patient require assistance with toilet transfers? Yes. TRANSFERS: TOILET - STEP 2: Does the patient require the assistance of a helper? Yes. TRANSFERS: TOILET - STEP 3: How much assistance does the patient require from the helper? Only supervision, cuing, coaxing, OR he lp to set out transfer equipment or to lock brakes and/or lift foot rests TRANSFERS: TOILET - SCORE: 5-SUP TRANSFERS: SHOWER: Activity did not occur on this shift TRANSFERS: SHOWER - SCORE: 0-UNK TRANSFERS: TUB: Activity did not occur on this shift TRANSFERS: TUB - SCORE: 0-UNK LOCOMOTION: WALK: Activity did not occur on this shift LOCOMOTION: WALK - SCORE: 0-UNK LOCOMOTION: WHEELCHAIR: Activity did not occur on this shift LOCOMOTION: WHEELCHAIR - SCORE: 0-UNK COMPREHENSION: COMPREHENSION - SCORE: 0-UNK EXPRESSION EXPRESSION - SCORE: 0-UNK SOCIAL INTERACTION: SOCIAL INTERACTION - SCORE: 0-UNK PROBLEM SOLVING: PROBLEM SOLVING - SCORE: 0-UNK MEMORY: MEMORY - SCORE: 0-UNK SIGNATURE PANEL: The following modified sections: Eating - Score, Grooming - Score, Bathing - Score, Dressing - Upper Body - Score, Dressing - Lower Body - Score, Toileting - Score, Bladder Management - Score, Bowel Man agement - Score, Transfers: Bed, Chair, Wheelchair - Score, Transfers: Toilet - Score, Transfers: Mague wer - Score, Transfers: Tub - Score, Locomotion: Walk - Score, Locomotion: Wheelchair - Score, Compre hension - Score, Expression - Score, Social Interaction - Score, Memory - Score, Problem Solving - Sc ore were [electronically] signed by Albert Humphreys on FriJun 30 2018 09:45:15 GMT-0500 (Central Daylight Time)
[2018-06-30] MEDS: ENOXAPARIN 40 MG/0.4 ML SQ SCH (16:36)
--- NOTE | 2018-06-30 16:45 | FAST ---
ENCOUNTER DATE AND TIME: 06/30/2018 08:00 (CDT) NAME FRANCINE RODRIGUEZ DATE OF : 1945 DATE OF ADMISSION: 06/26/2018 14:02 (CDT) PHONE: AGE: 72 N# [id number] GENDER: Male ENCOUNTER PHYSICIAN: Dr. Rodrigo Alaniz M.D. 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 EATING: Activity did not occur on this shift EATING - SCORE: 0-UNK GROOMING: Activity did not occur on this shift GROOMING - SCORE: 0-UNK BATHING: Activity did not occur on this shift BATHING - SCORE: 0-UNK DRESSING - UPPER BODY: Activity did not occur on this shift Patient is not dressing in public clothing ARTICLES SCORE Total number of steps: 0 DRESSING - UPPER BODY - SCORE: 0-UNK DRESSING - LOWER BODY: Activity did not occur on this shift Patient is not dressing in public clothing ARTICLES SCORE Total number of steps: 0 DRESSING - LOWER BODY - SCORE: 0-UNK TOILETING: Activity did not occur on this shift TOILETING - SCORE: 0-UNK BLADDER MANAGEMENT: Activity did not occur on this shift BLADDER MANAGEMENT - SCORE: 7-IND BOWEL MANAGEMENT: Activity did not occur on this shift BOWEL MANAGEMENT - SCORE: 7-IND TRANSFERS: BED, CHAIR, WHEELCHAIR: Activity did not occur on this shift TRANSFERS: BED, CHAIR, WHEELCHAIR - SCORE: 0-UNK TRANSFERS: TOILET: Activity did not occur on this shift TRANSFERS: TOILET - SCORE: 0-UNK TRANSFERS: SHOWER: Activity did not occur on this shift TRANSFERS: SHOWER - SCORE: 0-UNK TRANSFERS: TUB: Activity did not occur on this shift TRANSFERS: TUB - SCORE: 0-UNK LOCOMOTION: WALK: Activity did not occur on this shift LOCOMOTION: WALK - SCORE: 0-UNK LOCOMOTION: WHEELCHAIR: Activity did not occur on this shift LOCOMOTION: WHEELCHAIR - SCORE: 0-UNK LOCOMOTION: STAIRS: Activity did not occur on this shift LOCOMOTION: STAIRS - SCORE: 0-UNK COMPREHENSION: COMPREHENSION - STEP 1: Does the patient require help to understand complex and abstract ideas (such as current events, finan michaela, discharge planning, medical issues, relationships, etc)? Yes. COMPREHENSION - STEP 2: Does the patient require help to understand questions or statements about basic needs or ideas (such as hunger, thirst, sleep, safety, daily schedule, room location, or discomfort) half or more of the t saige? No. COMPREHENSION - STEP 3: How often does the patient need help to understand directions and conversation about basic needs? 10% - 24% of the time COMPREHENSION - SCORE: 4-MIN EXPRESSION EXPRESSION - STEP 1: Does the patient require help expressing complex and abstract ideas (such as current events, finances , discharge planning, medical issues, relationships, etc)? Yes. EXPRESSION - STEP 2: Does the patient require help to express basic necessities or ideas (such as hunger, thirst, sleep, s afety, daily schedule, room location, or discomfort) half or more of the time? No. EXPRESSION - STEP 3: How often does the patient need help to express directions and conversation about basic needs? Less t hines 10% of the time EXPRESSION - SCORE: 5-SUP SOCIAL INTERACTION: SOCIAL INTERACTION - STEP 1: Does the patient require a helper to interact with others in social and therapeutic situations? Yes. SOCIAL INTERACTION - STEP 2: Does the patient interact appropriately half or more of the time? Yes. SOCIAL INTERACTION - STEP 3: How often does the patient need help to interact appropriately? Less than 10% of the time SOCIAL INTERACTION - SCORE: 5-SUP PROBLEM SOLVING: PROBLEM SOLVING - STEP 1: Does the patient need help to solve complex problems such as managing a checking account or confronti ng interpersonal problems? Yes. PROBLEM SOLVING - STEP 2: Does the patient solve basic routine problems half or more of the time? Yes. PROBLEM SOLVING - STEP 3: How often does the patient need help to solve basic routine problems? 10%-24% of the time PROBLEM SOLVING - SCORE: 4-MIN MEMORY: MEMORY - STEP 1: Does the patient need help to remember frequently encountered people, daily routines, and executing r equests? Yes. MEMORY - STEP 2: How often does the patient need help to remember frequently encountered people, daily routines, and e xecuting requests? 25% - 49% of the time MEMORY - SCORE: 3-MOD SIGNATURE PANEL: The following modified sections: Comprehension - Score, Expression - Score, Social Interaction - Scor e, Problem Solving - Score, Memory - Score were [electronically] signed by ST dash Garcia 2017 16:44:33 T-0500 (Central Daylight Time)
[2018-06-30] MEDS: ATORVASTATIN 80 MG TAB PO SCH (20:36)
--- NOTE | 2018-07-01 03:13 | FAST ---
SHIFT START DATE/TIME: 06/30/2018 19:00 (CDT) SHIFT END DATE/TIME: 07/01/2018 07:00 (CDT) NAME FRANCINE RODRIGUEZ DATE OF : 1945 DATE OF ADMISSION: 06/26/2018 14:02 (CDT) PHONE: AGE: 72 N# [id number] GENDER: Male ENCOUNTER PHYSICIAN: Dr. Rodrigo Alaniz M.D. 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 EATING: EATING - STEP 1: Does the patient require assistance when eating? Yes. EATING - STEP 2: Does the patient require the assistance of a helper? Yes. EATING - STEP 3: Does the patient perform half or more of the eating tasks? Yes. EATING - STEP 4: Does the patient need only supervision, cuing, coaxing OR help to apply an orthosis OR help to cut fo od, open containers, pour liquids, or butter bread? Yes. EATING - SCORE: 5-SUP GROOMING: Comb/brush hair Oral care Wash, rinse, and dry face Wash, rinse, and dry hands GROOMING - STEP 1: Does the patient require assistance when grooming? Yes. GROOMING - STEP 2: Does the patient require the assistance of a helper? Yes. GROOMING - STEP 3: How much assistance does the patient require from the helper? Only prior equipment preparation/set up from the helper GROOMING - SCORE: 5-SUP BATHING: Activity did not occur on this shift BATHING - SCORE: 0-UNK DRESSING - UPPER BODY: Patient is not dressing in public clothing ARTICLES SCORE Total number of steps: 0 DRESSING - UPPER BODY - SCORE: 0-UNK DRESSING - LOWER BODY: Patient is not dressing in public clothing ARTICLES SCORE Total number of steps: 0 DRESSING - LOWER BODY - SCORE: 0-UNK TOILETING: TOILETING - STEP 1: Does the patient require assistance with toileting? Yes. TOILETING - STEP 2: Does the patient require the assistance of a helper? Yes. TOILETING - STEP 3: How much assistance does the patient require from the helper? Only supervision TOILETING - SCORE: 5-SUP BLADDER MANAGEMENT: BLADDER MANAGEMENT - STEP 1: Does the patient control the bladder completely and intentionally without equipment or devices or med ications, and is always continent? No. BLADDER MANAGEMENT - STEP 2: Does the patient require the assistance of a helper? Yes. BLADDER MANAGEMENT - STEP 3: How much assistance does the patient require from the helper? Only supervision, stand-by, cuing, or c oaxing BLADDER MANAGEMENT - SCORE: 5-SUP BLADDER MANAGEMENT - FREQUENCY OF ACCIDENTS: BLADDER MANAGEMENT(FA) - STEP 1: How many accidents has the patient had during the current shift? 0 BOWEL MANAGEMENT: Activity did not occur on this shift BOWEL MANAGEMENT - SCORE: 7-IND TRANSFERS: BED, CHAIR, WHEELCHAIR: TRANSFERS: BED, CHAIR, WHEELCHAIR - STEP 1: Does the patient require assistance with bed, chair, or wheelchair transfers? Yes. TRANSFERS: BED, CHAIR, WHEELCHAIR - STEP 2: Does the patient require the assistance of a helper? Yes. TRANSFERS: BED, CHAIR, WHEELCHAIR - STEP 3: How much assistance does the patient require from the helper? Only supervision TRANSFERS: BED, CHAIR, WHEELCHAIR - SCORE: 5-SUP TRANSFERS: TOILET: TRANSFERS: TOILET - STEP 1: Does the patient require assistance with toilet transfers? Yes. TRANSFERS: TOILET - STEP 2: Does the patient require the assistance of a helper? Yes. TRANSFERS: TOILET - STEP 3: How much assistance does the patient require from the helper? Only supervision, cuing, coaxing, OR he lp to set out transfer equipment or to lock brakes and/or lift foot rests TRANSFERS: TOILET - SCORE: 5-SUP TRANSFERS: SHOWER: Activity did not occur on this shift TRANSFERS: SHOWER - SCORE: 0-UNK TRANSFERS: TUB: Activity did not occur on this shift TRANSFERS: TUB - SCORE: 0-UNK LOCOMOTION: WALK: Activity did not occur on this shift LOCOMOTION: WALK - SCORE: 0-UNK LOCOMOTION: WHEELCHAIR: Activity did not occur on this shift LOCOMOTION: WHEELCHAIR - SCORE: 0-UNK COMPREHENSION: COMPREHENSION: TYPE: Both COMPREHENSION - STEP 1: Does the patient require help to understand complex and abstract ideas (such as current events, finan michaela, discharge planning, medical issues, relationships, etc)? Yes. COMPREHENSION - STEP 2: Does the patient require help to understand questions or statements about basic needs or ideas (such as hunger, thirst, sleep, safety, daily schedule, room location, or discomfort) half or more of the t saige? No. COMPREHENSION - STEP 3: How often does the patient need help to understand directions and conversation about basic needs? 25% - 49% of the time COMPREHENSION - SCORE: 3-MOD EXPRESSION EXPRESSION: TYPE: Both EXPRESSION - STEP 1: Does the patient require help expressing complex and abstract ideas (such as current events, finances , discharge planning, medical issues, relationships, etc)? Yes. EXPRESSION - STEP 2: Does the patient require help to express basic necessities or ideas (such as hunger, thirst, sleep, s afety, daily schedule, room location, or discomfort) half or more of the time? No. EXPRESSION - STEP 3: How often does the patient need help to express directions and conversation about basic needs? 10-24% of the time EXPRESSION - SCORE: 4-MIN SOCIAL INTERACTION: SOCIAL INTERACTION - STEP 1: Does the patient require a helper to interact with others in social and therapeutic situations? Yes. SOCIAL INTERACTION - STEP 2: Does the patient interact appropriately half or more of the time? Yes. SOCIAL INTERACTION - STEP 3: How often does the patient need help to interact appropriately? 10-24% of the time SOCIAL INTERACTION - SCORE: 4-MIN PROBLEM SOLVING: Patient requires bed/chair alarms due to attempts to get up unassisted when helper is needed. PROBLEM SOLVING - STEP 1: How often do the bed/chair alarms go off? All the time - the alarms are constantly going off PROBLEM SOLVING - SCORE: 1-DEP MEMORY: MEMORY - STEP 1: How often do the bed/chair alarms go off? All of the time - the alarms are constantly going off MEMORY - SCORE: 1-DEP SIGNATURE PANEL: The following modified sections: Eating - Score, Grooming - Score, Bathing - Score, Dressing - Upper Body - Score, Dressing - Lower Body - Score, Toileting - Score, Bladder Management - Score, Bowel Man agement - Score, Transfers: Bed, Chair, Wheelchair - Score, Transfers: Toilet - Score, Transfers: Mague wer - Score, Transfers: Tub - Score, Locomotion: Walk - Score, Locomotion: Wheelchair - Score, Compre hension - Score, Expression - Score, Social Interaction - Score, Problem Solving - Score, Memory - Sc ore were [electronically] signed by Renetta Nunez C.N.ABarbara on FriJul 01 2018 03:12:38 [facility]-0500 ( Central Daylight Time)
[2018-07-01] MEDS: ACETAMINOPHEN 500 MG TAB PO PRN (03:41)
[2018-07-01] MEDS: LISINOPRIL 20 MG TAB PO SCH (06:48)
[2018-07-01] MEDS: AMLODIPINE 2.5 MG TAB PO SCH ×2 (06:48→20:18)
[2018-07-01] MEDS: INSULIN -REGULAR HUMAN 50 UNIT/0.5 ML ML SQ SCH ×4 (07:30→20:16)
[2018-07-01] MEDS: LIDOCAINE 5% PATCH TOP SCH (08:25)
[2018-07-01] MEDS: TRAMADOL HCL 50 MG TAB PO PRN (08:25)
[2018-07-01] MEDS: DOXYCYCLINE 100 MG CAP PO SCH ×2 (08:25→20:17)
[2018-07-01] MEDS: CLOPIDOGREL 75 MG TABLET PO SCH (08:26)
[2018-07-01] MEDS: FOLIC ACID 1 MG TABLET PO SCH (08:26)
[2018-07-01] MEDS: INSULIN DETEMIR 100 UNIT/1 ML INSULIN SQ SCH (08:26)
[2018-07-01] MEDS: METFORMIN HCL 850 MG TAB PO SCH ×2 (08:26→16:24)
[2018-07-01] MEDS: ASPIRIN 81 MG CHEWABLE TABLET PO SCH (08:26)
[2018-07-01] MEDS: FLUOXETINE 20 MG CAP PO SCH (08:26)
--- NOTE | 2018-07-01 13:14 | FAST ---
SHIFT START DATE/TIME: 07/01/2018 07:00 (CDT) SHIFT END DATE/TIME: 07/01/2018 19:00 (CDT) NAME FRANCINE RODRIGUEZ DATE OF : 1945 DATE OF ADMISSION: 06/26/2018 14:02 (CDT) PHONE: AGE: 72 N# [id number] GENDER: Male ENCOUNTER PHYSICIAN: Dr. Rodrigo Alaniz M.D. 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 EATING: EATING - STEP 1: Does the patient require assistance when eating? Yes. EATING - STEP 2: Does the patient require the assistance of a helper? Yes. EATING - STEP 3: Does the patient perform half or more of the eating tasks? Yes. EATING - STEP 4: Does the patient need only supervision, cuing, coaxing OR help to apply an orthosis OR help to cut fo od, open containers, pour liquids, or butter bread? Yes. EATING - SCORE: 5-SUP GROOMING: Comb/brush hair Wash, rinse, and dry face Wash, rinse, and dry hands GROOMING - STEP 1: Does the patient require assistance when grooming? Yes. GROOMING - STEP 2: Does the patient require the assistance of a helper? Yes. GROOMING - STEP 3: How much assistance does the patient require from the helper? Cuing, coaxing, instructions, or encour agement for completion of grooming GROOMING - SCORE: 5-SUP BATHING: Activity did not occur on this shift BATHING - SCORE: 0-UNK DRESSING - UPPER BODY: Activity did not occur on this shift ARTICLES SCORE Total number of steps: 0 DRESSING - UPPER BODY - SCORE: 0-UNK DRESSING - LOWER BODY: Activity did not occur on this shift ARTICLES SCORE Total number of steps: 0 DRESSING - LOWER BODY - SCORE: 0-UNK TOILETING: TOILETING - STEP 1: Does the patient require assistance with toileting? Yes. TOILETING - STEP 2: Does the patient require the assistance of a helper? Yes. TOILETING - STEP 3: How much assistance does the patient require from the helper? Only supervision TOILETING - SCORE: 5-SUP BLADDER MANAGEMENT: BLADDER MANAGEMENT - STEP 1: Does the patient control the bladder completely and intentionally without equipment or devices or med ications, and is always continent? No. BLADDER MANAGEMENT - STEP 2: Does the patient require the assistance of a helper? No, patient only requires extra time BLADDER MANAGEMENT - SCORE: 6-LINDA BLADDER MANAGEMENT - FREQUENCY OF ACCIDENTS: BLADDER MANAGEMENT(FA) - STEP 1: How many accidents has the patient had during the current shift? 0 BOWEL MANAGEMENT: Activity did not occur on this shift BOWEL MANAGEMENT - SCORE: 7-IND BOWEL MANAGEMENT - FREQUENCY OF ACCIDENTS: BOWEL MANAGEMENT(FA) - STEP 1: How many accidents has the patient had during the current shift? 0 TRANSFERS: BED, CHAIR, WHEELCHAIR: TRANSFERS: BED, CHAIR, WHEELCHAIR - STEP 1: Does the patient require assistance with bed, chair, or wheelchair transfers? Yes. TRANSFERS: BED, CHAIR, WHEELCHAIR - STEP 2: Does the patient require the assistance of a helper? Yes. TRANSFERS: BED, CHAIR, WHEELCHAIR - STEP 3: How much assistance does the patient require from the helper? Only supervision TRANSFERS: BED, CHAIR, WHEELCHAIR - SCORE: 5-SUP TRANSFERS: TOILET: TRANSFERS: TOILET - STEP 1: Does the patient require assistance with toilet transfers? Yes. TRANSFERS: TOILET - STEP 2: Does the patient require the assistance of a helper? Yes. TRANSFERS: TOILET - STEP 3: How much assistance does the patient require from the helper? Only supervision, cuing, coaxing, OR he lp to set out transfer equipment or to lock brakes and/or lift foot rests TRANSFERS: TOILET - SCORE: 5-SUP TRANSFERS: SHOWER: Activity did not occur on this shift TRANSFERS: SHOWER - SCORE: 0-UNK TRANSFERS: TUB: Activity did not occur on this shift TRANSFERS: TUB - SCORE: 0-UNK LOCOMOTION: WALK: LOCOMOTION: WALK - STEP 1: Does the patient need help to walk 150 feet? No. LOCOMOTION: WALK - STEP 2: Does the patient need an assistive device (such as an orthosis, prosthesis, crutches, or walker) to g o 150 feet, OR does s/he take more than reasonable time, OR is there a concern for safety? Yes, there is a safety concern LOCOMOTION: WALK - SCORE: 6-LINDA LOCOMOTION: WHEELCHAIR: Activity did not occur on this shift LOCOMOTION: WHEELCHAIR - SCORE: 0-UNK COMPREHENSION: COMPREHENSION: TYPE: Both COMPREHENSION - STEP 1: Does the patient require help to understand complex and abstract ideas (such as current events, finan michaela, discharge planning, medical issues, relationships, etc)? Yes. COMPREHENSION - STEP 2: Does the patient require help to understand questions or statements about basic needs or ideas (such as hunger, thirst, sleep, safety, daily schedule, room location, or discomfort) half or more of the t saige? No. COMPREHENSION - STEP 3: How often does the patient need help to understand directions and conversation about basic needs? 10% - 24% of the time COMPREHENSION - SCORE: 4-MIN EXPRESSION EXPRESSION: TYPE: Both EXPRESSION - STEP 1: Does the patient require help expressing complex and abstract ideas (such as current events, finances , discharge planning, medical issues, relationships, etc)? Yes. EXPRESSION - STEP 2: Does the patient require help to express basic necessities or ideas (such as hunger, thirst, sleep, s afety, daily schedule, room location, or discomfort) half or more of the time? No. EXPRESSION - STEP 3: How often does the patient need help to express directions and conversation about basic needs? 10-24% of the time EXPRESSION - SCORE: 4-MIN SOCIAL INTERACTION: SOCIAL INTERACTION - STEP 1: Does the patient require a helper to interact with others in social and therapeutic situations? No. SOCIAL INTERACTION - STEP 2: Does the patient need extra time in social situations, OR does s/he interact with staff, other patien ts, and family members ONLY in structured environments, OR does s/he require medication for social in teraction? Yes, patient needs extra time SOCIAL INTERACTION - SCORE: 6-LINDA PROBLEM SOLVING: PROBLEM SOLVING - STEP 1: Does the patient need help to solve complex problems such as managing a checking account or confronti ng interpersonal problems? Yes. PROBLEM SOLVING - STEP 2: Does the patient solve basic routine problems half or more of the time? Yes. PROBLEM SOLVING - STEP 3: How often does the patient need help to solve basic routine problems? 10%-24% of the time PROBLEM SOLVING - SCORE: 4-MIN MEMORY: MEMORY - STEP 1: Does the patient need help to remember frequently encountered people, daily routines, and executing r equests? Yes. MEMORY - STEP 2: How often does the patient need help to remember frequently encountered people, daily routines, and e xecuting requests? 10% - 24% of the time MEMORY - SCORE: 4-MIN SIGNATURE PANEL: The following modified sections: Eating - Score, Grooming - Score, Bathing - Score, Dressing - Upper Body - Score, Dressing - Lower Body - Score, Toileting - Score, Bladder Management - Score, Bowel Man agement - Score, Transfers: Bed, Chair, Wheelchair - Score, Transfers: Toilet - Score, Transfers: Mague wer - Score, Transfers: Tub - Score, Locomotion: Walk - Score, Locomotion: Wheelchair - Score, Compre hension - Score, Expression - Score, Social Interaction - Score, Problem Solving - Score, Memory - Sc ore were [electronically] signed by Mirna Randolph C.N.A. on FriJul 01 2018 13:13:46 T-0500 (Centra [place] Daylight Time)
--- NOTE | 2018-07-01 14:20 | FAST ---
ENCOUNTER DATE AND TIME: 07/01/2018 08:00 (CDT) NAME FRANCINE RODRIGUEZ DATE OF : 1945 DATE OF ADMISSION: 06/26/2018 14:02 (CDT) PHONE: AGE: 72 N# [id number] GENDER: Male ENCOUNTER PHYSICIAN: Dr. Rodrigo Alaniz M.D. 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 EATING: Activity did not occur on this shift EATING - SCORE: 0-UNK GROOMING: Activity did not occur on this shift GROOMING - SCORE: 0-UNK BATHING: Activity did not occur on this shift BATHING - SCORE: 0-UNK DRESSING - UPPER BODY: Activity did not occur on this shift Patient is not dressing in public clothing ARTICLES SCORE Total number of steps: 0 DRESSING - UPPER BODY - SCORE: 0-UNK DRESSING - LOWER BODY: Activity did not occur on this shift Patient is not dressing in public clothing ARTICLES SCORE Total number of steps: 0 DRESSING - LOWER BODY - SCORE: 0-UNK TOILETING: Activity did not occur on this shift TOILETING - SCORE: 0-UNK BLADDER MANAGEMENT: Activity did not occur on this shift BLADDER MANAGEMENT - SCORE: 7-IND BOWEL MANAGEMENT: Activity did not occur on this shift BOWEL MANAGEMENT - SCORE: 7-IND TRANSFERS: BED, CHAIR, WHEELCHAIR: Activity did not occur on this shift TRANSFERS: BED, CHAIR, WHEELCHAIR - SCORE: 0-UNK TRANSFERS: TOILET: Activity did not occur on this shift TRANSFERS: TOILET - SCORE: 0-UNK TRANSFERS: SHOWER: Activity did not occur on this shift TRANSFERS: SHOWER - SCORE: 0-UNK TRANSFERS: TUB: Activity did not occur on this shift TRANSFERS: TUB - SCORE: 0-UNK LOCOMOTION: WALK: Activity did not occur on this shift LOCOMOTION: WALK - SCORE: 0-UNK LOCOMOTION: WHEELCHAIR: Activity did not occur on this shift LOCOMOTION: WHEELCHAIR - SCORE: 0-UNK LOCOMOTION: STAIRS: Activity did not occur on this shift LOCOMOTION: STAIRS - SCORE: 0-UNK COMPREHENSION: COMPREHENSION - STEP 1: Does the patient require help to understand complex and abstract ideas (such as current events, finan michaela, discharge planning, medical issues, relationships, etc)? Yes. COMPREHENSION - STEP 2: Does the patient require help to understand questions or statements about basic needs or ideas (such as hunger, thirst, sleep, safety, daily schedule, room location, or discomfort) half or more of the t saige? No. COMPREHENSION - STEP 3: How often does the patient need help to understand directions and conversation about basic needs? Les s than 10% of the time COMPREHENSION - SCORE: 5-SUP EXPRESSION EXPRESSION - STEP 1: Does the patient require help expressing complex and abstract ideas (such as current events, finances , discharge planning, medical issues, relationships, etc)? Yes. EXPRESSION - STEP 2: Does the patient require help to express basic necessities or ideas (such as hunger, thirst, sleep, s afety, daily schedule, room location, or discomfort) half or more of the time? No. EXPRESSION - STEP 3: How often does the patient need help to express directions and conversation about basic needs? Less t hines 10% of the time EXPRESSION - SCORE: 5-SUP SOCIAL INTERACTION: SOCIAL INTERACTION - STEP 1: Does the patient require a helper to interact with others in social and therapeutic situations? Yes. SOCIAL INTERACTION - STEP 2: Does the patient interact appropriately half or more of the time? Yes. SOCIAL INTERACTION - STEP 3: How often does the patient need help to interact appropriately? 10-24% of the time SOCIAL INTERACTION - SCORE: 4-MIN PROBLEM SOLVING: PROBLEM SOLVING - STEP 1: Does the patient need help to solve complex problems such as managing a checking account or confronti ng interpersonal problems? Yes. PROBLEM SOLVING - STEP 2: Does the patient solve basic routine problems half or more of the time? Yes. PROBLEM SOLVING - STEP 3: How often does the patient need help to solve basic routine problems? 10%-24% of the time PROBLEM SOLVING - SCORE: 4-MIN MEMORY: MEMORY - STEP 1: Does the patient need help to remember frequently encountered people, daily routines, and executing r equests? Yes. MEMORY - STEP 2: How often does the patient need help to remember frequently encountered people, daily routines, and e xecuting requests? 10% - 24% of the time MEMORY - SCORE: 4-MIN SIGNATURE PANEL: The following modified sections: Comprehension - Score, Expression - Score, Social Interaction - Scor e, Problem Solving - Score, Memory - Score were [electronically] signed by ST Jose fri 14:19:05 [facility]-0500 (Central Daylight Time)
--- NOTE | 2018-07-01 14:43 | FAST ---
ENCOUNTER DATE AND TIME: 06/29/2018 08:00 (CDT) NAME FRANCINE RODRIGUEZ DATE OF : 1945 DATE OF ADMISSION: 06/26/2018 14:02 (CDT) PHONE: AGE: 72 N# [id number] GENDER: Male ENCOUNTER PHYSICIAN: Dr. Rodrigo Alaniz M.D. 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 EATING: Activity did not occur on this shift EATING - SCORE: 0-UNK GROOMING: Activity did not occur on this shift GROOMING - SCORE: 0-UNK BATHING: Activity did not occur on this shift BATHING - SCORE: 0-UNK DRESSING - UPPER BODY: Activity did not occur on this shift Patient is not dressing in public clothing ARTICLES SCORE Total number of steps: 0 DRESSING - UPPER BODY - SCORE: 0-UNK DRESSING - LOWER BODY: Activity did not occur on this shift Patient is not dressing in public clothing ARTICLES SCORE Total number of steps: 0 DRESSING - LOWER BODY - SCORE: 0-UNK TOILETING: Activity did not occur on this shift TOILETING - SCORE: 0-UNK BLADDER MANAGEMENT: Activity did not occur on this shift BLADDER MANAGEMENT - SCORE: 7-IND BOWEL MANAGEMENT: Activity did not occur on this shift BOWEL MANAGEMENT - SCORE: 7-IND TRANSFERS: BED, CHAIR, WHEELCHAIR: TRANSFERS: BED, CHAIR, WHEELCHAIR - STEP 1: Does the patient require assistance with bed, chair, or wheelchair transfers? Yes. TRANSFERS: BED, CHAIR, WHEELCHAIR - STEP 2: Does the patient require the assistance of a helper? Yes. TRANSFERS: BED, CHAIR, WHEELCHAIR - STEP 3: How much assistance does the patient require from the helper? Only supervision TRANSFERS: BED, CHAIR, WHEELCHAIR - SCORE: 5-SUP TRANSFERS: TOILET: Activity did not occur on this shift TRANSFERS: TOILET - SCORE: 0-UNK TRANSFERS: SHOWER: Activity did not occur on this shift TRANSFERS: SHOWER - SCORE: 0-UNK TRANSFERS: TUB: Activity did not occur on this shift TRANSFERS: TUB - SCORE: 0-UNK LOCOMOTION: WALK: LOCOMOTION: WALK - STEP 1: Does the patient need help to walk 150 feet? Yes. LOCOMOTION: WALK - STEP 2: How much assistance does the patient require to walk a minimum of 150 feet? Only supervision, cuing, or coaxing LOCOMOTION: WALK - SCORE: 5-SUP LOCOMOTION: WHEELCHAIR: Activity did not occur on this shift LOCOMOTION: WHEELCHAIR - SCORE: 0-UNK LOCOMOTION: STAIRS: LOCOMOTION: STAIRS - STEP 1: Does the patient need help to go up and down 12 to 14 stairs? Yes. LOCOMOTION: STAIRS - STEP 2: How much assistance does the patient need from the helper to go a minimum of 12 to 14 stairs? Only covarrubias pervision, cuing, or coaxing LOCOMOTION: STAIRS - SCORE: 5-SUP COMPREHENSION: COMPREHENSION - SCORE: 0-UNK EXPRESSION EXPRESSION - SCORE: 0-UNK SOCIAL INTERACTION: SOCIAL INTERACTION - SCORE: 0-UNK PROBLEM SOLVING: PROBLEM SOLVING - SCORE: 0-UNK MEMORY: MEMORY - SCORE: 0-UNK SIGNATURE PANEL: The following modified sections: Transfers: Bed, Chair, Wheelchair - Score, Transfers: Toilet - Score , Locomotion: Walk - Score, Locomotion: Wheelchair - Score, Locomotion: Stairs - Score were [electron caro] signed by Eligio Knox PTA on FriJul 01 2018 14:43:04 GMT-0500 (Central Daylight Time)
--- NOTE | 2018-07-01 14:45 | FAST ---
ENCOUNTER DATE AND TIME: 06/30/2018 08:00 (CDT) NAME FRANCINE RODRIGUEZ DATE OF : 1945 DATE OF ADMISSION: 06/26/2018 14:02 (CDT) PHONE: AGE: 72 N# [id number] GENDER: Male ENCOUNTER PHYSICIAN: Dr. Rodrigo Alaniz M.D. 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 EATING: Activity did not occur on this shift EATING - SCORE: 0-UNK GROOMING: Activity did not occur on this shift GROOMING - SCORE: 0-UNK BATHING: Activity did not occur on this shift BATHING - SCORE: 0-UNK DRESSING - UPPER BODY: Activity did not occur on this shift Patient is not dressing in public clothing ARTICLES SCORE Total number of steps: 0 DRESSING - UPPER BODY - SCORE: 0-UNK DRESSING - LOWER BODY: Activity did not occur on this shift Patient is not dressing in public clothing ARTICLES SCORE Total number of steps: 0 DRESSING - LOWER BODY - SCORE: 0-UNK TOILETING: Activity did not occur on this shift TOILETING - SCORE: 0-UNK BLADDER MANAGEMENT: Activity did not occur on this shift BLADDER MANAGEMENT - SCORE: 7-IND BOWEL MANAGEMENT: Activity did not occur on this shift BOWEL MANAGEMENT - SCORE: 7-IND TRANSFERS: BED, CHAIR, WHEELCHAIR: TRANSFERS: BED, CHAIR, WHEELCHAIR - STEP 1: Does the patient require assistance with bed, chair, or wheelchair transfers? Yes. TRANSFERS: BED, CHAIR, WHEELCHAIR - STEP 2: Does the patient require the assistance of a helper? Yes. TRANSFERS: BED, CHAIR, WHEELCHAIR - STEP 3: How much assistance does the patient require from the helper? Only supervision TRANSFERS: BED, CHAIR, WHEELCHAIR - SCORE: 5-SUP TRANSFERS: TOILET: Activity did not occur on this shift TRANSFERS: TOILET - SCORE: 0-UNK TRANSFERS: SHOWER: Activity did not occur on this shift TRANSFERS: SHOWER - SCORE: 0-UNK TRANSFERS: TUB: Activity did not occur on this shift TRANSFERS: TUB - SCORE: 0-UNK LOCOMOTION: WALK: LOCOMOTION: WALK - STEP 1: Does the patient need help to walk 150 feet? Yes. LOCOMOTION: WALK - STEP 2: How much assistance does the patient require to walk a minimum of 150 feet? Only supervision, cuing, or coaxing LOCOMOTION: WALK - SCORE: 5-SUP LOCOMOTION: WHEELCHAIR: Activity did not occur on this shift LOCOMOTION: WHEELCHAIR - SCORE: 0-UNK LOCOMOTION: STAIRS: LOCOMOTION: STAIRS - STEP 1: Does the patient need help to go up and down 12 to 14 stairs? Yes. LOCOMOTION: STAIRS - STEP 2: How much assistance does the patient need from the helper to go a minimum of 12 to 14 stairs? Only covarrubias pervision, cuing, or coaxing LOCOMOTION: STAIRS - SCORE: 5-SUP COMPREHENSION: COMPREHENSION - SCORE: 0-UNK EXPRESSION EXPRESSION - SCORE: 0-UNK SOCIAL INTERACTION: SOCIAL INTERACTION - SCORE: 0-UNK PROBLEM SOLVING: PROBLEM SOLVING - SCORE: 0-UNK MEMORY: MEMORY - SCORE: 0-UNK SIGNATURE PANEL: The following modified sections: Transfers: Bed, Chair, Wheelchair - Score, Transfers: Toilet - Score , Locomotion: Walk - Score, Locomotion: Wheelchair - Score, Locomotion: Stairs - Score were [electron caro] signed by Eligio Knox PTA on FriJul 01 2018 14:44:06 GMT-0500 (Central Daylight Time)
[2018-07-01] MEDS: ENOXAPARIN 40 MG/0.4 ML SQ SCH (16:24)
--- NOTE | 2018-07-01 19:12 | R.PN ---
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 Pt denied any depression. Ambulated without assistive device 2250' with supervision. Up and down 15 steps with standby assista nce. VITAL SIGNS Temperature: 98.4 F SBP/DBP: 192/85 Pulse: 63 Resp: 16 Elevated blood pressures. Will increase Amlodipine to 2.5 mg twice daily. MEDICATION ALLERGIES: morphine ENVIRONMENTAL ALLERGIES: - Substance Allergies None Known - Other Allergies None Known NURSING: - Shower allowing shower - Lab Results blood Sugar Check ACHS - Skin care per protocol PRECAUTIONS: - Weight Bearing Precaution NWB both LE ACTIVITIES OOB only with supervision THERAPIES: - Orthotics/Prosthetics Prosthetic Evaluation. - Occupational Therapy Evaluate and Treat. - Physical Therapy Evaluate and Treat. PHYSICAL EXAM - Gen Alert and awake Lying in bed No apparent distress Oriented to: person, time, and place - Skin No breakdowns Mild decreased right nasolabial fold with good excursion. - Eyes No abnormalities - ENMT No abnormalities - Neck No abnormalities - CVS RRR - Chest Clear - Abd +bowel sounds - GI + bowel sound Deferred - No abnormalities - Ext no edema - MSK 4+/5 weakness in right lower extremity, 3/5 weakness in the right hand flexion and extension. - Neuro 4+/5 weakness in right lower extremity, 3/5 weakness in the right hand flexion and extension. - Psych No abnormalities - OTHER Mild expressive aphasia, decrease speed of information processing. ASSESSMENT: Pt. 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 was independent/mod-I in Communication, Social Cogni tion, Self-Care, Sphincter Control, Transfers Control, and Locomotion; and she had good Sphincter Con trol.Currently, she has deficits of Communication, Social Cognition, Balance, Self-Care, Endurance, S afety Awareness, Transfers Control, and Locomotion.Pt. is now referred to [facility] for acute in-patient rehabilitation in order to maximize patient's functional independence in activities of daily living, strength, ROM, and mobility.- Rehab Goal Patient has realistic goal of being discharged at assistance level 6-Melody to reside at Home with Fam chante/Relatives. MDM/PLAN: - Physical Therapy Gait dysfunction - to improve, our physical therapists will perform initial evaluation of pt's statu s upon admission and devise an individualized program for Gait Training, and Wheel Chair mobility Inability to transfer - to improve, our physical therapists will perform initial evaluation of pt's status upon admission and devise an individualized program for Bed mobility Need for home safety evaluation - to improve, our physical therapists will perform initial evaluatio n of pt's status upon admission and devise an individualized program for Home Evaluation Need in caregiver upon discharge - to improve, our physical therapists will perform initial evaluati on of pt's status upon admission and devise an individualized program for Caregiver Training New precaution - to improve, our physical therapists will perform initial evaluation of pt's status upon admission and devise an individualized program for Patient precaution education Poor balance - to improve, our physical therapists will perform initial evaluation of pt's status up on admission and devise an individualized program for Balance Training Poor endurance - to improve, our physical therapists will perform initial evaluation of pt's status upon admission and devise an individualized program for Endurance Training Weakness - to improve, our physical therapists will perform initial evaluation of pt's status upon a dmission and devise an individualized program for Aquatic Therapy, Neuromuscular Reeducation, and Str engthening Achieving independence - to improve, our physical therapists will perform initial evaluation of pt's status upon admission and devise an individualized program for Community Reintegration Activities - Occupational Therapy ADL deficits - to improve, our occupation therapists will perform initial evaluation of pt's status upon admission and devise an individualized program for Bathing, Bed mobility, Community Reintegratio n, Cooking, Dressing, Eating, Fine Motor Skills, Grooming, Homemaking, Kitchen Mobility, Laundry, Pat ient Education, Safety Awareness, Splinting - Positioning, Transfers(Toilet, Tub, Shower), and Wheel Chair Management Cognitive deficits - to improve, our occupation therapists will perform initial evaluation of pt's s tatus upon admission and devise an individualized program for Cognition - orientation Need for healthcare receptionist - to improve, our occupation therapists will perform initial evaluation of pt's status upon admission and devise an individualized program for Caregiver Training Weakness - to improve, our occupation therapists will perform initial evaluation of pt's status upon admission and devise an individualized program for Aquatic Therapy, Balance, Endurance, UE ROM, and UE strengthening - Diet Type Continue Regular - Diet - Liquid Texture Continue Regular - Tube Feed Continue N/A - Lab Results blood Sugar Check ACHS - Weight Bearing Precaution WBAT right wrist - Skin care per protocol - N/A Perform Consult Certified Prosthetic for prosthesis construction - Diet - Solid Texture Continue Regular - Shower allowing shower FUNCTIONAL STATUS: UPDATED AT WEEKLY TEAM CONFERENCE - Bladder Same accident frequency: 7-Ind - No accidents in the past 7 days - Bowel Same accident frequency: 7-Ind - No accidents in the past 7 days - Walking Same score based on distance walked: 1(<=50ft) FUNCTIONAL STATUS: - Self-Care A. Eating sup B. Grooming sup C. Bathing sup D. Dressing - Upper Marie E. Dressing - Lower Dep F. Toileting Dep - Sphincter Control G: Bladder control Dep H: Bowel control Dep - Transfers Control I. Bed/Chair/Wheelchair maxA J. Toilet maxA K. Tub/Shower maxA - Locomotion L. Walk/Wheelchair (B) Dep M. Stairs ADNO - Communication N. Comprehension (B) Marie O. Expression (B) Marie - Social Cognition P. Social Interaction Marie Q. Problem Solving Marie R. Memory Marie - Endurance Poor - Balance Poor - Safety Awareness Poor CURRENT FUNC. DEFICITS: Communication, Social Cognition, Balance, Self-Care, Endurance, Safety Awareness, Transfers Control, and Locomotion SIGNATURE PANEL: (CDT)
[2018-07-01] MEDS: ATORVASTATIN 80 MG TAB PO SCH (20:18)
[2018-07-02] MEDS: TRAMADOL HCL 50 MG TAB PO PRN ×2 (01:20→08:18)
[2018-07-02] MEDS: ACETAMINOPHEN 500 MG TAB PO PRN ×2 (04:08→20:04)
[2018-07-02 06:06] LABS: Absolute Monocytes 0.6 K/uL (0.1-1.3); Absolute Neutrophil 5.7 K/uL (1.8-8.0); Basophils % 0.6 % (0-1.3); Eosinophils % 3.1 % (0-4.4); Hematocrit 38.9 % (39.6-49.0); Lymphocytes % 13.6 % (15.3-44.8); MCH 31.8 pg (27.0-35.0); MCV 89.9 fL (80-100); MPV 8.2 fL (7.6-11.3); Monocytes % 7.5 % (3.3-12.3); RBC Red Blood Cell Count 4.33 M/uL (4.33-5.43)
[2018-07-02 06:30] LABS: Albumin 3.1 g/dL (3.4-5.0); BUN Blood Urea Nitrogen 20 mg/dL (7-18); Bicarbonate 28 mmol/L (21-32); Glucose Level 100 mg/dL (74-106); Potassium 4.2 mmol/L (3.5-5.1); Prealbumin 20.8 mg/dL (20-40); Sodium Level 136 mmol/L (136-145)
[2018-07-02] MEDS: INSULIN -REGULAR HUMAN 50 UNIT/0.5 ML ML SQ SCH ×4 (07:30→20:51)
[2018-07-02] MEDS: LIDOCAINE 5% PATCH TOP SCH (08:17)
[2018-07-02] MEDS: LISINOPRIL 20 MG TAB PO SCH (08:19)
[2018-07-02] MEDS: METFORMIN HCL 850 MG TAB PO SCH ×2 (08:19→17:09)
[2018-07-02] MEDS: DOXYCYCLINE 100 MG CAP PO SCH ×2 (08:19→20:05)
[2018-07-02] MEDS: ASPIRIN 81 MG CHEWABLE TABLET PO SCH (08:19)
[2018-07-02] MEDS: FOLIC ACID 1 MG TABLET PO SCH (08:20)
[2018-07-02] MEDS: CLOPIDOGREL 75 MG TABLET PO SCH (08:20)
[2018-07-02] MEDS: FLUOXETINE 20 MG CAP PO SCH (08:20)
[2018-07-02] MEDS: AMLODIPINE 2.5 MG TAB PO SCH ×2 (08:20→20:07)
--- NOTE | 2018-07-02 08:35 | FAST ---
SHIFT START DATE/TIME: 07/01/2018 19:00 (CDT) SHIFT END DATE/TIME: 07/02/2018 07:00 (CDT) NAME FRANCINE RODRIGUEZ DATE OF : 1945 DATE OF ADMISSION: 06/26/2018 14:02 (CDT) PHONE: AGE: 72 N# [id number] GENDER: Male ENCOUNTER PHYSICIAN: Dr. Rodrigo Alaniz M.D. 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 EATING: EATING - STEP 1: Does the patient require assistance when eating? Yes. EATING - STEP 2: Does the patient require the assistance of a helper? Yes. EATING - STEP 3: Does the patient perform half or more of the eating tasks? Yes. EATING - STEP 4: Does the patient need only supervision, cuing, coaxing OR help to apply an orthosis OR help to cut fo od, open containers, pour liquids, or butter bread? Yes. EATING - SCORE: 5-SUP GROOMING: Comb/brush hair Oral care Wash, rinse, and dry face Wash, rinse, and dry hands GROOMING - STEP 1: Does the patient require assistance when grooming? Yes. GROOMING - STEP 2: Does the patient require the assistance of a helper? Yes. GROOMING - STEP 3: How much assistance does the patient require from the helper? Only prior equipment preparation/set up from the helper GROOMING - SCORE: 5-SUP BATHING: Activity did not occur on this shift BATHING - SCORE: 0-UNK DRESSING - UPPER BODY: Patient is not dressing in public clothing ARTICLES SCORE Total number of steps: 0 DRESSING - UPPER BODY - SCORE: 0-UNK DRESSING - LOWER BODY: Patient is not dressing in public clothing ARTICLES SCORE Total number of steps: 0 DRESSING - LOWER BODY - SCORE: 0-UNK TOILETING: TOILETING - STEP 1: Does the patient require assistance with toileting? Yes. TOILETING - STEP 2: Does the patient require the assistance of a helper? Yes. TOILETING - STEP 3: How much assistance does the patient require from the helper? Only supervision TOILETING - SCORE: 5-SUP BLADDER MANAGEMENT: BLADDER MANAGEMENT - STEP 1: Does the patient control the bladder completely and intentionally without equipment or devices or med ications, and is always continent? No. BLADDER MANAGEMENT - STEP 2: Does the patient require the assistance of a helper? Yes. BLADDER MANAGEMENT - STEP 3: How much assistance does the patient require from the helper? Only supervision, stand-by, cuing, or c oaxing BLADDER MANAGEMENT - SCORE: 5-SUP BLADDER MANAGEMENT - FREQUENCY OF ACCIDENTS: BLADDER MANAGEMENT(FA) - STEP 1: How many accidents has the patient had during the current shift? 0 BOWEL MANAGEMENT: Activity did not occur on this shift BOWEL MANAGEMENT - SCORE: 7-IND TRANSFERS: BED, CHAIR, WHEELCHAIR: TRANSFERS: BED, CHAIR, WHEELCHAIR - STEP 1: Does the patient require assistance with bed, chair, or wheelchair transfers? Yes. TRANSFERS: BED, CHAIR, WHEELCHAIR - STEP 2: Does the patient require the assistance of a helper? Yes. TRANSFERS: BED, CHAIR, WHEELCHAIR - STEP 3: How much assistance does the patient require from the helper? Only supervision TRANSFERS: BED, CHAIR, WHEELCHAIR - SCORE: 5-SUP TRANSFERS: TOILET: TRANSFERS: TOILET - STEP 1: Does the patient require assistance with toilet transfers? Yes. TRANSFERS: TOILET - STEP 2: Does the patient require the assistance of a helper? Yes. TRANSFERS: TOILET - STEP 3: How much assistance does the patient require from the helper? Only supervision, cuing, coaxing, OR he lp to set out transfer equipment or to lock brakes and/or lift foot rests TRANSFERS: TOILET - SCORE: 5-SUP TRANSFERS: SHOWER: Activity did not occur on this shift TRANSFERS: SHOWER - SCORE: 0-UNK TRANSFERS: TUB: Activity did not occur on this shift TRANSFERS: TUB - SCORE: 0-UNK LOCOMOTION: WALK: Activity did not occur on this shift LOCOMOTION: WALK - SCORE: 0-UNK LOCOMOTION: WHEELCHAIR: Activity did not occur on this shift LOCOMOTION: WHEELCHAIR - SCORE: 0-UNK COMPREHENSION: COMPREHENSION: TYPE: Both COMPREHENSION - STEP 1: Does the patient require help to understand complex and abstract ideas (such as current events, finan michaela, discharge planning, medical issues, relationships, etc)? Yes. COMPREHENSION - STEP 2: Does the patient require help to understand questions or statements about basic needs or ideas (such as hunger, thirst, sleep, safety, daily schedule, room location, or discomfort) half or more of the t saige? No. COMPREHENSION - STEP 3: How often does the patient need help to understand directions and conversation about basic needs? 25% - 49% of the time COMPREHENSION - SCORE: 3-MOD EXPRESSION EXPRESSION: TYPE: Both EXPRESSION - STEP 1: Does the patient require help expressing complex and abstract ideas (such as current events, finances , discharge planning, medical issues, relationships, etc)? Yes. EXPRESSION - STEP 2: Does the patient require help to express basic necessities or ideas (such as hunger, thirst, sleep, s afety, daily schedule, room location, or discomfort) half or more of the time? No. EXPRESSION - STEP 3: How often does the patient need help to express directions and conversation about basic needs? 10-24% of the time EXPRESSION - SCORE: 4-MIN SOCIAL INTERACTION: SOCIAL INTERACTION - STEP 1: Does the patient require a helper to interact with others in social and therapeutic situations? Yes. SOCIAL INTERACTION - STEP 2: Does the patient interact appropriately half or more of the time? Yes. SOCIAL INTERACTION - STEP 3: How often does the patient need help to interact appropriately? Less than 10% of the time SOCIAL INTERACTION - SCORE: 5-SUP PROBLEM SOLVING: Patient requires constant one-on-one direction PROBLEM SOLVING - SCORE: 1-DEP MEMORY: MEMORY - STEP 1: How often do the bed/chair alarms go off? All of the time - the alarms are constantly going off MEMORY - SCORE: 1-DEP SIGNATURE PANEL: The following modified sections: Eating - Score, Grooming - Score, Bathing - Score, Dressing - Upper Body - Score, Dressing - Lower Body - Score, Toileting - Score, Bladder Management - Score, Bowel Man agement - Score, Transfers: Bed, Chair, Wheelchair - Score, Transfers: Toilet - Score, Transfers: [place] - Score, Transfers: Tub - Score, Locomotion: Walk - Score, Locomotion: Wheelchair - Score, Compre hension - Score, Expression - Score, Social Interaction - Score, Problem Solving - Score, Memory - Sc ore were [electronically] signed by Renetta Nunez C.N.Beatrice on FriJul 02 2018 03:28:29 GMT-0500 ( Central Daylight Time)
--- NOTE | 2018-07-02 08:37 | FAST ---
ENCOUNTER DATE AND TIME: 06/30/2018 08:00 (CDT) NAME FRANCINE RODRIGUEZ DATE OF : 1945 DATE OF ADMISSION: 06/26/2018 14:02 (CDT) PHONE: AGE: 72 N# [id number] GENDER: Male ENCOUNTER PHYSICIAN: Dr. Rodrigo Alaniz M.D. 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 EATING: Activity did not occur on this shift EATING - SCORE: 0-UNK GROOMING: Activity did not occur on this shift GROOMING - SCORE: 0-UNK BATHING: Activity did not occur on this shift BATHING - SCORE: 0-UNK DRESSING - UPPER BODY: T-shirt/pullover shirt (four steps) ARTICLES SCORE Total number of steps: 4 DRESSING - UPPER BODY - STEP 1: Does the patient require help when dressing above the waist? Yes. DRESSING - UPPER BODY - STEP 2: Does the patient require the assistance of a helper? Yes. DRESSING - UPPER BODY - STEP 3: Does the helper touch the patient while dressing? No. DRESSING - UPPER BODY - SCORE: 5-SUP DRESSING - LOWER BODY: Sock - Left foot (one step) Sock - Right foot (one step) Tied or buckled shoe - Left foot (two steps) Tied or buckled shoe - Right foot (two steps) Underwear (three steps) Zippered pants (four steps) ARTICLES SCORE Total number of steps: 13 DRESSING - LOWER BODY - STEP 1: Does the patient require help when dressing below the waist? Yes. DRESSING - LOWER BODY - STEP 2: Does the patient require the assistance of a helper? Yes. DRESSING - LOWER BODY - STEP 3: Does the helper touch the patient while dressing? No. DRESSING - LOWER BODY - SCORE: 5-SUP TOILETING: Activity did not occur on this shift TOILETING - SCORE: 0-UNK BLADDER MANAGEMENT: Activity did not occur on this shift BLADDER MANAGEMENT - SCORE: 7-IND BOWEL MANAGEMENT: Activity did not occur on this shift BOWEL MANAGEMENT - SCORE: 7-IND TRANSFERS: BED, CHAIR, WHEELCHAIR: Activity did not occur on this shift TRANSFERS: BED, CHAIR, WHEELCHAIR - SCORE: 0-UNK TRANSFERS: TOILET: Activity did not occur on this shift TRANSFERS: TOILET - SCORE: 0-UNK TRANSFERS: SHOWER: Activity did not occur on this shift TRANSFERS: SHOWER - SCORE: 0-UNK TRANSFERS: TUB: Activity did not occur on this shift TRANSFERS: TUB - SCORE: 0-UNK LOCOMOTION: WALK: Activity did not occur on this shift LOCOMOTION: WALK - SCORE: 0-UNK LOCOMOTION: WHEELCHAIR: Activity did not occur on this shift LOCOMOTION: WHEELCHAIR - SCORE: 0-UNK LOCOMOTION: STAIRS: Activity did not occur on this shift LOCOMOTION: STAIRS - SCORE: 0-UNK COMPREHENSION: COMPREHENSION - SCORE: 0-UNK EXPRESSION EXPRESSION - SCORE: 0-UNK SOCIAL INTERACTION: SOCIAL INTERACTION - SCORE: 0-UNK PROBLEM SOLVING: PROBLEM SOLVING - SCORE: 0-UNK MEMORY: MEMORY - SCORE: 0-UNK SIGNATURE PANEL: The following modified sections: Eating - Score, Grooming - Score, Bathing - Score, Dressing - Upper Body - Score, Dressing - Lower Body - Score, Toileting - Score, Transfers: Bed, Chair, Wheelchair - S core, Transfers: Toilet - Score, Transfers: Shower - Score, Transfers: Tub - Score, Comprehension - S core, Expression - Score, Social Interaction - Score, Problem Solving - Score, Memory - Score were [e lectronically] signed by TRUONG Maya on FriJul 02 2018 07:46:15 T-0500 ([facility] Time)
--- NOTE | 2018-07-02 08:37 | FAST ---
ENCOUNTER DATE AND TIME: 07/01/2018 08:00 (CDT) NAME FRANCINE RODRIGUEZ DATE OF : 1945 DATE OF ADMISSION: 06/26/2018 14:02 (CDT) PHONE: AGE: 72 N# [id number] GENDER: Male ENCOUNTER PHYSICIAN: Dr. Rodrigo Alaniz M.D. 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 EATING: Activity did not occur on this shift EATING - SCORE: 0-UNK GROOMING: Comb/brush hair Wash, rinse, and dry face Wash, rinse, and dry hands GROOMING - STEP 1: Does the patient require assistance when grooming? Yes. GROOMING - STEP 2: Does the patient require the assistance of a helper? No. The patient only requires an assistive devic e, OR takes more than reasonable time to groom, OR there is a concern for safety as the patient groom s GROOMING - SCORE: 6-LINDA BATHING: Abdomen Buttocks Chest Left arm Left lower leg and foot Left upper leg Perineal area Right arm Right lower leg and foot Right upper leg BATHING - STEP 1: Does the patient require assistance when bathing? Yes. BATHING - STEP 2: Does the patient require the assistance of a helper? Yes. BATHING - STEP 3: How much assistance does the patient require from the helper? Only supervision, cuing, coaxing, instr uctions, encouragement BATHING - SCORE: 5-SUP DRESSING - UPPER BODY: T-shirt/pullover shirt (four steps) ARTICLES SCORE Total number of steps: 4 DRESSING - UPPER BODY - STEP 1: Does the patient require help when dressing above the waist? Yes. DRESSING - UPPER BODY - STEP 2: Does the patient require the assistance of a helper? Yes. DRESSING - UPPER BODY - STEP 3: Does the helper touch the patient while dressing? No. DRESSING - UPPER BODY - SCORE: 5-SUP DRESSING - LOWER BODY: Sock - Left foot (one step) Sock - Right foot (one step) Tied or buckled shoe - Left foot (two steps) Tied or buckled shoe - Right foot (two steps) Underwear (three steps) Zippered pants (four steps) ARTICLES SCORE Total number of steps: 13 DRESSING - LOWER BODY - STEP 1: Does the patient require help when dressing below the waist? Yes. DRESSING - LOWER BODY - STEP 2: Does the patient require the assistance of a helper? Yes. DRESSING - LOWER BODY - STEP 3: Does the helper touch the patient while dressing? No. DRESSING - LOWER BODY - SCORE: 5-SUP TOILETING: Activity did not occur on this shift TOILETING - SCORE: 0-UNK BLADDER MANAGEMENT: Activity did not occur on this shift BLADDER MANAGEMENT - SCORE: 7-IND BOWEL MANAGEMENT: Activity did not occur on this shift BOWEL MANAGEMENT - SCORE: 7-IND TRANSFERS: BED, CHAIR, WHEELCHAIR: Activity did not occur on this shift TRANSFERS: BED, CHAIR, WHEELCHAIR - SCORE: 0-UNK TRANSFERS: TOILET: Activity did not occur on this shift TRANSFERS: TOILET - SCORE: 0-UNK TRANSFERS: SHOWER: TRANSFERS: SHOWER - STEP 1: Does the patient require assistance with shower transfers? Yes. TRANSFERS: SHOWER - STEP 2: Does the patient require the assistance of a helper? Yes. TRANSFERS: SHOWER - STEP 3: How much assistance does the patient require from the helper? Only supervision, cuing, coaxing, or he lp to set out transfer equipment or to lock brakes and/or lift foot rests TRANSFERS: SHOWER - SCORE: 5-SUP TRANSFERS: TUB: Activity did not occur on this shift TRANSFERS: TUB - SCORE: 0-UNK LOCOMOTION: WALK: Activity did not occur on this shift LOCOMOTION: WALK - SCORE: 0-UNK LOCOMOTION: WHEELCHAIR: Activity did not occur on this shift LOCOMOTION: WHEELCHAIR - SCORE: 0-UNK LOCOMOTION: STAIRS: Activity did not occur on this shift LOCOMOTION: STAIRS - SCORE: 0-UNK COMPREHENSION: COMPREHENSION - SCORE: 0-UNK EXPRESSION EXPRESSION - SCORE: 0-UNK SOCIAL INTERACTION: SOCIAL INTERACTION - SCORE: 0-UNK PROBLEM SOLVING: PROBLEM SOLVING - SCORE: 0-UNK MEMORY: MEMORY - SCORE: 0-UNK SIGNATURE PANEL: The following modified sections: Eating - Score, Grooming - Score, Bathing - Score, Dressing - Upper Body - Score, Dressing - Lower Body - Score, Toileting - Score, Transfers: Bed, Chair, Wheelchair - S core, Transfers: Toilet - Score, Transfers: Shower - Score, Transfers: Tub - Score, Comprehension - S core, Expression - Score, Social Interaction - Score, Problem Solving - Score, Memory - Score were [e lectronically] signed by TRUONG Maya on FriJul 02 2018 07:42:40 [facility]-0500 ([facility] Time)
[2018-07-02] MEDS: INSULIN DETEMIR 100 UNIT/1 ML INSULIN SQ SCH (09:17)
--- NOTE | 2018-07-02 15:49 | FAST ---
ENCOUNTER DATE AND TIME: 07/02/2018 08:00 (CDT) NAME FRANCINE RODRIGUEZ DATE OF : 1945 DATE OF ADMISSION: 06/26/2018 14:02 (CDT) PHONE: AGE: 72 N# [id number] GENDER: Male ENCOUNTER PHYSICIAN: Dr. Rodrigo Alaniz M.D. 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 EATING: Activity did not occur on this shift EATING - SCORE: 0-UNK GROOMING: Activity did not occur on this shift GROOMING - SCORE: 0-UNK BATHING: Activity did not occur on this shift BATHING - SCORE: 0-UNK DRESSING - UPPER BODY: Activity did not occur on this shift Patient is not dressing in public clothing ARTICLES SCORE Total number of steps: 0 DRESSING - UPPER BODY - SCORE: 0-UNK DRESSING - LOWER BODY: Activity did not occur on this shift Patient is not dressing in public clothing ARTICLES SCORE Total number of steps: 0 DRESSING - LOWER BODY - SCORE: 0-UNK TOILETING: Activity did not occur on this shift TOILETING - SCORE: 0-UNK BLADDER MANAGEMENT: Activity did not occur on this shift BLADDER MANAGEMENT - SCORE: 7-IND BOWEL MANAGEMENT: Activity did not occur on this shift BOWEL MANAGEMENT - SCORE: 7-IND TRANSFERS: BED, CHAIR, WHEELCHAIR: Activity did not occur on this shift TRANSFERS: BED, CHAIR, WHEELCHAIR - SCORE: 0-UNK TRANSFERS: TOILET: Activity did not occur on this shift TRANSFERS: TOILET - SCORE: 0-UNK TRANSFERS: SHOWER: Activity did not occur on this shift TRANSFERS: SHOWER - SCORE: 0-UNK TRANSFERS: TUB: Activity did not occur on this shift TRANSFERS: TUB - SCORE: 0-UNK LOCOMOTION: WALK: Activity did not occur on this shift LOCOMOTION: WALK - SCORE: 0-UNK LOCOMOTION: WHEELCHAIR: Activity did not occur on this shift LOCOMOTION: WHEELCHAIR - SCORE: 0-UNK LOCOMOTION: STAIRS: Activity did not occur on this shift LOCOMOTION: STAIRS - SCORE: 0-UNK COMPREHENSION: COMPREHENSION - STEP 1: Does the patient require help to understand complex and abstract ideas (such as current events, finan michaela, discharge planning, medical issues, relationships, etc)? Yes. COMPREHENSION - STEP 2: Does the patient require help to understand questions or statements about basic needs or ideas (such as hunger, thirst, sleep, safety, daily schedule, room location, or discomfort) half or more of the t saige? No. COMPREHENSION - STEP 3: How often does the patient need help to understand directions and conversation about basic needs? Les s than 10% of the time COMPREHENSION - SCORE: 5-SUP EXPRESSION EXPRESSION - STEP 1: Does the patient require help expressing complex and abstract ideas (such as current events, finances , discharge planning, medical issues, relationships, etc)? Yes. EXPRESSION - STEP 2: Does the patient require help to express basic necessities or ideas (such as hunger, thirst, sleep, s afety, daily schedule, room location, or discomfort) half or more of the time? No. EXPRESSION - STEP 3: How often does the patient need help to express directions and conversation about basic needs? Less t hines 10% of the time EXPRESSION - SCORE: 5-SUP SOCIAL INTERACTION: SOCIAL INTERACTION - STEP 1: Does the patient require a helper to interact with others in social and therapeutic situations? Yes. SOCIAL INTERACTION - STEP 2: Does the patient interact appropriately half or more of the time? Yes. SOCIAL INTERACTION - STEP 3: How often does the patient need help to interact appropriately? Less than 10% of the time SOCIAL INTERACTION - SCORE: 5-SUP PROBLEM SOLVING: PROBLEM SOLVING - STEP 1: Does the patient need help to solve complex problems such as managing a checking account or confronti ng interpersonal problems? Yes. PROBLEM SOLVING - STEP 2: Does the patient solve basic routine problems half or more of the time? Yes. PROBLEM SOLVING - STEP 3: How often does the patient need help to solve basic routine problems? Less than 10% of the time PROBLEM SOLVING - SCORE: 5-SUP MEMORY: MEMORY - STEP 1: Does the patient need help to remember frequently encountered people, daily routines, and executing r equests? Yes. MEMORY - STEP 2: How often does the patient need help to remember frequently encountered people, daily routines, and e xecuting requests? 10% - 24% of the time MEMORY - SCORE: 4-MIN SIGNATURE PANEL: The following modified sections: Comprehension - Score, Expression - Score, Social Interaction - Scor e, Problem Solving - Score, Memory - Score were [electronically] signed by ST dash Garcia Vita Au g 2017 15:48:39 T-0500 ([facility] Day[facility] Time)
--- NOTE | 2018-07-02 18:35 | R.PN ---
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 Pt denied any depression. Ambulated without assistive device 1000' with independence. Up and down 15 steps with modified indep endence. VITAL SIGNS Temperature: 98.4 F SBP/DBP: 158/71 Pulse: 62 Resp: 16 Elevated blood pressures. Will increase Amlodipine to 2.5 mg twice daily. MEDICATION ALLERGIES: morphine ENVIRONMENTAL ALLERGIES: - Substance Allergies None Known - Other Allergies None Known NURSING: - Shower allowing shower - Lab Results blood Sugar Check ACHS - Skin care per protocol PRECAUTIONS: - Weight Bearing Precaution NWB both LE ACTIVITIES OOB only with supervision THERAPIES: - Orthotics/Prosthetics Prosthetic Evaluation. - Occupational Therapy Evaluate and Treat. - Physical Therapy Evaluate and Treat. PHYSICAL EXAM - Gen Alert and awake Lying in bed No apparent distress Oriented to: person, time, and place - Skin No breakdowns Mild decreased right nasolabial fold with good excursion. - Eyes No abnormalities - ENMT No abnormalities - Neck No abnormalities - CVS RRR - Chest Clear - Abd +bowel sounds - GI + bowel sound Deferred - No abnormalities - Ext no edema - MSK 4+/5 weakness in right lower extremity, 3/5 weakness in the right hand flexion and extension. - Neuro 4+/5 weakness in right lower extremity, 3/5 weakness in the right hand flexion and extension. - Psych No abnormalities - OTHER Mild expressive aphasia, decrease speed of information processing. ASSESSMENT: Pt. 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 was independent/mod-I in Communication, Social Cogni tion, Self-Care, Sphincter Control, Transfers Control, and Locomotion; and she had good Sphincter Con trol.Currently, she has deficits of Communication, Social Cognition, Balance, Self-Care, Endurance, S afety Awareness, Transfers Control, and Locomotion.Pt. is now referred to [facility] for acute in-patient rehabilitation in order to maximize patient's functional independence in activities of daily living, strength, ROM, and mobility.- Rehab Goal Patient has realistic goal of being discharged at assistance level 6-Melody to reside at Home with Fam chante/Relatives. MDM/PLAN: - Physical Therapy Gait dysfunction - to improve, our physical therapists will perform initial evaluation of pt's statu s upon admission and devise an individualized program for Gait Training, and Wheel Chair mobility Inability to transfer - to improve, our physical therapists will perform initial evaluation of pt's status upon admission and devise an individualized program for Bed mobility Need for home safety evaluation - to improve, our physical therapists will perform initial evaluatio n of pt's status upon admission and devise an individualized program for Home Evaluation Need in caregiver upon discharge - to improve, our physical therapists will perform initial evaluati on of pt's status upon admission and devise an individualized program for Caregiver Training New precaution - to improve, our physical therapists will perform initial evaluation of pt's status upon admission and devise an individualized program for Patient precaution education Poor balance - to improve, our physical therapists will perform initial evaluation of pt's status up on admission and devise an individualized program for Balance Training Poor endurance - to improve, our physical therapists will perform initial evaluation of pt's status upon admission and devise an individualized program for Endurance Training Weakness - to improve, our physical therapists will perform initial evaluation of pt's status upon a dmission and devise an individualized program for Aquatic Therapy, Neuromuscular Reeducation, and Str engthening Achieving independence - to improve, our physical therapists will perform initial evaluation of pt's status upon admission and devise an individualized program for Community Reintegration Activities - Occupational Therapy ADL deficits - to improve, our occupation therapists will perform initial evaluation of pt's status upon admission and devise an individualized program for Bathing, Bed mobility, Community Reintegratio n, Cooking, Dressing, Eating, Fine Motor Skills, Grooming, Homemaking, Kitchen Mobility, Laundry, Pat ient Education, Safety Awareness, Splinting - Positioning, Transfers(Toilet, Tub, Shower), and Wheel Chair Management Cognitive deficits - to improve, our occupation therapists will perform initial evaluation of pt's s tatus upon admission and devise an individualized program for Cognition - orientation Need for care program director - to improve, our occupation therapists will perform initial evaluation of pt's status upon admission and devise an individualized program for Caregiver Training Weakness - to improve, our occupation therapists will perform initial evaluation of pt's status upon admission and devise an individualized program for Aquatic Therapy, Balance, Endurance, UE ROM, and UE strengthening - Diet Type Continue Regular - Diet - Liquid Texture Continue Regular - Tube Feed Continue N/A - Lab Results blood Sugar Check ACHS - Weight Bearing Precaution WBAT right wrist - Skin care per protocol - N/A Perform Consult Certified Prosthetic for prosthesis construction - Diet - Solid Texture Continue Regular - Shower allowing shower FUNCTIONAL STATUS: UPDATED AT WEEKLY TEAM CONFERENCE - Bladder Same accident frequency: 7-Ind - No accidents in the past 7 days - Bowel Same accident frequency: 7-Ind - No accidents in the past 7 days - Walking Same score based on distance walked: 1(<=50ft) FUNCTIONAL STATUS: - Self-Care A. Eating sup B. Grooming sup C. Bathing sup D. Dressing - Upper Marie E. Dressing - Lower Dep F. Toileting Dep - Sphincter Control G: Bladder control Dep H: Bowel control Dep - Transfers Control I. Bed/Chair/Wheelchair maxA J. Toilet maxA K. Tub/Shower maxA - Locomotion L. Walk/Wheelchair (B) Dep M. Stairs ADNO - Communication N. Comprehension (B) Marie O. Expression (B) Marie - Social Cognition P. Social Interaction Marie Q. Problem Solving Marie R. Memory Marie - Endurance Poor - Balance Poor - Safety Awareness Poor CURRENT FUNC. DEFICITS: Communication, Social Cognition, Balance, Self-Care, Endurance, Safety Awareness, Transfers Control, and Locomotion SIGNATURE PANEL: (CDT)
[2018-07-02] MEDS: APIXABAN 2.5 MG TABLET PO SCH (20:04)
[2018-07-02] MEDS: GABAPENTIN 100 MG CAP PO SCH (20:04)
[2018-07-02] MEDS: ATORVASTATIN 80 MG TAB PO SCH (20:05)
[2018-07-03] MEDS: TRAMADOL HCL 50 MG TAB PO PRN ×2 (00:36→07:10)
--- NOTE | 2018-07-03 01:42 | FAST ---
SHIFT START DATE/TIME: 07/02/2018 19:00 (CDT) SHIFT END DATE/TIME: 07/03/2018 07:00 (CDT) NAME FRANCINE RODRIGUEZ DATE OF : 1945 DATE OF ADMISSION: 06/26/2018 14:02 (CDT) PHONE: AGE: 72 [facility]# [id number] GENDER: Male ENCOUNTER PHYSICIAN: Dr. Rodrigo Alaniz M.D. 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 EATING: Activity did not occur on this shift EATING - SCORE: 0-UNK GROOMING: Oral care Wash, rinse, and dry face Wash, rinse, and dry hands GROOMING - STEP 1: Does the patient require assistance when grooming? Yes. GROOMING - STEP 2: Does the patient require the assistance of a helper? Yes. GROOMING - STEP 3: How much assistance does the patient require from the helper? Cuing, coaxing, instructions, or encour agement for completion of grooming GROOMING - SCORE: 5-SUP BATHING: Activity did not occur on this shift BATHING - SCORE: 0-UNK DRESSING - UPPER BODY: Patient is not dressing in public clothing ARTICLES SCORE Total number of steps: 0 DRESSING - UPPER BODY - SCORE: 0-UNK DRESSING - LOWER BODY: Patient is not dressing in public clothing ARTICLES SCORE Total number of steps: 0 DRESSING - LOWER BODY - SCORE: 0-UNK TOILETING: TOILETING - STEP 1: Does the patient require assistance with toileting? Yes. TOILETING - STEP 2: Does the patient require the assistance of a helper? Yes. TOILETING - STEP 3: How much assistance does the patient require from the helper? Only supervision TOILETING - SCORE: 5-SUP BLADDER MANAGEMENT: BLADDER MANAGEMENT - STEP 1: Does the patient control the bladder completely and intentionally without equipment or devices or med ications, and is always continent? Yes. BLADDER MANAGEMENT - SCORE: 7-IND BOWEL MANAGEMENT: Activity did not occur on this shift BOWEL MANAGEMENT - SCORE: 7-IND TRANSFERS: BED, CHAIR, WHEELCHAIR: TRANSFERS: BED, CHAIR, WHEELCHAIR - STEP 1: Does the patient require assistance with bed, chair, or wheelchair transfers? Yes. TRANSFERS: BED, CHAIR, WHEELCHAIR - STEP 2: Does the patient require the assistance of a helper? Yes. TRANSFERS: BED, CHAIR, WHEELCHAIR - STEP 3: How much assistance does the patient require from the helper? Only supervision TRANSFERS: BED, CHAIR, WHEELCHAIR - SCORE: 5-SUP TRANSFERS: TOILET: TRANSFERS: TOILET - STEP 1: Does the patient require assistance with toilet transfers? Yes. TRANSFERS: TOILET - STEP 2: Does the patient require the assistance of a helper? Yes. TRANSFERS: TOILET - STEP 3: How much assistance does the patient require from the helper? Only supervision, cuing, coaxing, OR he lp to set out transfer equipment or to lock brakes and/or lift foot rests TRANSFERS: TOILET - SCORE: 5-SUP TRANSFERS: SHOWER: Activity did not occur on this shift TRANSFERS: SHOWER - SCORE: 0-UNK TRANSFERS: TUB: Activity did not occur on this shift TRANSFERS: TUB - SCORE: 0-UNK LOCOMOTION: WALK: Activity did not occur on this shift LOCOMOTION: WALK - SCORE: 0-UNK LOCOMOTION: WHEELCHAIR: Activity did not occur on this shift LOCOMOTION: WHEELCHAIR - SCORE: 0-UNK COMPREHENSION: COMPREHENSION - STEP 1: Does the patient require help to understand complex and abstract ideas (such as current events, finan michaela, discharge planning, medical issues, relationships, etc)? Yes. COMPREHENSION - STEP 2: Does the patient require help to understand questions or statements about basic needs or ideas (such as hunger, thirst, sleep, safety, daily schedule, room location, or discomfort) half or more of the t saige? No. COMPREHENSION - STEP 3: How often does the patient need help to understand directions and conversation about basic needs? 10% - 24% of the time COMPREHENSION - SCORE: 4-MIN EXPRESSION EXPRESSION - STEP 1: Does the patient require help expressing complex and abstract ideas (such as current events, finances , discharge planning, medical issues, relationships, etc)? Yes. EXPRESSION - STEP 2: Does the patient require help to express basic necessities or ideas (such as hunger, thirst, sleep, s afety, daily schedule, room location, or discomfort) half or more of the time? No. EXPRESSION - STEP 3: How often does the patient need help to express directions and conversation about basic needs? 10-24% of the time EXPRESSION - SCORE: 4-MIN SOCIAL INTERACTION: SOCIAL INTERACTION - STEP 1: Does the patient require a helper to interact with others in social and therapeutic situations? No. SOCIAL INTERACTION - STEP 2: Does the patient need extra time in social situations, OR does s/he interact with staff, other patien ts, and family members ONLY in structured environments, OR does s/he require medication for social in teraction? Yes, patient requires medication for social interaction SOCIAL INTERACTION - SCORE: 6-LINDA PROBLEM SOLVING: PROBLEM SOLVING - STEP 1: Does the patient need help to solve complex problems such as managing a checking account or confronti ng interpersonal problems? Yes. PROBLEM SOLVING - STEP 2: Does the patient solve basic routine problems half or more of the time? Yes. PROBLEM SOLVING - STEP 3: How often does the patient need help to solve basic routine problems? 25%-49% of the time PROBLEM SOLVING - SCORE: 3-MOD MEMORY: MEMORY - STEP 1: Does the patient need help to remember frequently encountered people, daily routines, and executing r equests? Yes. MEMORY - STEP 2: How often does the patient need help to remember frequently encountered people, daily routines, and e xecuting requests? 25% - 49% of the time MEMORY - SCORE: 3-MOD SIGNATURE PANEL: The following modified sections: Eating - Score, Grooming - Score, Dressing - Upper Body - Score, Francisco ssing - Lower Body - Score, Toileting - Score, Bladder Management - Score, Bowel Management - Score, Transfers: Bed, Chair, Wheelchair - Score, Transfers: Toilet - Score, Transfers: Shower - Score, Suazo sfers: Tub - Score, Locomotion: Walk - Score, Locomotion: Wheelchair - Score, Comprehension - Score, Expression - Score, Social Interaction - Score, Problem Solving - Score, Memory - Score were [electro nically] signed by Ginny Goetz CNA on FriJul 03 2018 01:41:12 GMT-0500 (Central Daylight Time)
[2018-07-03] MEDS: LIDOCAINE 5% PATCH TOP SCH (07:09)
[2018-07-03] MEDS: INSULIN -REGULAR HUMAN 50 UNIT/0.5 ML ML SQ SCH ×4 (07:13→20:47)
[2018-07-03] MEDS: INSULIN DETEMIR 100 UNIT/1 ML INSULIN SQ SCH (08:20)
[2018-07-03] MEDS: AMLODIPINE 2.5 MG TAB PO SCH ×2 (08:21→20:06)
[2018-07-03] MEDS: APIXABAN 2.5 MG TABLET PO SCH ×2 (08:22→20:06)
[2018-07-03] MEDS: LISINOPRIL 20 MG TAB PO SCH (08:22)
[2018-07-03] MEDS: FOLIC ACID 1 MG TABLET PO SCH (08:23)
[2018-07-03] MEDS: METFORMIN HCL 850 MG TAB PO SCH ×2 (08:23→16:54)
[2018-07-03] MEDS: ASPIRIN 81 MG CHEWABLE TABLET PO SCH (08:23)
[2018-07-03] MEDS: CLOPIDOGREL 75 MG TABLET PO SCH (08:23)
[2018-07-03] MEDS: FLUOXETINE 20 MG CAP PO SCH (08:24)
--- NOTE | 2018-07-03 09:24 | P.RH.PN ---
Estimated Length of Stay: 11 Expected Discharge Date: 07/07/18 Discharge Disposition Plan: Home Family Support: Yes Skilled Nursing Goal: Mobility, Transfers, Self Care Vital Signs: Last Vital Signs Temp 97.6 F 07/02/18 19:58 Pulse 62 07/03/18 08:22 Resp 16 07/02/18 19:58 BP 172/62 H 07/03/18 08:22 Pulse Ox 99 07/02/18 19:58 Laboratory: Laboratory Last Values WBC 7.6 K/uL (4.3-10.9) 07/02/18 05:35 RBC 4.33 M/uL (4.33-5.43) 07/02/18 05:35 Hgb 13.7 g/dL (13.6-17.9) 07/02/18 05:35 Hct 38.9 % (39.6-49.0) L 07/02/18 05:35 MCV 89.9 fL (80-100) 07/02/18 05:35 MCH 31.8 pg (27.0-35.0) 07/02/18 05:35 MCHC 35.3 g/dL (32.0-36.0) 07/02/18 05:35 RDW 13.5 % (12.1-15.2) 07/02/18 05:35 Plt Count 255 K/uL (152-406) 07/02/18 05:35 MPV 8.2 fL (7.6-11.3) 07/02/18 05:35 Neutrophils % 75.2 % (41.7-73.7) H 07/02/18 05:35 Lymphocytes % 13.6 % (15.3-44.8) L 07/02/18 05:35 Monocytes % 7.5 % (3.3-12.3) 07/02/18 05:35 Eosinophils % 3.1 % (0-4.4) 07/02/18 05:35 Basophils % 0.6 % (0-1.3) 07/02/18 05:35 Absolute Neutrophils 5.7 K/uL (1.8-8.0) 07/02/18 05:35 Absolute Lymphocytes 1.0 K/uL (0.7-4.9) 07/02/18 05:35 Absolute Monocytes 0.6 K/uL (0.1-1.3) 07/02/18 05:35 Absolute Eosinophils 0.2 K/uL (0-0.5) 07/02/18 05:35 Absolute Basophils 0.0 K/uL (0-0.5) 07/02/18 05:35 Sodium 136 mmol/L (136-145) 07/02/18 05:35 Potassium 4.2 mmol/L (3.5-5.1) 07/02/18 05:35 Chloride 104 mmol/L (98-107) 07/02/18 05:35 Carbon Dioxide 28 mmol/L (21-32) 07/02/18 05:35 BUN 20 mg/dL (7-18) H 07/02/18 05:35 Creatinine 0.80 mg/dL (0.55-1.3) 07/02/18 05:35 Estimated GFR > 90 mL/min (=/>90) 07/02/18 05:35 Glucose 100 mg/dL (74-106) 07/02/18 05:35 POC Glucose 93 mg/dl (65-120) 07/03/18 07:11 Calcium 8.9 mg/dL (8.5-10.1) 07/02/18 05:35 Magnesium 2.0 mg/dL (1.8-2.4) 07/02/18 05:35 Albumin 3.1 g/dL (3.4-5.0) L 07/02/18 05:35 Prealbumin 20.8 mg/dL (20-40) 07/02/18 05:35 Urine Color Dk yellow 06/26/18 19:00 Urine Appearance Clear 06/26/18 19:00 Urine pH 6.0 (5.0-7.0) 06/26/18 19:00 Ur Specific [place] 1.025 (1.005-1.030) 06/26/18 19:00 Urine Ketones Negative (NEG) 06/26/18 19:00 Urine Blood Negative (NEG) 06/26/18 19:00 Urine Nitrite Negative (NEG) 06/26/18 19:00 Urine Bilirubin Negative (NEG) 06/26/18 19:00 Urine Urobilinogen 1.0 mg/dL (0.2-1.0) 06/26/18 19:00 Ur Leukocyte Esterase Negative (NEG) 06/26/18 19:00 Urine RBC <5 /HPF (NONE SEEN) 06/26/18 19:00 Urine WBC 5-10 /HPF (<5) H 06/26/18 19:00 Ur Squamous Epith Cells <5 /HPF (NONE SEEN) 06/26/18 19:00 Urine Bacteria <20 /HPF (NONE SEEN) 06/26/18 19:00 Urine Culture Reflexed Not needed 06/26/18 19:00 Urine Glucose Trace (NEG) 06/26/18 19:00 Urine Total Protein Trace (NEG) 06/26/18 19:00 Weight: 198 lb Wound Present: No Closed Surgical Incision Present: No Negative Pressure Wound Therapy Present: No Physician Update: He is medically stable. His blood work is essentially normal. His shoulder pain is fairly well controlled. His left hand weakness is impoving very slowly. He has minimal assistance with speech therapy. His is ambulating very well. He is on track for D/C 07/07/18 with out patient therapy. Medical Issues: Right shoulder pain- on k-pad as needed Pain Issues: Tylenol 500mg Q4H PRN. Lidoderm patch daily. Tramadol 50mg Q6H PRN Functional Improvement: Patient has met all short-term and long-term goals at this time. Will inform PT of met goals. Patient is currently still working on improvement of visual scanning. Functional Improvement Occupational Therapy: pt can benifit with further therapy to address pt's safety and energy conservation techniques. Cont to increase pt's Right shoulder and ROM/strength. cont to increase pt's finger dexterity and hand manipulation for adl tasks. Cont with the POC and the goals by the supervising OTR. Speech Therapy Update: Patient is making good gains towards ST goals. Comprehension/verbal expression are improved from MIN A to Supervision level. Mild word-retrieval difficulty noted in conversation. Memory and Problem Solving are improved to MIN A level . Supervision is required for safety Summary: Patient's care plan and exterminator goals have been reviewed and revised as necessary. Please see the Rehabilitation Signature page for all necessary signatures.
--- NOTE | 2018-07-03 14:37 | FAST ---
ENCOUNTER DATE AND TIME: 07/03/2018 08:00 (CDT) NAME FRANCINE RODRIGUEZ DATE OF : 1945 DATE OF ADMISSION: 06/26/2018 14:02 (CDT) PHONE: AGE: 72 N# [id number] GENDER: Male ENCOUNTER PHYSICIAN: Dr. Rodrigo Alaniz M.D. 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 EATING: Activity did not occur on this shift EATING - SCORE: 0-UNK GROOMING: Comb/brush hair Oral care Patient shaved Wash, rinse, and dry face Wash, rinse, and dry hands GROOMING - STEP 1: Does the patient require assistance when grooming? Yes. GROOMING - STEP 2: Does the patient require the assistance of a helper? No. The patient only requires an assistive devic e, OR takes more than reasonable time to groom, OR there is a concern for safety as the patient groom s GROOMING - SCORE: 6-LINDA BATHING: Abdomen Buttocks Chest Left arm Left lower leg and foot Left upper leg Perineal area Right arm Right lower leg and foot Right upper leg BATHING - STEP 1: Does the patient require assistance when bathing? Yes. BATHING - STEP 2: Does the patient require the assistance of a helper? No. The patient only requires an assistive devic e such as a bath eliseo, OR the patient takes more than reasonable time to bathe, OR there is a concern for safety such as regulating water temperature as the patient bathes. BATHING - SCORE: 6-LINDA DRESSING - UPPER BODY: T-shirt/pullover shirt (four steps) ARTICLES SCORE Total number of steps: 4 DRESSING - UPPER BODY - STEP 1: Does the patient require help when dressing above the waist? No. DRESSING - UPPER BODY - SCORE: 7-IND DRESSING - LOWER BODY: Sock - Left foot (one step) Sock - Right foot (one step) Tied or buckled shoe - Left foot (two steps) Tied or buckled shoe - Right foot (two steps) Underwear (three steps) Zippered pants (four steps) ARTICLES SCORE Total number of steps: 13 DRESSING - LOWER BODY - STEP 1: Does the patient require help when dressing below the waist? Yes. DRESSING - LOWER BODY - STEP 2: Does the patient require the assistance of a helper? No. Patient requires an assistive device such as a sewer pipe layer helper. OR s/he takes more than reasonable time as s/he dresses the lower body, OR there is a con cern for safety when s/he dresses the lower body DRESSING - LOWER BODY - SCORE: 6-LINDA TOILETING: Activity did not occur on this shift TOILETING - SCORE: 0-UNK BLADDER MANAGEMENT: Activity did not occur on this shift BLADDER MANAGEMENT - SCORE: 7-IND BOWEL MANAGEMENT: Activity did not occur on this shift BOWEL MANAGEMENT - SCORE: 7-IND TRANSFERS: BED, CHAIR, WHEELCHAIR: Activity did not occur on this shift TRANSFERS: BED, CHAIR, WHEELCHAIR - SCORE: 0-UNK TRANSFERS: TOILET: Activity did not occur on this shift TRANSFERS: TOILET - SCORE: 0-UNK TRANSFERS: SHOWER: TRANSFERS: SHOWER - STEP 1: Does the patient require assistance with shower transfers? Yes. TRANSFERS: SHOWER - STEP 2: Does the patient require the assistance of a helper? No. The patient only uses an assistive device, t akes more than reasonable time, OR there is a concern for safety when s/he performs transfers. TRANSFERS: SHOWER - SCORE: 6-LINDA TRANSFERS: TUB: Activity did not occur on this shift TRANSFERS: TUB - SCORE: 0-UNK LOCOMOTION: WALK: Activity did not occur on this shift LOCOMOTION: WALK - SCORE: 0-UNK LOCOMOTION: WHEELCHAIR: Activity did not occur on this shift LOCOMOTION: WHEELCHAIR - SCORE: 0-UNK LOCOMOTION: STAIRS: Activity did not occur on this shift LOCOMOTION: STAIRS - SCORE: 0-UNK COMPREHENSION: COMPREHENSION - SCORE: 0-UNK EXPRESSION EXPRESSION - SCORE: 0-UNK SOCIAL INTERACTION: SOCIAL INTERACTION - SCORE: 0-UNK PROBLEM SOLVING: PROBLEM SOLVING - SCORE: 0-UNK MEMORY: MEMORY - SCORE: 0-UNK SIGNATURE PANEL: The following modified sections: Eating - Score, Grooming - Score, Bathing - Score, Dressing - Upper Body - Score, Dressing - Lower Body - Score, Toileting - Score, Transfers: Bed, Chair, Wheelchair - S core, Transfers: Toilet - Score, Transfers: Shower - Score, Transfers: Tub - Score, Comprehension - S core, Expression - Score, Social Interaction - Score, Problem Solving - Score, Memory - Score were [e lectronically] signed by TRUONG Maya on FriJul 03 2018 14:36:03 [facility]-0500 ([facility] Time)
--- NOTE | 2018-07-03 15:30 | FAST ---
ENCOUNTER DATE AND TIME: 07/03/2018 08:00 (CDT) NAME FRANCINE RODRIGUEZ DATE OF : 1945 DATE OF ADMISSION: 06/26/2018 14:02 (CDT) PHONE: AGE: 72 N# [id number] GENDER: Male ENCOUNTER PHYSICIAN: Dr. Rodrigo Alaniz M.D. 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 EATING: Activity did not occur on this shift EATING - SCORE: 0-UNK GROOMING: Activity did not occur on this shift GROOMING - SCORE: 0-UNK BATHING: Activity did not occur on this shift BATHING - SCORE: 0-UNK DRESSING - UPPER BODY: Activity did not occur on this shift Patient is not dressing in public clothing ARTICLES SCORE Total number of steps: 0 DRESSING - UPPER BODY - SCORE: 0-UNK DRESSING - LOWER BODY: Activity did not occur on this shift Patient is not dressing in public clothing ARTICLES SCORE Total number of steps: 0 DRESSING - LOWER BODY - SCORE: 0-UNK TOILETING: Activity did not occur on this shift TOILETING - SCORE: 0-UNK BLADDER MANAGEMENT: Activity did not occur on this shift BLADDER MANAGEMENT - SCORE: 7-IND BOWEL MANAGEMENT: Activity did not occur on this shift BOWEL MANAGEMENT - SCORE: 7-IND TRANSFERS: BED, CHAIR, WHEELCHAIR: Activity did not occur on this shift TRANSFERS: BED, CHAIR, WHEELCHAIR - SCORE: 0-UNK TRANSFERS: TOILET: Activity did not occur on this shift TRANSFERS: TOILET - SCORE: 0-UNK TRANSFERS: SHOWER: Activity did not occur on this shift TRANSFERS: SHOWER - SCORE: 0-UNK TRANSFERS: TUB: Activity did not occur on this shift TRANSFERS: TUB - SCORE: 0-UNK LOCOMOTION: WALK: Activity did not occur on this shift LOCOMOTION: WALK - SCORE: 0-UNK LOCOMOTION: WHEELCHAIR: Activity did not occur on this shift LOCOMOTION: WHEELCHAIR - SCORE: 0-UNK LOCOMOTION: STAIRS: Activity did not occur on this shift LOCOMOTION: STAIRS - SCORE: 0-UNK COMPREHENSION: COMPREHENSION - STEP 1: Does the patient require help to understand complex and abstract ideas (such as current events, finan michaela, discharge planning, medical issues, relationships, etc)? Yes. COMPREHENSION - STEP 2: Does the patient require help to understand questions or statements about basic needs or ideas (such as hunger, thirst, sleep, safety, daily schedule, room location, or discomfort) half or more of the t saige? No. COMPREHENSION - STEP 3: How often does the patient need help to understand directions and conversation about basic needs? Les s than 10% of the time COMPREHENSION - SCORE: 5-SUP EXPRESSION EXPRESSION - STEP 1: Does the patient require help expressing complex and abstract ideas (such as current events, finances , discharge planning, medical issues, relationships, etc)? Yes. EXPRESSION - STEP 2: Does the patient require help to express basic necessities or ideas (such as hunger, thirst, sleep, s afety, daily schedule, room location, or discomfort) half or more of the time? No. EXPRESSION - STEP 3: How often does the patient need help to express directions and conversation about basic needs? Less t hines 10% of the time EXPRESSION - SCORE: 5-SUP SOCIAL INTERACTION: SOCIAL INTERACTION - STEP 1: Does the patient require a helper to interact with others in social and therapeutic situations? Yes. SOCIAL INTERACTION - STEP 2: Does the patient interact appropriately half or more of the time? Yes. SOCIAL INTERACTION - STEP 3: How often does the patient need help to interact appropriately? Less than 10% of the time SOCIAL INTERACTION - SCORE: 5-SUP PROBLEM SOLVING: PROBLEM SOLVING - STEP 1: Does the patient need help to solve complex problems such as managing a checking account or confronti ng interpersonal problems? Yes. PROBLEM SOLVING - STEP 2: Does the patient solve basic routine problems half or more of the time? Yes. PROBLEM SOLVING - STEP 3: How often does the patient need help to solve basic routine problems? Less than 10% of the time PROBLEM SOLVING - SCORE: 5-SUP MEMORY: MEMORY - STEP 1: Does the patient need help to remember frequently encountered people, daily routines, and executing r equests? Yes. MEMORY - STEP 2: How often does the patient need help to remember frequently encountered people, daily routines, and e xecuting requests? Less than 10% of the time MEMORY - SCORE: 5-SUP SIGNATURE PANEL: The following modified sections: Comprehension - Score, Expression - Score, Social Interaction - Scor e, Problem Solving - Score, Memory - Score were [electronically] signed by ST Jose fri 15:28:52 GMT-0500 (Central Daylight Time)
--- NOTE | 2018-07-03 16:53 | FAST ---
SHIFT START DATE/TIME: 07/03/2018 07:00 (CDT) SHIFT END DATE/TIME: 07/03/2018 19:00 (CDT) NAME FRANCINE RODRIGUEZ DATE OF : 1945 DATE OF ADMISSION: 06/26/2018 14:02 (CDT) PHONE: AGE: 72 N# [id number] GENDER: Male ENCOUNTER PHYSICIAN: Dr. Rodrigo Alaniz M.D. 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 EATING: EATING - STEP 1: Does the patient require assistance when eating? No. EATING - SCORE: 7-IND GROOMING: Comb/brush hair Wash, rinse, and dry face GROOMING - STEP 1: Does the patient require assistance when grooming? No. GROOMING - SCORE: 7-IND BATHING: Activity did not occur on this shift BATHING - SCORE: 0-UNK DRESSING - UPPER BODY: T-shirt/pullover shirt (four steps) ARTICLES SCORE Total number of steps: 4 DRESSING - UPPER BODY - STEP 1: Does the patient require help when dressing above the waist? Yes. DRESSING - UPPER BODY - STEP 2: Does the patient require the assistance of a helper? No. Patient only requires an assistive device, s uch as a button hook, velcro, or content development manager. OR s/he takes more than reasonable time as s/he dresses the upper body. OR there is a concern for safety when s/he dresses the upper body DRESSING - UPPER BODY - SCORE: 6-LINDA DRESSING - LOWER BODY: Activity did not occur on this shift ARTICLES SCORE Total number of steps: 0 DRESSING - LOWER BODY - SCORE: 0-UNK TOILETING: TOILETING - STEP 1: Does the patient require assistance with toileting? No. TOILETING - SCORE: 7-IND BLADDER MANAGEMENT: BLADDER MANAGEMENT - STEP 1: Does the patient control the bladder completely and intentionally without equipment or devices or med ications, and is always continent? Yes. BLADDER MANAGEMENT - SCORE: 7-IND BLADDER MANAGEMENT - FREQUENCY OF ACCIDENTS: BLADDER MANAGEMENT(FA) - STEP 1: How many accidents has the patient had during the current shift? 0 BOWEL MANAGEMENT: BOWEL MANAGEMENT - STEP 1: Does the patient control bowels completely and intentionally without equipment devices or medications AND is always continent? Yes. BOWEL MANAGEMENT - SCORE: 7-IND BOWEL MANAGEMENT - FREQUENCY OF ACCIDENTS: BOWEL MANAGEMENT(FA) - STEP 1: How many accidents has the patient had during the current shift? 0 TRANSFERS: BED, CHAIR, WHEELCHAIR: TRANSFERS: BED, CHAIR, WHEELCHAIR - STEP 1: Does the patient require assistance with bed, chair, or wheelchair transfers? Yes. TRANSFERS: BED, CHAIR, WHEELCHAIR - STEP 2: Does the patient require the assistance of a helper? No. Patient only requires an assistive device fo r bed, chair, wheelchair transfers such as a sliding board, grab bar, or brace, OR s/he takes more th an reasonable time, OR there is a safety concern when s/he performs the transfers TRANSFERS: BED, CHAIR, WHEELCHAIR - SCORE: 6-LINDA TRANSFERS: TOILET: TRANSFERS: TOILET - STEP 1: Does the patient require assistance with toilet transfers? Yes. TRANSFERS: TOILET - STEP 2: Does the patient require the assistance of a helper? No. Patient only requires an assistive device [place] ch as a grab bar or special seat, OR s/he takes more than reasonable time to perform toilet transfers , OR there is a safety concern when s/he performs toilet transfers. TRANSFERS: TOILET - SCORE: 6-LINDA TRANSFERS: SHOWER: Activity did not occur on this shift TRANSFERS: SHOWER - SCORE: 0-UNK TRANSFERS: TUB: Activity did not occur on this shift TRANSFERS: TUB - SCORE: 0-UNK LOCOMOTION: WALK: Activity did not occur on this shift LOCOMOTION: WALK - SCORE: 0-UNK LOCOMOTION: WHEELCHAIR: Activity did not occur on this shift LOCOMOTION: WHEELCHAIR - SCORE: 0-UNK COMPREHENSION: COMPREHENSION - SCORE: 0-UNK EXPRESSION EXPRESSION - SCORE: 0-UNK SOCIAL INTERACTION: SOCIAL INTERACTION - SCORE: 0-UNK PROBLEM SOLVING: PROBLEM SOLVING - SCORE: 0-UNK MEMORY: MEMORY - SCORE: 0-UNK SIGNATURE PANEL: The following modified sections: Eating - Score, Grooming - Score, Bathing - Score, Dressing - Upper Body - Score, Dressing - Lower Body - Score, Toileting - Score, Bladder Management - Score, Bowel Man agement - Score, Transfers: Bed, Chair, Wheelchair - Score, Transfers: Toilet - Score, Transfers: [place] - Score, Transfers: Tub - Score, Locomotion: Walk - Score, Locomotion: Wheelchair - Score, Compre hension - Score, Expression - Score, Social Interaction - Score, Problem Solving - Score, Memory - Sc ore were [electronically] signed by Diana Martini CNA on FriJul 03 2018 16:52:38 T-0500 (Centra [place] Daylight Time)
[2018-07-03] MEDS: GABAPENTIN 100 MG CAP PO SCH (20:06)
[2018-07-03] MEDS: ATORVASTATIN 80 MG TAB PO SCH (20:06)
--- NOTE | 2018-07-04 02:39 | FAST ---
SHIFT START DATE/TIME: 07/03/2018 19:00 (CDT) SHIFT END DATE/TIME: 07/04/2018 07:00 (CDT) NAME FRANCINE RODRIGUEZ DATE OF : 1945 DATE OF ADMISSION: 06/26/2018 14:02 (CDT) PHONE: AGE: 72 N# [id number] GENDER: Male ENCOUNTER PHYSICIAN: Dr. Rodrigo Alaniz M.D. 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 EATING: Activity did not occur on this shift EATING - SCORE: 0-UNK GROOMING: Oral care Wash, rinse, and dry hands GROOMING - STEP 1: Does the patient require assistance when grooming? Yes. GROOMING - STEP 2: Does the patient require the assistance of a helper? Yes. GROOMING - STEP 3: How much assistance does the patient require from the helper? Only prior equipment preparation/set up from the helper GROOMING - SCORE: 5-SUP BATHING: Activity did not occur on this shift BATHING - SCORE: 0-UNK DRESSING - UPPER BODY: Patient is not dressing in public clothing ARTICLES SCORE Total number of steps: 0 DRESSING - UPPER BODY - SCORE: 0-UNK DRESSING - LOWER BODY: Patient is not dressing in public clothing ARTICLES SCORE Total number of steps: 0 DRESSING - LOWER BODY - SCORE: 0-UNK TOILETING: TOILETING - STEP 1: Does the patient require assistance with toileting? Yes. TOILETING - STEP 2: Does the patient require the assistance of a helper? No. TOILETING - SCORE: 6-LINDA BLADDER MANAGEMENT: BLADDER MANAGEMENT - STEP 1: Does the patient control the bladder completely and intentionally without equipment or devices or med ications, and is always continent? Yes. BLADDER MANAGEMENT - SCORE: 7-IND BOWEL MANAGEMENT: Activity did not occur on this shift BOWEL MANAGEMENT - SCORE: 7-IND TRANSFERS: BED, CHAIR, WHEELCHAIR: TRANSFERS: BED, CHAIR, WHEELCHAIR - STEP 1: Does the patient require assistance with bed, chair, or wheelchair transfers? Yes. TRANSFERS: BED, CHAIR, WHEELCHAIR - STEP 2: Does the patient require the assistance of a helper? No. Patient only requires an assistive device fo r bed, chair, wheelchair transfers such as a sliding board, grab bar, or brace, OR s/he takes more th an reasonable time, OR there is a safety concern when s/he performs the transfers TRANSFERS: BED, CHAIR, WHEELCHAIR - SCORE: 6-LINDA TRANSFERS: TOILET: TRANSFERS: TOILET - STEP 1: Does the patient require assistance with toilet transfers? Yes. TRANSFERS: TOILET - STEP 2: Does the patient require the assistance of a helper? No. Patient only requires an assistive device covarrubias ch as a grab bar or special seat, OR s/he takes more than reasonable time to perform toilet transfers , OR there is a safety concern when s/he performs toilet transfers. TRANSFERS: TOILET - SCORE: 6-LINDA TRANSFERS: SHOWER: Activity did not occur on this shift TRANSFERS: SHOWER - SCORE: 0-UNK TRANSFERS: TUB: Activity did not occur on this shift TRANSFERS: TUB - SCORE: 0-UNK LOCOMOTION: WALK: Activity did not occur on this shift LOCOMOTION: WALK - SCORE: 0-UNK LOCOMOTION: WHEELCHAIR: Activity did not occur on this shift LOCOMOTION: WHEELCHAIR - SCORE: 0-UNK COMPREHENSION: COMPREHENSION: TYPE: Both COMPREHENSION - STEP 1: Does the patient require help to understand complex and abstract ideas (such as current events, finan michaela, discharge planning, medical issues, relationships, etc)? Yes. COMPREHENSION - STEP 2: Does the patient require help to understand questions or statements about basic needs or ideas (such as hunger, thirst, sleep, safety, daily schedule, room location, or discomfort) half or more of the t saige? No. COMPREHENSION - STEP 3: How often does the patient need help to understand directions and conversation about basic needs? Les s than 10% of the time COMPREHENSION - SCORE: 5-SUP EXPRESSION EXPRESSION: TYPE: Both EXPRESSION - STEP 1: Does the patient require help expressing complex and abstract ideas (such as current events, finances , discharge planning, medical issues, relationships, etc)? Yes. EXPRESSION - STEP 2: Does the patient require help to express basic necessities or ideas (such as hunger, thirst, sleep, s afety, daily schedule, room location, or discomfort) half or more of the time? No. EXPRESSION - STEP 3: How often does the patient need help to express directions and conversation about basic needs? Less t hines 10% of the time EXPRESSION - SCORE: 5-SUP SOCIAL INTERACTION: SOCIAL INTERACTION - STEP 1: Does the patient require a helper to interact with others in social and therapeutic situations? No. SOCIAL INTERACTION - STEP 2: Does the patient need extra time in social situations, OR does s/he interact with staff, other patien ts, and family members ONLY in structured environments, OR does s/he require medication for social in teraction? Yes, patient requires medication for social interaction SOCIAL INTERACTION - SCORE: 6-LINDA PROBLEM SOLVING: PROBLEM SOLVING - STEP 1: Does the patient need help to solve complex problems such as managing a checking account or confronti ng interpersonal problems? Yes. PROBLEM SOLVING - STEP 2: Does the patient solve basic routine problems half or more of the time? Yes. PROBLEM SOLVING - STEP 3: How often does the patient need help to solve basic routine problems? Less than 10% of the time PROBLEM SOLVING - SCORE: 5-SUP MEMORY: MEMORY - STEP 1: Does the patient need help to remember frequently encountered people, daily routines, and executing r equests? Yes. MEMORY - STEP 2: How often does the patient need help to remember frequently encountered people, daily routines, and e xecuting requests? Less than 10% of the time MEMORY - SCORE: 5-SUP
[2018-07-04 05:33] VITALS: BMI 28.7
[2018-07-04] MEDS: INSULIN -REGULAR HUMAN 50 UNIT/0.5 ML ML SQ SCH ×4 (07:30→20:08)
[2018-07-04] MEDS: TRAMADOL HCL 50 MG TAB PO PRN ×2 (08:19→20:06)
[2018-07-04] MEDS: FLUOXETINE 20 MG CAP PO SCH (08:19)
[2018-07-04] MEDS: LIDOCAINE 5% PATCH TOP SCH (08:19)
[2018-07-04] MEDS: ASPIRIN 81 MG CHEWABLE TABLET PO SCH (08:19)
[2018-07-04] MEDS: AMLODIPINE 2.5 MG TAB PO SCH ×2 (08:20→20:07)
[2018-07-04] MEDS: METFORMIN HCL 850 MG TAB PO SCH ×2 (08:20→16:32)
[2018-07-04] MEDS: LISINOPRIL 20 MG TAB PO SCH (08:21)
[2018-07-04] MEDS: APIXABAN 2.5 MG TABLET PO SCH ×2 (08:21→20:07)
[2018-07-04] MEDS: ACETAMINOPHEN 500 MG TAB PO PRN (08:21)
[2018-07-04] MEDS: CLOPIDOGREL 75 MG TABLET PO SCH (08:21)
[2018-07-04] MEDS: FOLIC ACID 1 MG TABLET PO SCH (08:21)
[2018-07-04] MEDS: INSULIN DETEMIR 100 UNIT/1 ML INSULIN SQ SCH (08:22)
--- NOTE | 2018-07-04 10:06 | FAST ---
SHIFT START DATE/TIME: 07/04/2018 07:00 (CDT) SHIFT END DATE/TIME: 07/04/2018 19:00 (CDT) NAME FRANCINE RODRIGUEZ DATE OF : 1945 DATE OF ADMISSION: 06/26/2018 14:02 (CDT) PHONE: AGE: 72 N# [id number] GENDER: Male ENCOUNTER PHYSICIAN: Dr. Rodrigo Alaniz M.D. 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 EATING: EATING - STEP 1: Does the patient require assistance when eating? Yes. EATING - STEP 2: Does the patient require the assistance of a helper? No, patient only requires an assistive device, O R s/he takes more than reasonable time to eat, OR there is a safety concern, OR s/he requires modifie d food consistency EATING - SCORE: 6-LINDA GROOMING: Comb/brush hair Oral care GROOMING - STEP 1: Does the patient require assistance when grooming? Yes. GROOMING - STEP 2: Does the patient require the assistance of a helper? No. The patient only requires an assistive devic e, OR takes more than reasonable time to groom, OR there is a concern for safety as the patient groom s GROOMING - SCORE: 6-LINDA BATHING: Activity did not occur on this shift BATHING - SCORE: 0-UNK DRESSING - UPPER BODY: Activity did not occur on this shift ARTICLES SCORE Total number of steps: 0 DRESSING - UPPER BODY - SCORE: 0-UNK DRESSING - LOWER BODY: Activity did not occur on this shift ARTICLES SCORE Total number of steps: 0 DRESSING - LOWER BODY - SCORE: 0-UNK TOILETING: TOILETING - STEP 1: Does the patient require assistance with toileting? Yes. TOILETING - STEP 2: Does the patient require the assistance of a helper? No. TOILETING - SCORE: 6-LINDA BLADDER MANAGEMENT: BLADDER MANAGEMENT - STEP 1: Does the patient control the bladder completely and intentionally without equipment or devices or med ications, and is always continent? No. BLADDER MANAGEMENT - STEP 2: Does the patient require the assistance of a helper? No, patient requires and independently uses an a ssistive device, such as a urinal, bedpan, bedside commode, catheter, absorbent pad, or collecting de vice BLADDER MANAGEMENT - SCORE: 6-LINDA BOWEL MANAGEMENT: Activity did not occur on this shift BOWEL MANAGEMENT - SCORE: 7-IND TRANSFERS: BED, CHAIR, WHEELCHAIR: TRANSFERS: BED, CHAIR, WHEELCHAIR - STEP 1: Does the patient require assistance with bed, chair, or wheelchair transfers? Yes. TRANSFERS: BED, CHAIR, WHEELCHAIR - STEP 2: Does the patient require the assistance of a helper? No. Patient only requires an assistive device fo r bed, chair, wheelchair transfers such as a sliding board, grab bar, or brace, OR s/he takes more th an reasonable time, OR there is a safety concern when s/he performs the transfers TRANSFERS: BED, CHAIR, WHEELCHAIR - SCORE: 6-LINDA TRANSFERS: TOILET: TRANSFERS: TOILET - STEP 1: Does the patient require assistance with toilet transfers? Yes. TRANSFERS: TOILET - STEP 2: Does the patient require the assistance of a helper? No. Patient only requires an assistive device covarrubias ch as a grab bar or special seat, OR s/he takes more than reasonable time to perform toilet transfers , OR there is a safety concern when s/he performs toilet transfers. TRANSFERS: TOILET - SCORE: 6-LINDA TRANSFERS: SHOWER: Activity did not occur on this shift TRANSFERS: SHOWER - SCORE: 0-UNK TRANSFERS: TUB: Activity did not occur on this shift TRANSFERS: TUB - SCORE: 0-UNK LOCOMOTION: WALK: Activity did not occur on this shift LOCOMOTION: WALK - SCORE: 0-UNK LOCOMOTION: WHEELCHAIR: Activity did not occur on this shift LOCOMOTION: WHEELCHAIR - SCORE: 0-UNK COMPREHENSION: COMPREHENSION - SCORE: 0-UNK EXPRESSION EXPRESSION - SCORE: 0-UNK SOCIAL INTERACTION: SOCIAL INTERACTION - SCORE: 0-UNK PROBLEM SOLVING: PROBLEM SOLVING - SCORE: 0-UNK MEMORY: MEMORY - SCORE: 0-UNK SIGNATURE PANEL: The following modified sections: Eating - Score, Grooming - Score, Bathing - Score, Dressing - Upper Body - Score, Dressing - Lower Body - Score, Toileting - Score, Bladder Management - Score, Bowel Man agement - Score, Transfers: Bed, Chair, Wheelchair - Score, Transfers: Toilet - Score, Transfers: Mague wer - Score, Transfers: Tub - Score, Locomotion: Walk - Score, Locomotion: Wheelchair - Score, Compre hension - Score, Expression - Score, Social Interaction - Score, Problem Solving - Score, Memory - Sc ore were [electronically] signed by Albert Humphreys on Sat Jul 04 2018 09:57:51 GMT-0500 (Central Daylight Time)
--- NOTE | 2018-07-04 12:20 | FAST ---
ENCOUNTER DATE AND TIME: 07/04/2018 08:00 (CDT) NAME FRANCINE RODRIGUEZ DATE OF : 1945 DATE OF ADMISSION: 06/26/2018 14:02 (CDT) PHONE: AGE: 72 N# [id number] GENDER: Male ENCOUNTER PHYSICIAN: Dr. Rodrigo Alaniz M.D. 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 EATING: Activity did not occur on this shift EATING - SCORE: 0-UNK GROOMING: Activity did not occur on this shift GROOMING - SCORE: 0-UNK BATHING: Activity did not occur on this shift BATHING - SCORE: 0-UNK DRESSING - UPPER BODY: Activity did not occur on this shift Patient is not dressing in public clothing ARTICLES SCORE Total number of steps: 0 DRESSING - UPPER BODY - SCORE: 0-UNK DRESSING - LOWER BODY: Activity did not occur on this shift Patient is not dressing in public clothing ARTICLES SCORE Total number of steps: 0 DRESSING - LOWER BODY - SCORE: 0-UNK TOILETING: Activity did not occur on this shift TOILETING - SCORE: 0-UNK BLADDER MANAGEMENT: Activity did not occur on this shift BLADDER MANAGEMENT - SCORE: 7-IND BOWEL MANAGEMENT: Activity did not occur on this shift BOWEL MANAGEMENT - SCORE: 7-IND TRANSFERS: BED, CHAIR, WHEELCHAIR: TRANSFERS: BED, CHAIR, WHEELCHAIR - STEP 1: Does the patient require assistance with bed, chair, or wheelchair transfers? No. TRANSFERS: BED, CHAIR, WHEELCHAIR - SCORE: 7-IND TRANSFERS: TOILET: Activity did not occur on this shift TRANSFERS: TOILET - SCORE: 0-UNK TRANSFERS: SHOWER: Activity did not occur on this shift TRANSFERS: SHOWER - SCORE: 0-UNK TRANSFERS: TUB: Activity did not occur on this shift TRANSFERS: TUB - SCORE: 0-UNK LOCOMOTION: WALK: LOCOMOTION: WALK - STEP 1: Does the patient need help to walk 150 feet? No. LOCOMOTION: WALK - STEP 2: Does the patient need an assistive device (such as an orthosis, prosthesis, crutches, or walker) to g o 150 feet, OR does s/he take more than reasonable time, OR is there a concern for safety? Yes, there is a safety concern LOCOMOTION: WALK - SCORE: 6-LINDA LOCOMOTION: WHEELCHAIR: Activity did not occur on this shift LOCOMOTION: WHEELCHAIR - SCORE: 0-UNK LOCOMOTION: STAIRS: Activity did not occur on this shift LOCOMOTION: STAIRS - SCORE: 0-UNK COMPREHENSION: COMPREHENSION - SCORE: 0-UNK EXPRESSION EXPRESSION - SCORE: 0-UNK SOCIAL INTERACTION: SOCIAL INTERACTION - SCORE: 0-UNK PROBLEM SOLVING: PROBLEM SOLVING - SCORE: 0-UNK MEMORY: MEMORY - SCORE: 0-UNK SIGNATURE PANEL: The following modified sections: Transfers: Bed, Chair, Wheelchair - Score, Transfers: Toilet - Score , Locomotion: Walk - Score, Locomotion: Wheelchair - Score, Locomotion: Stairs - Score were [electron ically] signed by Carmela Gonsales PTA on Sat Jul 04 2018 12:19:48 GMT-0500 (Central Daylight Time)
[2018-07-04] MEDS: GABAPENTIN 100 MG CAP PO SCH (20:07)
[2018-07-04] MEDS: ATORVASTATIN 80 MG TAB PO SCH (20:07)
--- NOTE | 2018-07-05 03:12 | FAST ---
SHIFT START DATE/TIME: 07/04/2018 19:00 (CDT) SHIFT END DATE/TIME: 07/05/2018 07:00 (CDT) NAME FRANCINE RODRIGUEZ DATE OF : 1945 DATE OF ADMISSION: 06/26/2018 14:02 (CDT) PHONE: AGE: 72 N# [id number] GENDER: Male ENCOUNTER PHYSICIAN: Dr. Rodrigo Alaniz M.D. 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 EATING: EATING - STEP 1: Does the patient require assistance when eating? Yes. EATING - STEP 2: Does the patient require the assistance of a helper? Yes. EATING - STEP 3: Does the patient perform half or more of the eating tasks? Yes. EATING - STEP 4: Does the patient need only supervision, cuing, coaxing OR help to apply an orthosis OR help to cut fo od, open containers, pour liquids, or butter bread? No. EATING - SCORE: 4-MIN GROOMING: Activity did not occur on this shift GROOMING - SCORE: 0-UNK BATHING: Activity did not occur on this shift BATHING - SCORE: 0-UNK DRESSING - UPPER BODY: Patient is not dressing in public clothing ARTICLES SCORE Total number of steps: 0 DRESSING - UPPER BODY - SCORE: 0-UNK DRESSING - LOWER BODY: Patient is not dressing in public clothing ARTICLES SCORE Total number of steps: 0 DRESSING - LOWER BODY - SCORE: 0-UNK TOILETING: Activity did not occur on this shift TOILETING - SCORE: 0-UNK BLADDER MANAGEMENT: Saxton cares for rico catheter including emptying drainage bag. BLADDER MANAGEMENT - SCORE: 1-DEP BOWEL MANAGEMENT: Saxton removes incontinent device (depends, pull ups, etc.); cleans the patient after accident / inco ntinent episode; and, applies new device (depends, pull-ups, padding, etc.). BOWEL MANAGEMENT - SCORE: 1-DEP BOWEL MANAGEMENT - FREQUENCY OF ACCIDENTS: BOWEL MANAGEMENT(FA) - STEP 1: How many accidents has the patient had during the current shift? 1 TRANSFERS: BED, CHAIR, WHEELCHAIR: Patient requires more than one helper and/or the use of a mechanical lift is utilized TRANSFERS: BED, CHAIR, WHEELCHAIR - SCORE: 1-DEP TRANSFERS: TOILET: Activity did not occur on this shift TRANSFERS: TOILET - SCORE: 0-UNK TRANSFERS: SHOWER: Activity did not occur on this shift TRANSFERS: SHOWER - SCORE: 0-UNK TRANSFERS: TUB: Activity did not occur on this shift TRANSFERS: TUB - SCORE: 0-UNK LOCOMOTION: WALK: Activity did not occur on this shift LOCOMOTION: WALK - SCORE: 0-UNK LOCOMOTION: WHEELCHAIR: Activity did not occur on this shift LOCOMOTION: WHEELCHAIR - SCORE: 0-UNK COMPREHENSION: COMPREHENSION: TYPE: Both COMPREHENSION - STEP 1: Does the patient require help to understand complex and abstract ideas (such as current events, finan michaela, discharge planning, medical issues, relationships, etc)? Yes. COMPREHENSION - STEP 2: Does the patient require help to understand questions or statements about basic needs or ideas (such as hunger, thirst, sleep, safety, daily schedule, room location, or discomfort) half or more of the t saige? No. COMPREHENSION - STEP 3: How often does the patient need help to understand directions and conversation about basic needs? 25% - 49% of the time COMPREHENSION - SCORE: 3-MOD EXPRESSION EXPRESSION: TYPE: Both EXPRESSION - STEP 1: Does the patient require help expressing complex and abstract ideas (such as current events, finances , discharge planning, medical issues, relationships, etc)? Yes. EXPRESSION - STEP 2: Does the patient require help to express basic necessities or ideas (such as hunger, thirst, sleep, s afety, daily schedule, room location, or discomfort) half or more of the time? No. EXPRESSION - STEP 3: How often does the patient need help to express directions and conversation about basic needs? 25-49% of the time EXPRESSION - SCORE: 3-MOD SOCIAL INTERACTION: SOCIAL INTERACTION - STEP 1: Does the patient require a helper to interact with others in social and therapeutic situations? No. SOCIAL INTERACTION - STEP 2: Does the patient need extra time in social situations, OR does s/he interact with staff, other patien ts, and family members ONLY in structured environments, OR does s/he require medication for social in teraction? Yes, patient needs extra time SOCIAL INTERACTION - SCORE: 6-LINDA PROBLEM SOLVING: PROBLEM SOLVING - STEP 1: Does the patient need help to solve complex problems such as managing a checking account or confronti ng interpersonal problems? Yes. PROBLEM SOLVING - STEP 2: Does the patient solve basic routine problems half or more of the time? Yes. PROBLEM SOLVING - STEP 3: How often does the patient need help to solve basic routine problems? 25%-49% of the time PROBLEM SOLVING - SCORE: 3-MOD MEMORY: MEMORY - STEP 1: Does the patient need help to remember frequently encountered people, daily routines, and executing r equests? Yes. MEMORY - STEP 2: How often does the patient need help to remember frequently encountered people, daily routines, and e xecuting requests? 25% - 49% of the time MEMORY - SCORE: 3-MOD SIGNATURE PANEL: The following modified sections: Eating - Score, Grooming - Score, Bathing - Score, Dressing - Upper Body - Score, Dressing - Lower Body - Score, Toileting - Score, Bladder Management - Score, Bowel Man agement - Score, Transfers: Bed, Chair, Wheelchair - Score, Transfers: Toilet - Score, Transfers: Mague wer - Score, Transfers: Tub - Score, Locomotion: Walk - Score, Locomotion: Wheelchair - Score, Compre hension - Score, Expression - Score, Social Interaction - Score, Problem Solving - Score, Memory - Sc ore were [electronically] signed by Nixon DesirNCaterina on FriJul 05 2018 03:11:59 GMT-0500 ( Central Daylight Time)
[2018-07-05] MEDS: LIDOCAINE 5% PATCH TOP SCH (07:10)
[2018-07-05] MEDS: INSULIN -REGULAR HUMAN 50 UNIT/0.5 ML ML SQ SCH ×4 (07:30→20:15)
[2018-07-05] MEDS: TRAMADOL HCL 50 MG TAB PO PRN ×2 (08:07→14:00)
[2018-07-05] MEDS: METFORMIN HCL 850 MG TAB PO SCH ×2 (08:07→17:13)
[2018-07-05] MEDS: ASPIRIN 81 MG CHEWABLE TABLET PO SCH (08:08)
[2018-07-05] MEDS: FLUOXETINE 20 MG CAP PO SCH (08:08)
[2018-07-05] MEDS: APIXABAN 2.5 MG TABLET PO SCH ×2 (08:08→20:03)
[2018-07-05] MEDS: CLOPIDOGREL 75 MG TABLET PO SCH (08:08)
[2018-07-05] MEDS: ACETAMINOPHEN 500 MG TAB PO PRN (08:08)
[2018-07-05] MEDS: FOLIC ACID 1 MG TABLET PO SCH (08:08)
[2018-07-05] MEDS: AMLODIPINE 2.5 MG TAB PO SCH ×2 (08:08→20:03)
[2018-07-05] MEDS: LISINOPRIL 20 MG TAB PO SCH (08:08)
[2018-07-05] MEDS: INSULIN DETEMIR 100 UNIT/1 ML INSULIN SQ SCH (08:09)
--- NOTE | 2018-07-05 13:39 | FAST ---
SHIFT START DATE/TIME: 07/05/2018 07:00 (CDT) SHIFT END DATE/TIME: 07/05/2018 19:00 (CDT) NAME FRANCINE RODRIGUEZ DATE OF : 1945 DATE OF ADMISSION: 06/26/2018 14:02 (CDT) PHONE: AGE: 72 N# [id number] GENDER: Male ENCOUNTER PHYSICIAN: Dr. Rodrigo Alaniz M.D. 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 EATING: EATING - STEP 1: Does the patient require assistance when eating? No. EATING - SCORE: 7-IND GROOMING: Comb/brush hair Oral care Wash, rinse, and dry face Wash, rinse, and dry hands GROOMING - STEP 1: Does the patient require assistance when grooming? Yes. GROOMING - STEP 2: Does the patient require the assistance of a helper? No. The patient only requires an assistive devic e, OR takes more than reasonable time to groom, OR there is a concern for safety as the patient groom s GROOMING - SCORE: 6-LINDA BATHING: Activity did not occur on this shift BATHING - SCORE: 0-UNK DRESSING - UPPER BODY: Activity did not occur on this shift ARTICLES SCORE Total number of steps: 0 DRESSING - UPPER BODY - SCORE: 0-UNK DRESSING - LOWER BODY: Activity did not occur on this shift ARTICLES SCORE Total number of steps: 0 DRESSING - LOWER BODY - SCORE: 0-UNK TOILETING: TOILETING - STEP 1: Does the patient require assistance with toileting? Yes. TOILETING - STEP 2: Does the patient require the assistance of a helper? No. TOILETING - SCORE: 6-LINDA BLADDER MANAGEMENT: BLADDER MANAGEMENT - STEP 1: Does the patient control the bladder completely and intentionally without equipment or devices or med ications, and is always continent? No. BLADDER MANAGEMENT - STEP 2: Does the patient require the assistance of a helper? No, patient requires and independently uses an a ssistive device, such as a urinal, bedpan, bedside commode, catheter, absorbent pad, or collecting de vice BLADDER MANAGEMENT - SCORE: 6-LINDA BOWEL MANAGEMENT: Activity did not occur on this shift BOWEL MANAGEMENT - SCORE: 7-IND TRANSFERS: BED, CHAIR, WHEELCHAIR: TRANSFERS: BED, CHAIR, WHEELCHAIR - STEP 1: Does the patient require assistance with bed, chair, or wheelchair transfers? Yes. TRANSFERS: BED, CHAIR, WHEELCHAIR - STEP 2: Does the patient require the assistance of a helper? No. Patient only requires an assistive device fo r bed, chair, wheelchair transfers such as a sliding board, grab bar, or brace, OR s/he takes more th an reasonable time, OR there is a safety concern when s/he performs the transfers TRANSFERS: BED, CHAIR, WHEELCHAIR - SCORE: 6-LINDA TRANSFERS: TOILET: TRANSFERS: TOILET - STEP 1: Does the patient require assistance with toilet transfers? Yes. TRANSFERS: TOILET - STEP 2: Does the patient require the assistance of a helper? No. Patient only requires an assistive device covarrubias ch as a grab bar or special seat, OR s/he takes more than reasonable time to perform toilet transfers , OR there is a safety concern when s/he performs toilet transfers. TRANSFERS: TOILET - SCORE: 6-LINDA TRANSFERS: SHOWER: Activity did not occur on this shift TRANSFERS: SHOWER - SCORE: 0-UNK TRANSFERS: TUB: Activity did not occur on this shift TRANSFERS: TUB - SCORE: 0-UNK LOCOMOTION: WALK: Activity did not occur on this shift LOCOMOTION: WALK - SCORE: 0-UNK LOCOMOTION: WHEELCHAIR: Activity did not occur on this shift LOCOMOTION: WHEELCHAIR - SCORE: 0-UNK COMPREHENSION: COMPREHENSION - SCORE: 0-UNK EXPRESSION EXPRESSION - SCORE: 0-UNK SOCIAL INTERACTION: SOCIAL INTERACTION - SCORE: 0-UNK PROBLEM SOLVING: PROBLEM SOLVING - SCORE: 0-UNK MEMORY: MEMORY - SCORE: 0-UNK SIGNATURE PANEL: The following modified sections: Eating - Score, Grooming - Score, Bathing - Score, Dressing - Upper Body - Score, Dressing - Lower Body - Score, Toileting - Score, Bladder Management - Score, Bowel Man agement - Score, Transfers: Bed, Chair, Wheelchair - Score, Transfers: Toilet - Score, Transfers: Mague wer - Score, Transfers: Tub - Score, Locomotion: Walk - Score, Locomotion: Wheelchair - Score, Compre hension - Score, Expression - Score, Social Interaction - Score, Problem Solving - Score, Memory - Sc ore were [electronically] signed by Albert Humphreys on FriJul 05 2018 13:38:33 GMT-0500 (Central Daylight Time)
[2018-07-05] MEDS: ATORVASTATIN 80 MG TAB PO SCH (20:03)
[2018-07-05] MEDS: GABAPENTIN 100 MG CAP PO SCH (20:03)
--- NOTE | 2018-07-06 03:36 | FAST ---
SHIFT START DATE/TIME: 07/05/2018 19:00 (CDT) SHIFT END DATE/TIME: 07/06/2018 07:00 (CDT) NAME FRANCINE RODRIGUEZ DATE OF : 1945 DATE OF ADMISSION: 06/26/2018 14:02 (CDT) PHONE: AGE: 72 N# [id number] GENDER: Male ENCOUNTER PHYSICIAN: Dr. Rodrigo Alaniz M.D. 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 EATING: EATING - STEP 1: Does the patient require assistance when eating? No. EATING - SCORE: 7-IND GROOMING: GROOMING - STEP 1: Does the patient require assistance when grooming? No. GROOMING - SCORE: 7-IND BATHING: Activity did not occur on this shift BATHING - SCORE: 0-UNK DRESSING - UPPER BODY: Patient is not dressing in public clothing ARTICLES SCORE Total number of steps: 0 DRESSING - UPPER BODY - SCORE: 0-UNK DRESSING - LOWER BODY: Patient is not dressing in public clothing ARTICLES SCORE Total number of steps: 0 DRESSING - LOWER BODY - SCORE: 0-UNK TOILETING: TOILETING - STEP 1: Does the patient require assistance with toileting? No. TOILETING - SCORE: 7-IND BLADDER MANAGEMENT: BLADDER MANAGEMENT - STEP 1: Does the patient control the bladder completely and intentionally without equipment or devices or med ications, and is always continent? Yes. BLADDER MANAGEMENT - SCORE: 7-IND BLADDER MANAGEMENT - FREQUENCY OF ACCIDENTS: BLADDER MANAGEMENT(FA) - STEP 1: How many accidents has the patient had during the current shift? 0 BOWEL MANAGEMENT: Activity did not occur on this shift BOWEL MANAGEMENT - SCORE: 7-IND TRANSFERS: BED, CHAIR, WHEELCHAIR: TRANSFERS: BED, CHAIR, WHEELCHAIR - STEP 1: Does the patient require assistance with bed, chair, or wheelchair transfers? No. TRANSFERS: BED, CHAIR, WHEELCHAIR - SCORE: 7-IND TRANSFERS: TOILET: TRANSFERS: TOILET - STEP 1: Does the patient require assistance with toilet transfers? No. TRANSFERS: TOILET - SCORE: 7-IND TRANSFERS: SHOWER: Activity did not occur on this shift TRANSFERS: SHOWER - SCORE: 0-UNK TRANSFERS: TUB: Activity did not occur on this shift TRANSFERS: TUB - SCORE: 0-UNK LOCOMOTION: WALK: LOCOMOTION: WALK - STEP 1: Does the patient need help to walk 150 feet? No. LOCOMOTION: WALK - STEP 2: Does the patient need an assistive device (such as an orthosis, prosthesis, crutches, or walker) to g o 150 feet, OR does s/he take more than reasonable time, OR is there a concern for safety? No. LOCOMOTION: WALK - SCORE: 7-IND LOCOMOTION: WHEELCHAIR: Activity did not occur on this shift LOCOMOTION: WHEELCHAIR - SCORE: 0-UNK COMPREHENSION: COMPREHENSION: TYPE: Both COMPREHENSION - STEP 1: Does the patient require help to understand complex and abstract ideas (such as current events, finan michaela, discharge planning, medical issues, relationships, etc)? Yes. COMPREHENSION - STEP 2: Does the patient require help to understand questions or statements about basic needs or ideas (such as hunger, thirst, sleep, safety, daily schedule, room location, or discomfort) half or more of the t saige? No. COMPREHENSION - STEP 3: How often does the patient need help to understand directions and conversation about basic needs? Les s than 10% of the time COMPREHENSION - SCORE: 5-SUP EXPRESSION EXPRESSION: TYPE: Both EXPRESSION - STEP 1: Does the patient require help expressing complex and abstract ideas (such as current events, finances , discharge planning, medical issues, relationships, etc)? Yes. EXPRESSION - STEP 2: Does the patient require help to express basic necessities or ideas (such as hunger, thirst, sleep, s afety, daily schedule, room location, or discomfort) half or more of the time? No. EXPRESSION - STEP 3: How often does the patient need help to express directions and conversation about basic needs? Less t hines 10% of the time EXPRESSION - SCORE: 5-SUP SOCIAL INTERACTION: SOCIAL INTERACTION - STEP 1: Does the patient require a helper to interact with others in social and therapeutic situations? No. SOCIAL INTERACTION - STEP 2: Does the patient need extra time in social situations, OR does s/he interact with staff, other patien ts, and family members ONLY in structured environments, OR does s/he require medication for social in teraction? Yes, patient needs extra time SOCIAL INTERACTION - SCORE: 6-LINDA PROBLEM SOLVING: PROBLEM SOLVING - STEP 1: Does the patient need help to solve complex problems such as managing a checking account or confronti ng interpersonal problems? Yes. PROBLEM SOLVING - STEP 2: Does the patient solve basic routine problems half or more of the time? Yes. PROBLEM SOLVING - STEP 3: How often does the patient need help to solve basic routine problems? 10%-24% of the time PROBLEM SOLVING - SCORE: 4-MIN MEMORY: MEMORY - STEP 1: Does the patient need help to remember frequently encountered people, daily routines, and executing r equests? Yes. MEMORY - STEP 2: How often does the patient need help to remember frequently encountered people, daily routines, and e xecuting requests? 10% - 24% of the time MEMORY - SCORE: 4-MIN SIGNATURE PANEL: The following modified sections: Eating - Score, Grooming - Score, Bathing - Score, Dressing - Upper Body - Score, Dressing - Lower Body - Score, Toileting - Score, Bladder Management - Score, Bowel Man agement - Score, Transfers: Bed, Chair, Wheelchair - Score, Transfers: Toilet - Score, Transfers: Mague wer - Score, Transfers: Tub - Score, Locomotion: Walk - Score, Locomotion: Wheelchair - Score, Compre hension - Score, Expression - Score, Social Interaction - Score, Problem Solving - Score, Memory - Sc ore were [electronically] signed by Nixon DesirNCaterina on FriJul 06 2018 03:24:37 T-0500 ( Central Daylight Time)
[2018-07-06] MEDS: INSULIN -REGULAR HUMAN 50 UNIT/0.5 ML ML SQ SCH ×4 (07:30→20:12)
[2018-07-06] MEDS: FLUOXETINE 20 MG CAP PO SCH (08:18)
[2018-07-06] MEDS: CLOPIDOGREL 75 MG TABLET PO SCH (08:18)
[2018-07-06] MEDS: FOLIC ACID 1 MG TABLET PO SCH (08:18)
[2018-07-06] MEDS: ASPIRIN 81 MG CHEWABLE TABLET PO SCH (08:18)
[2018-07-06] MEDS: APIXABAN 2.5 MG TABLET PO SCH ×2 (08:18→20:12)
[2018-07-06] MEDS: METFORMIN HCL 850 MG TAB PO SCH ×2 (08:18→17:17)
[2018-07-06] MEDS: LISINOPRIL 20 MG TAB PO SCH (08:18)
[2018-07-06] MEDS: AMLODIPINE 2.5 MG TAB PO SCH ×2 (08:18→20:11)
[2018-07-06] MEDS: LIDOCAINE 5% PATCH TOP SCH (08:19)
[2018-07-06] MEDS: INSULIN DETEMIR 100 UNIT/1 ML INSULIN SQ SCH (09:19)
--- NOTE | 2018-07-06 13:43 | FAST ---
SHIFT START DATE/TIME: 07/06/2018 07:00 (CDT) SHIFT END DATE/TIME: 07/06/2018 19:00 (CDT) NAME FRANCINE RODRIGUEZ DATE OF : 1945 DATE OF ADMISSION: 06/26/2018 14:02 (CDT) PHONE: AGE: 72 N# [id number] GENDER: Male ENCOUNTER PHYSICIAN: Dr. Rodrigo Alaniz M.D. 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 EATING: EATING - STEP 1: Does the patient require assistance when eating? Yes. EATING - STEP 2: Does the patient require the assistance of a helper? No, patient only requires an assistive device, O R s/he takes more than reasonable time to eat, OR there is a safety concern, OR s/he requires modifie d food consistency EATING - SCORE: 6-LINDA GROOMING: Comb/brush hair Oral care Wash, rinse, and dry face Wash, rinse, and dry hands GROOMING - STEP 1: Does the patient require assistance when grooming? Yes. GROOMING - STEP 2: Does the patient require the assistance of a helper? No. The patient only requires an assistive devic e, OR takes more than reasonable time to groom, OR there is a concern for safety as the patient groom s GROOMING - SCORE: 6-LINDA BATHING: Activity did not occur on this shift BATHING - SCORE: 0-UNK DRESSING - UPPER BODY: T-shirt/pullover shirt (four steps) ARTICLES SCORE Total number of steps: 4 DRESSING - UPPER BODY - STEP 1: Does the patient require help when dressing above the waist? Yes. DRESSING - UPPER BODY - STEP 2: Does the patient require the assistance of a helper? No. Patient only requires an assistive device, s uch as a button hook, velcro, or alligator trapper. OR s/he takes more than reasonable time as s/he dresses the upper body. OR there is a concern for safety when s/he dresses the upper body DRESSING - UPPER BODY - SCORE: 6-LINDA DRESSING - LOWER BODY: Elastic waist pants (three steps) Tied or buckled shoe - Left foot (two steps) Tied or buckled shoe - Right foot (two steps) Underwear (three steps) ARTICLES SCORE Total number of steps: 10 DRESSING - LOWER BODY - STEP 1: Does the patient require help when dressing below the waist? Yes. DRESSING - LOWER BODY - STEP 2: Does the patient require the assistance of a helper? No. Patient requires an assistive device such as a alligator trapper. OR s/he takes more than reasonable time as s/he dresses the lower body, OR there is a con cern for safety when s/he dresses the lower body DRESSING - LOWER BODY - SCORE: 6-LINDA TOILETING: TOILETING - STEP 1: Does the patient require assistance with toileting? Yes. TOILETING - STEP 2: Does the patient require the assistance of a helper? No. TOILETING - SCORE: 6-LINDA BLADDER MANAGEMENT: BLADDER MANAGEMENT - STEP 1: Does the patient control the bladder completely and intentionally without equipment or devices or med ications, and is always continent? Yes. BLADDER MANAGEMENT - SCORE: 7-IND BLADDER MANAGEMENT - FREQUENCY OF ACCIDENTS: BLADDER MANAGEMENT(FA) - STEP 1: How many accidents has the patient had during the current shift? 0 BOWEL MANAGEMENT: Activity did not occur on this shift BOWEL MANAGEMENT - SCORE: 7-IND BOWEL MANAGEMENT - FREQUENCY OF ACCIDENTS: BOWEL MANAGEMENT(FA) - STEP 1: How many accidents has the patient had during the current shift? 0 TRANSFERS: BED, CHAIR, WHEELCHAIR: TRANSFERS: BED, CHAIR, WHEELCHAIR - STEP 1: Does the patient require assistance with bed, chair, or wheelchair transfers? Yes. TRANSFERS: BED, CHAIR, WHEELCHAIR - STEP 2: Does the patient require the assistance of a helper? No. Patient only requires an assistive device fo r bed, chair, wheelchair transfers such as a sliding board, grab bar, or brace, OR s/he takes more th an reasonable time, OR there is a safety concern when s/he performs the transfers TRANSFERS: BED, CHAIR, WHEELCHAIR - SCORE: 6-LINDA TRANSFERS: TOILET: TRANSFERS: TOILET - STEP 1: Does the patient require assistance with toilet transfers? No. TRANSFERS: TOILET - SCORE: 7-IND TRANSFERS: SHOWER: Activity did not occur on this shift TRANSFERS: SHOWER - SCORE: 0-UNK TRANSFERS: TUB: Activity did not occur on this shift TRANSFERS: TUB - SCORE: 0-UNK LOCOMOTION: WALK: LOCOMOTION: WALK - STEP 1: Does the patient need help to walk 150 feet? No. LOCOMOTION: WALK - STEP 2: Does the patient need an assistive device (such as an orthosis, prosthesis, crutches, or walker) to g o 150 feet, OR does s/he take more than reasonable time, OR is there a concern for safety? Yes, there is a safety concern LOCOMOTION: WALK - SCORE: 6-LINDA LOCOMOTION: WHEELCHAIR: Activity did not occur on this shift LOCOMOTION: WHEELCHAIR - SCORE: 0-UNK COMPREHENSION: COMPREHENSION: TYPE: Both COMPREHENSION - STEP 1: Does the patient require help to understand complex and abstract ideas (such as current events, finan michaela, discharge planning, medical issues, relationships, etc)? Yes. COMPREHENSION - STEP 2: Does the patient require help to understand questions or statements about basic needs or ideas (such as hunger, thirst, sleep, safety, daily schedule, room location, or discomfort) half or more of the t saige? No. COMPREHENSION - STEP 3: How often does the patient need help to understand directions and conversation about basic needs? Les s than 10% of the time COMPREHENSION - SCORE: 5-SUP EXPRESSION EXPRESSION: TYPE: Both EXPRESSION - STEP 1: Does the patient require help expressing complex and abstract ideas (such as current events, finances , discharge planning, medical issues, relationships, etc)? Yes. EXPRESSION - STEP 2: Does the patient require help to express basic necessities or ideas (such as hunger, thirst, sleep, s afety, daily schedule, room location, or discomfort) half or more of the time? No. EXPRESSION - STEP 3: How often does the patient need help to express directions and conversation about basic needs? Less t hines 10% of the time EXPRESSION - SCORE: 5-SUP SOCIAL INTERACTION: SOCIAL INTERACTION - STEP 1: Does the patient require a helper to interact with others in social and therapeutic situations? No. SOCIAL INTERACTION - STEP 2: Does the patient need extra time in social situations, OR does s/he interact with staff, other patien ts, and family members ONLY in structured environments, OR does s/he require medication for social in teraction? Yes, patient needs extra time SOCIAL INTERACTION - SCORE: 6-LINDA PROBLEM SOLVING: PROBLEM SOLVING - STEP 1: Does the patient need help to solve complex problems such as managing a checking account or confronti ng interpersonal problems? Yes. PROBLEM SOLVING - STEP 2: Does the patient solve basic routine problems half or more of the time? Yes. PROBLEM SOLVING - STEP 3: How often does the patient need help to solve basic routine problems? Less than 10% of the time PROBLEM SOLVING - SCORE: 5-SUP MEMORY: MEMORY - STEP 1: Does the patient need help to remember frequently encountered people, daily routines, and executing r equests? Yes. MEMORY - STEP 2: How often does the patient need help to remember frequently encountered people, daily routines, and e xecuting requests? Less than 10% of the time MEMORY - SCORE: 5-SUP SIGNATURE PANEL: The following modified sections: Eating - Score, Grooming - Score, Bathing - Score, Dressing - Upper Body - Score, Dressing - Lower Body - Score, Toileting - Score, Bladder Management - Score, Bowel Man agement - Score, Transfers: Bed, Chair, Wheelchair - Score, Transfers: Toilet - Score, Transfers: Mague wer - Score, Transfers: Tub - Score, Locomotion: Walk - Score, Locomotion: Wheelchair - Score, Compre hension - Score, Expression - Score, Social Interaction - Score, Problem Solving - Score, Memory - Sc ore were [electronically] signed by Mirna Randolph C.N.A. on FriJul 06 2018 13:43:12 T-0500 (Centra l Daylight Time)
--- NOTE | 2018-07-06 14:30 | FAST ---
ENCOUNTER DATE AND TIME: 07/01/2018 08:00 (CDT) NAME FRANCINE RODRIGUEZ DATE OF : 1945 DATE OF ADMISSION: 06/26/2018 14:02 (CDT) PHONE: AGE: 72 N# [id number] GENDER: Male ENCOUNTER PHYSICIAN: Dr. Rodrigo Alaniz M.D. 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 EATING: Activity did not occur on this shift EATING - SCORE: 0-UNK GROOMING: Activity did not occur on this shift GROOMING - SCORE: 0-UNK BATHING: Activity did not occur on this shift BATHING - SCORE: 0-UNK DRESSING - UPPER BODY: Activity did not occur on this shift Patient is not dressing in public clothing ARTICLES SCORE Total number of steps: 0 DRESSING - UPPER BODY - SCORE: 0-UNK DRESSING - LOWER BODY: Activity did not occur on this shift Patient is not dressing in public clothing ARTICLES SCORE Total number of steps: 0 DRESSING - LOWER BODY - SCORE: 0-UNK TOILETING: Activity did not occur on this shift TOILETING - SCORE: 0-UNK BLADDER MANAGEMENT: Activity did not occur on this shift BLADDER MANAGEMENT - SCORE: 7-IND BOWEL MANAGEMENT: Activity did not occur on this shift BOWEL MANAGEMENT - SCORE: 7-IND TRANSFERS: BED, CHAIR, WHEELCHAIR: TRANSFERS: BED, CHAIR, WHEELCHAIR - STEP 1: Does the patient require assistance with bed, chair, or wheelchair transfers? Yes. TRANSFERS: BED, CHAIR, WHEELCHAIR - STEP 2: Does the patient require the assistance of a helper? No. Patient only requires an assistive device fo r bed, chair, wheelchair transfers such as a sliding board, grab bar, or brace, OR s/he takes more th an reasonable time, OR there is a safety concern when s/he performs the transfers TRANSFERS: BED, CHAIR, WHEELCHAIR - SCORE: 6-LINDA TRANSFERS: TOILET: Activity did not occur on this shift TRANSFERS: TOILET - SCORE: 0-UNK TRANSFERS: SHOWER: Activity did not occur on this shift TRANSFERS: SHOWER - SCORE: 0-UNK TRANSFERS: TUB: Activity did not occur on this shift TRANSFERS: TUB - SCORE: 0-UNK LOCOMOTION: WALK: LOCOMOTION: WALK - STEP 1: Does the patient need help to walk 150 feet? Yes. LOCOMOTION: WALK - STEP 2: How much assistance does the patient require to walk a minimum of 150 feet? Only supervision, cuing, or coaxing LOCOMOTION: WALK - SCORE: 5-SUP LOCOMOTION: WHEELCHAIR: Activity did not occur on this shift LOCOMOTION: WHEELCHAIR - SCORE: 0-UNK LOCOMOTION: STAIRS: LOCOMOTION: STAIRS - STEP 1: Does the patient need help to go up and down 12 to 14 stairs? Yes. LOCOMOTION: STAIRS - STEP 2: How much assistance does the patient need from the helper to go a minimum of 12 to 14 stairs? Only covarrubias pervision, cuing, or coaxing LOCOMOTION: STAIRS - SCORE: 5-SUP COMPREHENSION: COMPREHENSION - SCORE: 0-UNK EXPRESSION EXPRESSION - SCORE: 0-UNK SOCIAL INTERACTION: SOCIAL INTERACTION - SCORE: 0-UNK PROBLEM SOLVING: PROBLEM SOLVING - SCORE: 0-UNK MEMORY: MEMORY - SCORE: 0-UNK SIGNATURE PANEL: The following modified sections: Transfers: Bed, Chair, Wheelchair - Score, Transfers: Toilet - Score , Locomotion: Walk - Score, Locomotion: Wheelchair - Score, Locomotion: Stairs - Score were [markus elizondo] signed by Eligio Knox PTA on FriJul 06 2018 14:29:26 GMT-0500 (Central Daylight Time)
--- NOTE | 2018-07-06 14:32 | FAST ---
ENCOUNTER DATE AND TIME: 07/02/2018 08:00 (CDT) NAME FRANCINE RODRIGUEZ DATE OF : 1945 DATE OF ADMISSION: 06/26/2018 14:02 (CDT) PHONE: AGE: 72 N# [id number] GENDER: Male ENCOUNTER PHYSICIAN: Dr. Rodrigo Alaniz M.D. 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 EATING: Activity did not occur on this shift EATING - SCORE: 0-UNK GROOMING: Activity did not occur on this shift GROOMING - SCORE: 0-UNK BATHING: Activity did not occur on this shift BATHING - SCORE: 0-UNK DRESSING - UPPER BODY: Activity did not occur on this shift Patient is not dressing in public clothing ARTICLES SCORE Total number of steps: 0 DRESSING - UPPER BODY - SCORE: 0-UNK DRESSING - LOWER BODY: Activity did not occur on this shift Patient is not dressing in public clothing ARTICLES SCORE Total number of steps: 0 DRESSING - LOWER BODY - SCORE: 0-UNK TOILETING: Activity did not occur on this shift TOILETING - SCORE: 0-UNK BLADDER MANAGEMENT: Activity did not occur on this shift BLADDER MANAGEMENT - SCORE: 7-IND BOWEL MANAGEMENT: Activity did not occur on this shift BOWEL MANAGEMENT - SCORE: 7-IND TRANSFERS: BED, CHAIR, WHEELCHAIR: TRANSFERS: BED, CHAIR, WHEELCHAIR - STEP 1: Does the patient require assistance with bed, chair, or wheelchair transfers? No. TRANSFERS: BED, CHAIR, WHEELCHAIR - SCORE: 7-IND TRANSFERS: TOILET: Activity did not occur on this shift TRANSFERS: TOILET - SCORE: 0-UNK TRANSFERS: SHOWER: Activity did not occur on this shift TRANSFERS: SHOWER - SCORE: 0-UNK TRANSFERS: TUB: Activity did not occur on this shift TRANSFERS: TUB - SCORE: 0-UNK LOCOMOTION: WALK: LOCOMOTION: WALK - STEP 1: Does the patient need help to walk 150 feet? No. LOCOMOTION: WALK - STEP 2: Does the patient need an assistive device (such as an orthosis, prosthesis, crutches, or walker) to g o 150 feet, OR does s/he take more than reasonable time, OR is there a concern for safety? No. LOCOMOTION: WALK - SCORE: 7-IND LOCOMOTION: WHEELCHAIR: Activity did not occur on this shift LOCOMOTION: WHEELCHAIR - SCORE: 0-UNK LOCOMOTION: STAIRS: LOCOMOTION: STAIRS - STEP 1: Does the patient need help to go up and down 12 to 14 stairs? No. LOCOMOTION: STAIRS - STEP 2: Does the patient require an assistive device - such as handrails or cane - to go up and down one flig ht of stairs, OR does s/he take more than reasonable time, OR is there a concern for safety? Yes, the patient requires an assistive device LOCOMOTION: STAIRS - SCORE: 6-LINDA COMPREHENSION: COMPREHENSION - SCORE: 0-UNK EXPRESSION EXPRESSION - SCORE: 0-UNK SOCIAL INTERACTION: SOCIAL INTERACTION - SCORE: 0-UNK PROBLEM SOLVING: PROBLEM SOLVING - SCORE: 0-UNK MEMORY: MEMORY - SCORE: 0-UNK SIGNATURE PANEL: The following modified sections: Transfers: Bed, Chair, Wheelchair - Score, Transfers: Toilet - Score , Locomotion: Walk - Score, Locomotion: Wheelchair - Score, Locomotion: Stairs - Score were [electron caro] signed by Eligio Knox PTA on FriJul 06 2018 14:30:55 GMT-0500 (Central Daylight Time)
--- NOTE | 2018-07-06 14:33 | FAST ---
ENCOUNTER DATE AND TIME: 07/03/2018 08:00 (CDT) NAME FRANCINE RODRIGUEZ DATE OF : 1945 DATE OF ADMISSION: 06/26/2018 14:02 (CDT) PHONE: AGE: 72 N# [id number] GENDER: Male ENCOUNTER PHYSICIAN: Dr. Rodrigo Alaniz M.D. 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 EATING: Activity did not occur on this shift EATING - SCORE: 0-UNK GROOMING: Activity did not occur on this shift GROOMING - SCORE: 0-UNK BATHING: Activity did not occur on this shift BATHING - SCORE: 0-UNK DRESSING - UPPER BODY: Activity did not occur on this shift Patient is not dressing in public clothing ARTICLES SCORE Total number of steps: 0 DRESSING - UPPER BODY - SCORE: 0-UNK DRESSING - LOWER BODY: Activity did not occur on this shift Patient is not dressing in public clothing ARTICLES SCORE Total number of steps: 0 DRESSING - LOWER BODY - SCORE: 0-UNK TOILETING: Activity did not occur on this shift TOILETING - SCORE: 0-UNK BLADDER MANAGEMENT: Activity did not occur on this shift BLADDER MANAGEMENT - SCORE: 7-IND BOWEL MANAGEMENT: Activity did not occur on this shift BOWEL MANAGEMENT - SCORE: 7-IND TRANSFERS: BED, CHAIR, WHEELCHAIR: TRANSFERS: BED, CHAIR, WHEELCHAIR - STEP 1: Does the patient require assistance with bed, chair, or wheelchair transfers? No. TRANSFERS: BED, CHAIR, WHEELCHAIR - SCORE: 7-IND TRANSFERS: TOILET: Activity did not occur on this shift TRANSFERS: TOILET - SCORE: 0-UNK TRANSFERS: SHOWER: Activity did not occur on this shift TRANSFERS: SHOWER - SCORE: 0-UNK TRANSFERS: TUB: Activity did not occur on this shift TRANSFERS: TUB - SCORE: 0-UNK LOCOMOTION: WALK: LOCOMOTION: WALK - STEP 1: Does the patient need help to walk 150 feet? No. LOCOMOTION: WALK - STEP 2: Does the patient need an assistive device (such as an orthosis, prosthesis, crutches, or walker) to g o 150 feet, OR does s/he take more than reasonable time, OR is there a concern for safety? No. LOCOMOTION: WALK - SCORE: 7-IND LOCOMOTION: WHEELCHAIR: Activity did not occur on this shift LOCOMOTION: WHEELCHAIR - SCORE: 0-UNK LOCOMOTION: STAIRS: Activity did not occur on this shift LOCOMOTION: STAIRS - SCORE: 0-UNK COMPREHENSION: COMPREHENSION - SCORE: 0-UNK EXPRESSION EXPRESSION - SCORE: 0-UNK SOCIAL INTERACTION: SOCIAL INTERACTION - SCORE: 0-UNK PROBLEM SOLVING: PROBLEM SOLVING - SCORE: 0-UNK MEMORY: MEMORY - SCORE: 0-UNK SIGNATURE PANEL: The following modified sections: Transfers: Bed, Chair, Wheelchair - Score, Transfers: Toilet - Score , Locomotion: Walk - Score, Locomotion: Wheelchair - Score, Locomotion: Stairs - Score were [electron ically] signed by Eligio Knox PTA on FriJul 06 2018 14:32:05 T-0500 (Central Daylight Time)
--- NOTE | 2018-07-06 15:05 | FAST ---
ENCOUNTER DATE AND TIME: 07/06/2018 08:00 (CDT) NAME FRANCINE RODRIGUEZ DATE OF : 1945 DATE OF ADMISSION: 06/26/2018 14:02 (CDT) PHONE: AGE: 72 N# [id number] GENDER: Male ENCOUNTER PHYSICIAN: Dr. Rodrigo Alaniz M.D. 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 EATING: Activity did not occur on this shift EATING - SCORE: 0-UNK GROOMING: Activity did not occur on this shift GROOMING - SCORE: 0-UNK BATHING: Activity did not occur on this shift BATHING - SCORE: 0-UNK DRESSING - UPPER BODY: Activity did not occur on this shift Patient is not dressing in public clothing ARTICLES SCORE Total number of steps: 0 DRESSING - UPPER BODY - SCORE: 0-UNK DRESSING - LOWER BODY: Activity did not occur on this shift Patient is not dressing in public clothing ARTICLES SCORE Total number of steps: 0 DRESSING - LOWER BODY - SCORE: 0-UNK TOILETING: Activity did not occur on this shift TOILETING - SCORE: 0-UNK BLADDER MANAGEMENT: Activity did not occur on this shift BLADDER MANAGEMENT - SCORE: 7-IND BOWEL MANAGEMENT: Activity did not occur on this shift BOWEL MANAGEMENT - SCORE: 7-IND TRANSFERS: BED, CHAIR, WHEELCHAIR: TRANSFERS: BED, CHAIR, WHEELCHAIR - STEP 1: Does the patient require assistance with bed, chair, or wheelchair transfers? No. TRANSFERS: BED, CHAIR, WHEELCHAIR - SCORE: 7-IND TRANSFERS: TOILET: Activity did not occur on this shift TRANSFERS: TOILET - SCORE: 0-UNK TRANSFERS: SHOWER: Activity did not occur on this shift TRANSFERS: SHOWER - SCORE: 0-UNK TRANSFERS: TUB: Activity did not occur on this shift TRANSFERS: TUB - SCORE: 0-UNK LOCOMOTION: WALK: LOCOMOTION: WALK - STEP 1: Does the patient need help to walk 150 feet? No. LOCOMOTION: WALK - STEP 2: Does the patient need an assistive device (such as an orthosis, prosthesis, crutches, or walker) to g o 150 feet, OR does s/he take more than reasonable time, OR is there a concern for safety? No. LOCOMOTION: WALK - SCORE: 7-IND LOCOMOTION: WHEELCHAIR: Activity did not occur on this shift LOCOMOTION: WHEELCHAIR - SCORE: 0-UNK LOCOMOTION: STAIRS: LOCOMOTION: STAIRS - STEP 1: Does the patient need help to go up and down 12 to 14 stairs? No. LOCOMOTION: STAIRS - STEP 2: Does the patient require an assistive device - such as handrails or cane - to go up and down one flig ht of stairs, OR does s/he take more than reasonable time, OR is there a concern for safety? Yes, the patient requires an assistive device LOCOMOTION: STAIRS - SCORE: 6-LINDA COMPREHENSION: COMPREHENSION - SCORE: 0-UNK EXPRESSION EXPRESSION - SCORE: 0-UNK SOCIAL INTERACTION: SOCIAL INTERACTION - SCORE: 0-UNK PROBLEM SOLVING: PROBLEM SOLVING - SCORE: 0-UNK MEMORY: MEMORY - SCORE: 0-UNK SIGNATURE PANEL: The following modified sections: Transfers: Bed, Chair, Wheelchair - Score, Transfers: Toilet - Score , Locomotion: Walk - Score, Locomotion: Wheelchair - Score, Locomotion: Stairs - Score were [electron caro] signed by Eligio Knox PTA on FriJul 06 2018 15:04:53 GMT-0500 (Central Daylight Time)
--- NOTE | 2018-07-06 15:11 | FAST ---
ENCOUNTER DATE AND TIME: 07/06/2018 08:00 (CDT) NAME FRANCINE RODRIGUEZ DATE OF : 1945 DATE OF ADMISSION: 06/26/2018 14:02 (CDT) PHONE: AGE: 72 N# [id number] GENDER: Male ENCOUNTER PHYSICIAN: Dr. Rodrigo Alaniz M.D. 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 EATING: Activity did not occur on this shift EATING - SCORE: 0-UNK GROOMING: Comb/brush hair Oral care Patient shaved Wash, rinse, and dry face Wash, rinse, and dry hands GROOMING - STEP 1: Does the patient require assistance when grooming? No. GROOMING - SCORE: 7-IND BATHING: Abdomen Buttocks Chest Left arm Left lower leg and foot Left upper leg Perineal area Right arm Right lower leg and foot Right upper leg BATHING - STEP 1: Does the patient require assistance when bathing? Yes. BATHING - STEP 2: Does the patient require the assistance of a helper? No. The patient only requires an assistive devic e such as a bath eliseo, OR the patient takes more than reasonable time to bathe, OR there is a concern for safety such as regulating water temperature as the patient bathes. BATHING - SCORE: 6-LINDA DRESSING - UPPER BODY: T-shirt/pullover shirt (four steps) ARTICLES SCORE Total number of steps: 4 DRESSING - UPPER BODY - STEP 1: Does the patient require help when dressing above the waist? No. DRESSING - UPPER BODY - SCORE: 7-IND DRESSING - LOWER BODY: Sock - Left foot (one step) Sock - Right foot (one step) Tied or buckled shoe - Left foot (two steps) Tied or buckled shoe - Right foot (two steps) Underwear (three steps) Zippered pants (four steps) ARTICLES SCORE Total number of steps: 13 DRESSING - LOWER BODY - STEP 1: Does the patient require help when dressing below the waist? Yes. DRESSING - LOWER BODY - STEP 2: Does the patient require the assistance of a helper? No. Patient requires an assistive device such as a sr. vendor management associate. OR s/he takes more than reasonable time as s/he dresses the lower body, OR there is a con cern for safety when s/he dresses the lower body DRESSING - LOWER BODY - SCORE: 6-LINDA TOILETING: Activity did not occur on this shift TOILETING - SCORE: 0-UNK BLADDER MANAGEMENT: Activity did not occur on this shift BLADDER MANAGEMENT - SCORE: 7-IND BOWEL MANAGEMENT: Activity did not occur on this shift BOWEL MANAGEMENT - SCORE: 7-IND TRANSFERS: BED, CHAIR, WHEELCHAIR: Activity did not occur on this shift TRANSFERS: BED, CHAIR, WHEELCHAIR - SCORE: 0-UNK TRANSFERS: TOILET: Activity did not occur on this shift TRANSFERS: TOILET - SCORE: 0-UNK TRANSFERS: SHOWER: TRANSFERS: SHOWER - STEP 1: Does the patient require assistance with shower transfers? Yes. TRANSFERS: SHOWER - STEP 2: Does the patient require the assistance of a helper? No. The patient only uses an assistive device, t akes more than reasonable time, OR there is a concern for safety when s/he performs transfers. TRANSFERS: SHOWER - SCORE: 6-LINDA TRANSFERS: TUB: Activity did not occur on this shift TRANSFERS: TUB - SCORE: 0-UNK LOCOMOTION: WALK: Activity did not occur on this shift LOCOMOTION: WALK - SCORE: 0-UNK LOCOMOTION: WHEELCHAIR: Activity did not occur on this shift LOCOMOTION: WHEELCHAIR - SCORE: 0-UNK LOCOMOTION: STAIRS: Activity did not occur on this shift LOCOMOTION: STAIRS - SCORE: 0-UNK COMPREHENSION: COMPREHENSION - SCORE: 0-UNK EXPRESSION EXPRESSION - SCORE: 0-UNK SOCIAL INTERACTION: SOCIAL INTERACTION - SCORE: 0-UNK PROBLEM SOLVING: PROBLEM SOLVING - SCORE: 0-UNK MEMORY: MEMORY - SCORE: 0-UNK SIGNATURE PANEL: The following modified sections: Eating - Score, Grooming - Score, Bathing - Score, Dressing - Upper Body - Score, Dressing - Lower Body - Score, Toileting - Score, Transfers: Bed, Chair, Wheelchair - S core, Transfers: Toilet - Score, Transfers: Shower - Score, Transfers: Tub - Score, Comprehension - S core, Expression - Score, Social Interaction - Score, Problem Solving - Score, Memory - Score were [e lectronically] signed by TRUONG Maya on FriJul 06 2018 15:10:49 T-0500 (Counts include 234 beds at the [facility] Time)
[2018-07-06] MEDS: ATORVASTATIN 80 MG TAB PO SCH (20:12)
[2018-07-06] MEDS: GABAPENTIN 100 MG CAP PO SCH (20:12)
--- NOTE | 2018-07-06 20:15 | P.PN ---
Subjective Date of Service: 07/06/18 Subjective: No new changes No new complaints. He is doing very well with physical and occupational therapy. He ambulated 3000' with modified independence. Up and down 15 steps with modified independence. Blood sugars ranged 77 to 102. Plan: 1. Continue physical and occupational therapy. 2. Plan for discharge home this week with outpatient physical therapy. Physical Examination - Vital Signs Temperature: 97.2 F Blood Pressure: 135/62 Pulse: 69 Respirations: 18 Pulse Ox (%): 98
[2018-07-06] MEDS: ACETAMINOPHEN 500 MG TAB PO PRN (20:55)
[2018-07-06] MEDS: MELATONIN 3 MG TABLET PO PRN (23:20)
--- NOTE | 2018-07-07 01:56 | FAST ---
SHIFT START DATE/TIME: 07/06/2018 19:00 (CDT) SHIFT END DATE/TIME: 07/07/2018 07:00 (CDT) NAME FRANCINE RODRIGUEZ DATE OF : 1945 DATE OF ADMISSION: 06/26/2018 14:02 (CDT) PHONE: AGE: 72 N# [id number] GENDER: Male ENCOUNTER PHYSICIAN: Dr. Rodrigo Alaniz M.D. 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 EATING: Activity did not occur on this shift EATING - SCORE: 0-UNK GROOMING: Oral care Wash, rinse, and dry face Wash, rinse, and dry hands GROOMING - STEP 1: Does the patient require assistance when grooming? Yes. GROOMING - STEP 2: Does the patient require the assistance of a helper? Yes. GROOMING - STEP 3: How much assistance does the patient require from the helper? Only prior equipment preparation/set up from the helper GROOMING - SCORE: 5-SUP BATHING: Activity did not occur on this shift BATHING - SCORE: 0-UNK DRESSING - UPPER BODY: Patient is not dressing in public clothing ARTICLES SCORE Total number of steps: 0 DRESSING - UPPER BODY - SCORE: 0-UNK DRESSING - LOWER BODY: Patient is not dressing in public clothing ARTICLES SCORE Total number of steps: 0 DRESSING - LOWER BODY - SCORE: 0-UNK TOILETING: TOILETING - STEP 1: Does the patient require assistance with toileting? Yes. TOILETING - STEP 2: Does the patient require the assistance of a helper? No. TOILETING - SCORE: 6-LINDA BLADDER MANAGEMENT: BLADDER MANAGEMENT - STEP 1: Does the patient control the bladder completely and intentionally without equipment or devices or med ications, and is always continent? Yes. BLADDER MANAGEMENT - SCORE: 7-IND BOWEL MANAGEMENT: Activity did not occur on this shift BOWEL MANAGEMENT - SCORE: 7-IND TRANSFERS: BED, CHAIR, WHEELCHAIR: TRANSFERS: BED, CHAIR, WHEELCHAIR - STEP 1: Does the patient require assistance with bed, chair, or wheelchair transfers? Yes. TRANSFERS: BED, CHAIR, WHEELCHAIR - STEP 2: Does the patient require the assistance of a helper? No. Patient only requires an assistive device fo r bed, chair, wheelchair transfers such as a sliding board, grab bar, or brace, OR s/he takes more th an reasonable time, OR there is a safety concern when s/he performs the transfers TRANSFERS: BED, CHAIR, WHEELCHAIR - SCORE: 6-LINDA TRANSFERS: TOILET: TRANSFERS: TOILET - STEP 1: Does the patient require assistance with toilet transfers? Yes. TRANSFERS: TOILET - STEP 2: Does the patient require the assistance of a helper? Yes. TRANSFERS: TOILET - STEP 3: How much assistance does the patient require from the helper? Only supervision, cuing, coaxing, OR he lp to set out transfer equipment or to lock brakes and/or lift foot rests TRANSFERS: TOILET - SCORE: 5-SUP TRANSFERS: SHOWER: Activity did not occur on this shift TRANSFERS: SHOWER - SCORE: 0-UNK TRANSFERS: TUB: Activity did not occur on this shift TRANSFERS: TUB - SCORE: 0-UNK LOCOMOTION: WALK: Activity did not occur on this shift LOCOMOTION: WALK - SCORE: 0-UNK LOCOMOTION: WHEELCHAIR: Activity did not occur on this shift LOCOMOTION: WHEELCHAIR - SCORE: 0-UNK COMPREHENSION: COMPREHENSION - STEP 1: Does the patient require help to understand complex and abstract ideas (such as current events, finan michaela, discharge planning, medical issues, relationships, etc)? Yes. COMPREHENSION - STEP 2: Does the patient require help to understand questions or statements about basic needs or ideas (such as hunger, thirst, sleep, safety, daily schedule, room location, or discomfort) half or more of the t saige? No. COMPREHENSION - STEP 3: How often does the patient need help to understand directions and conversation about basic needs? 10% - 24% of the time COMPREHENSION - SCORE: 4-MIN EXPRESSION EXPRESSION - STEP 1: Does the patient require help expressing complex and abstract ideas (such as current events, finances , discharge planning, medical issues, relationships, etc)? Yes. EXPRESSION - STEP 2: Does the patient require help to express basic necessities or ideas (such as hunger, thirst, sleep, s afety, daily schedule, room location, or discomfort) half or more of the time? No. EXPRESSION - STEP 3: How often does the patient need help to express directions and conversation about basic needs? 10-24% of the time EXPRESSION - SCORE: 4-MIN SOCIAL INTERACTION: SOCIAL INTERACTION - STEP 1: Does the patient require a helper to interact with others in social and therapeutic situations? No. SOCIAL INTERACTION - STEP 2: Does the patient need extra time in social situations, OR does s/he interact with staff, other patien ts, and family members ONLY in structured environments, OR does s/he require medication for social in teraction? Yes, patient requires medication for social interaction SOCIAL INTERACTION - SCORE: 6-LINDA PROBLEM SOLVING: PROBLEM SOLVING - STEP 1: Does the patient need help to solve complex problems such as managing a checking account or confronti ng interpersonal problems? Yes. PROBLEM SOLVING - STEP 2: Does the patient solve basic routine problems half or more of the time? Yes. PROBLEM SOLVING - STEP 3: How often does the patient need help to solve basic routine problems? 10%-24% of the time PROBLEM SOLVING - SCORE: 4-MIN MEMORY: MEMORY - STEP 1: Does the patient need help to remember frequently encountered people, daily routines, and executing r equests? Yes. MEMORY - STEP 2: How often does the patient need help to remember frequently encountered people, daily routines, and e xecuting requests? 25% - 49% of the time MEMORY - SCORE: 3-MOD SIGNATURE PANEL: The following modified sections: Eating - Score, Grooming - Score, Dressing - Upper Body - Score, Francisco ssing - Lower Body - Score, Toileting - Score, Bladder Management - Score, Bowel Management - Score, Transfers: Bed, Chair, Wheelchair - Score, Transfers: Toilet - Score, Transfers: Shower - Score, Suazo sfers: Tub - Score, Locomotion: Walk - Score, Locomotion: Wheelchair - Score, Comprehension - Score, Expression - Score, Social Interaction - Score, Problem Solving - Score, Memory - Score were [electro nically] signed by Ginny Goetz CNA on FriJul 07 2018 01:55:36 GMT-0500 (Central Daylight Time)
[2018-07-07 06:55] VITALS: BP 152/67; TEMP 97.3
[2018-07-07] MEDS: INSULIN -REGULAR HUMAN 50 UNIT/0.5 ML ML SQ SCH ×2 (07:13→11:30)
[2018-07-07] MEDS: FLUOXETINE 20 MG CAP PO SCH (08:26)
[2018-07-07] MEDS: CLOPIDOGREL 75 MG TABLET PO SCH (08:26)
[2018-07-07] MEDS: METFORMIN HCL 850 MG TAB PO SCH (08:26)
[2018-07-07] MEDS: AMLODIPINE 2.5 MG TAB PO SCH (08:26)
[2018-07-07] MEDS: LISINOPRIL 20 MG TAB PO SCH (08:27)
[2018-07-07] MEDS: ASPIRIN 81 MG CHEWABLE TABLET PO SCH (08:27)
[2018-07-07] MEDS: APIXABAN 2.5 MG TABLET PO SCH (08:27)
[2018-07-07] MEDS: FOLIC ACID 1 MG TABLET PO SCH (08:27)
[2018-07-07] MEDS: INSULIN DETEMIR 100 UNIT/1 ML INSULIN SQ SCH (08:28)
[2018-07-07] MEDS: ACETAMINOPHEN 500 MG TAB PO PRN (08:28)
[2018-07-07] MEDS: LIDOCAINE 5% PATCH TOP SCH (08:28)
--- NOTE | 2018-07-07 14:20 | FAST ---
ENCOUNTER DATE AND TIME: 07/07/2018 08:00 (CDT) NAME FRANCINE RODRIGUEZ DATE OF : 1945 DATE OF ADMISSION: 06/26/2018 14:02 (CDT) PHONE: AGE: 72 N# [id number] GENDER: Male ENCOUNTER PHYSICIAN: Dr. Rodrigo Alaniz M.D. 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 EATING: Activity did not occur on this shift EATING - SCORE: 0-UNK GROOMING: Activity did not occur on this shift GROOMING - SCORE: 0-UNK BATHING: Activity did not occur on this shift BATHING - SCORE: 0-UNK DRESSING - UPPER BODY: Activity did not occur on this shift Patient is not dressing in public clothing ARTICLES SCORE Total number of steps: 0 DRESSING - UPPER BODY - SCORE: 0-UNK DRESSING - LOWER BODY: Activity did not occur on this shift Patient is not dressing in public clothing ARTICLES SCORE Total number of steps: 0 DRESSING - LOWER BODY - SCORE: 0-UNK TOILETING: Activity did not occur on this shift TOILETING - SCORE: 0-UNK BLADDER MANAGEMENT: Activity did not occur on this shift BLADDER MANAGEMENT - SCORE: 7-IND BOWEL MANAGEMENT: Activity did not occur on this shift BOWEL MANAGEMENT - SCORE: 7-IND TRANSFERS: BED, CHAIR, WHEELCHAIR: TRANSFERS: BED, CHAIR, WHEELCHAIR - STEP 1: Does the patient require assistance with bed, chair, or wheelchair transfers? No. TRANSFERS: BED, CHAIR, WHEELCHAIR - SCORE: 7-IND TRANSFERS: TOILET: Activity did not occur on this shift TRANSFERS: TOILET - SCORE: 0-UNK TRANSFERS: SHOWER: Activity did not occur on this shift TRANSFERS: SHOWER - SCORE: 0-UNK TRANSFERS: TUB: Activity did not occur on this shift TRANSFERS: TUB - SCORE: 0-UNK LOCOMOTION: WALK: LOCOMOTION: WALK - STEP 1: Does the patient need help to walk 150 feet? No. LOCOMOTION: WALK - STEP 2: Does the patient need an assistive device (such as an orthosis, prosthesis, crutches, or walker) to g o 150 feet, OR does s/he take more than reasonable time, OR is there a concern for safety? No. LOCOMOTION: WALK - SCORE: 7-IND LOCOMOTION: WHEELCHAIR: Activity did not occur on this shift LOCOMOTION: WHEELCHAIR - SCORE: 0-UNK LOCOMOTION: STAIRS: LOCOMOTION: STAIRS - STEP 1: Does the patient need help to go up and down 12 to 14 stairs? No. LOCOMOTION: STAIRS - STEP 2: Does the patient require an assistive device - such as handrails or cane - to go up and down one flig ht of stairs, OR does s/he take more than reasonable time, OR is there a concern for safety? Yes, the patient requires an assistive device LOCOMOTION: STAIRS - SCORE: 6-LINDA COMPREHENSION: COMPREHENSION - SCORE: 0-UNK EXPRESSION EXPRESSION - SCORE: 0-UNK SOCIAL INTERACTION: SOCIAL INTERACTION - SCORE: 0-UNK PROBLEM SOLVING: PROBLEM SOLVING - SCORE: 0-UNK MEMORY: MEMORY - SCORE: 0-UNK SIGNATURE PANEL: The following modified sections: Transfers: Bed, Chair, Wheelchair - Score, Transfers: Toilet - Score , Locomotion: Walk - Score, Locomotion: Wheelchair - Score, Locomotion: Stairs - Score were [electron caro] signed by Eligio Knox PTA on FriJul 07 2018 14:19:46 GMT-0500 (Central Daylight Time)
--- NOTE | 2018-07-07 17:52 | FAST ---
ENCOUNTER DATE AND TIME: 07/07/2018 08:00 (CDT) NAME FRANCINE RODRIGUEZ DATE OF : 1945 DATE OF ADMISSION: 06/26/2018 14:02 (CDT) PHONE: AGE: 72 N# [id number] GENDER: Male ENCOUNTER PHYSICIAN: Dr. Rodrigo Alaniz M.D. 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 EATING: Activity did not occur on this shift EATING - SCORE: 0-UNK GROOMING: Activity did not occur on this shift GROOMING - SCORE: 0-UNK BATHING: Activity did not occur on this shift BATHING - SCORE: 0-UNK DRESSING - UPPER BODY: Activity did not occur on this shift Patient is not dressing in public clothing ARTICLES SCORE Total number of steps: 0 DRESSING - UPPER BODY - SCORE: 0-UNK DRESSING - LOWER BODY: Activity did not occur on this shift Patient is not dressing in public clothing ARTICLES SCORE Total number of steps: 0 DRESSING - LOWER BODY - SCORE: 0-UNK TOILETING: Activity did not occur on this shift TOILETING - SCORE: 0-UNK BLADDER MANAGEMENT: Activity did not occur on this shift BLADDER MANAGEMENT - SCORE: 7-IND BOWEL MANAGEMENT: Activity did not occur on this shift BOWEL MANAGEMENT - SCORE: 7-IND TRANSFERS: BED, CHAIR, WHEELCHAIR: Activity did not occur on this shift TRANSFERS: BED, CHAIR, WHEELCHAIR - SCORE: 0-UNK TRANSFERS: TOILET: Activity did not occur on this shift TRANSFERS: TOILET - SCORE: 0-UNK TRANSFERS: SHOWER: Activity did not occur on this shift TRANSFERS: SHOWER - SCORE: 0-UNK TRANSFERS: TUB: Activity did not occur on this shift TRANSFERS: TUB - SCORE: 0-UNK LOCOMOTION: WALK: Activity did not occur on this shift LOCOMOTION: WALK - SCORE: 0-UNK LOCOMOTION: WHEELCHAIR: Activity did not occur on this shift LOCOMOTION: WHEELCHAIR - SCORE: 0-UNK LOCOMOTION: STAIRS: Activity did not occur on this shift LOCOMOTION: STAIRS - SCORE: 0-UNK COMPREHENSION: COMPREHENSION - STEP 1: Does the patient require help to understand complex and abstract ideas (such as current events, finan michaela, discharge planning, medical issues, relationships, etc)? Yes. COMPREHENSION - STEP 2: Does the patient require help to understand questions or statements about basic needs or ideas (such as hunger, thirst, sleep, safety, daily schedule, room location, or discomfort) half or more of the t saige? No. COMPREHENSION - STEP 3: How often does the patient need help to understand directions and conversation about basic needs? Les s than 10% of the time COMPREHENSION - SCORE: 5-SUP EXPRESSION EXPRESSION - STEP 1: Does the patient require help expressing complex and abstract ideas (such as current events, finances , discharge planning, medical issues, relationships, etc)? Yes. EXPRESSION - STEP 2: Does the patient require help to express basic necessities or ideas (such as hunger, thirst, sleep, s afety, daily schedule, room location, or discomfort) half or more of the time? No. EXPRESSION - STEP 3: How often does the patient need help to express directions and conversation about basic needs? Less t hines 10% of the time EXPRESSION - SCORE: 5-SUP SOCIAL INTERACTION: SOCIAL INTERACTION - STEP 1: Does the patient require a helper to interact with others in social and therapeutic situations? No. SOCIAL INTERACTION - STEP 2: Does the patient need extra time in social situations, OR does s/he interact with staff, other patien ts, and family members ONLY in structured environments, OR does s/he require medication for social in teraction? Yes, patient needs extra time SOCIAL INTERACTION - SCORE: 6-LINDA PROBLEM SOLVING: PROBLEM SOLVING - STEP 1: Does the patient need help to solve complex problems such as managing a checking account or confronti ng interpersonal problems? Yes. PROBLEM SOLVING - STEP 2: Does the patient solve basic routine problems half or more of the time? Yes. PROBLEM SOLVING - STEP 3: How often does the patient need help to solve basic routine problems? Less than 10% of the time PROBLEM SOLVING - SCORE: 5-SUP MEMORY: MEMORY - STEP 1: Does the patient need help to remember frequently encountered people, daily routines, and executing r equests? Yes. MEMORY - STEP 2: How often does the patient need help to remember frequently encountered people, daily routines, and e xecuting requests? Less than 10% of the time MEMORY - SCORE: 5-SUP SIGNATURE PANEL: The following modified sections: Comprehension - Score, Expression - Score, Social Interaction - Scor e, Problem Solving - Score, Memory - Score were [electronically] signed by ST Jose on Fri 17:51:19 GMT-0500 (Central Daylight Time)
== END 2018-07-07 15:00 | disposition home or self-care (01) | DRG 57 ==
LOC: 5TH 06-26 14:02
PROVIDERS: ADMIT Psychiatry & Neurology Neurology with Special Qualifications in Child Neurology; ATTEND Psychiatry & Neurology Neurology with Special Qualifications in Child Neurology
DX: I69.351 Hemiplegia and hemiparesis following cerebral infarction affecting right dominant side (principal); E11.40 Type 2 diabetes mellitus with diabetic neuropathy, unspecified; I10 Essential (primary) hypertension; I69.920 Aphasia following unspecified cerebrovascular disease
CPT/HCPCS: 36415; 80048; 81001; 82040; 82962; 83735; 84134; 85025; 87086; 87088; J1650

== ENCOUNTER 2021-12-09 17:02 | Emergency (ER) | payer MEDICARE, OTHER ==
--- OUTSIDE RECORDS SUMMARY | 2021-12-09 17:06 | XMS REPORT | Continuity of Care Document ---
:1945 Author Organization [facility] t Address [address] [place] [address] Care Team Providers Name Role Phone MILLY STORM Attending Clinician Unavail able MILLY STORM Admitting Clinician Unavail able Problems This patient has no known problems. Allergies, Adverse Reactions, Alerts Allergy Allergy Status Severity Reaction(s) Onset Inactive Treating Comm ents Source Name Type Date Date Clinician Penicill Adverse Active Info Not [facility] Egg/Pro Adverse Active Info Not [facility] Reaction Available [facility] Medications Ordered Filled Start Stop Current Ordering Indication Dosage Frequency Signature Comments Components Source Medication Medication Date Date Medication? Clinician (SIG) Name Name Rivastigmin Rivastigmin Yes Frank [address] [facility] Tartrate e Tartrate 07 [facility] with food [facility] Atorvastati Atorvastati Yes Frank [address] [facility] n Calcium n Calcium [facility] at bedtime [facility] Lantus Lantus Yes Frank 30 units [facility] Metformin Metformin Yes Frank TAKE ONE [facility] HCl HCl [facility] TABLET BY [facility] TWICE l DAILY [facility] Fluoxetine Fluoxetine Yes Frank [address] [facility] HCl HCl [facility] Ady Garsia Yes Frank TAKE 1 [facility] TABLET BY [facility] Folic Acid Folic Acid Yes Frank [address] [facility] Lisinopril Lisinopril Yes Frank TAKE [address] [facility] TABLET BY [facility] Amlodipine Amlodipine Yes Frank TAKE [address] [facility] Besylate Besylate Stokes TABLET BY L ukes - MOUTH ONCE [facility] Furosemide Furosemide Yes Frank [address] [facility] Clopidogrel Clopidogrel Yes Frank [address] [facility] Bisulfate Bisulfate [facility] Procedures This patient has no known procedures. Encounters Start End Encounter Admission Attending Care Care Encounter Source Date/Time Date/Time Type Type Clinicians Facility Department ID 2021-12-05 2021-12-05 ambulatory [facility] [id number] [facility] 2021-12-03 2021-12-03 ambulatory [facility] [id number] [facility] 2021-11-14 2021-11-14 ambulatory [facility] [id number] [facility] 2021-10-02 2021-10-02 ambulatory [facility] [id number] [facility] 2021-09-04 2021-09-04 Outpatient [facility] [id number] [facility] 2021-08-21 2021-08-21 Outpatient [facility] [id number] [facility] 2021-08-21 2021-08-21 [facility] [id number] [facility] 2021-04-20 2021-04-20 Outpatient [facility] [id number] [facility] 2021-02-13 2021-02-13 Outpatient [facility] [id number] [facility] 2020-10-23 2020-10-23 Outpatient [facility] [id number] [facility] 2020-10-16 2020-10-16 [facility] [id number] [facility] 2020-09-22 2020-09-22 Outpatient [facility] [id number] [facility] 2020-07-12 2020-07-12 [facility] [id number] [facility] 09[facility] 09[facility]45[facility]00 [place] [employer] [facility] - [facility] l Medicine Outpati ent Clinics 2020-07-12 2020-07-12 [facility] [id number] [address] 09:45:00 09:45:00 [place] [employer] [facility] - [facility] Out[facility] Clinics 2020-03-22 2020-03-22 [facility] [id number] 14:45:00 14:45:00 [place] [employer] [facility] - [facility] Medicine Outpat[facility] ent Clinics 2020-03-16 2020-03-16 [facility] [id number] 16:28:00 16:28:00 [place] [employer] [facility] - [facility] Out[facility] Clinics 2020-02-25 2020-02-25 [facility] [id number] 11:46:00 11:46:00 [place] [employer] - [facility] l Medicine Outpati ent Clinics 2020-01-13 2020-01-13 [facility] [id number] 11:00:00 11:00:00 [facility] Results Test Description Test Time Test Comments Results Result Comments Source WOUND CULTURE + GRAM STAIN 2018-06-28 06:42:00 Test Item Value Reference Range Interpretation Comme nts CULTURE (BEAKER) (test code = STAPHYLOCOCCUS AUREUS A 2+ Staphylococcus aureus 1095) Clindamycin (test code = 10) S Erythromycin (test code = 4) S Linezolid (test code = 40) S Nitrofurantoin (test code = S 23) Oxacillin (test code = 14) S Rifampin (test code = 43) S Tetracycline (test code = 2) S Trimethoprim + S Sulfamethoxazole (test code = 47) Vancomycin (test code = 13) S GRAM STAIN RESULT (BEAKER) <1+ WBCs (test code = 1123) GRAM STAIN RESULT (BEAKER) <1+ gram positive cocci in (test code = 056243) clusters POCT-GLUCOSE [id number] 12:16:00 Test Item Value Reference Range Interpretation Comments POC-GLUCOSE METER 202 mg/dL 70-110 H TESTED AT [facility] 6720 ([facility] (test code = [place] 1538) [id number] POCT-GLUCOSE [id number] 07:54:00 Test Item Value Reference Range Interpretation Comments POC-GLUCOSE METER 124 mg/dL 70-110 H TESTED AT [facility] 67 ([facility] (test code = CLAUDE Berger [facility] 1538) [id number] CBC W/PLT COUNT & AUTO [id number] 05:52:00 Test Item Value Reference Range Interpretation Comments WHITE BLOOD CELL COUNT (BEAKER) 7.0 K/ L 3.5-10.5 (test code = 775) RED BLOOD CELL COUNT (BEAKER) 4.22 M/ L 4.63-6.08 L (test code = 761) HEMOGLOBIN (BEAKER) (test code = 13.2 GM/DL 13.7-17.5 L 410) HEMATOCRIT (BEAKER) (test code = 40.4 % 40.1-51.0 411) MEAN CORPUSCULAR VOLUME (BEAKER) 95.7 fL 79.0-92.2 H (test code = 753) MEAN CORPUSCULAR HEMOGLOBIN 31.3 pg 25.7-32.2 (BEAKER) (test code = 751) MEAN CORPUSCULAR HEMOGLOBIN CONC 32.7 GM/DL 32.3-36.5 (BEAKER) (test code = 752) RED CELL DISTRIBUTION WIDTH 13.3 % 11.6-14.4 (BEAKER) (test code = 412) PLATELET COUNT (BEAKER) (test 201 K/CU MM 150-450 code = 756) MEAN PLATELET VOLUME (BEAKER) 9.9 fL 9.4-12.4 (test code = 754) NUCLEATED RED BLOOD CELLS 0 /100 WBC 0-0 (BEAKER) (test code = 413) NEUTROPHILS RELATIVE PERCENT 71 % (BEAKER) (test code = 429) LYMPHOCYTES RELATIVE PERCENT 14 % (BEAKER) (test code = 430) MONOCYTES RELATIVE PERCENT 9 % (BEAKER) (test code = 431) EOSINOPHILS RELATIVE PERCENT 5 % (BEAKER) (test code = 432) BASOPHILS RELATIVE PERCENT 0 % (BEAKER) (test code = 437) NEUTROPHILS ABSOLUTE COUNT 5.00 K/ L 1.78-5.38 (BEAKER) (test code = 670) LYMPHOCYTES ABSOLUTE COUNT 0.98 K/ L 1.32-3.57 L (BEAKER) (test code = 414) MONOCYTES ABSOLUTE COUNT (BEAKER) 0.66 K/ L 0.30-0.82 (test code = 415) EOSINOPHILS ABSOLUTE COUNT 0.34 K/ L 0.04-0.54 (BEAKER) (test code = 416) BASOPHILS ABSOLUTE COUNT (BEAKER) 0.02 K/ L 0.01-0.08 (test code = 417) IMMATURE GRANULOCYTES-RELATIVE 0 % 0-1 PERCENT (BEAKER) (test code = 2801) POCT-GLUCOSE [id number] 20:56:00 Test Item Value Reference Range Interpretation Comments POC-GLUCOSE METER 228 mg/dL 70-110 H TESTED AT [place] [address] ([facility]) (test code = [facility] 1538) [id number] POCT-GLUCOSE [id number] 17:55:00 Test Item Value Reference Range Interpretation Comments POC-GLUCOSE METER 150 mg/dL 70-110 H TESTED AT [facility] 67[address] ([facility] (test code = [facility] 1538) [id number] POCT-GLUCOSE [id number] 12:37:00 Test Item Value Reference Range Interpretation Comments POC-GLUCOSE METER 271 mg/dL 70-110 H TESTED AT [place] [address] (BEAKER) (test code = CLAUDE Berger [facility] 1538) [id number] POCT-GLUCOSE [id number] 08:18:00 Test Item Value Reference Range Interpretation Comments POC-GLUCOSE METER 153 mg/dL 70-110 H TESTED AT [place] [address] (BEAKER) (test code = CLAUDE Berger [facility] 1538) [id number] POCT-GLUCOSE [id number] 21:21:00 Test Item Value Reference Range Interpretation Comments POC-GLUCOSE METER 215 mg/dL 70-110 H TESTED AT [place] [address] (BEAKER) [facility] 1538) [id number] URINALYSIS W/ REFLEX URINE [id number] 18:20:00 Test Item Value Reference Range Interpretation Comments COLOR (BEAKER) (test code = 470) Yellow CLARITY (BEAKER) (test code = 469) Clear SPECIFIC GRAVITY UA (BEAKER) (test 1.025 1.001-1.035 code = 468) PH UA (BEAKER) (test code = 467) 5.5 5.0-8.0 PROTEIN UA (BEAKER) (test code = 30 mg/dL Negative A 464) GLUCOSE UA (BEAKER) (test code = 200 mg/dL Negative A 365) KETONES UA (BEAKER) (test code = Trace Negative A 371) BILIRUBIN UA (BEAKER) (test code = Negative Negative 462) BLOOD UA (BEAKER) (test code = 461) Negative Negative NITRITE UA (BEAKER) (test code = Negative Negative 465) LEUKOCYTE ESTERASE UA (BEAKER) Negative Negative (test code = 466) UROBILINOGEN UA (BEAKER) (test code 2.0 mg/dL 0.2-1.0 H = 463) RBC UA (BEAKER) (test code = 519) 0 /HPF WBC UA (BEAKER) (test code = 520) 1 /HPF MUCUS (BEAKER) (test code = 1574) Rare SOURCE(BEAKER) (test code = 2795) POCT-GLUCOSE [id number] 16:41:00 Test Item Value Reference Range Interpretation Comments POC-GLUCOSE METER 179 mg/dL 70-110 H TESTED AT [facility] 6720 (BEAKER) (test code = CLAUDE Berger [place] 1538) [id number] POCT-GLUCOSE [id number] 12:51:00 Test Item Value Reference Range Interpretation Comments POC-GLUCOSE METER 189 mg/dL 70-110 H TESTED AT [facility] 6720 (BEAKER) (test code = CLAUDE Berger [place] 1538) [id number] POCT-GLUCOSE [id number] 07:27:00 Test Item Value Reference Range Interpretation Comments POC-GLUCOSE METER 183 mg/dL 70-110 H TESTED AT [facility] 6720 (BEAKER) (test code = CLAUDE Berger [place] 1538) [address] CBC W/PLT COUNT & AUTO [id number] 05:18:00 Test Item Value Reference Range Interpretation Comments WHITE BLOOD CELL COUNT (BEAKER) 12.7 K/ L 3.5-10.5 H (test code = 775) RED BLOOD CELL COUNT (BEAKER) 4.53 M/ L 4.63-6.08 L (test code = 761) HEMOGLOBIN (BEAKER) (test code = 14.2 GM/DL 13.7-17.5 410) HEMATOCRIT (BEAKER) (test code = 42.2 % 40.1-51.0 411) MEAN CORPUSCULAR VOLUME (BEAKER) 93.2 fL 79.0-92.2 H (test code = 753) MEAN CORPUSCULAR HEMOGLOBIN 31.3 pg 25.7-32.2 (BEAKER) (test code = 751) MEAN CORPUSCULAR HEMOGLOBIN CONC 33.6 GM/DL 32.3-36.5 (BEAKER) (test code = 752) RED CELL DISTRIBUTION WIDTH 13.1 % 11.6-14.4 (BEAKER) (test code = 412) PLATELET COUNT (BEAKER) (test 200 K/CU MM 150-450 code = 756) MEAN PLATELET VOLUME (BEAKER) 10.2 fL 9.4-12.4 (test code = 754) NUCLEATED RED BLOOD CELLS 0 /100 WBC 0-0 (BEAKER) (test code = 413) NEUTROPHILS RELATIVE PERCENT 86 % (BEAKER) (test code = 429) LYMPHOCYTES RELATIVE PERCENT 5 % (BEAKER) (test code = 430) MONOCYTES RELATIVE PERCENT 8 % (BEAKER) (test code = 431) EOSINOPHILS RELATIVE PERCENT 0 % (BEAKER) (test code = 432) BASOPHILS RELATIVE PERCENT 0 % (BEAKER) (test code = 437) NEUTROPHILS ABSOLUTE COUNT 10.94 K/ L 1.78-5.38 H (BEAKER) (test code = 670) LYMPHOCYTES ABSOLUTE COUNT 0.65 K/ L 1.32-3.57 L (BEAKER) (test code = 414) MONOCYTES ABSOLUTE COUNT (BEAKER) 1.07 K/ L 0.30-0.82 H (test code = 415) EOSINOPHILS ABSOLUTE COUNT 0.01 K/ L 0.04-0.54 L (BEAKER) (test code = 416) BASOPHILS ABSOLUTE COUNT (BEAKER) 0.03 K/ L 0.01-0.08 (test code = 417) IMMATURE GRANULOCYTES-RELATIVE 0 % 0-1 PERCENT (BEAKER) (test code = 2801) BASIC METABOLIC [id number] 04:26:00 Test Item Value Reference Range Interpretation Comments SODIUM (BEAKER) 135 meq/L 136-145 L (test code = 381) POTASSIUM (BEAKER) 4.3 meq/L 3.5-5.1 (test code = 379) CHLORIDE (BEAKER) 102 meq/L 98-107 (test code = 382) CO2 (BEAKER) (test 25 meq/L 22-29 code = 355) BLOOD UREA NITROGEN 25 mg/dL 7-21 H (BEAKER) (test code = 354) CREATININE (BEAKER) 0.82 mg/dL 0.57-1.25 (test code = 358) GLUCOSE RANDOM 186 mg/dL 70-105 H (BEAKER) (test code = 652) CALCIUM (BEAKER) 9.2 mg/dL 8.4-10.2 (test code = 697) EGFR (BEAKER) (test 92 mL/min/1.73 ESTIMA GEORGE GFR IS code = 1092) sq m NOT ACCURATE CREATININE CLEARANCE IN PREDICTING GLOMERULAR FILTRATION RATE . ESTIMATED GFR I S NOT APPLICABLE FOR DIALYSIS PATIEN TS. Specimen slightly ictericPOCT-GLUCOSE [id number] 21:15:00 Test Item Value Reference Range Interpretation Comments POC-GLUCOSE METER 240 mg/dL 70-110 H TESTED AT [facility] 6720 (BEAKER) (test code = [place] 1538) [id number] POCT-GLUCOSE [id number] 17:45:00 Test Item Value Reference Range Interpretation Comments POC-GLUCOSE METER 222 mg/dL 70-110 H TESTED AT [facility] 6720 (BEAKER) (test code = [facility] Celine [facility] 1538) [id number] POCT-GLUCOSE [id number] 12:48:00 Test Item Value Reference Range Interpretation Comments POC-GLUCOSE METER 209 mg/dL 70-110 H TESTED AT [facility] 6720 (BEAKER) (test code = [facility] Celine [facility] 1538) [id number] BASIC METABOLIC [id number] 10:24:00 Test Item Value Reference Range Interpretation Comments SODIUM (BEAKER) 136 meq/L 136-145 (test code = 381) POTASSIUM (BEAKER) 3.9 meq/L 3.5-5.1 (test code = 379) CHLORIDE (BEAKER) 102 meq/L 98-107 (test code = 382) CO2 (BEAKER) (test 24 meq/L 22-29 code = 355) BLOOD UREA NITROGEN 17 mg/dL 7-21 (BEAKER) (test code = 354) CREATININE (BEAKER) 0.84 mg/dL 0.57-1.25 (test code = 358) GLUCOSE RANDOM 177 mg/dL 70-105 H (BEAKER) (test code = 652) CALCIUM (BEAKER) 9.3 mg/dL 8.4-10.2 (test code = 697) EGFR (BEAKER) (test 89 mL/min/1.73 ESTIMA GEORGE GFR IS code = 1092) sq m NOT ACCURATE CREATININE CLEARANCE IN PREDICTING GLOMERULAR FILTRATION RATE . ESTIMATED GFR I S NOT APPLICABLE FOR DIALYSIS PATIEN TS. CBC W/PLT COUNT & AUTO [id number] 09:52:00 Test Item Value Reference Range Interpretation Comments WHITE BLOOD CELL COUNT (BEAKER) 8.6 K/ L 3.5-10.5 (test code = 775) RED BLOOD CELL COUNT (BEAKER) 4.69 M/ L 4.63-6.08 (test code = 761) HEMOGLOBIN (BEAKER) (test code = 14.4 GM/DL 13.7-17.5 410) HEMATOCRIT (BEAKER) (test code = 42.6 % 40.1-51.0 411) MEAN CORPUSCULAR VOLUME (BEAKER) 90.8 fL 79.0-92.2 (test code = 753) MEAN CORPUSCULAR HEMOGLOBIN 30.7 pg 25.7-32.2 (BEAKER) (test code = 751) MEAN CORPUSCULAR HEMOGLOBIN CONC 33.8 GM/DL 32.3-36.5 (BEAKER) (test code = 752) RED CELL DISTRIBUTION WIDTH 13.2 % 11.6-14.4 (BEAKER) (test code = 412) PLATELET COUNT (BEAKER) (test 177 K/CU MM 150-450 code = 756) MEAN PLATELET VOLUME (BEAKER) 10.0 fL 9.4-12.4 (test code = 754) NUCLEATED RED BLOOD CELLS 0 /100 WBC 0-0 (BEAKER) (test code = 413) NEUTROPHILS RELATIVE PERCENT 80 % (BEAKER) (test code = 429) LYMPHOCYTES RELATIVE PERCENT 8 % (BEAKER) (test code = 430) MONOCYTES RELATIVE PERCENT 9 % (BEAKER) (test code = 431) EOSINOPHILS RELATIVE PERCENT 3 % (BEAKER) (test code = 432) BASOPHILS RELATIVE PERCENT 0 % (BEAKER) (test code = 437) NEUTROPHILS ABSOLUTE COUNT 6.82 K/ L 1.78-5.38 H (BEAKER) (test code = 670) LYMPHOCYTES ABSOLUTE COUNT 0.65 K/ L 1.32-3.57 L (BEAKER) (test code = 414) MONOCYTES ABSOLUTE COUNT (BEAKER) 0.76 K/ L 0.30-0.82 (test code = 415) EOSINOPHILS ABSOLUTE COUNT 0.28 K/ L 0.04-0.54 (BEAKER) (test code = 416) BASOPHILS ABSOLUTE COUNT (BEAKER) 0.03 K/ L 0.01-0.08 (test code = 417) IMMATURE GRANULOCYTES-RELATIVE 0 % 0-1 PERCENT (BEAKER) (test code = 2801) POCT-GLUCOSE [id number] 07:47:00 Test Item Value Reference Range Interpretation Comments POC-GLUCOSE METER 167 mg/dL 70-110 H TESTED AT [facility] 6720 (BEAKER) (test code = CLAUDE [place] 1538) [id number] POCT-GLUCOSE [id number] 22:23:00 Test Item Value Reference Range Interpretation Comments POC-GLUCOSE METER 230 mg/dL 70-110 H TESTED AT [place] [address] ([facility] (test code = [place] 1538) [address] POCT-GLUCOSE [id number] 17:22:00 Test Item Value Reference Range Interpretation Comments POC-GLUCOSE METER 157 mg/dL 70-110 H TESTED AT [place] [address] ([facility] (test code = CLAU[place] 1538) [id number] POCT-GLUCOSE [id number] 11:44:00 Test Item Value Reference Range Interpretation Comments POC-GLUCOSE METER 294 mg/dL 70-110 H TESTED AT [place] [address] ([facility] (test code = CLAUDE Berger [place] 1538) [id number] POCT-GLUCOSE [id number] 07:50:00 Test Item Value Reference Range Interpretation Comments POC-GLUCOSE METER 186 mg/dL 70-110 H TESTED AT [place] [address] ([facility] (test code = CLAUDE Berger [place] 1538) [id number] POCT-GLUCOSE [id number] 22:16:00 Test Item Value Reference Range Interpretation Comments POC-GLUCOSE METER 189 mg/dL 70-110 H TESTED AT [place] [address] ([facility] (test code = CLAUDE Berger [place] 1538) [id number] POCT-GLUCOSE [id number] 18:10:00 Test Item Value Reference Range Interpretation Comments POC-GLUCOSE METER 177 mg/dL 70-110 H TESTED AT [place] [address] ([facility] (test code = CLAUDE Berger [place] 1538) [address] POCT-GLUCOSE [id number] 18:02:00 Test Item Value Reference Range Interpretation Comments POC-GLUCOSE METER 235 mg/dL 70-110 H TESTED AT [place] [address] ([facility] (test code = CLAUDE Berger [place] 1538) [address] POCT-GLUCOSE [id number] 09:04:00 Test Item Value Reference Range Interpretation Comments POC-GLUCOSE METER 188 mg/dL 70-110 H TESTED AT [place] [address] ([facility] (test code = CLAUDE Berger [place] 1538) [address] [id number] 07:43:00 Test Item Value Reference Range Interpretation Comments RPR SCREEN ([facility] (test code = Nonreactive Nonreactive 420) OSMOLALITY, [id number] 05:32:00 Test Item Value Reference Range Interpretation Comments OSMOLALITY URINE (BEAKER) (test 587 mOsm/kg 40-1400 code = 614) BASIC METABOLIC [id number] 02:16:00 Test Item Value Reference Range Interpretation Comments SODIUM (BEAKER) 138 meq/L 136-145 (test code = 381) POTASSIUM (BEAKER) 3.9 meq/L 3.5-5.1 Specimen slightly (test code = 379) hemolyzed CHLORIDE (BEAKER) 105 meq/L 98-107 (test code = 382) CO2 (BEAKER) (test 21 meq/L 22-29 L code = 355) BLOOD UREA NITROGEN 14 mg/dL 7-21 (BEAKER) (test code = 354) CREATININE (BEAKER) 0.91 mg/dL 0.57-1.25 Specimen slightly (test code = 358) hemolyzed GLUCOSE RANDOM 177 mg/dL 70-105 H (BEAKER) (test code = 652) CALCIUM (BEAKER) 9.2 mg/dL 8.4-10.2 (test code = 697) EGFR (BEAKER) (test 81 mL/min/1.73 ESTIMA GEORGE GFR IS code = 1092) sq m NOT ACCURATE CREATININE CLEARANCE IN PREDICTING GLOMERULAR FILTRATION RATE . ESTIMATED GFR I S NOT APPLICABLE FOR DIALYSIS PATIEN TS. CBC W/PLT COUNT & AUTO [id number] 02:06:00 Test Item Value Reference Range Interpretation Comments WHITE BLOOD CELL COUNT (BEAKER) 8.7 K/ L 3.5-10.5 (test code = 775) RED BLOOD CELL COUNT (BEAKER) 4.54 M/ L 4.63-6.08 L (test code = 761) HEMOGLOBIN (BEAKER) (test code = 13.8 GM/DL 13.7-17.5 410) HEMATOCRIT (BEAKER) (test code = 41.3 % 40.1-51.0 411) MEAN CORPUSCULAR VOLUME (BEAKER) 91.0 fL 79.0-92.2 (test code = 753) MEAN CORPUSCULAR HEMOGLOBIN 30.4 pg 25.7-32.2 (BEAKER) (test code = 751) MEAN CORPUSCULAR HEMOGLOBIN CONC 33.4 GM/DL 32.3-36.5 (BEAKER) (test code = 752) RED CELL DISTRIBUTION WIDTH 13.2 % 11.6-14.4 (BEAKER) (test code = 412) PLATELET COUNT (BEAKER) (test 179 K/CU MM 150-450 code = 756) MEAN PLATELET VOLUME (BEAKER) 10.4 fL 9.4-12.4 (test code = 754) NUCLEATED RED BLOOD CELLS 0 /100 WBC 0-0 (BEAKER) (test code = 413) NEUTROPHILS RELATIVE PERCENT 76 % (BEAKER) (test code = 429) LYMPHOCYTES RELATIVE PERCENT 11 % (BEAKER) (test code = 430) MONOCYTES RELATIVE PERCENT 9 % (BEAKER) (test code = 431) EOSINOPHILS RELATIVE PERCENT 3 % (BEAKER) (test code = 432) BASOPHILS RELATIVE PERCENT 0 % (BEAKER) (test code = 437) NEUTROPHILS ABSOLUTE COUNT 6.56 K/ L 1.78-5.38 H (BEAKER) (test code = 670) LYMPHOCYTES ABSOLUTE COUNT 0.99 K/ L 1.32-3.57 L (BEAKER) (test code = 414) MONOCYTES ABSOLUTE COUNT (BEAKER) 0.80 K/ L 0.30-0.82 (test code = 415) EOSINOPHILS ABSOLUTE COUNT 0.24 K/ L 0.04-0.54 (BEAKER) (test code = 416) BASOPHILS ABSOLUTE COUNT (BEAKER) 0.03 K/ L 0.01-0.08 (test code = 417) IMMATURE GRANULOCYTES-RELATIVE 1 % 0-1 PERCENT (BEAKER) (test code = 2801) POCT-GLUCOSE [id number] 23:20:00 Test Item Value Reference Range Interpretation Comments POC-GLUCOSE METER 161 mg/dL 70-110 H TESTED AT [facility] 67[facility] ([facility] (test code = [facility] 1538) [address] CT, BRAIN, WITHOUT [id number] 19:01:00FINAL REPORT CT Head without contrast CLINICAL [...] further evaluation. Signed: Kalpana Brock Verified Date/Time: 06/20/2018 19:01:56 Reading Location: [address] Transitional Reading Room POCT-GLUCOSE [id number] 18:19:00 Test Item Value Reference Range Interpretation Comments POC-GLUCOSE METER 161 mg/dL 70-110 H TESTED AT [place] [address] ([facility] (test code = [facility] 1538) [address] POCT-GLUCOSE [id number] 12:05:00 Test Item Value Reference Range Interpretation Comments POC-GLUCOSE METER 242 mg/dL 70-110 H TESTED AT [place] [address] ([facility] (test code = [facility] 1538) [address] HEMOGLOBIN [id number] 09:42:00 Test Item Value Reference Range Interpretation Comments HEMOGLOBIN A1C ([facility] (test code = 6.9 % 4.3-6.1 H 368) POCT-GLUCOSE [id number] 08:25:00 Test Item Value Reference Range Interpretation Comments POC-GLUCOSE METER 141 mg/dL 70-110 H TESTED AT [place] [address] ([facility] (test code = [facility] 1538) [address] TSH/FREE T4 IF [id number] 05:34:00 Test Item Value Reference Range Interpretation Comments THYROID STIMULATING HORMONE 1.81 uIU/mL 0.35-4.94 ([facility] (test code = 772) VITAMIN B12 AND [id number] 05:34:00 Test Item Value Reference Range Interpretation Comments VITAMIN B12 ([facility] (test code = 311 pg/mL [phone]) FOLATE ([facility] (test code = 362) 6.9 ng/mL >=7.0 L TROPONIN [id number] 01:40:00 Test Item Value Reference Range Interpretation Comments TROPONIN I (BEAKER) (test code = 0.01 ng/mL 0.00-0.03 397) Troponin I (TnI) levels must be interpreted [...] acidosis, acute neurological disease, and persistent tachyarrhythmia.FastingLIPID [id number] 01:32:00 Test Item Value Reference Range Interpretation Comments TRIGLYCERIDES (BEAKER) (test code = 108 mg/dL 540) CHOLESTEROL (BEAKER) (test code = 192 mg/dL 631) HDL CHOLESTEROL (BEAKER) (test code 31 mg/dL = 976) LDL CHOLESTEROL CALCULATED (BEAKER) 139 mg/dL (test code = 633) Triglyceride Reference Range: Low Risk <150 Borderline 150-199 High Risk 200-499 Very High Risk >=500Cholesterol Reference Range: Low Risk <200 Borderline 200-239 High Risk >240HDL Cholesterol Reference Range: Low Risk >=60 High Risk <40LDL Cholesterol Reference Range: Optimal <100 Near Optimal 100-129 Borderline 130-159 High 160-189 Very High >=190 FastingBASIC METABOLIC [id number] 01:32:00 Test Item Value Reference Range Interpretation Comments SODIUM (BEAKER) 135 meq/L 136-145 L (test code = 381) POTASSIUM (BEAKER) 3.6 meq/L 3.5-5.1 (test code = 379) CHLORIDE (BEAKER) 104 meq/L 98-107 (test code = 382) CO2 (BEAKER) (test 23 meq/L 22-29 code = 355) BLOOD UREA NITROGEN 16 mg/dL 7-21 (BEAKER) (test code = 354) CREATININE (BEAKER) 0.87 mg/dL 0.57-1.25 (test code = 358) GLUCOSE RANDOM 159 mg/dL 70-105 H (BEAKER) (test code = 652) CALCIUM (BEAKER) 8.6 mg/dL 8.4-10.2 (test code = 697) EGFR (BEAKER) (test 86 mL/min/1.73 ESTIMA GEORGE GFR IS code = 1092) sq m NOT ACCURATE CREATININE CLEARANCE IN PREDICTING GLOMERULAR FILTRATION RATE . ESTIMATED GFR I S NOT APPLICABLE FOR DIALYSIS PATIEN TS. McneillCB (HEMOGRAM ONLY)2018-06-20 01:20:00 Test Item Value Reference Range Interpretation Comments WHITE BLOOD CELL COUNT (BEAKER) 10.5 K/ L 3.5-10.5 (test code = 775) RED BLOOD CELL COUNT (BEAKER) 4.31 M/ L 4.63-6.08 L (test code = 761) HEMOGLOBIN (BEAKER) (test code = 13.4 GM/DL 13.7-17.5 L 410) HEMATOCRIT (BEAKER) (test code = 39.3 % 40.1-51.0 L 411) MEAN CORPUSCULAR VOLUME (BEAKER) 91.2 fL 79.0-92.2 (test code = 753) MEAN CORPUSCULAR HEMOGLOBIN 31.1 pg 25.7-32.2 (BEAKER) (test code = 751) MEAN CORPUSCULAR HEMOGLOBIN CONC 34.1 GM/DL 32.3-36.5 (BEAKER) (test code = 752) RED CELL DISTRIBUTION WIDTH 13.2 % 11.6-14.4 (BEAKER) (test code = 412) PLATELET COUNT (BEAKER) (test 170 K/CU MM 150-450 code = 756) MEAN PLATELET VOLUME (BEAKER) 10.0 fL 9.4-12.4 (test code = 754) NUCLEATED RED BLOOD CELLS 0 /100 WBC 0-0 (BEAKER) (test code = 413) POCT-GLUCOSE [id number] 22:33:00 Test Item Value Reference Range Interpretation Comments POC-GLUCOSE METER 175 mg/dL 70-110 H TESTED AT [facility] [address] ([facility] (test code = [place] 15[address]) [id number] POCT-GLUCOSE [id number] 18:29:00 Test Item Value Reference Range Interpretation Comments POC-GLUCOSE METER 111 mg/dL 70-110 H TESTED AT [facility] [address] ([facility] (test code = [place] 15[address]) [id number] URINALYSIS W/ REFLEX URINE [id number] 17:22:00 Test Item Value Reference Range Interpretation Comments COLOR (BEAKER) (test code = 470) Light Yellow CLARITY (BEAKER) (test code = Clear 469) SPECIFIC GRAVITY UA (BEAKER) 1.029 1.001-1.035 (test code = 468) PH UA (BEAKER) (test code = 467) 7.0 5.0-8.0 PROTEIN UA (BEAKER) (test code = Negative Negative 464) GLUCOSE UA (BEAKER) (test code = Negative Negative 365) KETONES UA (BEAKER) (test code = 40 mg/dL Negative A 371) BILIRUBIN UA (BEAKER) (test code Negative Negative = 462) BLOOD UA (BEAKER) (test code = Negative Negative 461) NITRITE UA (BEAKER) (test code = Negative Negative 465) LEUKOCYTE ESTERASE UA (BEAKER) Negative Negative (test code = 466) UROBILINOGEN UA (BEAKER) (test 0.2 mg/dL 0.2-1.0 code = 463) RBC UA (BEAKER) (test code = 1 /HPF 519) WBC UA (BEAKER) (test code = < /HPF 520) SOURCE(BEAKER) (test code = 2795) TROPONIN [id number] 16:57:00 Test Item Value Reference Range Interpretation Comments TROPONIN I (BEAKER) (test code = 397) < ng/mL 0.00-0.03 Troponin I (TnI) levels [...] acute neurological disease, and persistent tachyarrhythmia.BASIC METABOLIC [id number] 16:06:00 Test Item Value Reference Range Interpretation Comments SODIUM (BEAKER) 139 meq/L 136-145 (test code = 381) POTASSIUM (BEAKER) 3.7 meq/L 3.5-5.1 (test code = 379) CHLORIDE (BEAKER) 105 meq/L 98-107 (test code = 382) CO2 (BEAKER) (test 24 meq/L 22-29 code = 355) BLOOD UREA NITROGEN 17 mg/dL 7-21 (BEAKER) (test code = 354) CREATININE (BEAKER) 0.85 mg/dL 0.57-1.25 (test code = 358) GLUCOSE RANDOM 123 mg/dL 70-105 H (BEAKER) (test code = 652) CALCIUM (BEAKER) 9.0 mg/dL 8.4-10.2 (test code = 697) EGFR (BEAKER) (test 88 mL/min/1.73 ESTIMA GEORGE GFR IS code = 1092) sq m NOT ACCURATE CREATININE CLEARANCE IN PREDICTING GLOMERULAR FILTRATION RATE . ESTIMATED GFR I S NOT APPLICABLE FOR DIALYSIS PATIEN TS. CBC W/PLT COUNT & AUTO [id number] 15:47:00 Test Item Value Reference Range Interpretation Comments WHITE BLOOD CELL COUNT (BEAKER) 13.0 K/ L 3.5-10.5 H (test code = 775) RED BLOOD CELL COUNT (BEAKER) 4.71 M/ L 4.63-6.08 (test code = 761) HEMOGLOBIN (BEAKER) (test code = 14.6 GM/DL 13.7-17.5 410) HEMATOCRIT (BEAKER) (test code = 42.9 % 40.1-51.0 411) MEAN CORPUSCULAR VOLUME (BEAKER) 91.1 fL 79.0-92.2 (test code = 753) MEAN CORPUSCULAR HEMOGLOBIN 31.0 pg 25.7-32.2 (BEAKER) (test code = 751) MEAN CORPUSCULAR HEMOGLOBIN CONC 34.0 GM/DL 32.3-36.5 (BEAKER) (test code = 752) RED CELL DISTRIBUTION WIDTH 13.2 % 11.6-14.4 (BEAKER) (test code = 412) PLATELET COUNT (BEAKER) (test 190 K/CU MM 150-450 code = 756) MEAN PLATELET VOLUME (BEAKER) 9.8 fL 9.4-12.4 (test code = 754) NUCLEATED RED BLOOD CELLS 0 /100 WBC 0-0 (BEAKER) (test code = 413) NEUTROPHILS RELATIVE PERCENT 90 % (BEAKER) (test code = 429) LYMPHOCYTES RELATIVE PERCENT 5 % (BEAKER) (test code = 430) MONOCYTES RELATIVE PERCENT 5 % (BEAKER) (test code = 431) EOSINOPHILS RELATIVE PERCENT 0 % (BEAKER) (test code = 432) BASOPHILS RELATIVE PERCENT 0 % (BEAKER) (test code = 437) NEUTROPHILS ABSOLUTE COUNT 11.67 K/ L 1.78-5.38 H (BEAKER) (test code = 670) LYMPHOCYTES ABSOLUTE COUNT 0.59 K/ L 1.32-3.57 L (BEAKER) (test code = 414) MONOCYTES ABSOLUTE COUNT (BEAKER) 0.63 K/ L 0.30-0.82 (test code = 415) EOSINOPHILS ABSOLUTE COUNT 0.02 K/ L 0.04-0.54 L (BEAKER) (test code = 416) BASOPHILS ABSOLUTE COUNT (BEAKER) 0.03 K/ L 0.01-0.08 (test code = 417) IMMATURE GRANULOCYTES-RELATIVE 1 % 0-1 PERCENT (BEAKER) (test code = 2807)
[2021-12-09] MEDS ORDERED: NA CHLORIDE 0.9% 500 ML ONE (17:32)
[2021-12-09 17:43] LABS: Protime INR 1.11
[2021-12-09 17:44] LABS: Absolute Lymphocytes (CBC) 0.4 K/uL (0.7-4.9); Hematocrit 30.4 % (39.6-49.0); Lymphocytes % 5.9 % (15.3-44.8); MPV 7.2 fL (7.6-11.3); RBC Red Blood Cell Count 3.34 M/uL (4.33-5.43)
--- NOTE | 2021-12-09 17:52 | RAD REPORT ---
EXAM DESCRIPTION: RAD - Chest Single View - 12/09/2021 5:45 pm CLINICAL HISTORY: weakness Chest pain. COMPARISON: Chest Single View dated 06/19/2018; CHEST PA AND LAT 2 VIEW dated 05/11/2013 FINDINGS: Portable technique limits examination quality. The lungs are emphysematous but grossly clear. The heart is normal in size. No displaced fractures. IMPRESSION: Mild COPD.
[2021-12-09 17:58] LABS: Albumin 2.6 g/dL (3.4-5.0); Bilirubin Direct 0.2 mg/dL (0-0.2); Bilirubin Total 0.5 mg/dL (0.2-1.0); Magnesium 1.9 mg/dL (1.8-2.4); Potassium 4.5 mmol/L (3.5-5.1); Troponin High Sensitivity 13.9 pg/mL (<58.9)
--- NOTE | 2021-12-09 18:29 | RAD REPORT ---
EXAM DESCRIPTION: CT - Head Brain Wo Cont - 12/09/2021 6:09 pm CLINICAL HISTORY: WEAKNESS Headache, drowsiness, CVA symptomology COMPARISON: Ct Stroke Brain Wo Cont dated 06/19/2018 TECHNIQUE: All CT scans are performed using dose optimization technique as appropriate and may inclu de automated exposure control or mA/KV adjustment according to patient size. FINDINGS: Bilateral moderate-size subdural collections have developed since the 2018 comparative myriam dy. On the left measuring 14 mm in maximum thickness and on the right measuring 18 mm in maximum thic kness.There is no midline shift evident however there is mass effect noted on both cerebral hemispher es by these bilateral extra-axial collections. No midline shift. Linear area of hyperdensity is seen in the subdural space right parietal location, favored to represent a thrombosed vessel although a sm all amount acute on chronic hemorrhage cannot be excluded. The paranasal sinuses and mastoids are clear. The calvarium is intact. IMPRESSION: Moderate to large-sized bilateral chronic subdural hematomas have developed since 2018 c omparative studies. There is moderate mass effect on both cerebral hemispheres present without midli ne shift.
[2021-12-09 18:41] LABS: Blood Morphology Comment NOT SEEN (NOT SEEN); Platelet Estimate ADEQ; White Blood Cell Scan OK (OK)
--- NOTE | 2021-12-09 18:43 | EDPHYS ---
Physician Documentation [facility] Name: Darwin Hand Age: 76 yrs Sex: Male : 1945 Arrival Date: 12/09/2021 Time: 17:05 Bed 6 Private MD: ED Physician Matteo Rodriguez HPI: 12/09 19:25 This 76 yrs old Male presents to ER via EMS with complaints of weakness. kb 19:25 The patient presents with generalized weakness. Onset: The symptoms/episode kb began/occurred a few weeks ago. Context: occurred at home, occurred while the patient was standing, just prior to the episode the patient experienced no apparent symptoms. Modifying factors: The symptoms are alleviated by nothing, the symptoms are aggravated by standing up. Associated signs and symptoms: The patient has no apparent associated signs or symptoms. Severity of symptoms: At their worst the symptoms were moderate in the emergency department the symptoms are unchanged. Patient's baseline: Neuro: alert but confused, Motor: no deficits, Ambulation: walks without assistance, Speech: slow. The patient has not experienced similar symptoms in the past. The patient has not recently seen a physician. Son states pt has been getting weak and having falls over the last few weeks. States he gets shaky every time he stands up. Today he got up became very shaky so they called 911 to bring him in to see what was going on. States he did not fall today, last fall was a few days ago and pt did hit his head. States pt's mentation has been normal for him. . Historical: - Allergies: 17:16 Sulfa (Sulfonamide Antibiotics); jd3 - Home Meds: 17:53 lisinopril 30 mg Oral tab 1 tab once daily [Active]; furosemide 20 mg Oral tab 1 tab jd3 once daily [Active]; amlodipine 5 mg tab 1 tab once daily [Active]; folic acid 1 mg Oral tab 1 tab once daily [Active]; metformin 850 mg Oral tab 1 tab daily [Active]; fluoxetine 20 mg Oral cap 1 cap nightly [Active]; atorvastatin 80 mg oral tab 1 tab nightly [Active]; clopidogrel 75 mg oral tab 1 tab nightly [Active]; Lantus Sub-Q 30 unit nightly [Active]; memantine 10 mg oral tab 1 tab twice a day [Active]; rivastigmine tartrate 4.5 mg oral cap 1 cap twice a day [Active]; - PMHx: 17:16 Dementia; Diabetes - IDDM; Hypertension; jd3 18:14 CVA in 2018; jd3 - Immunization history:: Adult Immunizations up to date, Client reports receiving the 2nd dose of the Covid vaccine. - Social history:: Smoking status: Patient denies any tobacco usage or history of. ROS: 19:25 Constitutional: Negative for fever, chills, and weight loss. kb 19:25 Neuro: Positive for weakness. 19:25 All other systems are negative. Exam: 19:25 Constitutional: This is a well developed, well nourished patient who is awake, alert, kb and in no acute distress. Head/Face: Normocephalic, atraumatic. Eyes: Pupils equal round and reactive to light, extra-ocular motions intact. Lids and lashes normal. Conjunctiva and sclera are non-icteric and not injected. Cornea within normal limits. Periorbital areas with no swelling, redness, or edema. ENT: Moist Mucous membranes Cardiovascular: Regular rate and rhythm with a normal S1 and S2. No gallops, murmurs, or rubs. No pulse deficits. Respiratory: Respirations even and unlabored. No increased work of breathing. Talking in full sentences Skin: Warm, dry with normal turgor. Normal color. MS/ Extremity: Pulses equal, no cyanosis. Neurovascular intact. Full, normal range of motion. Psych: Awake, alert, with orientation to person, place and time. Behavior, mood, and affect are within normal limits. 19:25 Neuro: Exam negative for acute changes. Vital Signs: 17:17 BP 124 / 49; Pulse 63; Resp 16 S; Temp 98.3(O); Pulse Ox 100% on R/A; Pain 0/10; jd3 17:26 BP 113 / 62 Supine; Pulse 62; jd3 17:27 BP 110 / 48 Sitting; Pulse 65; jd3 17:28 BP 88 / 36 Standing; Pulse 66; jd3 18:27 BP 135 / 52; Pulse 58; Resp 16 S; Pulse Ox 97% on R/A; jd3 19:00 BP 137 / 77; Pulse 62; Resp 16; Pulse Ox 99% ; al4 20:18 BP 137 / 50 Supine; Pulse 59; al4 20:18 BP 115 / 33 Sitting; Pulse 60; al4 20:18 BP 88 / 59 Standing; Pulse 67; al4 20:20 BP 118 / 74; Pulse 61; Resp 23; Pulse Ox 99% ; al4 MDM: 17:10 Patient medically screened. kb 18:35 Data reviewed: vital signs, nurses notes. Data interpreted: Pulse oximetry: on room air kb is 97 %. Interpretation: normal. Counseling: I had a detailed discussion with the patient and/or guardian regarding: the historical points, exam findings, and any diagnostic results supporting the discharge/admit diagnosis, lab results, radiology results, the need for further work-up and treatment in the hospital. Physician consultation: Dylan CRESPO was contacted at 18:35, regarding admission, to the telemetry unit. patient's condition, and will see patient in ED, shortly. 19:00 Physician consultation: Rodrigo Alaniz MD was contacted at 19:00, regarding consult, kb patient's condition, requests we try to transfer the pt to a facility with neurosurgery. If unable, then we will keep pt here and do serial CT scans. 19:46 ED course: Dr Beaver accepts pt for consult to neuro tele at [facility]. kb 20:27 ED course: Dr Silva (hospitalist) accepts pt for transfer to [facility]. kb 12/09 17:25 Order name: Basic Metabolic Panel; Complete Time: 18:03 kb 12/09 17:25 Order name: CBC with Diff; Complete Time: 18:42 kb 12/09 17:25 Order name: LFT's; Complete Time: 18:03 kb 12/09 17:25 Order name: Magnesium; Complete Time: 18:03 kb 12/09 17:25 Order name: NT PRO-BNP; Complete Time: 18:03 kb 16 17:25 Order name: PT-INR; Complete Time: 17:46 kb 12/09 17:25 Order name: Troponin HS; Complete Time: 18:03 kb 12/09 17:25 Order name: XRAY Chest (1 view); Complete Time: 18:03 kb 12/09 17:25 Order name: EKG; Complete Time: 17:25 kb 12/09 17:25 Order name: COVID-19 SARS RT PCR (Document "Date of Onset" if Symptomatic); Complete kb Time: 18:56 12/09 17:49 Order name: CT Head Brain wo Cont; Complete Time: 18:31 kb 12/09 18:41 Order name: CBC Smear Scan; Complete Time: 18:42 EDMS 12/09 17:16 Order name: Orthostatics; Complete Time: 18:06 kb 12/09 17:25 Order name: Cardiac monitoring; Complete Time: 17:33 kb 12/09 17:25 Order name: EKG - Nurse/Tech; Complete Time: 17:53 kb 12/09 17:25 Order name: IV Saline Lock; Complete Time: 17:33 kb 12/09 17:25 Order name: Labs collected and sent; Complete Time: 17:33 kb 12/09 17:25 Order name: O2 Per Protocol; Complete Time: 17:33 kb 12/09 17:25 Order name: O2 Sat Monitoring; Complete Time: 17:34 kb Administered Medications: 17:33 Drug: NS 0.9% 500 ml Route: IV; Rate: bolus; Site: right antecubital; jd3 19:51 Drug: NS 0.9% 1000 ml Route: IV; Rate: 75 ml/hr; Site: right antecubital; al4 Disposition Summary: 12/09/21 19:48 Transfer Ordered Transfer Location: [facility] kb Reason: Higher level of care kb Condition: Stable(12/09/21 19:48) kb Problem: new(12/09/21 19:48) kb Symptoms: are unchanged(12/09/21 19:48) kb Accepting Physician: Dr Silva(12/09/21 21:47) mw2 Diagnosis - Dehydration(12/09/21 19:48) kb - Orthostatic hypotension(12/09/21 19:48) kb - Chronic bilateral subdural hematomas kb Forms: - Medication Reconciliation Form kb - SBAR form kb Addendum: 12/11/2021 07:32 Co-signature as Attending Physician, Matteo Rodriguez MD I agree with the assessment and k plan of care. Signatures: Dispatcher [employer] EDPA Smiley Zhang, FIRE EXTINGUISHER TECHNICIAN-C FIRE EXTINGUISHER TECHNICIAN-CkMatteo Flowers MD MD kdr Davies, Jonathon, RN RN Santo Gupta mw2 Yahir Brown Corrections: (The following items were deleted from the chart) 12/09 18:48 18:41 Humberto Oshea kb kb 19:47 18:41 Observation kb kb :47 18:41 Telemetry/MedSurg (observation) kb kb :47 18:41 Stable kb kb :47 18:41 new kb kb :47 18:41 are unchanged kb kb :47 18:41 Standard kb kb :47 18:41 kb kb :47 18:41 Dehydration kb kb :47 18:41 Orthostatic hypotension kb kb :47 18:48 Radha Gunderson kb kb 20:28 20:27 ED course: Dr Silva (hospitalist) accepts pt for transfer.. kb kb 20:28 19:48 St Rodriguez kb kb 21:47 20:28 Dr Silva kb mw2
--- NOTE | 2021-12-09 18:43 | ER ---
Nurse's Notes [facility] Name: Darwin Hand Age: 76 yrs Sex: Male : 1945 Arrival Date: 12/09/2021 Time: 17:05 Bed 6 Private MD: Diagnosis: Dehydration;Orthostatic hypotension;Chronic bilateral subdural hematomas Presentation: 12/09 17:12 Chief complaint: EMS states: "pt's family reports convulsing like movement form the pt jd3 when standing up today and got worried. the family reported that the pt never lost consciousness, but was worried about possible seizures. pt has not history of seizures. on doing orthostatics his systolic blood pressure went from 117 down to 74. he is orthostatic positive. family also said it was worth mentioning that he fell and hit his head 3 days ago, but they were sure today's event was not related.". Coronavirus screen: At this time, the client does not indicate any symptoms associated with coronavirus-19. Ebola Screen: Patient negative for fever greater than or equal to 101.5 degrees Fahrenheit, and additional compatible Ebola Virus Disease symptoms. Initial Sepsis Screen: Does the patient meet any 2 criteria? No. Patient's initial sepsis screen is negative. Does the patient have a suspected source of infection? No. Patient's initial sepsis screen is negative. Risk Assessment: Do you want to hurt yourself or someone else? Patient reports no desire to harm self or others. Onset of symptoms was December 09, 2021. 17:12 Acuity: MARIA GUADALUPE 3 jd3 17:12 Method Of Arrival: [facility]: [facility] jd3 17:45 Chief complaint: Patient's son or daughter states: adult child states: "he has been jd3 falling a lot recently. even before the fall that he hit his head a couple of days ago. for about 3-4 weeks now it seems as if he has just gotten weaker and has been falling a lot more. we thought he was just playing at first for like attention and it was only like once a day, but now it is getting to the point he is having problems standing and when he does he get pale, dizzy, and falls or has to sit back down every time.". Historical: - Allergies: 17:16 Sulfa (Sulfonamide Antibiotics); jd3 - Home Meds: 17:53 lisinopril 30 mg Oral tab 1 tab once daily [Active]; furosemide 20 mg Oral tab 1 tab jd3 once daily [Active]; amlodipine 5 mg tab 1 tab once daily [Active]; folic acid 1 mg Oral tab 1 tab once daily [Active]; metformin 850 mg Oral tab 1 tab daily [Active]; fluoxetine 20 mg Oral cap 1 cap nightly [Active]; atorvastatin 80 mg oral tab 1 tab nightly [Active]; clopidogrel 75 mg oral tab 1 tab nightly [Active]; Lantus Sub-Q 30 unit nightly [Active]; memantine 10 mg oral tab 1 tab twice a day [Active]; rivastigmine tartrate 4.5 mg oral cap 1 cap twice a day [Active]; - PMHx: 17:16 Dementia; Diabetes - IDDM; Hypertension; jd3 18:14 CVA in 2018; jd3 - Immunization history:: Adult Immunizations up to date, Client reports receiving the 2nd dose of the Covid vaccine. - Social history:: Smoking status: Patient denies any tobacco usage or history of. Screenin:19 Abuse screen: Denies threats or abuse. Nutritional screening: No deficits noted. jd3 Tuberculosis screening: No symptoms or risk factors identified. Fall Risk IV access (20 points). Ambulatory Aid- None/Bed Rest/Nurse Assist (0 pts). Gait- Weak (10 pts.). Mental Status- Overestimates/Forgets Limitations (15 pts.). Total Lanier Fall Scale indicates Low Risk Score (25-44 pts). Fall prevention measures have been instituted. Side Rails Up X 2 Placed close to Nursing Station Frequent Obs/Assesments occuring. Assessment: 17:17 General: Appears in no apparent distress. comfortable, Behavior is calm, cooperative, jd3 appropriate for age. Pain: Denies pain. Neuro: Level of Consciousness is awake, alert, obeys commands, confused, Oriented to person, at baseline per family. Reports family reports convulsions when standing up. no LOC or discomfort reported at this time. Cardiovascular: Denies chest pain, Capillary refill < 3 seconds Patient's skin is warm and dry. Rhythm is irregular. Respiratory: Airway is patent Respiratory effort is even, unlabored, Respiratory pattern is regular, symmetrical, Denies cough, shortness of breath. GI: No signs and/or symptoms were reported involving the gastrointestinal system. : No signs and/or symptoms were reported regarding the genitourinary system. EENT: No signs and/or symptoms were reported regarding the EENT system. Derm: Skin is intact, Skin is dry, Skin is normal, Skin temperature is warm. Musculoskeletal: No signs and/or symptoms reported regarding the musculoskeletal system. 18:27 Reassessment: Patient appears in no apparent distress at this time. No changes from jd3 previously documented assessment. Patient and/or family updated on plan of care and expected duration. Pain level reassessed. 19:00 General: Appears in no apparent distress. comfortable, Behavior is calm, cooperative, al4 appropriate for age. Pain: Denies pain. Neuro: Level of Consciousness is awake, alert, obeys commands, confused, Oriented to person. Cardiovascular: Capillary refill < 3 seconds Patient's skin is warm and dry. Respiratory: Airway is patent Respiratory effort is even, unlabored, Respiratory pattern is regular, symmetrical. GI: No signs and/or symptoms were reported involving the gastrointestinal system. : No signs and/or symptoms were reported regarding the genitourinary system. EENT: No signs and/or symptoms were reported regarding the EENT system. Derm: Skin 1 inch laceration on right side of scalp happened "a few days ago" according to son Skin is dry, Skin is normal, Skin temperature is warm. Musculoskeletal: No signs and/or symptoms reported regarding the musculoskeletal system. Vital Signs: 17:17 BP 124 / 49; Pulse 63; Resp 16 S; Temp 98.3(O); Pulse Ox 100% on R/A; Pain 0/10; jd3 17:26 BP 113 / 62 Supine; Pulse 62; jd3 17:27 BP 110 / 48 Sitting; Pulse 65; jd3 17:28 BP 88 / 36 Standing; Pulse 66; jd3 18:27 BP 135 / 52; Pulse 58; Resp 16 S; Pulse Ox 97% on R/A; jd3 19:00 BP 137 / 77; Pulse 62; Resp 16; Pulse Ox 99% ; al4 20:18 BP 137 / 50 Supine; Pulse 59; al4 20:18 BP 115 / 33 Sitting; Pulse 60; al4 20:18 BP 88 / 59 Standing; Pulse 67; al4 20:20 BP 118 / 74; Pulse 61; Resp 23; Pulse Ox 99% ; al4 ED Course: 17:05 Patient arrived in ED. eb 17:10 Smiley Zhang F[facility]-C is [facility]. kb 17:10 Matteo Rodriguez MD is Attending Physician. kb 17:11 Calin Vasquez, RN is Primary Nurse. jd3 17:16 Triage completed. jd3 17:17 Arm band placed on. jd3 17:19 Patient has correct armband on for positive identification. Placed in gown. Bed in low jd3 position. Call light in reach. Side rails up X2. case monitor on. Pulse ox on. NIBP on. 17:19 Maintain EMS IV. Dressing intact. Good blood return noted. Site clean \\T\\ dry. Gauge \\T\\ erick 3 site: 20 G right AC. 17:45 XRAY Chest (1 view) In Process Unspecified. EDMS 18:08 CT Head Brain wo Cont In Process Unspecified. EDMS 18:41 Humberto Oshea is Hospitalizing Provider. kb 18:48 Radha Gunderson MD is Hospitalizing Provider. kb 19:03 Primary Nurse role handed off by Calin Vasquez, DIXON mw2 19:11 initiated a transfer with Charla from [facility] Transfer [place]. mw2 19:39 Ricardo Elliott RN is Primary Nurse. as6 19:43 connected Smiley JOE with the Neuro Dr from [facility]. mw2 20:54 administrative approval given by Charla/ patient has been accepted to [facility] mw2 bed 2231/Dr. Silva accepted the patient in transfer/ report to be called to [phone]. Administered Medications: 17:33 Drug: NS 0.9% 500 ml Route: IV; Rate: bolus; Site: right antecubital; jd3 19:51 Drug: NS 0.9% 1000 ml Route: IV; Rate: 75 ml/hr; Site: right antecubital; al4 Outcome: 18:41 Decision to Hospitalize by Provider. kb 19:48 ER care complete, transfer ordered by . kb 21:47 Patient left the ED. mw2 Signatures: Dispatcher [employer] EDMS Smiley Zhang FNP-C DEVOPS ARCHITECT-Ckb Calin Vasquez RN RN jd3 Santo Hanson mw2 Liliana Burgess Ashby, RN RN as6 Yahir Brown al4 Corrections: (The following items were deleted from the chart) 17:29 17:28 BP 113 / 62 Supine; Pulse 62bpm; jd3 jd3 17:29 17:28 BP 110 / 48 Sitting; Pulse 65bpm; jd3 jd3 20:27 20:20 BP 118 / 74; Pulse 61bpm; Resp 23bpm; Pulse Ox 99%; al4 al4 20:27 19:00 Derm: Skin 1 inch laceration on right side of head happened "a few days ago" al4 according to son Skin is dry, Skin is normal, Skin temperature is warm al4 20:58 20:57 administrative approval given by Charla/ patient has been accepted to [facility] [address] bed 2231/Dr. Silva accepted the patient in transfer/ report to be called to [phone] [facility]
[2021-12-09] MEDS ORDERED: NA CHLORIDE 0.9% 1,000 ML ONE (19:38)
[2021-12-09 22:20] VITALS: TEMP 98.3
[2021-12-09 22:35] VITALS: O2SAT 99
[2021-12-09 22:38] VITALS: BP 118/74
--- NOTE | 2021-12-12 07:34 | EKG ---
Test Date: 2021-12-09 Test Time: 17:47:42 [employer]: AICHA MEASUREMENT RESULTS: Intervals: Rate: 58 WV: 132 QRSD: 104 QT: 456 QTc: 447 [place]: P: 104 WV: 132 QRS: -47 T: 79 INTERPRETIVE STATEMENTS: Sinus bradycardia Left anterior fascicular block Nonspecific ST and T wave abnormality Abnormal ECG Compared to ECG 06/19/2018 12:28:21 Left anterior fascicular block now present ST (T wave) deviation now present Sinus rhythm no longer present Left-axis deviation no longer present Electronically Signed On 12-12-21 07:26:56 [facility] by Tee Cristina
== END 2021-12-09 21:47 | disposition short-term general hospital (02) ==
LOC: ER 17:02
DX: E86.0 Dehydration (principal); I95.1 Orthostatic hypotension; I62.03 Nontraumatic chronic subdural hemorrhage; Z88.2 Allergy status to sulfonamides; I10 Essential (primary) hypertension; E11.9 Type 2 diabetes mellitus without complications; F03.90 Unspecified dementia, unspecified severity, without behavioral disturbance, psychotic disturbance, mood disturbance, and anxiety; Z86.73 Personal history of transient ischemic attack (TIA), and cerebral infarction without residual deficits; Z20.822 Contact with and (suspected) exposure to COVID-19
CPT/HCPCS: 93005; 85025; 80048; 36415; 83735; 85610; 80076; 84484; 83880; 70450; 71045; 99284; U0003; J7040; J7030

== ENCOUNTER 2022-01-12 19:53 | Emergency (ER) | payer OTHER ==
--- OUTSIDE RECORDS SUMMARY | 2022-01-12 19:59 | XMS REPORT | Continuity of Care Document ---
:1945 Author Organization [facility] t Address [address] [place] [address] Care Team Providers Name Role Phone Román Stokes Attending Clinician Unavailable Alejandro NICHOLSON Attending Clinician Unavailable NATALYA GUERRIER Attending Clinician Unavailable MILLY STORM Attending Clinician Unavail able URSULA Admitting Clinician Unavailable MILLY STORM Admitting Clinician Unavail able Payers Payer Name Policy Type Policy Number Effective Date Expiration Date Amari FISHER MEDICARE [id number] 2021 00:00:00 Problems This patient has no known problems. Allergies, Adverse Reactions, Alerts Allergy Allergy Status Severity Reaction(s) Onset Inactive Treating Comm ents Source Name Type Date Date Clinician EGG [facility]ergy Active [facility] SULFA Allergy Active N\T\V [facility] (SULFONA 7-27 MIDE 00:00: ANTIBIOT 00 ICS) Penicill Adverse Active Info Not [facility] amine Reaction Available [facility] Egg/Pro Adverse Active Info Not [facility] Reaction Available [facility] Medications Ordered Filled Start Stop Current Ordering Indication Dosage Frequency Signature Comments Components Source Medication Medication Date Date Medication? Clinician (SIG) Name Name Rivastigmin Rivastigmin 2019-0 Yes Frank [address] [facility] Tartrate e Tartrate 607 Stokes with food [facility] Atorvastati Atorvastati Yes Frank [address] [facility] n Calcium n Calcium Stokes at bedtime [facility] Lantus Lantus Yes Frank 30 units [facility] Metformin Metformin Yes Frank TAKE ONE [facility] HCl HCl Stokes TABLET BY [facility] TWICE l DAILY [facility] Fluoxetine Fluoxetine Yes Frank [address] [facility] HCl HCl Stokes [facility] Januvia Januvia Yes Frank TAKE 1 [facility] Stokes TABLET BY [facility] M[facility]TH ONCE [facility] DAILY FOR l 90 DAYS [facility] Folic Acid Folic Acid Yes Frank [address] [facility] Lisinopril Lisinopril Yes Frank TAKE [address] [facility] Stokes TABLET BY [facility] M[facility]TH ONCE [facility] DA[facility] FOR l 90 DAYS [facility] Amlodipine Amlodipine Yes Frank TAKE [address] [facility] Besylate Besylate Stokes TABLET BY L ukes - MOUTH ONCE Memoria DAILY FOR l 90 DAYS [facility] Furosemide Furosemide Yes Frank [address] [facility] Clopidogrel Clopidogrel Yes Frank [address] [facility] Bisulfate Bisulfate Stokes [facility] Vital Signs Vital Name Observation Time Observation Value Comments Source HEIGHT 2021-12-09 23:00:00 182.9 cm WEIGHT 2021-12-09 23:00:00 79.697 kg HEIGHT 2021-12-09 23:00:00 182.9 cm WEIGHT 2021-12-09 23:00:00 79.697 kg Procedures This patient has no known procedures. Encounters Start End Encounter Admission Attending Care Care Encounter Source Date/Time Date/Time Type Type Clinicians Facility Department ID 2021-12-20 Outpatient Stokes, [facility] [id number] [facility] [address] 16:08:01 Frank [facility] 2021-12-19 Outpatient Stokes, [facility] [id number] [facility] 14:10:48 Frank [id number] [facility] 2021-12-19 Outpatient Stokes, [facility] [id number] [facility] [address] 13:53:58 Frank [id number] [facility] 2021-12-19 Outpatient Stokes, [facility] [id number] 13:19:19 Frank [id number] [facility] 2021-12-19 Outpatient Stokes, [facility] [id number] 12:43:17 Frank [id number] [facility] 2021-12-19 Outpatient Stokes, [facility] [id number] [facility] [address] 12:40:36 Frank [id number] [facility] 2021-12-19 Outpatient Stokes, [facility] [id number] 12:07:01 Frank [id number] [facility] 2021-12-19 Outpatient Stokes, [facility] [id number] 11:19:27 Frank [id number] [facility] 2021-12-19 Outpatient Stokes, [facility] [id number] 11:19:18 Frank [id number] [facility] 2021-12-19 Outpatient Stokes, [facility] [id number] 11:16:54 Frank [id number] [facility] 2021-12-20 2021-12-20 ambulatory [facility] [id number] [facility] 2021-12-17 2021-12-17 ambulatory [facility] [id number] [facility] 2021-12-09 2021-12-14 [facility] [id number] [facility] 22:28:00 18:30:00 JOSE DAVID 2021-12-12 2021-12-12 Outpatient [facility] [id number] [facility] 00:00:00 23:59:00 Erin oro of Medicin e 2021-12-05 2021-12-05 ambulatory [facility] [id number] [facility] 2021-12-03 2021-12-03 ambulatory [facility] [id number] [facility] 2021-11-14 2021-11-14 ambulatory [facility] [id number] [facility] 2021-10-02 2021-10-02 ambulatory [facility] [id number] [facility] 2021-09-04 2021-09-04 Outpatient [facility] [id number] [facility] 2021-08-21 2021-08-21 Outpatient [facility] [id number] [facility] 2021-08-21 2021-08-21 Outpatient [facility] [id number] [facility] 2021-04-20 2021-04-20 Outpatient [facility] [id number] [facility] 2021-02-13 2021-02-13 Outpatient [facility] [id number] [facility] 2020-10-23 2020-10-23 Outpatient [facility] [id number] [facility] 2020-10-16 2020-10-16 Outpatient [facility] [id number] [facility] 2020-09-22 2020-09-22 Outpatient [facility] [id number] [facility]00 [facility] Clin[facility] 2020-07-12 2020-07-12 [facility] [id number] 09:45:00 09:45:00 [facility] Outpati ent Clinics 2020-07-12 2020-07-12 [facility] [id number] 09:45:00 09:45:00 t [facility] Out[facility] Clin[facility] 2020-03-22 2020-03-22 [facility] [id number] 14:45:00 14:45:00 t [facility] Out[facility] Clin[facility] 2020-03-16 2020-03-16 [facility] [id number] 16:28:00 16:28:00 t [facility] 2020-02-25 2020-02-25 [facility] [id number] 11:46:00 11:46:00 t [facility] 2020-01-13 2020-01-13 [facility] [id number] 11:00:00 11:00:00 t [facility] Clin[facility] Results Test Description Test Time Test Comments Results Result Comments Source POCT-GLUCOSE METER 2021-12-14 13:20:45 Test Item Value Reference Range Interpretation Comme nts POC-GLUCOSE METER ([employer]) 147 mg/dL 70-110 H : TESTED AT [facility] [address] (test code = 1538) BRODIE Diaz, 01583: Dry Cell Assembly Machine Tender/Techni debby ID = [id number] for ANGELA ALVAREZ POCT-GLUCOSE [id number] 08:19:43 Test Item Value Reference Range Interpretation Comments POC-GLUCOSE METER 133 mg/dL 70-110 H : [facility] ([employer]) (test code = CLAUDE MOFFET[place], 1538) 38721: Dry Cell Assembly Machine Tender/Techni debby ID = [id number] for RO DGERS, JUANECA POCT-GLUCOSE [id number] 21:19:21 Test Item Value Reference Range Interpretation Comments POC-GLUCOSE METER 189 mg/dL 70-110 H : TESTED A T [facility] 6720 (BEAKER) (test code = [facility], 1538) 57828: Dry Cell Assembly Machine Tender/Techni debby ID = [id number] for DE NNIS, NOEMY POCT-GLUCOSE [id number] 17:25:16 Test Item Value Reference Range Interpretation Comments POC-GLUCOSE METER 148 mg/dL 70-110 H : TESTED A T [facility] 6720 (BEAKER) (test code = [facility], 1538) 45153: Dry Cell Assembly Machine Tender/Techni debby ID = [id number] for Sa ntos, Ayla POCT-GLUCOSE [id number] 12:20:14 Test Item Value Reference Range Interpretation Comments POC-GLUCOSE METER 183 mg/dL 70-110 H : TESTED A T [facility] 6720 (BEAKER) (test code = [facility], 1538) 36002: Dry Cell Assembly Machine Tender/Techni debby ID = [id number] for Sa ntos, Ayla POCT-GLUCOSE [id number] 08:09:26 Test Item Value Reference Range Interpretation Comments POC-GLUCOSE METER 117 mg/dL 70-110 H : TESTED A T [facility] 6720 (BEAKER) (test code = [facility], 1538) 59073: Dry Cell Assembly Machine Tender/Techni debby ID = [id number] for Sa ntos, Ayla [id number] 06:11:06 Test Item Value Reference Range Interpretation Comments FERRITIN (BEAKER) (test code = 379.50 ng/mL 5.00-275.00 H 361) Dry Cell Assembly Machine Tender ID - MARCELA KEYONNA, TIBC, % SAT. (WITHOUT FERRITIN)2021-12-13 05:56:42 Test Item Value Reference Range Interpretation Comments IRON (BEAKER) (test code = 547) 9.0 ug/dL 40.0-160.0 L TOTAL IRON BINDING CAPACITY 154 ug/dL 250-450 L (BEAKER) (test code = 769) IRON % SATURATION (2) (BEAKER) 6 % 20-55 L (test code = 2590) Dry Cell Assembly Machine Tender ID - MARCELA MHEMOGLOBIN AND [id number] 05:32:46 Test Item Value Reference Range Interpretation Comments HEMOGLOBIN (BEAKER) (test code = 10.0 GM/DL 13.7-17.5 L 410) HEMATOCRIT (BEAKER) (test code = 30.8 % 40.1-51.0 L 411) Dry Cell Assembly Machine Tender ID - 6000POCT-GLUCOSE [id number] 22:16:04 Test Item Value Reference Range Interpretation Comments POC-GLUCOSE METER 180 mg/dL 70-110 H : TESTED A T [facility] 6720 (BEAKER) (test code = [facility], 1538) 30377: Dry Cell Assembly Machine Tender/Techni debby ID = [id number] for Shannan Woodard POCT-GLUCOSE [id number] 17:46:29 Test Item Value Reference Range Interpretation Comments POC-GLUCOSE METER 113 mg/dL 70-110 H : TESTED A T [facility] 6720 (BEAKER) (test code = [facility], 1538) 74626: Dry Cell Assembly Machine Tender/Techni debby ID = [id number] for Bl Yahir castaneda POCT-GLUCOSE [id number] 11:43:23 Test Item Value Reference Range Interpretation Comments POC-GLUCOSE METER 138 mg/dL 70-110 H : TESTED A T [facility] 6720 (BEAKER) (test code = [facility], 1538) 22391: Dry Cell Assembly Machine Tender/Techni debby ID = [id number] for Bl ackdelia Yahir BASIC METABOLIC [id number] 10:20:20 Test Item Value Reference Range Interpretation Comments SODIUM (BEAKER) 133 meq/L 136-145 L (test code = 381) POTASSIUM (BEAKER) 4.1 meq/L 3.5-5.1 (test code = 379) CHLORIDE (BEAKER) 104 meq/L 98-107 (test code = 382) CO2 (BEAKER) (test 24 meq/L 22-29 code = 355) BLOOD UREA NITROGEN 16 mg/dL 7-21 (BEAKER) (test code = 354) CREATININE (BEAKER) 1.13 mg/dL 0.57-1.25 (test code = 358) GLUCOSE RANDOM 126 mg/dL 70-105 H (BEAKER) (test code = 652) CALCIUM (BEAKER) 8.3 mg/dL 8.4-10.2 L (test code = 697) EGFR (BEAKER) (test 63 mL/min/1.73 ESTIMA GEORGE GFR IS code = 1092) sq m NOT ACCURATE CREATININE CLEARANCE IN PREDICTING GLOMERULAR FILTRATION RATE . ESTIMATED GFR I S NOT APPLICABLE FOR DIALYSIS PATIEN TS. Dry Cell Assembly Machine Tender ID - MARCELA MPOCT-GLUCOSE [id number] 07:59:34 Test Item Value Reference Range Interpretation Comments POC-GLUCOSE METER 108 mg/dL 70-110 : TESTED A T [facility] 6720 (BEAKER) (test code = [place], 1538) 88871: Dry Cell Assembly Machine Tender/Techni debby ID = [id number] for Yahir Cardoso CBC W/PLT COUNT & AUTO [id number] 05:56:04 Test Item Value Reference Range Interpretation Comments WHITE BLOOD CELL COUNT (BEAKER) 10.1 K/ L 3.5-10.5 (test code = 775) RED BLOOD CELL COUNT (BEAKER) 2.87 M/ L 4.63-6.08 L (test code = 761) HEMOGLOBIN (BEAKER) (test code = 8.8 GM/DL 13.7-17.5 L 410) HEMATOCRIT (BEAKER) (test code = 27.4 % 40.1-51.0 L 411) MEAN CORPUSCULAR VOLUME (BEAKER) 95.5 fL 79.0-92.2 H (test code = 753) MEAN CORPUSCULAR HEMOGLOBIN 30.7 pg 25.7-32.2 (BEAKER) (test code = 751) MEAN CORPUSCULAR HEMOGLOBIN CONC 32.1 GM/DL 32.3-36.5 L (BEAKER) (test code = 752) RED CELL DISTRIBUTION WIDTH 13.5 % 11.6-14.4 (BEAKER) (test code = 412) PLATELET COUNT (BEAKER) (test 192 K/CU MM 150-450 code = 756) MEAN PLATELET VOLUME (BEAKER) 9.2 fL 9.4-12.4 L (test code = 754) NUCLEATED RED BLOOD CELLS 0 /100 WBC 0-0 (BEAKER) (test code = 413) NEUTROPHILS RELATIVE PERCENT 84 % (BEAKER) (test code = 429) LYMPHOCYTES RELATIVE PERCENT 7 % (BEAKER) (test code = 430) MONOCYTES RELATIVE PERCENT 7 % (BEAKER) (test code = 431) EOSINOPHILS RELATIVE PERCENT 1 % (BEAKER) (test code = 432) BASOPHILS RELATIVE PERCENT 0 % (BEAKER) (test code = 437) NEUTROPHILS ABSOLUTE COUNT 8.50 K/ L 1.78-5.38 H (BEAKER) (test code = 670) LYMPHOCYTES ABSOLUTE COUNT 0.68 K/ L 1.32-3.57 L (BEAKER) (test code = 414) MONOCYTES ABSOLUTE COUNT (BEAKER) 0.69 K/ L 0.30-0.82 (test code = 415) EOSINOPHILS ABSOLUTE COUNT 0.14 K/ L 0.04-0.54 (BEAKER) (test code = 416) BASOPHILS ABSOLUTE COUNT (BEAKER) 0.02 K/ L 0.01-0.08 (test code = 417) IMMATURE GRANULOCYTES-RELATIVE 0 % 0-1 PERCENT (BEAKER) (test code = 2801) POCT-GLUCOSE [id number] 21:07:33 Test Item Value Reference Range Interpretation Comments POC-GLUCOSE METER 164 mg/dL 70-110 H : TESTED A T [facility] 6720 (BEAKER) (test code = [facility], [facility]) 71676: Dry Cell Assembly Machine Tender/Techni debby ID = [id number] for JUNIOR WOODARD POCT-GLUCOSE [id number] 18:10:56 Test Item Value Reference Range Interpretation Comments POC-GLUCOSE METER 124 mg/dL 70-110 H : TESTED A T [facility] 6720 (BEAKER) (test code = [facility], [facility]) 27359: Dry Cell Assembly Machine Tender/Techni debby ID = [id number] for RO DGERS, JAMECA POCT-GLUCOSE [id number] 12:50:42 Test Item Value Reference Range Interpretation Comments POC-GLUCOSE METER 139 mg/dL 70-110 H : TESTED A T [facility] 6720 (BEAKER) (test code = [facility], [facility]) 20938: Dry Cell Assembly Machine Tender/Techni debby ID = [id number] for RO DGERS, JAMECA POCT-GLUCOSE [id number] 08:38:39 Test Item Value Reference Range Interpretation Comments POC-GLUCOSE METER 93 mg/dL 70-110 : TESTED A T [facility] 6720 (BEAKER) (test code = [facility], [facility]) 76769: Dry Cell Assembly Machine Tender/Techni debby ID = [id number] for ANGELA HASTINGS BASIC METABOLIC [id number] 04:43:36 Test Item Value Reference Range Interpretation Comments SODIUM (BEAKER) 137 meq/L 136-145 (test code = 381) POTASSIUM (BEAKER) 4.2 meq/L 3.5-5.1 (test code = 379) CHLORIDE (BEAKER) 105 meq/L 98-107 (test code = 382) CO2 (BEAKER) (test 27 meq/L 22-29 code = 355) BLOOD UREA NITROGEN 19 mg/dL 7-21 (BEAKER) (test code = 354) CREATININE (BEAKER) 1.25 mg/dL 0.57-1.25 (test code = 358) GLUCOSE RANDOM 113 mg/dL 70-105 H (BEAKER) (test code = 652) CALCIUM (BEAKER) 8.3 mg/dL 8.4-10.2 L (test code = 697) EGFR (BEAKER) (test 56 mL/min/1.73 ESTIMA GEORGE GFR IS code = 1092) sq m NOT ACCURATE CREATININE CLEARANCE IN PREDICTING GLOMERULAR FILTRATION RATE . ESTIMATED GFR I S NOT APPLICABLE FOR DIALYSIS PATIEN TS. Dry Cell Assembly Machine Tender ID - JEMAL GCBC W/PLT COUNT & AUTO [id number] 04:17:28 Test Item Value Reference Range Interpretation Comments WHITE BLOOD CELL COUNT (BEAKER) 7.6 K/ L 3.5-10.5 (test code = 775) RED BLOOD CELL COUNT (BEAKER) 3.18 M/ L 4.63-6.08 L (test code = 761) HEMOGLOBIN (BEAKER) (test code = 9.7 GM/DL 13.7-17.5 L 410) HEMATOCRIT (BEAKER) (test code = 30.2 % 40.1-51.0 L 411) MEAN CORPUSCULAR VOLUME (BEAKER) 95.0 fL 79.0-92.2 H (test code = 753) MEAN CORPUSCULAR HEMOGLOBIN 30.5 pg 25.7-32.2 (BEAKER) (test code = 751) MEAN CORPUSCULAR HEMOGLOBIN CONC 32.1 GM/DL 32.3-36.5 L (BEAKER) (test code = 752) RED CELL DISTRIBUTION WIDTH 13.2 % 11.6-14.4 (BEAKER) (test code = 412) PLATELET COUNT (BEAKER) (test 235 K/CU MM 150-450 code = 756) MEAN PLATELET VOLUME (BEAKER) 8.9 fL 9.4-12.4 L (test code = 754) NUCLEATED RED BLOOD CELLS 0 /100 WBC 0-0 (BEAKER) (test code = 413) NEUTROPHILS RELATIVE PERCENT 79 % (BEAKER) (test code = 429) LYMPHOCYTES RELATIVE PERCENT 10 % (BEAKER) (test code = 430) MONOCYTES RELATIVE PERCENT 8 % (BEAKER) (test code = 431) EOSINOPHILS RELATIVE PERCENT 3 % (BEAKER) (test code = 432) BASOPHILS RELATIVE PERCENT 0 % (BEAKER) (test code = 437) NEUTROPHILS ABSOLUTE COUNT 5.97 K/ L 1.78-5.38 H (BEAKER) (test code = 670) LYMPHOCYTES ABSOLUTE COUNT 0.77 K/ L 1.32-3.57 L (BEAKER) (test code = 414) MONOCYTES ABSOLUTE COUNT (BEAKER) 0.60 K/ L 0.30-0.82 (test code = 415) EOSINOPHILS ABSOLUTE COUNT 0.20 K/ L 0.04-0.54 (BEAKER) (test code = 416) BASOPHILS ABSOLUTE COUNT (BEAKER) 0.03 K/ L 0.01-0.08 (test code = 417) IMMATURE GRANULOCYTES-RELATIVE 1 % 0-1 PERCENT (BEAKER) (test code = 2801) POCT-GLUCOSE [id number] 22:37:21 Test Item Value Reference Range Interpretation Comments POC-GLUCOSE METER 110 mg/dL 70-110 : TESTED A T [facility] 6720 (BEAKER) (test code = [facility], 153) 31683: Dry Cell Assembly Machine Tender/Techni debby ID = [id number] for Ty Angela garcesn POCT-GLUCOSE [id number] 18:10:57 Test Item Value Reference Range Interpretation Comments POC-GLUCOSE METER 128 mg/dL 70-110 H : TESTED A T [facility] 6720 (BEAKER) (test code = [facility], 153) 96550: Dry Cell Assembly Machine Tender/Techni debby ID = [id number] for Rashad ramseypreethi Makeda PROTEIN, RANDOM [id number] 13:37:01 Test Item Value Reference Range Interpretation Comments PROTEIN, URINE (BEAKER) (test code = 9 mg/dL 0-14 1569) Dry Cell Assembly Machine Tender ID - LORENZO LSODIUM, RANDOM [id number] 13:37:01 Test Item Value Reference Range Interpretation Comments SODIUM URINE (BEAKER) (test code = 120 meq/L 243) Reference Range: No NormalsOperator ID - LORENZO LCREATININE, RANDOM URINE 2021-12-10 13:37:00 Test Item Value Reference Range Interpretation Comments CREATININE URINE (BEAKER) (test 80.8 mg/dL code = 375) Reference Range: No NormalsOperator ID - LORENZO LCT, BRAIN, WITHOUT CONTRAST 2021-12-10 12:12:00fu acute on chronic sdhUnlisted Reason for Exam - Click Yes and Enter Reason Below->No [facility] : 1945 Sex: MFINAL REPORT CT, BRAIN, WITHOUT CONTRAST CLINICAL INDICATION: Altered mental status COMPARISON: June 20, 2018 TECHNIQUE: Noncontrast axial CT imaging of the brain and skull. DOSE REDUCTION: Dose modulation, iterative reconstruction, and/or weight-based adjustment of the mA/kV was utilized to reduce the radiation dose to as low as reasonably achievable. FINDINGS:Compared to prior exam June 20, 2018, there are new bilateral cerebral convexity subdural hematomas, predominantly hypoattenuating but with trace hyperdense blood products along the right parietal convexity(axial image 20). Right cerebral convexity hematoma measures up to 1.4 cm. Left cerebral convexity hematoma measures up to 1.9 cm. There is no significant consequent midline shift or herniation. Advanced senescent parenchymal volume loss. Scattered foci of hypoattenuation are present throughout the periventricular and subcortical white matter, and, although nonspecific by imaging, statistically represent mild chronic microvascular ischemic changes in this age group. No hydrocephalus. Orbits are within normal limits. No obstructive paranasal sinus disease. IMPRESSION: Compared to prior exam June 20, 2018, there are new bilateral cerebral convexity subdural hematomas, predominantly hypoattenuatingbut with trace hyperdense blood products along the right parietal convexity (axial image 20). Right cerebral convexity hematoma measures up to 1.4 cm. Left cerebral convexity hematoma measures up to 1.9 cm. There is no significant consequent midline shift or herniation. If there is persistent clinicalconcern for intracranial pathology, MR examination is recommended for further characterization. Signed: Charity Maguire MDReport Verified Date/Time: 12/10/2021 12:12:30 Reading Location: [facility] C013V Neuro Reading Room -GLUCOSE [id number] 12:01:59 Test Item Value Reference Range Interpretation Comments POC-GLUCOSE METER 115 mg/dL 70-110 H : TESTED A T [facility] 6720 (BEAKER) (test code = CLAUDE Berger [facility], 1538) 74955: Dry Cell Assembly Machine Tender/Techni debby ID = [id number] for Makeda Nuno URINALYSIS W/ REFLEX URINE [id number] 09:48:08 Test Item Value Reference Range Interpretation Comments COLOR (BEAKER) (test code = 470) Yellow CLARITY (BEAKER) (test code = 469) Clear SPECIFIC GRAVITY UA (BEAKER) (test 1.018 1.001-1.035 code = 468) PH UA (BEAKER) (test code = 467) 6.5 5.0-8.0 PROTEIN UA (BEAKER) (test code = Negative Negative 464) GLUCOSE UA (BEAKER) (test code = Negative Negative 365) KETONES UA (BEAKER) (test code = Negative Negative 371) BILIRUBIN UA (BEAKER) (test code = Negative Negative 462) BLOOD UA (BEAKER) (test code = 461) Negative Negative NITRITE UA (BEAKER) (test code = Negative Negative 465) LEUKOCYTE ESTERASE UA (BEAKER) Negative Negative (test code = 466) UROBILINOGEN UA (BEAKER) (test code 3.0 mg/dL 0.2-1.0 H = 463) RBC UA (BEAKER) (test code = 519) 1 /HPF WBC UA (BEAKER) (test code = 520) < /HPF BACTERIA (BEAKER) (test code = 517) None Seen CASTS (BEAKER) (test code = 1579) 1 /LPF CRYSTALS, URINE (BEAKER) (test code None Seen = 1521) SOURCE(BEAKER) (test code = 2795) Dry Cell Assembly Machine Tender ID - [auto]Dry Cell Assembly Machine Tender ID - [auto]Dry Cell Assembly Machine Tender ID - techPOCT-GLUCOSE METER 2021-12-10 07:46:35 Test Item Value Reference Range Interpretation Comments POC-GLUCOSE METER 80 mg/dL 70-110 : TESTED A T [facility] 6720 (BEAKER) (test code = [facility], 1538) 15969: Dry Cell Assembly Machine Tender/Techni debby ID = [id number] for Makeda King POCT-GLUCOSE [id number] 06:07:32 Test Item Value Reference Range Interpretation Comments POC-GLUCOSE METER 100 mg/dL 70-110 : TESTED A T [facility] 6720 (BEAKER) (test code [facility], = 1538) 29127: [employer] Machine Tender/Techni debby ID = [id number] for ANDRAE KOWALSKI (V) SHIRA VITAMIN B12 AND [id number] 05:26:03 Test Item Value Reference Range Interpretation Comments VITAMIN B12 290 pg/mL 213-816 (BEAKER) (test code = 774) FOLATE (BEAKER) 17.60 ng/mL See_Comment [Automated message] (test code = 362) The system which generated this result transmitted ref erence range: >=7.00. The reference range was not used to interpr et this result as normal/abnormal . [employer] Machine Tender ID - PIAYA LTSH/FREE T4 IF [id number] 05:26:03 Test Item Value Reference Range Interpretation Comments THYROID STIMULATING HORMONE 1.905 uIU/mL 0.350-4.940 (BEAKER) (test code = 772) [employer] Machine Tender ID - PIAYA LB-TYPE NATRIURETIC FACTOR (BNP)2021-12-10 04:49:17 Test Item Value Reference Range Interpretation Comments B-TYPE NATRIURETIC PEPTIDE (BEAKER) 100 pg/mL 0-100 (test code = 700) Dry Cell Assembly Machine Tender ID - PIAYA LCOMPREHENSIVE METABOLIC [id number] 02:43:48 Test Item Value Reference Range Interpretation Comments TOTAL PROTEIN 5.9 gm/dL 6.0-8.3 L (BEAKER) (test code = 770) ALBUMIN (BEAKER) 3.2 g/dL 3.5-5.0 L (test code = 1145) ALKALINE PHOSPHATASE 124 U/L 40-150 (BEAKER) (test code = 346) BILIRUBIN TOTAL 0.6 mg/dL 0.2-1.2 (BEAKER) (test code = 377) SODIUM (BEAKER) (test 136 meq/L 136-145 code = 381) POTASSIUM (BEAKER) 4.7 meq/L 3.5-5.1 (test code = 379) CHLORIDE (BEAKER) 103 meq/L 98-107 (test code = 382) CO2 (BEAKER) (test 25 meq/L 22-29 code = 355) BLOOD UREA NITROGEN 28 mg/dL 7-21 H (BEAKER) (test code = 354) CREATININE (BEAKER) 1.45 mg/dL 0.57-1.25 H (test code = 358) GLUCOSE RANDOM 59 mg/dL 70-105 L (BEAKER) (test code = 652) CALCIUM (BEAKER) 8.5 mg/dL 8.4-10.2 (test code = 697) AST (SGOT) (BEAKER) 34 U/L 5-34 (test code = 353) ALT (SGPT) (BEAKER) 24 U/L 6-55 (test code = 347) EGFR (BEAKER) (test 47 mL/min/1.73 ESTIMA GEORGE GFR IS code = 1092) sq m NOT ACCURATE CREATININE CLEARANCE IN PREDICTING GLOMERULAR FILTRATION RATE . ESTIMATED GFR I S NOT APPLICABLE FOR DIALYSIS PATIEN TS. Dry Cell Assembly Machine Tender ID - PIAYA LPROTHROMBIN TIME/[id number] 02:32:43 Test Item Value Reference Range Interpretation Comments PROTIME (BEAKER) 14.6 seconds 11.9-14.2 H (test code = 759) INR (BEAKER) (test 1.16 See_Comment [Automat ed message] code = 370) The system Jug[employer] generated this result transmitted ref erence range: <=5.90. The reference range was not used to int erpret this result as normal/abnormal . RECOMMENDED COUMADIN/WARFARIN INR THERAPY RANGESSTANDARD DOSE: 2.0 - 3.0 Includes: PROPHYLAXIS forvenous thrombosis, systemic embolization; TREATMENT for venous thrombosis and/or pulmonary embolus.HIGH RISK: Target INR is 2.5-3.5 for patients with mechanical heart valves.CBC W/PLT COUNT & AUTO DIFFERENTIAL 2021-12-10 02:14:42 Test Item Value Reference Range Interpretation Comments WHITE BLOOD CELL COUNT (BEAKER) 7.1 K/ L 3.5-10.5 (test code = 775) RED BLOOD CELL COUNT (BEAKER) 3.22 M/ L 4.63-6.08 L (test code = 761) HEMOGLOBIN (BEAKER) (test code = 9.9 GM/DL 13.7-17.5 L 410) HEMATOCRIT (BEAKER) (test code = 30.2 % 40.1-51.0 L 411) MEAN CORPUSCULAR VOLUME (BEAKER) 93.8 fL 79.0-92.2 H (test code = 753) MEAN CORPUSCULAR HEMOGLOBIN 30.7 pg 25.7-32.2 (BEAKER) (test code = 751) MEAN CORPUSCULAR HEMOGLOBIN CONC 32.8 GM/DL 32.3-36.5 (BEAKER) (test code = 752) RED CELL DISTRIBUTION WIDTH 13.2 % 11.6-14.4 (BEAKER) (test code = 412) PLATELET COUNT (BEAKER) (test 282 K/CU MM 150-450 code = 756) MEAN PLATELET VOLUME (BEAKER) 9.1 fL 9.4-12.4 L (test code = 754) NUCLEATED RED BLOOD CELLS 0 /100 WBC 0-0 (BEAKER) (test code = 413) NEUTROPHILS RELATIVE PERCENT 77 % (BEAKER) (test code = 429) LYMPHOCYTES RELATIVE PERCENT 14 % (BEAKER) (test code = 430) MONOCYTES RELATIVE PERCENT 7 % (BEAKER) (test code = 431) EOSINOPHILS RELATIVE PERCENT 2 % (BEAKER) (test code = 432) BASOPHILS RELATIVE PERCENT 0 % (BEAKER) (test code = 437) NEUTROPHILS ABSOLUTE COUNT 5.46 K/ L 1.78-5.38 H (BEAKER) (test code = 670) LYMPHOCYTES ABSOLUTE COUNT 1.01 K/ L 1.32-3.57 L (BEAKER) (test code = 414) MONOCYTES ABSOLUTE COUNT (BEAKER) 0.47 K/ L 0.30-0.82 (test code = 415) EOSINOPHILS ABSOLUTE COUNT 0.12 K/ L 0.04-0.54 (BEAKER) (test code = 416) BASOPHILS ABSOLUTE COUNT (BEAKER) 0.02 K/ L 0.01-0.08 (test code = 417) IMMATURE GRANULOCYTES-RELATIVE 0 % 0-1 PERCENT (BEAKER) (test code = 2801) POCT-GLUCOSE [id number] 01:46:41 Test Item Value Reference Range Interpretation Comments POC-GLUCOSE METER 68 mg/dL 70-110 L : Notified RN/MD: TESTED (BEAKER) (test code = AT [place] [address]) [place] [address]: Dry Cell Assembly Machine Tender/Techni debby ID = [id number] for ANDRAE KOWALSKI (V), SHIRA POCT-GLUCOSE [id number] 00:02:46 Test Item Value Reference Range Interpretation Comments POC-GLUCOSE METER 59 mg/dL 70-110 L : Notified RN/MD: TESTED (BEAKER) (test code = AT [place] [address]) [place] [address]: [employer] Cell Assembly Machine Tender/Techni debby ID = [id number] for ZAKIA , LUCILLE WOUND CULTURE + GRAM [id number] 06:42:00 Test Item Value Reference Interpretation Comments Range CULTURE (BEAKER) STAPHYLOCOCCUS A 2+ Staphy lococcus (test code = 1095) AUREUS aureus Clindamycin (test S code = 10) Erythromycin (test S code = 4) Linezolid (test code S = 40) Nitrofurantoin (test S code = 23) Oxacillin (test code S = 14) Rifampin (test code = S 43) Tetracycline (test S code = 2) Trimethoprim + S Sulfamethoxazole (test code = 47) Vancomycin (test code S = 13) GRAM STAIN RESULT <1+ WBCs (BEAKER) (test code = 1123) GRAM STAIN RESULT <1+ gram positive (BEAKER) (test code = cocci in clusters 717995) POCT-GLUCOSE [id number] 12:16:00 Test Item Value Reference Range Interpretation Comments POC-GLUCOSE METER 202 mg/dL 70-110 H TESTED AT [place] [address] (BEAKER) (test code = CLAUDE [place] 1538) [address] POCT-GLUCOSE [id number] 07:54:00 Test Item Value Reference Range Interpretation Comments POC-GLUCOSE METER 124 mg/dL 70-110 H TESTED AT [facility] 6720 (BEAKER) (test code = CLAUDE [place] 1538) [address] CBC W/PLT COUNT & AUTO [id number] 05:52:00 Test Item Value Reference Range Interpretation [...] PERCENT (BEAKER) (test code = 2801) POCT-GLUCOSE [id number] 20:56:00 Test Item Value Reference Range Interpretation Comments POC-GLUCOSE METER 228 mg/dL 70-110 H TESTED AT [place] [address] ([facility]) (test code = CLAUDE Berger [facility] 1538) [address] POCT-GLUCOSE [id number] 17:55:00 Test Item Value Reference Range Interpretation Comments POC-GLUCOSE METER 150 mg/dL 70-110 H TESTED AT [place] [address] ([facility]) (test code = CLAUDE Berger [facility] 1538) [address] POCT-GLUCOSE [id number] 12:37:00 Test Item Value Reference Range Interpretation Comments POC-GLUCOSE METER 271 mg/dL 70-110 H TESTED AT [place] [address] ([facility]) (test code = CLAUDE Berger [facility] 1538) [address] POCT-GLUCOSE [id number] 08:18:00 Test Item Value Reference Range Interpretation Comments POC-GLUCOSE METER 153 mg/dL 70-110 H [facility] AT [place] [address] [facility] (test code = CLAUDE [place] [facility] 1538) [address] POCT-GLUCOSE [id number] 21:21:00 Test Item Value Reference Range Interpretation Comments POC-GLUCOSE METER 215 mg/dL 70-110 H TESTED AT [place] [address] ([facility] (test code = CLAUDE Berger [facility] 1538) [address] URINALYSIS W/ REFLEX URINE [id number] 18:20:00 Test Item Value Reference Range Interpretation [...] Rare SOURCE(BEAKER) (test code = 2795) POCT-GLUCOSE [id number] 16:41:00 Test Item Value Reference Range Interpretation Comments POC-GLUCOSE METER 179 mg/dL 70-110 H TESTED AT [place] [address] ([facility]) (test code = [facility] 1538) [address] POCT-GLUCOSE [id number] 12:51:00 Test Item Value Reference Range Interpretation Comments POC-GLUCOSE METER 189 mg/dL 70-110 H TESTED AT [place] [address] ([facility]) (test code = [facility] 1538) [address] POCT-GLUCOSE [id number] 07:27:00 Test Item Value Reference Range Interpretation Comments POC-GLUCOSE METER 183 mg/dL 70-110 H TESTED AT [place] [address] ([facility]) (test code = [facility] 1538) [address] CBC W/PLT COUNT & AUTO [id number] 05:18:00 Test Item Value Reference Range Interpretation Comments WHITE BLOOD CELL COUNT (BEAKER) 12.7 K/ L 3.5-10.5 H (test code = 775) RED BLOOD CELL COUNT [facility] 4.53 M/ L 4.63-6.08 L (test code [...] (BEAKER) (test code = 2801) BASIC METABOLIC [id number] 04:26:00 Test Item Value Reference Range Interpretation [...] FOR DIALYSIS PATIEN TS. Specimen slightly ictericPOCT-GLUCOSE [id number] 21:15:00 Test Item Value Reference Range Interpretation Comments POC-GLUCOSE METER 240 mg/dL 70-110 H TESTED AT [place] [address] ([facility]) (test code = [facility] 1538) [address] POCT-GLUCOSE [id number] 17:45:00 Test Item Value Reference Range Interpretation Comments POC-GLUCOSE METER 222 mg/dL 70-110 H TESTED AT [place] [address] ([facility]) (test code = [facility] 1538) [address] POCT-GLUCOSE [id number] 12:48:00 Test Item Value Reference Range Interpretation Comments POC-GLUCOSE METER 209 mg/dL 70-110 H TESTED AT [place] [address] ([facility]) (test code = [facility] 1538) [address] BASIC METABOLIC [id number] 10:24:00 Test Item Value Reference Range Interpretation [...] PATIEN TS. CBC W/PLT COUNT & AUTO [id number] 09:52:00 Test Item Value Reference Range Interpretation [...] ABSOLUTE COUNT 0.65 K/ L 1.32-3.57 L (AKER) (test code = 414) MONOCYTES ABSOLUTE COUNT (BEAKER) 0.76 K/ L 0.30-0.82 (test code = 415) EOSINOPHILS ABSOLUTE COUNT 0.28 K/ L 0.04-0.54 (AKER) (test code = 416) BASOPHILS ABSOLUTE COUNT (AKER) 0.03 K/ L 0.01-0.08 (test code = 417) IMMATURE GRANULOCYTES-RELATIVE 0 % 0-1 PERCENT ([facility]) (test code = 2801) POCT-GLUCOSE [id number] 07:47:00 Test Item Value Reference Range Interpretation Comments POC-GLUCOSE METER 167 mg/dL 70-110 H TESTED AT [place] [address] ([facility]) (test code = [facility] [employer]eline [facility] 1538) [address] POCT-GLUCOSE [id number] 22:23:00 Test Item Value Reference Range Interpretation Comments POC-GLUCOSE METER 230 mg/dL 70-110 H TESTED AT [place] [address] ([facility]) (test code = [facility] [employer] [facility] 1538) [address] POCT-GLUCOSE [id number] 17:22:00 Test Item Value Reference Range Interpretation Comments POC-GLUCOSE METER 157 mg/dL 70-110 H TESTED AT [place] [address] ([facility]) (test code = [facility] [employer] [facility] 1538) [address] POCT-GLUCOSE [id number] 11:44:00 Test Item Value Reference Range Interpretation Comments POC-GLUCOSE METER 294 mg/dL 70-110 H TESTED AT [place] [address] ([facility]) (test code = [facility] [employer] [facility] 1538) [address] POCT-GLUCOSE [id number] 07:50:00 Test Item Value Reference Range Interpretation Comments POC-GLUCOSE METER 186 mg/dL 70-110 H TESTED AT [place] [address] ([facility]) (test code = [facility] [employer] [facility] 1538) [address] POCT-GLUCOSE [id number] 22:16:00 Test Item Value Reference Range Interpretation Comments POC-GLUCOSE METER 189 mg/dL 70-110 H TESTED AT [place] [address] ([facility]) (test code = [facility] [employer] [facility] 1538) [address] POCT-GLUCOSE [id number] 18:10:00 Test Item Value Reference Range Interpretation Comments POC-GLUCOSE METER 177 mg/dL 70-110 H TESTED AT [facility] 6720 [facility] (test code = CLUADE [place] [facility] 1538) [address] POCT-GLUCOSE [id number] 18:02:00 Test Item Value Reference Range Interpretation Comments POC-GLUCOSE METER 235 mg/dL 70-110 H TESTED AT [facility] 6720 ([facility] (test code = CLAUDE [place] [facility] 1538) [address] POCT-GLUCOSE [id number] 09:04:00 Test Item Value Reference Range Interpretation Comments POC-GLUCOSE METER 188 mg/dL 70-110 H TESTED AT [facility] 67 ([facility]) (test [facility] = [facility] 1538) [address] [id number] 07:43:00 Test Item Value Reference Range Interpretation Comments RPR SCREEN (BEAKER) (test code = Nonreactive Nonreactive 420) OSMOLALITY, [id number] 05:32:00 Test Item Value Reference Range Interpretation Comments OSMOLALITY URINE (BEAKER) (test 587 mOsm/kg 40-1400 code = 614) BASIC METABOLIC [id number] 02:16:00 Test Item Value Reference Range Interpretation [...] PATIEN TS. CBC W/PLT COUNT & AUTO [id number] 02:06:00 Test Item Value Reference Range Interpretation [...] 417) IMMATURE GRANULOCYTES-RELATIVE 1 % 0-1 PERCENT ([facility]) (test code = 2801) POCT-GLUCOSE [id number] 23:20:00 Test Item Value Reference Range Interpretation Comments POC-GLUCOSE METER 161 mg/dL 70-110 H TESTED AT [place] [address] ([facility]) (test code = CLAUDE Berger [facility] 1538) [address] CT, BRAIN, WITHOUT [id number] 19:01:00FINAL REPORT CT Head without contrast CLINICAL [...] Brock Verified Date/Time: 06/20/2018 19:01:56 Reading Location: [address] Reading Room POCT-GLUCOSE [id number] 18:19:00 Test Item Value Reference Range Interpretation Comments POC-GLUCOSE METER 161 mg/dL 70-110 H TESTED AT [facility] 6720 ([facility]) (test code = CLAUDE Berger [facility] 1538) [address] POCT-GLUCOSE [id number] 12:05:00 Test Item Value Reference Range Interpretation Comments POC-GLUCOSE METER 242 mg/dL 70-110 H TESTED AT [place] [address] ([facility]) (test code = CLAUDE Berger [facility] 1538) [address] HEMOGLOBIN [id number] 09:42:00 Test Item Value Reference Range Interpretation Comments HEMOGLOBIN A1C (BEAKER) (test code = 6.9 % 4.3-6.1 H 368) POCT-GLUCOSE [id number] 08:25:00 Test Item Value Reference Range Interpretation Comments POC-GLUCOSE METER 141 mg/dL 70-110 H TESTED AT [facility] 6720 ([facility]) (test code = [place] 1538) [address] TSH/FREE T4 IF [id number] 05:34:00 Test Item Value Reference Range Interpretation Comments THYROID STIMULATING HORMONE 1.81 uIU/mL 0.35-4.94 (BEAKER) (test code = 772) VITAMIN B12 AND [id number] 05:34:00 Test Item Value Reference Range Interpretation Comments VITAMIN B12 (BEAKER) (test code = 311 pg/mL 213-816 774) FOLATE (BEAKER) (test code = 362) 6.9 ng/mL >=7.0 L TROPONIN [id number] 01:40:00 Test Item Value Reference Range Interpretation [...] acidosis, acute neurological disease, and persistent tachyarrhythmia.FastingLIPID [id number] 01:32:00 Test Item Value Reference Range Interpretation Comments TRIGLYCERIDES (BEAKER) (test code = 108 mg/dL 540) CHOLESTEROL (BEAKER) (test code = 192 mg/dL 631) HDL CHOLESTEROL (BEAKER) (test code 31 mg/dL = 976) LDL CHOLESTEROL CALCULATED ([facility]) 139 mg/dL (test code = 633) Triglyceride Reference Range: Low Risk <150 Borderline 150-199 High Risk 200-499 Very High Risk >=500Cholesterol Reference Range: Low Risk <200 Borderline 200-239 High Risk >240HDL Cholesterol Reference Range: Low Risk >=60 High Risk <40LDL Cholesterol Reference Range: Optimal <100 Near Optimal 100-129 Borderline 130-159 High 160-189 Very High >=190 FastingBASIC METABOLIC [id number] 01:32:00 Test Item Value Reference Range Interpretation [...] S NOT APPLICABLE FOR DIALYSIS PATIEN TS. FastingCBC (HEMOGRAM ONLY)2018-06-20 01:20:00 Test Item Value [...] 0-0 (BEAKER) (test code = 413) POCT-GLUCOSE [id number] 22:33:00 Test Item Value Reference Range Interpretation Comments POC-GLUCOSE METER 175 mg/dL 70-110 H TESTED AT [facility] 67 (BEAKER) (test code = CLAUDE [place] 1538) [address] POCT-GLUCOSE [id number] 18:29:00 Test Item Value Reference Range Interpretation Comments POC-GLUCOSE METER 111 mg/dL 70-110 H TESTED AT [place] [address] (BEAKER) (test code = CLAUDE Berger [facility] 1538) [address] URINALYSIS W/ REFLEX URINE [id number] 17:22:00 Test Item Value Reference Range Interpretation [...] 520) SOURCE(BEAKER) (test code = 2795) TROPONIN [id number] 16:57:00 Test Item Value Reference Range Interpretation [...] acute neurological disease, and persistent tachyarrhythmia.BASIC METABOLIC [id number] 16:06:00 Test Item Value Reference Range Interpretation [...] PATIEN TS. CBC W/PLT COUNT & AUTO [id number] 15:47:00 Test Item Value Reference Range Interpretation [...] % 0-1 PERCENT (BEAKER) (test code = 9057)
[2022-01-12 20:30] LABS: Absolute Lymphocytes (CBC) 0.9 K/uL (0.7-4.9); Hematocrit 30.4 % (39.6-49.0); Lymphocytes % 11.9 % (15.3-44.8); RBC Red Blood Cell Count 3.32 M/uL (4.33-5.43)
[2022-01-12 20:32] LABS: Protime INR 1.14
[2022-01-12 20:56] LABS: Albumin 2.6 g/dL (3.4-5.0); Bilirubin Direct 0.2 mg/dL (0-0.2); Bilirubin Total 0.5 mg/dL (0.2-1.0); Magnesium 2.2 mg/dL (1.8-2.4); Potassium 4.5 mmol/L (3.5-5.1); Troponin High Sensitivity 17.8 pg/mL (<58.9)
--- NOTE | 2022-01-12 20:58 | RAD REPORT ---
EXAM DESCRIPTION: CT - CTHCSPWOC - 01/12/2022 8:37 pm CLINICAL HISTORY: PAIN COMPARISON: C Spine Wo Con dated 06/19/2018; Head Brain Wo Cont dated 12/09/2021 TECHNIQUE: Axial 5 mm thick images of the head were obtained. Axial 2 mm thick images of the cervic al spine were obtained with sagittal and coronal reconstruction images generated and reviewed. All CT scans are performed using dose optimization technique as appropriate and may include automated exposure control or mA/KV adjustment according to patient size. FINDINGS: No hemorrhage is present within the brain parenchyma. Prior imaging showed moderately larg e bilateral chronic subdural hematomas. The patient now has acute and chronic subdural hematoma pattern. Active bleeding is seen on the right . Acute hemorrhagic components are seen layering in the dependent portion of the subdural space. Size of the left side subdural hematoma has increased in the parietal region measuring approximately 14 m m. Lateral to the left frontal lobe subdural continues to measure approximately 10-11 mm. Greater enlargement is noted on the right. Subdural is as large as 23 mm in thickness at the right pa rietal lobe level. Frontal lobe region enlargement is increased to a lesser degree. There is increase d mass effect on the frontal and parietal lobes compared to prior imaging. Subdurals are still relati vely balanced with no midline shift. Underlying atrophy and chronic ischemic changes are present. An acute cortical based infarction is not identified. Mastoid air cells and paranasal sinuses are clear. No globe or orbit abnormality seen. Cervical bodies are normal in height. There is straightening of the usual cervical lordosis with no s ubluxation abnormalities. All disc levels show some degree in height loss. Degenerative changes likel y cause fusion across the disc space at C5-6. Prominent anterior and posterior endplate spurs are pre sent. No fracture or acute bony abnormality. Multilevel facet joint degenerative changes are present. Multilevel bilateral foraminal encroachment seen from uncovertebral joint hypertrophy and facet hype rtrophy. Spinal stenosis down to 6-7 mm noted at C5-6. Cord flattening would be present at this level . Central canal detail is inherently limited. No paraspinal mass or hematoma. Findings telephoned to Dr Carlson 8:52 p.m. 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 Active bleeding is seen on the right. There is greater mass effect on each cerebral hemisphere, right greater than left. Mass-effect is still balanced with no shift of midline structures seen. Cervical spine degenerative change including significant C5-6 spinal stenosis stable from prior imagi ng. No acute cervical spine finding.
--- NOTE | 2022-01-12 21:09 | ER ---
Nurse's Notes [facility] Name: Darwin Hand Age: 76 yrs Sex: Male : 1945 Arrival Date: 01/12/2022 Time: 19:55 Bed 7 Private MD: Diagnosis: Traumatic subdural hemorrhage Presentation: 01/12 19:55 Chief complaint: EMS states: pt has had 2-3 falls in the last week and has not been as6 asking himself. Coronavirus screen: At this time, the client does not indicate any symptoms associated with coronavirus-19. Ebola Screen: No symptoms or risks identified at this time. Initial Sepsis Screen: Does the patient meet any 2 criteria? Altered Mental Status. Does the patient have a suspected source of infection? No. Patient's initial sepsis screen is negative. Risk Assessment: Do you want to hurt yourself or someone else? Unable to obtain. Onset of symptoms is unknown. 19:55 Method Of Arrival: EMS: [facility] as6 19:55 Acuity: MARIA GUADALUPE 3 as6 Historical: - Allergies: 20:00 Sulfa (Sulfonamide Antibiotics); as6 - Home Meds: 20:00 folic acid 1 mg Oral tab 1 tab once daily [Active]; metformin 850 mg Oral tab 1 tab as6 daily [Active]; atorvastatin 80 mg Oral tab 1 tab nightly [Active]; fluoxetine 20 mg Oral cap 1 cap nightly [Active]; clopidogrel 75 mg Oral tab 1 tab nightly [Active]; Lantus Sub-Q 30 unit nightly [Active]; memantine 10 mg Oral tab 1 tab twice a day [Active]; rivastigmine tartrate 4.5 mg Oral cap 1 cap twice a day [Active]; 23:20 fludrocortisone 0.1 mg oral tab 1 tab once daily for To increase blood pressure vc1 [Active]; - PMHx: 20:00 CVA in 2018; Dementia; Diabetes - IDDM; Hypertension; as6 - Immunization history:: Client reports receiving the 2nd dose of the Covid vaccine. - Social history:: Smoking status: unknown. Screenin:06 Abuse screen: Denies threats or abuse. Denies injuries from another. Nutritional as6 screening: No deficits noted. Tuberculosis screening: No symptoms or risk factors identified. Fall Risk Fall in past 12 months (25 points). Secondary diagnosis (15 points) CVA, IV access (20 points). Mental Status- Overestimates/Forgets Limitations (15 pts.). Total Lanier Fall Scale indicates High Risk Score (45 or more points). Fall prevention measures have been instituted. Side Rails Up X 2 Placed Close to Nursing Station Frequent Obs/Assessments Occuring Family Present and informed to notify staff if the need to leave the bedside As available patient and family educated on Fall Prevention Program and Strategies. Assessment: 20:54 General: Appears in no apparent distress. comfortable, Behavior is calm, cooperative, ld1 appropriate for age, anxious. Pain: Denies pain. Neuro: Level of Consciousness is awake, alert, obeys commands, Oriented to person. Cardiovascular: Capillary refill < 3 seconds Patient's skin is warm and dry. Rhythm is sinus rhythm. Respiratory: Airway is patent Respiratory effort is even, unlabored. GI: Abdomen is flat, non-distended. : No signs and/or symptoms were reported regarding the genitourinary system. EENT: No signs and/or symptoms were reported regarding the EENT system. Derm: No signs and/or symptoms reported regarding the dermatologic system. Musculoskeletal: No signs and/or symptoms reported regarding the musculoskeletal system. 23:00 Reassessment: Patient and/or family updated on plan of care and expected duration. Pain vc1 level reassessed. Patient denies pain at this time. 01/13 00:27 Reassessment: Patient and/or family updated on plan of care and expected duration. Pain vc1 level reassessed. General: Appears in no apparent distress. comfortable, Behavior is calm, cooperative, appropriate for age. Cardiovascular: No deficits noted. Respiratory: No deficits noted. 00:29 Reassessment: Patient transferred by [facility]. Left forearm IV patent. vc1 Vital Signs: 01/12 19:55 BP 177 / 69; Pulse 60; Resp 17 S; Temp 98.2(A); Pulse Ox 97% on R/A; Weight 79.38 kg; as6 Height 5 ft. 11 in. (180.34 cm); Pain 0/10; 20:59 BP 173 / 72; Pulse 62; Resp 18; Pulse Ox 99% on R/A; ld1 21:30 BP 158 / 70; Pulse 63; Resp 20; Pulse Ox 100% on R/A; ld1 22:19 BP 140 / 58; Pulse 57; Resp 14; Pulse Ox 100% on R/A; ld1 23:30 BP 153 / 66; Pulse 56; Resp 16 S; Pulse Ox 97% on R/A; as6 01/13 00:20 BP 158 / 52; Pulse 58; Resp 18 S; Pulse Ox 96% on R/A; as6 01/12 19:55 Body Mass Index 24.41 (79.38 kg, 180.34 cm) as6 ED Course: 01/12 19:55 Patient arrived in ED. as6 19:57 Robert Barber PA is PHCP. jr8 19:57 Noah Carlson MD is Attending Physician. jr8 20:00 Triage completed. as6 20:03 Arm band placed on. as6 20:04 Ricardo Elliott, DIXON is Primary Nurse. as6 20:21 Placed in gown. Bed in low position. Call light in reach. Side rails up X2. Cardiac as6 monitor on. Pulse ox on. NIBP on. Warm blanket given. Pillow given. 20:25 Basic Metabolic Panel Sent. as6 20:25 CBC with Diff Sent. as6 20:25 LFT's Sent. as6 20:25 Magnesium Sent. as6 20:25 NT PRO-BNP Sent. as6 20:25 PT-INR Sent. as6 20:25 Troponin HS Sent. as6 20:37 CT Head C Spine In Process Unspecified. EDMS 20:54 No provider procedures requiring assistance completed. Maintain EMS IV. Dressing ld1 intact. Good blood return noted. Site clean \\T\\ dry. Gauge \\T\\ site: 22G RAC. 21:04 XRAY Chest (1 view) In Process Unspecified. EDMS 21:04 XRAY Pelvis In Process Unspecified. EDMS 21:09 COVID-19 SARS RT PCR (Document "Date of Onset" if Symptomatic) Sent. ld1 21:09 Type And Screen Sent. ld1 21:45 IV was discontinued by the patient. ld1 21:45 Inserted saline lock: 20 gauge in left forearm, using aseptic technique. ld1 01/13 00:29 Patient transferred, IV remains in place. vc1 Administered Medications: No medications were administered Outcome: 01/12 21:09 ER care complete, transfer ordered by MD. james 01/13 00:28 Transferred by ground EMS to [facility], Transfer form completed. vc1 Condition: good Instructed on the need for transfer. 00:33 Patient left the ED. as6 Signatures: Dispatcher [employer] EDRobert Barba PA PA jr8 Jazmine Martinez RN RN ld1 Ricardo Elliott RN RN as6 Mariana Cordova RN RN vc1 Corrections: (The following items were deleted from the chart) 01/12 22:17 22:17 IV was discontinued by the patient. ld1 ld1
--- NOTE | 2022-01-12 21:09 | EDPHYS ---
Physician Documentation [facility] Name: Darwin Hand Age: 76 yrs Sex: Male : 1945 Arrival Date: 01/12/2022 Time: 19:55 Bed 7 Private MD: ED Physician Noah Carlson HPI: 01/12 20:58 This 76 yrs old Male presents to ER via EMS with complaints of fall. jr8 20:58 Severity of symptoms: At their worst the symptoms were moderate, in the emergency jr8 department the symptoms are unchanged. It is unknown whether or not the patient has had similar symptoms in the past. This is a 76-year-old male patient who presented to the emergency room via EMS after family called for multiple falls over the last few days. Last fall being 2 days ago. Family became concerned because he was having trouble ambulating at that point. Family stated that he has had a history of head bleeds in the past. Also with history of dementia so has been hard to figure out what is new and what is progression of his chronic disease process. Requested further evaluation from emergency department at that time.. Historical: - Allergies: 20:00 Sulfa (Sulfonamide Antibiotics); as6 - Home Meds: 20:00 folic acid 1 mg Oral tab 1 tab once daily [Active]; metformin 850 mg Oral tab 1 tab as6 daily [Active]; atorvastatin 80 mg Oral tab 1 tab nightly [Active]; fluoxetine 20 mg Oral cap 1 cap nightly [Active]; clopidogrel 75 mg Oral tab 1 tab nightly [Active]; Lantus Sub-Q 30 unit nightly [Active]; memantine 10 mg Oral tab 1 tab twice a day [Active]; rivastigmine tartrate 4.5 mg Oral cap 1 cap twice a day [Active]; 23:20 fludrocortisone 0.1 mg oral tab 1 tab once daily for To increase blood pressure vc1 [Active]; - PMHx: 20:00 CVA in 2018; Dementia; Diabetes - IDDM; Hypertension; as6 - Immunization history:: Client reports receiving the 2nd dose of the Covid vaccine. - Social history:: Smoking status: unknown. ROS: 20:58 Unable to obtain ROS due to baseline dementia. jr8 Exam: 20:58 Eyes: Pupils equal round and reactive to light, extra-ocular motions intact. Lids and jr8 lashes normal. Conjunctiva and sclera are non-icteric and not injected. Cornea within normal limits. Periorbital areas with no swelling, redness, or edema. ENT: Nares patent. No nasal discharge, no septal abnormalities noted. Tympanic membranes are normal and external auditory canals are clear. Oropharynx with no redness, swelling, or masses, exudates, or evidence of obstruction, uvula midline. Mucous membranes moist. Neck: Trachea midline, no thyromegaly or masses palpated, and no cervical lymphadenopathy. Supple, full range of motion without nuchal rigidity, or vertebral point tenderness. No Meningismus. Chest/axilla: Normal chest wall appearance and motion. Nontender with no deformity. No lesions are appreciated. Cardiovascular: Regular rate and rhythm with a normal S1 and S2. No gallops, murmurs, or rubs. Normal PMI, no JVD. No pulse deficits. Respiratory: Lungs have equal breath sounds bilaterally, clear to auscultation and percussion. No rales, rhonchi or wheezes noted. No increased work of breathing, no retractions or nasal flaring. 20:58 MS/ Extremity: Pulses equal, no cyanosis. Neurovascular intact. Full, normal range of motion. 20:58 Head/face: Noted is ecchymosis, that is mild, of the forehead. 20:58 Abdomen/GI: Inspection: bruising, right upper quadrant and left upper quadrant, Bowel sounds: active, all quadrants, Palpation: abdomen is soft and non-tender, in all quadrants, Liver: tenderness, is not appreciated. 20:58 Back: Exam negative for pain at rest, painful ROM, vertebral tenderness. 20:58 Neuro: Orientation: to person, Mentation: able to follow commands, slow to respond, Motor: moves all fours, Sensation: no obvious gross deficits, seizure activity, is not displayed by the patient, Abnormal movements: there are no abnormal movements. Vital Signs: 19:55 BP 177 / 69; Pulse 60; Resp 17 S; Temp 98.2(A); Pulse Ox 97% on R/A; Weight 79.38 kg; as6 Height 5 ft. 11 in. (180.34 cm); Pain 0/10; 20:59 BP 173 / 72; Pulse 62; Resp 18; Pulse Ox 99% on R/A; ld1 21:30 BP 158 / 70; Pulse 63; Resp 20; Pulse Ox 100% on R/A; ld1 22:19 BP 140 / 58; Pulse 57; Resp 14; Pulse Ox 100% on R/A; ld1 23:30 BP 153 / 66; Pulse 56; Resp 16 S; Pulse Ox 97% on R/A; as6 01/13 00:20 BP 158 / 52; Pulse 58; Resp 18 S; Pulse Ox 96% on R/A; 6 01/12 19:55 Body Mass Index 24.41 (79.38 kg, 180.34 cm) as6 MDM: 01/12 19:57 Patient medically screened. jr8 20:58 Data reviewed: vital signs, nurses notes, lab test result(s), EKG, radiologic studies, [facility] CT scan, plain films. Data interpreted: Pulse oximetry: on room air is 99 %. Interpretation: normal. Counseling: I had a detailed discussion with the patient and/or guardian regarding: the historical points, exam findings, and any diagnostic results supporting the discharge/admit diagnosis, lab results, radiology results, the need to transfer to another facility, [facility] does not immediately have the required specialist. 21:08 ED course: Spoke with [facility] who accepted for traumatic head bleed. 01/12 20:13 Order name: Basic Metabolic Panel; Complete Time: 21:16 [facility] 01/12 20:13 Order name: CBC with Diff; Complete Time: 20:38 [facility] 01/12 20:13 Order name: LFT's; Complete Time: 21:16 01/12 20:13 Order name: Magnesium; Complete Time: 21:16 01/12 20:13 Order name: NT PRO-BNP; Complete Time: 21:16 [facility] 01/12 20:13 Order name: PT-INR; Complete Time: 20:38 01/12 20:13 Order name: Troponin HS; Complete Time: 21:16 01/12 20:13 Order name: XRAY Chest (1 view); Complete Time: 22:46 01/12 20:13 Order name: XRAY Pelvis; Complete Time: 22:48 [facility] 01/12 20:58 Order name: Type And Screen; Complete Time: 22:39 [facility] 01/12 21:00 Order name: COVID-19 SARS RT PCR (Document "Date of Onset" if Symptomatic) la1 01/12 21:01 Order name: SARS-COV-2 RT PCR; Complete Time: 22:39 EDPR 01/13 00:20 Order name: ABO/RH no charge EDPR 01/12 20:13 Order name: EKG; Complete Time: 20:14 [facility] 01/12 20:13 Order name: Cardiac monitoring; Complete Time: 20:13 [facility] 01/12 20:13 Order name: EKG - Nurse/Tech; Complete Time: 20:24 jr8 01/12 20:13 Order name: IV Saline Lock; Complete Time: 20:13 [facility] 01/12 20:13 Order name: Labs collected and sent; Complete Time: 20:24 [facility] 01/12 20:13 Order name: O2 Per Protocol; Complete Time: 20:13 8 01/12 20:13 Order name: O2 Sat Monitoring; Complete Time: 20:13 [facility] 01/12 20:13 Order name: CT Head C Spine; Complete Time: 21:16 jr8 Administered Medications: No medications were administered Disposition Summary: 01/12/22 21:09 Transfer Ordered Transfer Location: [facility] jr8 Reason: Higher level of care jr8 Condition: Stable jr8 Problem: new jr8 Symptoms: are unchanged jr8 Accepting Physician: Dr. Doherty(01/13/22 00:33) as6 Diagnosis - Traumatic subdural hemorrhage jr8 Forms: - Medication Reconciliation Form jr8 - SBAR form jr8 Signatures: Dispatcher [employer] EDPR Robert Barber PA PA jr8 Felton Garcia, WIND FARM DESIGNER-C [employer] DESIGNER-Cla1 Ricardo Elliott RN RN as6 Mariana Cordova RN RN vc1 Corrections: (The following items were deleted from the chart) 01/13 00:33 01/12 21:09 Dr. Doherty jr8 as6
--- NOTE | 2022-01-12 22:45 | RAD REPORT ---
EXAM DESCRIPTION: RAD - Chest Single View - 01/12/2022 9:04 pm CLINICAL HISTORY: CHEST PAIN COMPARISON: Portable 12/09/2021 TECHNIQUE: AP portable chest image was obtained 01/12/2022 9:04 pm . FINDINGS: Lung volumes are low. Hazy retrocardiac opacification is present probably low lung volume atelectasis. Left base infectious or aspiration pneumonia would be possible. No significant failure o r volume overload. Heart and vasculature are normal. No measurable pleural effusion and no pneumothorax. No acute bony abnormality seen. No acute aortic findings suspected. IMPRESSION: Left base low lung volume atelectasis versus infiltrate.
--- NOTE | 2022-01-12 22:45 | RAD REPORT ---
EXAM DESCRIPTION: RAD - Pelvis - 01/12/2022 9:06 pm CLINICAL HISTORY: TRAUMA COMPARISON: No comparisons TECHNIQUE: AP imaging of the pelvis was obtained. FINDINGS: Lower lumbar degenerative changes are present only partially imaged. Sacral ala are grossl y normal but partially obscured by bowel content. Mild SI joint degenerative change present. No fracture of the pelvis. No fracture or acute proximal femur finding. No significant hip joint dege nerative change. IMPRESSION: No acute pelvic finding.
[2022-01-13 00:45] VITALS: TEMP 98.2
[2022-01-13 00:55] VITALS: BP 158/52; O2SAT 96
== END 2022-01-13 00:33 | disposition short-term general hospital (02) ==
LOC: ER 19:53
DX: S06.5X0A Traumatic subdural hemorrhage without loss of consciousness, initial encounter (principal); W19.XXXA Unspecified fall, initial encounter; I10 Essential (primary) hypertension; E11.9 Type 2 diabetes mellitus without complications; F03.90 Unspecified dementia, unspecified severity, without behavioral disturbance, psychotic disturbance, mood disturbance, and anxiety; Z86.73 Personal history of transient ischemic attack (TIA), and cerebral infarction without residual deficits; Z79.4 Long term (current) use of insulin; Z88.2 Allergy status to sulfonamides; Z20.822 Contact with and (suspected) exposure to COVID-19
CPT/HCPCS: 93005; 85025; 80048; 36415; 86900; 83735; 86850; 85610; 86901; 80076; 84484; 83880; 70450; 72125; 71045; 72170; 99285; U0003